=== PATIENT | male | born 1965 ===

== ENCOUNTER 2020-06-13 08:43 | Outpatient (REF) | payer OTHER, SELFPAY | END 2020-06-13 08:44 | disposition home or self-care (01) | LOC: HO.LAB 08:43 | PROVIDERS: Visit Provider Internal Medicine | DX: Z20.828 Contact with and (suspected) exposure to other viral communicable diseases (principal) | CPT/HCPCS: 87635 ==

== ENCOUNTER 2020-07-10 09:28 | Outpatient (REF) | payer OTHER, SELFPAY | END 2020-07-10 09:29 | disposition home or self-care (01) | LOC: HO.LAB 09:28 | PROVIDERS: Visit Provider Internal Medicine | DX: Z20.828 Contact with and (suspected) exposure to other viral communicable diseases (principal) | CPT/HCPCS: C9803; U0003 ==

== ENCOUNTER → 2021-01-04 11:26 | Outpatient (BNVA) | payer OTHER, SELFPAY | PROVIDERS: Visit Provider Internal Medicine | DX: M54.2 Cervicalgia (principal); S16.1XXA Strain of muscle, fascia and tendon at neck level, initial encounter; X58.XXXA Exposure to other specified factors, initial encounter; R51.9 Headache, unspecified | CPT/HCPCS: 72050; 99203 ==

== ENCOUNTER 2021-01-04 13:29 | Emergency (ER) | payer OTHER, SELFPAY ==
[2021-01-04 13:41] VITALS: BP 132/79; PULSE 47; RESP 18; TEMP 36.1; O2SAT 99; BMI 19.2
--- NOTE | 2021-01-04 14:59 | ED.NECK ---
HPI - Neck Pain/Injury General Chief Complaint: Neck Pain/Injury Stated Complaint: severe headache and neck pain Time Seen by Provider: 01/04/21 14:16 Source: patient Mode of arrival: ambulatory Limitations: no limitations History of Present Illness HPI Narrative: 55 y/o male with no significant medical history presents to the ER from [facility] with right sided neck pain for the last 3 days. He denies known injury. He works for the [employer]. He states the pain is aching and it feels like a tightness in his muscle. It is worse with movement of his neck in any direction. It causes him to have a headache that is also worse with movement. No photophobia, light sensitivity, fever, chills, N/V, vision changes, weakness, numbness or tingling. He had a recent negative x-ray of his neck. MD complaint: neck pain Onset (ago): day(s) (3) Place: work Radiation: right lateral Severity: moderate Quality: spasming and throbbing Duration: constant Relieving factors: immobilization Exacerbating factors: movement of neck Associated symptoms: headache Treatments prior to arrival: none Related Data Previous Rx's Medication Instructions Recorded cyclobenzaprine 10 mg PO TID PRN #12 tab 01/04/21 ibuprofen 600 mg PO Q8H PRN #14 tab 01/04/21 lidocaine [Lidoderm] 1 patch TOPICAL DAILY #15 ea 01/04/21 Allergies Allergy/AdvReac Type Severity Reaction Status Date / Time pollen extracts [POLLEN] Allergy Unknown RUNNY NOSE Unverified 05/03/20 15:42 SNEEZING mold Allergy Unknown Uncoded 10/26/18 00:00 N.K.D.A. Allergy Unknown Uncoded 10/26/15 00:00 pollen Allergy Unknown Uncoded 10/26/18 00:00 Review of Systems Review of Systems: Constitutional: No Fever, No Chills Eyes: No Eye Pain, No Swelling, No Redness Cardiovascular: No Chest Pain, No SOB Respiratory: No Cough, No Sputum Gastrointestinal: No Nausea, No Vomiting, No Diarrhea, No abdominal Pain Genitourinary: No Dysuria, No Urinary Frequency, No Hematuria Musculoskeletal: No joint pain, + Myalgias Skin: No Skin Lesions, No rash Neuro: No Weakness, No Numbness, No Dizziness, + Headache Psych: No Anxiety/Panic, No Depression Heme/Lymph: No Bruising, No Lymphadenopathy [facility] Past Medical History Attestation statement: The following information was validated with the patient. Medical History Carpal tunnel syndrome of right wrist Social History Social History Advance Directives: Yes Advance Directives Information Provided: No Advance Directives on File: No Physical Exam Vital Signs: Vital Signs: Last Vital Signs Temp 97.0 F 01/04/21 13:41 Pulse 47 L 01/04/21 13:41 Resp 18 01/04/21 13:41 BP 132/79 01/04/21 13:41 Pulse Ox 99 01/04/21 13:41 Body Mass Index 19.2 Appearance: Alert. Oriented X3. No acute distress. Eyes: Pupils equal, round and reactive to light. EOMI, no nystamguc. ENT: Pharynx normal. Neck: Normal inspection. Neck supple. No nuchal rigidity. Tender posterior-laterally on the right side with soft tissue tenderness. Discomfort with rotation to the left and flexion and extension of the neck. CVS: Normal heart rate and rhythm. Pulses normal. Respiratory: No respiratory distress. Breath sounds normal. Abdomen: Soft and nontender. +BS x4 Skin: Skin warm and dry. Normal skin color. Normal skin turgor. No rashes. Extremities: No lower extremity edema. Neuro: Oriented X 3. No motor deficit. No sensory deficit. Steady gait. Course Course Course Narrative: 55 y/o male presenting with non-traumatic right sided neck pain and headache for the last 3 days. Worse with movement and palpation. No fever or chills. Non-toxic appearing. Doubt acute meningitis given patient's presentation and examination. He appears well. Will treat for muscular pain with NSAID and muscle relaxer and reassess. No indication for lumbar puncture at this time. Reevaluation(s) Reevaluation #1: Patient sleeping comfortable. When awoken he reports his pain is improved. Continues to have no fevers or nuchal rigidity. He is stable for discharge with treatment for acute cervical strain. Patient and have been counseled and they will return if patient has worsening symptoms. Discharge Plan Discharge Clinical Impression: Strain of neck muscle Qualifiers: Encounter type: initial encounter Qualified Code(s): S16.1XXA - Strain of muscle, fascia and tendon at neck level, initial encounter Patient Disposition: Home, Self-Care Instructions: Cervical Strain (ED), Neck Pain (ED) Additional Instructions: No bending, lifting or twisting. Use ice several times per day for 20 minutes at a time for the next 48 hours and then change to heat. Take medications as prescribed to help with pain and discomfort. Follow up with your Primary Care Doctor this week. If your pain worsens, if you develop new numbness, tingling, weakness, sensitivity to light or fever call 911 or come back to the ER right away for evaluation. Prescriptions: New cyclobenzaprine 10 mg tablet 10 mg PO TID PRN (Reason: muscle spasm) Qty: 12 RF: 0 lidocaine [Lidoderm] 5 % adhesive patch,medicated 1 patch topical DAILY Qty: 15 RF: 0 ibuprofen 600 mg tablet 600 mg PO Q8H PRN (Reason: pain) Qty: 14 RF: 0 Stand Alone Forms: Work/School Release
[2021-01-04] MEDS: diazePAM 2 MG TABLET PO (15:17)
[2021-01-04] MEDS: Ketorolac Tromethamine 30 MG/ML VIAL IM (15:17)
== END 2021-01-04 17:42 | disposition home or self-care (01) ==
PROVIDERS: Emergency Provider Internal Medicine
DX: S16.1XXA Strain of muscle, fascia and tendon at neck level, initial encounter (principal); M54.2 Cervicalgia; R51.9 Headache, unspecified; X58.XXXA Exposure to other specified factors, initial encounter; Y93.9 Activity, unspecified; Y92.9 Unspecified place or not applicable; Y99.9 Unspecified external cause status; Z79.899 Other long term (current) drug therapy
CPT/HCPCS: 96372; 99283; J1885

== ENCOUNTER 2021-01-05 19:01 | Emergency (ER) | payer OTHER, SELFPAY ==
--- NOTE | ~2021-01-05 | CT_ITS ---
EXAMINATION: CT ANGIOGRAM NECK AND BRAIN CLINICAL INFORMATION: Right-sided pain, dizziness, ringing in ears COMPARISON: Noncontrast head CT 06/12/2015 TECHNIQUE: Initial noncontrast head CT was performed. Test bolus sequences followed by intravenous administration 70 mL of Omnipaque 350. Helical imaging was performed in the axial plane from the thoracic inlet to the skull vertex. Delayed postcontrast imaging of the head was also performed. The data was processed at the magnetic resonance technologist's workstation for generation of MIP sequences. Angled MIPs and volume rendered reformatted images were also generated at an offline 3D workstation. Stenoses are assessed in accordance with NASCET criteria unless otherwise indicated. DOSE LOWERING TECHNIQUES: This CT examination was performed using dose optimization techniques as appropriate, variously including the following: - Automated exposure control - Adjustment of mA and/or kV according to patient size (this includes techniques or standardized protocols for targeted exams were dose is matched to indication/reason for exam; i.e. extremities or head) - Use of iterative reconstruction technique DLP: 2492 mGy-cm FINDINGS: Neck CTA: There is a classic 3 vessel branching pattern of the aortic arch. Normal appearance of the visualized aortic arch and proximal branches. No evidence of stenosis at the branch origins. Both vertebral arteries are widely patent throughout their extracranial cervical course. Normal appearance of the common and internal carotid arteries without focal stenosis. Brain CTA: Normal appearance of the intradural vertebral arteries and basilar artery. There is origin of the left posterior cerebral artery. Bilateral posterior cerebral arteries appear patent. Normal appearance of the intradural internal carotid arteries without significant stenosis. The A1 segment of the left anterior cerebral artery appears atretic. Otherwise normal appearance of the anterior cerebral and middle cerebral arteries bilaterally without focal occlusion or stenosis. Normal anterior communicating artery. Normal arborization of the middle cerebral arteries. CT Head: Suboptimal assessment due to motion artifact. No intracranial mass, hemorrhage, extra-axial collection, or midline shift. The osorio-white matter differentiation is preserved. No pathologic intra-axial enhancement or regional oligemia. No hydrocephalus. There is partial opacification of the bilateral maxillary sinuses. The mastoid air cells are well-aerated. CT Neck: The thyroid gland and remaining cervical soft tissues are normal in appearance. No cervical spine abnormalities demonstrated. Upper Chest: No abnormalities in the visualized lung apices or upper mediastinum. CT/CT angio head neck IMPRESSION: 1. No acute intracranial findings. 2. No hemodynamically significant stenosis in the major arteries of the neck. No large vessel occlusion or significant stenosis in the intracranial circulation.
[2021-01-05 19:04] VITALS: BP 138/86; PULSE 60; RESP 20; TEMP 36.2; O2SAT 98; BMI 24.5
--- NOTE | 2021-01-05 19:46 | PC.NURSE ---
pt was seen here yesterday and pt prescribed flexeril, Motrin and lidoderm patches with no effect pt pain is cronic and worse.
--- NOTE | 2021-01-05 20:04 | ED_ITS ---
HPI - Neck Pain/Injury General Chief Complaint: Neck Pain/Injury Stated Complaint: Dizziness/Neck pain Time Seen by Provider: 01/05/21 19:53 Source: patient, family and old records reviewed Mode of arrival: ambulatory Limitations: no limitations History of Present Illness HPI Narrative: chronic neck pain but worsened over past 3 days now with headache and ringing in ear MD complaint: neck pain Onset (ago): day(s) (3) Place: home Radiation: right lateral Severity: severe Quality: sharp and stabbing Duration: constant Relieving factors: rest supine Exacerbating factors: movement of neck Associated symptoms: headache and other (dizziness, ringing in ear) Treatments prior to arrival: acetaminophen, ibuprofen and prescription analgesic Related Data Previous Rx's Medication Instructions Recorded cyclobenzaprine 10 mg PO TID PRN #12 tab 01/04/21 ibuprofen 600 mg PO Q8H PRN #14 tab 01/04/21 lidocaine [Lidoderm] 1 patch TOPICAL DAILY #15 ea 01/04/21 diazepam [Valium] 5 mg PO TID PRN #10 tab 01/06/21 prednisone 20 mg PO DAILY 5 Days #5 tab 01/06/21 Allergies Allergy/AdvReac Type Severity Reaction Status Date / Time pollen extracts [POLLEN] Allergy Unknown RUNNY NOSE Unverified 01/05/21 19:12 SNEEZING mold Allergy Unknown Runny Nose Uncoded 01/05/21 19:12 N.K.D.A. Allergy Unknown Unknown Uncoded 01/05/21 19:12 pollen Allergy Unknown Runny Nose Uncoded 01/05/21 19:12 Review of Systems Review of Systems: Constitutional : No Fever, No Chills ENT/Mouth : No Ear Pain, No Hoarseness, No sore throat, pos neck pain Eyes: No Eye Pain, No Swelling, No Redness, No Foreign Body Cardiovascular : No Chest Pain, No SOB Respiratory : No Cough, No Dyspnea Gastrointestinal : No Nausea, No Vomiting, No Diarrhea, No abdominal Pain Genitourinary : No Dysuria, No Hematuria Musculoskeletal : positive joint pain, No Myalgias, No Joint Swelling Skin : No Skin lacerations, No rash Neuro : No Weakness, No Numbness, No Loss of Consciousness, pos Dizziness, pos Headache Psych : No Anxiety/Panic, No Depression Heme/Lymph: no easy bruising, no Lymphadenopathy Endocrine : No Polyuria, No Polydipsia All other systems reviewed and are negative [facility] Past Medical History Attestation statement: The following information was validated with the patient. Medical History Carpal tunnel syndrome of right wrist Chronic neck pain Social History Social History (Updated 01/05/21 @ 20:10 by Jessica Martinez DO) Alcohol intake: never Smoking Status: Never smoker Advance Directives: No Advance Directives Information Provided: No Physical Exam Vital Signs: Vital Signs: Last Vital Signs Temp 98.4 F 01/06/21 00:18 Pulse 42 L 01/06/21 00:18 Resp 14 01/06/21 00:18 BP 121/70 01/06/21 00:18 Pulse Ox 98 01/06/21 00:18 Body Mass Index 24.5 Appearance: Alert. Oriented X3. No acute distress. Eyes: Pupils equal, round and reactive to light. ENT: Pharynx normal. Neck: R lateral neck ttp no spasms noted just pain to palpation CVS: Normal heart rate and rhythm. Pulses normal. Respiratory: No respiratory distress. Breath sounds normal. Abdomen: Soft and nontender. Skin: Skin warm and dry. Normal skin color. Normal skin turgor. Extremities: No lower extremity edema. No calf ttp Neuro: Oriented X 3. No motor deficit. No sensory deficit. Course Course Course Narrative: no acute findings, feels muhc better will add on steroids and prednisone MDM - Neck Pain/Injury MDM Narrative Medical decision making narrative: 55 yo male chronic neck pain no injury but worse x 4 days with ringing in ears and dizziness at this time given new symptoms of dizziness and headache CTA for dissection ordered, dispo per results and findings, IV morphine for pain Lab Data Result diagrams: 01/05/21 20:21 01/05/21 20:21 Labs: Lab Results 01/05/21 01/05/21 01/05/21 Range/Units 20: 20:21 20:21 WBC 5.6 (4.8-10.8) X10*3/uL RBC 4.65 (4.60-5.80) X10*6/uL Hgb 14.0 (14.0-18.0) g/dl Hct 42.3 (42-52) % MCV 91.0 (80-98) fL MCH 30.1 (27.0-33.0) pg MCHC 33.1 (31.0-36.0) g/dl RDW 13.0 (11.0-16.0) % Plt Count 212 (160-400) X10*3/uL MPV 11.2 (9.4-12.4) fL Immature Gran % (Auto) 0.2 (0.0-0.4) % Neut % (Auto) 58.9 (45-73) % Lymph % (Auto) 26.5 (20-40) % [place] % (Auto) 8.8 (2-11) % Eos % (Auto) 5.2 H (0-4) % Baso % (Auto) 0.4 (0-2) % Lymph # (Auto) 1.5 (1.2-4.9) X10*3/uL [place] # (Auto) 0.5 (0.1-1.2) X10*3/uL Eos # (Auto) 0.3 (0.0-0.4) X10*3/uL Baso # (Auto) 0.0 (0.0-0.2) X10*3/uL Abs Immat Gran (auto) 0.01 (0.00-0.03) X10*3/uL Absolute Neuts (auto) 3.3 (2.0-8.3) X10*3/uL Absolute Nucleated RBC 0.000 (0.0-0.012) X10*3/uL Nucleated RBC % (auto) 0.0 (0.0-0.2) /100WBC PT 14.4 H (10.8-13.0) SEC INR 1.2 H (0.9-1.1) APTT 30.2 (24.1-38.0) SEC Sodium 144 (135-145) mmol/L Potassium 3.6 (3.3-5.1) mmol/L Chloride 107 (96-108) mmol/L Carbon Dioxide 28 (22-29) mmol/L Anion Gap 13 (12-20) BUN 18 H (9-16) mg/dL Creatinine 0.79 (0.5-1.4) mg/dL Estim Creat Clear Calc 111.2 Estimated GFR > 60 Random Glucose 75 (60-115) mg/dL Calcium 9.2 (8.4-10.2) mg/dL Discharge Plan Discharge Clinical Impression: Strain of neck muscle Qualifiers: Encounter type: initial encounter Qualified Code(s): S16.1XXA - Strain of muscle, fascia and tendon at neck level, initial encounter Patient Disposition: Home, Self-Care Instructions: Acute Neck Pain (ED) Additional Instructions: return to ED for any worsening symptoms or concerns Prescriptions: New prednisone 20 mg tablet 20 mg PO DAILY 5 Days Qty: 5 RF: 0 diazepam [Valium] 5 mg tablet 5 mg PO TID PRN (Reason: muscle spasm) Qty: 10 RF: 0 No Action cyclobenzaprine 10 mg tablet 10 mg PO TID PRN (Reason: muscle spasm) Qty: 12 RF: 0 lidocaine [Lidoderm] 5 % adhesive patch,medicated 1 patch topical DAILY Qty: 15 RF: 0 ibuprofen 600 mg tablet 600 mg PO Q8H PRN (Reason: pain) Qty: 14 RF: 0 Referrals: Physician,Unknown [Primary Care Provider] - 3 days
[2021-01-05 20:29] LABS: MANUAL DIFF FLAG NO
[2021-01-05 20:31] LABS: Basophils Percent Auto 0.4 % (0-2); Eosinophils Absolute Auto 0.3 X10*3/uL (0.0-0.4); Eosinophils Percent Auto 5.2 % (0-4); Hematocrit 42.3 % (42-52); Imm Gran Abs Auto 0.01 X10*3/uL (0.00-0.03); Imm Gran Pct Auto 0.2 % (0.0-0.4); Lymphocytes Absolute Auto 1.5 X10*3/uL (1.2-4.9); Lymphocytes Percent Auto 26.5 % (20-40); Mean Corpuscular HGB Conc 33.1 g/dl (31.0-36.0); Mean Corpuscular Hemoglobin 30.1 pg (27.0-33.0); Mean Platelet Volume 11.2 fL (9.4-12.4); Monocytes Absolute Auto 0.5 X10*3/uL (0.1-1.2); Monocytes Percent Auto 8.8 % (2-11); Neutrophils Absolute Auto 3.3 X10*3/uL (2.0-8.3); Neutrophils Percent Auto 58.9 % (45-73); Platelet Count 212 X10*3/uL (160-400); Red Blood Count 4.65 X10*6/uL (4.60-5.80); White Blood Count 5.6 X10*3/uL (4.8-10.8)
[2021-01-05 20:39] LABS: INTERNATIONAL NORM RATIO 1.2 (0.9-1.1); Prothrombin Time 14.4 SEC (10.8-13.0)
[2021-01-05] MEDS: LORazepam 2 MG/ML VIAL 1 MG IVPUSH ×2 (20:39→23:07)
[2021-01-05 20:42] LABS: Partial Thromboplastin Time 30.2 SEC (24.1-38.0)
[2021-01-05 20:44] VITALS: RESP 16
[2021-01-05] MEDS: Morphine Sulfate 4 MG/ML CARTRIDGE IVPUSH (20:44)
[2021-01-05] MEDS: ondansetron HCL 4 MG/2 ML VIAL IVPUSH (20:47)
[2021-01-05 20:55] LABS: Anion Gap 13 (12-20); Blood Urea Nitrogen 18 mg/dL (9-16); Calcium 9.2 mg/dL (8.4-10.2); Carbon Dioxide 28 mmol/L (22-29); Chloride 107 mmol/L (96-108); Creatinine Clr Calc Pharmacy 111.2; Estimated Glomerular Filt Rate > 60; Glucose Random 75 mg/dL (60-115); Potassium 3.6 mmol/L (3.3-5.1); Sodium 144 mmol/L (135-145)
[2021-01-05 21:40] VITALS: BP 121/71; PULSE 50; RESP 16; O2SAT 97
[2021-01-05 23:09] VITALS: BP 115/67; PULSE 48; RESP 18; O2SAT 97
[2021-01-05] MEDS: iohexoL 350 MG/ML 100 ML INFUS..BTL 70 ML IV (23:45)
[2021-01-06 00:18] VITALS: BP 121/70; PULSE 42; RESP 14; TEMP 36.9; O2SAT 98
[2021-01-06 01:34] VITALS: BP 120/65; PULSE 50; RESP 15; O2SAT 98
== END 2021-01-06 01:35 | disposition home or self-care (01) ==
PROVIDERS: Emergency Provider Emergency Medicine
DX: S16.1XXA Strain of muscle, fascia and tendon at neck level, initial encounter (principal); X58.XXXA Exposure to other specified factors, initial encounter; R42 Dizziness and giddiness; H93.13 Tinnitus, bilateral; R51.9 Headache, unspecified; Y93.9 Activity, unspecified; Y92.9 Unspecified place or not applicable; Y99.9 Unspecified external cause status
CPT/HCPCS: 36415; 70496; 70498; 80048; 85025; 85610; 85730; 96374; 96375; 96376; 99284; J2060; J2270; J2405; Q9967

== ENCOUNTER 2021-08-28 15:25 | Emergency (ER) | payer OTHER, SELFPAY ==
--- NOTE | 2021-08-28 | ECG_ITS ---
Test Reason : chest pain Blood Pressure : / mmHG Vent. Rate : 065 BPM Atrial Rate : 065 BPM P-R Int : 142 ms QRS Dur : 086 ms QT Int : 380 ms P-R-T Axes : 052 011 055 degrees QTc Int : 395 ms Normal sinus rhythm Normal ECG When compared with ECG of 16-MAY-2012 23:16, No significant change was found Referred By: Generic ED Physician Electronically Signed By:TERELL ANN
--- NOTE | ~2021-08-28 | XR_ITS ---
EXAMINATION: XR CHEST CLINICAL INFORMATION: Chest pressure and difficulty breathing. COMPARISON: Chest radiograph dated from 05/18/2013. TECHNIQUE: PA view of the chest was obtained. FINDINGS: Chronic asymmetric elevation of left hemidiaphragm. No focal airspace opacities, pleural effusions or pneumothorax. Mild biapical pleural thickening/scarring. No acute osseous abnormalities. Visualized upper abdomen within normal limits. XR/XR chest 1V IMPRESSION: No acute cardiopulmonary findings.
[2021-08-28 16:24] VITALS: BP 142/92; PULSE 56; RESP 18; TEMP 36.7; O2SAT 98; BMI 24.8
[2021-08-28 20:15] VITALS: BP 154/93; PULSE 54; RESP 16; O2SAT 100
--- NOTE | 2021-08-28 20:26 | ED.URI ---
HPI - URI/Sore Throat General Chief Complaint: Upper Respiratory Symptoms Stated Complaint: chest tightness cough Source: patient Mode of arrival: ambulatory Limitations: no limitations History of Present Illness HPI Narrative: 55-year-old male presents with midsternal chest pain while breathing, upper back pain with cough, tested COVID positive at the end of July and for 2nd time in August. Patient has been vaccinated. MD elicited complaint: cough and nasal congestion Onset (ago): week(s) Consistency: intermittent Severity: moderate Description of mucous: clear Able to tolerate fluids by mouth: Yes Exacerbating factors: exertion, deep breaths and other (Coughing) Relieving factors: rest Context: other (Positive COVID-19) Associated symptoms: rhinorrhea, nasal congestion, cough and chest pain Treatments prior to arrival: none Related Data Previous Rx's Medication Instructions Recorded cyclobenzaprine 10 mg tablet 10 mg PO TID PRN #12 tab 01/04/21 ibuprofen 600 mg tablet 600 mg PO Q8H PRN #14 tab 01/04/21 lidocaine 5 % topical patch 1 patch TOPICAL DAILY #15 ea 01/04/21 (Lidoderm) diazepam 5 mg tablet (Valium) 5 mg PO TID PRN #10 tab 01/06/21 prednisone 20 mg tablet 20 mg PO DAILY 5 Days #5 tab 01/06/21 benzonatate 200 mg capsule 200 mg PO TID PRN #20 cap 08/28/21 tramadol 50 mg tablet 50 mg PO Q8H PRN #7 tab 08/28/21 Allergies Allergy/AdvReac Type Severity Reaction Status Date / Time pollen extracts [POLLEN] Allergy Unknown RUNNY NOSE Verified 08/28/21 16:24 SNEEZING mold Allergy Unknown Runny Nose Uncoded 01/05/21 19:12 N.K.D.A. Allergy Unknown Unknown Uncoded 01/05/21 19:12 pollen Allergy Unknown Runny Nose Uncoded 01/05/21 19:12 Review of Systems Review of Systems: Constitutional: No Fever, No Chills ENT/Mouth: No Ear Pain, No Hoarseness, No sore throat Eyes: No Eye Pain, No Swelling, No Redness, No Foreign Body Cardiovascular: Positive Chest Pain, No SOB Respiratory: Positive Cough, No Dyspnea Gastrointestinal: No Nausea, No Vomiting, No Diarrhea, No abdominal Pain Genitourinary: No Dysuria, No Hematuria Musculoskeletal: positive right chest wall pain, No Myalgias, No Joint Swelling Skin: No Skin lacerations, No rash Neuro: No Weakness, No Numbness, No Paresthesias, No Loss of Consciousness, No Dizziness, No Headache Psych: No Anxiety/Panic, No Depression Heme/Lymph: no easy bruising, no Lymphadenopathy Endocrine: No Polyuria, No Polydipsia Yes all other systems are reviewed and are negative [facility] Past Medical History Attestation statement: The following information was validated with the patient. Source: old records reviewed Medical History (Updated 08/28/21 @ 20:36 by Astrid Villalba NP) Anxiety Carpal tunnel syndrome of right wrist Chronic neck pain COVID-19 Depression Social History Social History Alcohol intake: never Advance Directives: No Advance Directives Information Provided: No Physical Exam Vital Signs: Vital Signs: Last Vital Signs Temp 98.0 F 08/28/21 16:24 Pulse 54 08/28/21 20:15 Resp 16 08/28/21 20:15 BP 154/93 H 08/28/21 20:15 Pulse Ox 100 08/28/21 20:15 BMI result Body Mass Index 24.8 Appearance: Alert. Oriented X3. No acute distress. Eyes: Pupils equal, round and reactive to light. Sclera nonicteric. ENT: Pharynx normal. Moist mucous membranes. Neck: Normal inspection. Neck supple. No nuchal rigidity. No vertebral step-offs or tenderness noted. CVS: Normal heart rate and rhythm. Pulses normal. Chest wall tenderness to palpation, reproducible. Respiratory: No respiratory distress. Lung sounds clear to auscultation all lobes. Abdomen: Soft and nontender. Negative Easley and McBurney. Skin: Skin warm and dry. Normal skin color. Normal skin turgor. Extremities: No lower extremity edema. Gait well-balanced well coordinated. Neuro: No motor deficit. No sensory deficit. Cranial nerves 2-12 intact. Course Course Course Narrative: 55-year-old male presents with reproducible chest pain pain on inspiration to the right chest wall upper back pain on exertion and cough. Patient has been testing positive for COVID since the end of July, and on August 22. Patient is afebrile, appears nontoxic, even unlabored respirations, O2 sat 100% on room air. No acute distress. Chest x-rays negative for acute findings requiring emergent intervention. EKG is normal sinus. Most likely costochondritis versus occult rib fracture. Plan of care is to discharge home with supportive measures. Patient verbalized understanding of and agrees to plan of care discharge home. Understands signs and symptoms indicating need for emergent intervention. MDM - URI/Sore Throat MDM Narrative Medical decision making narrative: Costochondritis, rib fracture Differential Diagnosis Differential diagnosis: Likely upper respiratory infection, viral infection, bronchitis, influenza and pharyngitis Medical Records Attestation: I reviewed the patient's medical records. Lab Data Attestation: I reviewed the patient's lab results. Imaging Data Chest x-ray: Attestation: I personally reviewed and interpreted this imaging study as follows: Radiologist's impression: EXAMINATION: XR CHEST CLINICAL INFORMATION: Chest pressure and difficulty breathing. COMPARISON: Chest radiograph dated from 05/18/2013. TECHNIQUE: PA view of the chest was obtained. FINDINGS: Chronic asymmetric elevation of left hemidiaphragm. No focal airspace opacities, pleural effusions or pneumothorax. Mild biapical pleural thickening/scarring. No acute osseous abnormalities. Visualized upper abdomen within normal limits. XR/XR chest 1V IMPRESSION: No acute cardiopulmonary findings. ECG Data Attestation: I personally reviewed and interpreted this ECG as follows: ECG interpretation date: 08/28/21 ECG interpretation time: 15:36 Prior ECG tracings: available for review Interpretation: Vent. rate 65 BPM WV interval 142 ms QRS duration 86 ms QT/QTc 380/395 ms P-R-T axes 52 11 55 Normal sinus rhythm Normal ECG When compared with ECG of 16-MAY-2012 23:16, No significant change was found Discharge Plan Discharge Clinical Impression: COVID-19, Non-cardiac chest pain, Acute costochondritis, Fracture of rib due to cough Fracture of rib Qualifiers: Encounter type: initial encounter Rib fracture type: single rib Fracture type: closed Laterality: right Qualified Code(s): S22.31XA - Fracture of one rib, right side, initial encounter for closed fracture Patient Disposition: Home, Self-Care Instructions: Covid-19 Viral Syndrome and Novel Coronavirus (ED) Hey/Ath, Rib Fracture (ED), Costochondritis (ED), Noncardiac Chest Pain (ED), COVID-19 (Coronavirus Disease 2019) (ED) Additional Instructions: You were evaluated for symptoms related to COVID-19. You still have active symptoms and cannot return back to work. Your chest x-ray is negative for acute findings requiring emergent intervention. Your physical exam is suspicious for rib fracture and costochondritis. I prescribed tramadol, this medication is a narcotic and has high risk for addiction and abuse. Please do not drive or operate machinery while taking this medication. This medication can delay reaction time, cause drowsiness, falls, and cause constipation. Drink plenty of fluids while taking this medication. You must continue to follow-up with primary care physician for further care. Use Tessalon Perles as needed for cough. Maintain social isolation per State and Federal guidelines. Thank you for choosing this emergency department for evaluation. Please follow-up with primary care physician as needed. Return to the emergency department for any new, concerning, or worsening symptoms. Prescriptions: New tramadol 50 mg tablet 50 mg PO Q8H PRN (Reason: pain) Qty: 7 RF: 0 benzonatate 200 mg capsule 200 mg PO TID PRN (Reason: cough) Qty: 20 RF: 0 No Action prednisone 20 mg tablet 20 mg PO DAILY 5 Days Qty: 5 RF: 0 diazepam [Valium] 5 mg tablet 5 mg PO TID PRN (Reason: muscle spasm) Qty: 10 RF: 0 cyclobenzaprine 10 mg tablet 10 mg PO TID PRN (Reason: muscle spasm) Qty: 12 RF: 0 lidocaine [Lidoderm] 5 % adhesive patch,medicated 1 patch topical DAILY Qty: 15 RF: 0 ibuprofen 600 mg tablet 600 mg PO Q8H PRN (Reason: pain) Qty: 14 RF: 0 Interventions: ED Discharge Assessment Last Done: 08/28/21 21:32 Discharge Date/Time: 08/28/21 21:34
== END 2021-08-28 21:34 | disposition home or self-care (01) ==
PROVIDERS: Emergency Provider Internal Medicine; PCP Internal Medicine
DX: U07.1 COVID-19 (principal); R07.89 Other chest pain; M94.0 Chondrocostal junction syndrome [Tietze]; S22.31XA Fracture of one rib, right side, initial encounter for closed fracture; X58.XXXA Exposure to other specified factors, initial encounter; Y93.89 Activity, other specified; Y92.9 Unspecified place or not applicable; Y99.9 Unspecified external cause status
CPT/HCPCS: 71045; 93005; 99283; 99284

== ENCOUNTER 2024-05-04 15:13 | Outpatient (AMB) | payer OTHER, SELFPAY ==
--- NOTE | 2024-05-04 15:15 | MHC.OFFVIS ---
Vital Signs 05/04/24 15:17 Height 5 ft 11 in Intake Visit Reasons: Lipomas on lft nondominant arm and chest wall Intake Note: This patient presents for Lipomas on left nondominant arm and chest wall. Pt c/o; reports multiple lipoma, left am and chest wall. Rn Progressive Care Unit Required: No Accompanied by: Self / Same As Patient Allergies pollen extracts [POLLEN] Allergy (Unknown, Verified 05/04/24 15:16) RUNNY NOSE SNEEZING mold Allergy (Unknown, Uncoded 05/04/24 15:16) Runny Nose N.K.D.A. Allergy (Unknown, Uncoded 05/04/24 15:16) Unknown pollen Allergy (Unknown, Uncoded 05/04/24 15:16) Runny Nose Medication List - Last Reconciled 05/04/24 by Eric Bazzi MD benzonatate 200 mg PO TID PRN cyclobenzaprine 10 mg PO TID PRN diazepam (Valium) 5 mg PO TID PRN ibuprofen 600 mg PO Q8H PRN lidocaine 5% (Lidoderm) 1 patch topical DAILY prednisone 20 mg PO DAILY 5 days tramadol 50 mg PO Q8H PRN HPI HPI Lipomas on lft nondominant arm and chest wall: Details: 58-year-old female referred for a lipoma on the left arm as well as the epigastric area. He said that he has had this for several years. He says that the left arm lipoma is the 1 that particularly bothers him because of the size. He describes that the lipoma on the epigastric area is much smaller. [facility] Medical History (Updated 05/04/24 @ 15:31 by Eric Bazzi MD) Lipoma of arm Anxiety Depression COVID-19 Chronic neck pain Carpal tunnel syndrome of right wrist Social History Alcohol intake: never Review of Systems Const Denies chills and Denies fever(s) Card Denies chest pain, Denies dyspnea and Denies dyspnea on exertion Resp Denies cough, Denies dyspnea and Denies dyspnea on exertion GI Denies hematochezia and Denies change in bowel habits Denies hematuria and Denies difficulty urinating Musc Denies back pain and Denies limited range of motion Neuro Denies focal weakness and Denies convulsions Psych Denies depression and Denies mood swings Physical Exam Const General: comfortable and no acute distress Orientation/consciousness: patient oriented x3 Neck Neck: Yes no lymphadenopathy Resp Auscultation: clear to auscultation bilaterally Cardio Rhythm: regular rhythm GI Other: I am unable to palpate for the lipoma and the epigastric area Palpation (GI): Soft to palpation, nontender and no guarding Neuro General: patient oriented x3 Extrem Other: Lipomatous mass on the left upper arm, well-defined, about 1.8 cm in diameter, mobile Assessment & Plan Assessment & Plan (1) Lipoma of arm: Code(s): D17.20 - Benign lipomatous neoplasm of skin and subcutaneous tissue of unspecified limb Category: Medical Plan I explained the technique of excision of this lipoma in the left upper arm. I reviewed the risks including but not limited to bleeding and infections, as well as the benefits and alternatives. He wants to proceed. This will be done in the office under local anesthesia on his next visit. I am and able to feel the lipoma on the epigastric area that he wants to. We are going to hold off on excision of this area for now. Coding Level of Care Code New Pt Level 3 (18211) Diagnoses Lipoma of arm D17.20
== END 2024-05-04 15:36 | disposition home or self-care (01) ==
PROVIDERS: PCP Internal Medicine; Referring Provider Internal Medicine; Visit Provider Surgery
DX: D17.20 Benign lipomatous neoplasm of skin and subcutaneous tissue of unspecified limb (principal)
CPT/HCPCS: 99203

== ENCOUNTER → 2024-05-04 15:13 | Outpatient (BNVA) | payer OTHER, SELFPAY | PROVIDERS: PCP Internal Medicine; Referring Provider Internal Medicine; Visit Provider Surgery | DX: D17.20 Benign lipomatous neoplasm of skin and subcutaneous tissue of unspecified limb (principal) | CPT/HCPCS: 99202 ==

== ENCOUNTER 2024-05-18 11:25 | Outpatient (REF) | payer OTHER, SELFPAY | END 2024-05-18 11:26 | disposition home or self-care (01) | LOC: HO.LNP 11:25 | PROVIDERS: PCP Internal Medicine; Visit Provider Surgery | DX: D17.22 Benign lipomatous neoplasm of skin and subcutaneous tissue of left arm (principal) | CPT/HCPCS: 24075; 88304 ==

== ENCOUNTER 2024-05-18 11:25 | Outpatient (AMB) | payer OTHER, SELFPAY ==
--- NOTE | 2024-05-18 11:27 | A.OFFVIS_ITS ---
Intake Visit Reasons: excision lipoma (L) arm Allergies pollen extracts [POLLEN] Allergy (Unknown, Verified 05/04/24 15:16) RUNNY NOSE SNEEZING mold Allergy (Unknown, Uncoded 05/04/24 15:16) Runny Nose N.K.D.A. Allergy (Unknown, Uncoded 05/04/24 15:16) Unknown pollen Allergy (Unknown, Uncoded 05/04/24 15:16) Runny Nose HPI HPI excision lipoma (L) arm: Details: He is here for excision of a lipoma from the left arm. [facility] Medical History (Updated 05/04/24 @ 15:31 by Eric Bazzi MD) Lipoma of arm Anxiety Depression COVID-19 Chronic neck pain Carpal tunnel syndrome of right wrist Social History Alcohol intake: never Office Procedures Excision Details: The area of the lipoma was prepped and draped. Lidocaine 1% was used for local anesthesia. I made an incision on the skin overlying the lipoma using blade 15. This was carried down sharply through the full-thickness of the skin and subcutaneous fat until the lipoma was visualized. I sharply dissected the lipoma off of the rest of the subcutaneous layer using scissors until this was delivered and sent as a specimen. This lipoma measured about 2 cm x 1 cm. I cl osed the incision with full-thickness nylon 3-0 simple interrupted sutures. Dressings were applied. The procedure was completed. He tolerated the procedure well. There were no immediate complications. 32632-oadsd/arms/legs 1.1-2cm Procedure code (CPT) selection complete Assessment & Plan Assessment & Plan (1) Lipoma of arm: Code(s): D17.20 - Benign lipomatous neoplasm of skin and subcutaneous tissue of unspecified limb Category: Medical Plan: He was given wound care instructions. I can see him in the office in about 2 weeks for a follow-up to remove his sutures. He can take Tylenol and ibuprofen for pain p.r.n.. Coding Level of Care Code Procedure Only Diagnoses Lipoma of arm D17.20 CPT Codes Trunk/Arms/Legs - CPT: 06891-ruwqr/arms/legs 1.1-2cm ([id number])
== END 2024-05-18 11:46 | disposition home or self-care (01) ==
PROVIDERS: PCP Internal Medicine; Visit Provider Surgery
DX: D17.20 Benign lipomatous neoplasm of skin and subcutaneous tissue of unspecified limb (principal)
CPT/HCPCS: 24075

== ENCOUNTER 2024-06-01 15:05 | Outpatient (AMB) | payer OTHER, SELFPAY ==
--- NOTE | 2024-06-01 15:25 | MHC.OFFVIS ---
Intake Visit Reasons: s/p exc lipoma lt arm (off proc) Intake Note: This patient presents for suture removal status post excision lipoma of left arm. Pt c/o; reports no complaints at this time. 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 Allergy (Unknown, Uncoded 06/01/24 15:26) Unknown pollen Allergy (Unknown, Uncoded 06/01/24 15:26) Runny Nose HPI HPI s/p exc lipoma lt arm (off proc): Details: He underwent excision of a lipoma of the left arm 2 weeks ago in the office. He tolerated the procedure well. He currently denies significant complaints. [facility] Medical History Lipoma of arm Anxiety Depression COVID-19 Chronic neck pain Carpal tunnel syndrome of right wrist Surgical History (Updated 06/01/24 @ 15:33 by Saritha Christensen [facility]) S/P excision of lipoma (~05/18/24) Social History Alcohol intake: never Review of Systems Const Denies chills and Denies fever(s) Physical Exam Const General: comfortable and no acute distress Extrem Other: Excision site on the left arm is well healed, not infected, sutures intact Assessment & Plan Assessment & Plan (1) Lipoma of arm: Code(s): D17.20 - Benign lipomatous neoplasm of skin and subcutaneous tissue of unspecified limb Category: Medical Plan: Status post excision. I removed his sutures. The wound edges remained well apposed. The incisions well healed. His path report confirms the lipoma. He can follow up on a p.r.n. basis. Coding Level of Care Code Global (11026) Diagnoses Lipoma of arm D17.20
== END 2024-06-01 15:44 | disposition home or self-care (01) ==
PROVIDERS: PCP Internal Medicine; Visit Provider Surgery
DX: D17.20 Benign lipomatous neoplasm of skin and subcutaneous tissue of unspecified limb (principal)
CPT/HCPCS: 99024

== ENCOUNTER → 2024-06-01 15:05 | Outpatient (BNVA) | payer OTHER, SELFPAY | PROVIDERS: PCP Internal Medicine; Visit Provider Surgery | DX: D17.20 Benign lipomatous neoplasm of skin and subcutaneous tissue of unspecified limb (principal) | CPT/HCPCS: 99212 ==

== ENCOUNTER 2024-11-14 13:51 | Outpatient (AMB) | payer BC, SELFPAY ==
[2024-11-14 13:53] VITALS: BP 116/82; PULSE 68; O2SAT 95; BMI 25.8
--- NOTE | 2024-11-14 13:53 | MHC.PC.OV ---
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 Allergy (Unknown, Uncoded 11/14/24 14:28) Unknown pollen Allergy (Unknown, Uncoded 11/14/24 14:28) Runny Nose Medication List - Last Reconciled 11/14/[address]oney MD albuterol sulfate 90 mcg/actuation 2 puffs inhalation Q6H PRN atorvastatin 10 mg PO BEDTIME budesonide-formoterol 160-4.5 mcg/actuation (Symbicort) 1 inh inhalation BID bupropion HCl SR 150 mg PO QAM gabapentin 300 mg PO TID hydroxyzine HCl 25 mg PO TID PRN prazosin 2 mg PO BEDTIME PRN sertraline 100 mg PO DAILY Tobacco use date assessed: 11/14/24 Dental Screening Dental Screen Date: 11/14/24 Did you have a dental visit in the last 12 months?: Yes Did you have a dental problem in the last 6 months where you did not have access to dental care?: No Was dental information given to patient?: Patient has dentist HPI establish care HPI Details Patient comes in today to establish care - is a new patient to the practice States that he has (+) Hx of COPD and has been maintained on Symbicort (dosed BID) and Albuterol inhalers by his previous PCP for a while now He admits that he has not been using his inhalers regularly and therefore has been experiencing on and off flare-ups of his COPD Relates that he has also been experiencing recurrent sharp pains over his right posterior thoracic area when he is moving and when he takes deep breaths - states that this has been going on for the past 6 months to 1 year now He does not recall any recent injury or trauma to his right thoracic area Patient states that he feels okay otherwise He denies any headaches or dizziness Denies any chest pains, no increased shortness of breath No nausea/vomiting, no abdominal pain No change in bowel habits noted Adds that he has been experiencing difficulty with concentration for a while now States that he suspects that he may have ADD but he has never been formally evaluated or treated and he would like to know what he can do regarding this States that he is planning to retire soon (he has worked for the [employer] for about 27 years now) and would like to make sure that he does not have any problems at work [facility] Medical History (Updated 11/21/24 @ 04:[address] MD) Pure hypercholesterolemia COPD (chronic obstructive pulmonary disease) Lipoma of arm Anxiety Depression COVID-19 Chronic neck pain Carpal tunnel syndrome of right wrist Surgical History S/P excision of lipoma (~05/18/24) Social History Housing: House Alcohol intake: never Patient Tobacco Use Status: Former Tobacco user e-Cigarette/Vaping Use: Never Used service: Yes Current occupational status: employed Current occupational exposures/hazards: Yes Cognitive needs: No Hearing needs: No Vision needs: Yes Questionnaire PHQ-9 Over the last 2 weeks, how often have you been bothered by any of the following problems? 1. Little interest or pleasure in doing things: nearly every day 2. Feeling down, depressed, or hopeless: nearly every day 3. Trouble falling or staying asleep, or sleeping too much: several days 4. Feeling tired or having little energy: several days 5. Poor appetite or overeating: not at all 6. Feeling bad about yourself - or that you are a failure or have let yourself or your family down: not at all 7. Trouble concentrating on things, such as reading the newspaper or watching television: not at all 8. Moving or speaking so slowly that other people could have noticed. Or the opposite - being so fidgety or restless that you have been moving around a lot more than usual: not at all 9. Thoughts that you would be better off or of hurting yourself in some way: not at all Total score: 8 Depression Screening Interpretation: Positive Depression Screening Follow-up: Existing condition and In treatment Depression Screening Done: Yes 41709 - PHQ-9 Billing: Yes Source: Developed by Drs. Guillaume Bloom, Krysten Jett, Fabian Evangelista and colleagues, with an educational jeevan from [employer]. Thrive Questionnaire Date Thrive assessed: 11/14/24 I am a: Patient What is your living situation today?: I have a steady place to live Within the past 12 months, did the food you bought not last and you didn't have the money to get more?: Never true Within the past 12 months, did you worry whether your food would run out before you got money to buy more?: Never true Do you have trouble paying for medicines?: No Do you have trouble getting transportation to medical appointments?: No Do you have trouble paying your heating and electricity bill?: No Do you have trouble taking care of your child, family member or friend?: No Do you have trouble with day-to-day activities such as bathing, preparing meals, shopping, managing finances, etc.?: I choose not to answer this question Are you currently unemployed and looking for a job?: No Are you interested in more education?: No Please select the resources that you would like help with: None Currently or been in a relationship where the following occur: I choose not to answer THRIVE Score: 0 AUDIT C Alcohol Use Questionnaire (AUDIT-C) 1. How often do you have a drink containing alcohol?: Monthly or less 2. How many drinks containing alcohol do you have on a typical day when you are drinking?: 1 or 2 3. How often do you have six or more drinks on one occasion?: Weekly Total Score: 4 Score Reviewed/Action Taken: Yes JOSE-7 AMB Questionnaire JOSE-7 Date JOSE - 7 assessed: 11/14/24 Feeling nervous, anxious, or on edge: 1 = Several days Not being able to stop or control worryin = Not at all Worrying too much about different things: 1 = Several days Trouble relaxin = Several days Being so restless that it is hard to sit still: 1 = Several days Becoming easily annoyed or irritable: 0 = Not at all Feeling afraid as if something awful might happen: 0 = Not at all Total JOSE-7 score (0-4 normal; 5-9 mild; 10-14 moderate; 15-21 severe): 4 Source: Developed by Drs. Guillaume Bloom, Krysten Jett, Fabian Evangelista and colleagues, with an educational jeevan from [employer]. Review of Systems Const Denies chills, Denies fatigue, Denies fever(s) and Denies headache(s) ENT Denies dysphagia, Denies dizziness, Denies otalgia, Denies headache(s), Denies neck pain, Denies odynophagia and Denies sore throat Card Denies chest pain, Denies palpitations and Denies dyspnea Resp Denies chest congestion, Denies cough and Denies dyspnea GI Denies abdominal pain, Denies constipation, Denies dysphagia, Denies heartburn, Denies diarrhea, Denies nausea, Denies odynophagia and Denies vomiting Denies difficulty urinating, Denies dysuria, Denies nocturia and Denies urinary frequency Musc Details: recurrent sharp pains over the right thoracic area - see HPI Denies back pain and Denies neck pain Skin/Breast Denies rash Neuro Denies dizziness and Denies headache(s) Psych Reports anxiety, Reports depression and Reports difficulty concentrating Endo Denies fatigue and Denies palpitations Physical exam (Primary Care) Vital Signs: Last Vital Signs Pulse 68 11/14/24 13:53 BP 116/82 11/14/24 13:53 Pulse Ox 95 11/14/24 13:53 Oxygen Delivery Method Room Air 11/14/24 13:53 BMI result Body Mass Index 25.8 Tobacco/Smoking Status: Tobacco use Status Tobacco use date assessed 11/14/24 11/14/24 13:58 Patient Tobacco Use Status Former Tobacco user 11/14/24 14:03 e-Cigarette/Vaping Use Never Used 11/14/24 14:03 PHQ-9: PHQ-9 Score PHQ-9: Total score 8 11/14/24 14:35 Depression Screening Interpretation: Positive Depression Screening Follow-up: Existing condition and In treatment Thrive Assessment: Date of Thrive Assessment Date Thrive assessed 11/14/24 11/14/24 13:58 Currently or been in a relationship where the following occur: I choose not to answer Const General: no acute distress and alert HENMT Ears: TM's normal bilaterally and EAC's normal Throat: Yes posterior oropharynx normal and Yes tonsils normal (no TP congestion) Neck Neck: Yes supple and No lymphadenopathy Thyroid: Thyroid normal Resp Auscultation: clear to auscultation bilaterally, no crackles, no rales, no wheezes and diminished lung sounds (slightly) bilateral Cardio Rate: regular rate Rhythm: regular rhythm Heart sounds: no murmurs GI Palpation (GI): Soft to palpation and nontender Auscultation: normal bowel sounds General: Yes no CVA tenderness Back/Spine/Pelvis Back: no CVA tenderness Thoracic/Lumbar Spine: No thoracic spinal tenderness and No lumbar spinal tenderness Skin Rashes: no rashes Extrem General: Yes no clubbing, cyanosis or edema Coding Level of Care Code New Pt Level 4 (21914) Diagnoses Chronic obstructive pulmonary disease, unspecified COPD type J44.9 COPD type: unspecified COPD Pure hypercholesterolemia E78.00 Acute right-sided thoracic back pain M54.6 Chronicity: acute Difficulty concentrating R41.840 Anxiety F41.9 Episode of recurrent major depressive disorder, unspecified depression episode severity F33.9 Depression Type: major depressive disorder Major depression recurrence: recurrent Active/Remission status: currently active Major depression episode severity: unspecified Additional Codes PHQ-9 - 41488 - PHQ-9 Billing: Yes ([id number]) Assessment & Plan Assessment & Plan (1) COPD (chronic obstructive pulmonary disease): Code(s): J44.9 - Chronic obstructive pulmonary disease, unspecified Category: Medical Qualifiers: COPD type: unspecified COPD Qualified Code(s): J44.9 - Chronic obstructive pulmonary disease, unspecified Plan: Continue Symbicort 160-4.5 mcg 1 inhalation BID and Albuterol HFA 1 to 2 inhalations Q 6 hours PRN (2) Pure hypercholesterolemia: Code(s): E78.00 - Pure hypercholesterolemia, unspecified Category: Medical Plan: Reinforced low cholesterol diet Continue Atorvastatin 10 mg QD Will recheck his labs and fasting lipids in 4 months for follow up (3) Right-sided thoracic back pain: Code(s): M54.6 - Pain in thoracic spine Category: Medical Qualifiers: Chronicity: acute Qualified Code(s): M54.6 - Pain in thoracic spine Plan: Patient is advised that his recent recurrent right-sided thoracic pain is likely due to musculoskeletal strain Have advised him to try applying some warm compress over the sore areas PRN for symptomatic relief He can also try applying some of the OTC muscle pain cream, ointment or patches PRN (4) Difficulty concentrating: Code(s): R41.840 - Attention and concentration deficit Category: Medical Plan: Patient suspects that he may have ADD but states that he was never formally evaluated or treated Will refer him for neuropsychiatry evaluation (5) Anxiety: Code(s): F41.9 - Anxiety disorder, unspecified Category: Medical Plan: Continue Hydroxyzine 25 mg TID PRN and Bupropion SR 150 mg Q AM (6) Depression: Code(s): F32.A - Depression, unspecified Category: Medical Qualifiers: Depression Type: major depressive disorder Major depression recurrence: recurrent Active/Remission status: currently active Major depression episode severity: unspecified Qualified Code(s): F33.9 - Major depressive disorder, recurrent, unspecified Plan: Continue Sertraline 100 mg QD, Prazosin 2 mg Q HS PRN, Gabapentin 300 mg TID and Bupropion SR 150 mg Q AM Follow up with psychiatry as scheduled Plan Follow up in 4 months Orders: Orders TSH reflex Free T4 4 Months E78.00 - Pure hypercholesterolemia, unspecified UA CC w/rflx Micro + Cult 4 Months R30.0 - Dysuria Vitamin D 25-OH Total 4 Months E55.9 - Vitamin D deficiency, unspecified Complete Blood Count Auto Diff 4 Months D64.9 - Anemia, unspecified Comprehensive [place]. Panel Fast 4 Months E78.00 - Pure hypercholesterolemia, unspecified Lipid Panel 4 Months E78.00 - Pure hypercholesterolemia, unspecified Referrals Neuropsychiatry Referral R41.840 - Attention and concentration deficit
--- OUTSIDE RECORDS SUMMARY | 2024-11-14 15:38 | XMS_ITS | Encounter Summary ---
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 This section includes the names of all active insurance providers for the patient. Insurance Provider Type of Coverage Plan Name Start of Policy Coverage End of Policy Coverage Group Number Member ID Insurance Provider's Telephone Number Policy Pérez's Name Patient's Relationship to Policy Pérez [place] [facility] CE ORGANIZAT ION COH G AND E Feb 15, 2024 [id number] SUSAN SMITH PATIENT BCBS [facility] CE ORGANIZAT ION COH POLIC E DEPT HDHP Feb 15, 2024 [id number] SUSAN SMITH PATIENT BCBS OF [facility] CE ORGANIZAT ION COH G AND E Feb 15, 2024 [id number] SUSAN SMITH PATIENT [employer] PRESCRIPT ION RX Feb 15, 2024 [id number] SUSAN SMITH PATIENT [employer] PRES[employer] ION COH G AND E Feb 15, 2024 [id number] SUSAN SMITH PATIENT [employer] RX PRESCRIPT ION Feb 14, 2017 [id number] SUSAN SMITH PATIENT [facility] CE ORGANIZ [place] Feb 14, 2019 [id number] SUSAN SMITH PATIENT [facility] CE ORGANIZAT ION W/OUT OF NETWORK BENEFITS COH G AND E Feb 15, 2024 [id number] SUSAN SMITH PATIENT Selected Encounter This section includes the information on record at [place] for the Encounter. Date/Time Encounter Type Encounter [...] eye [facility] [place] [facility] Aug 12, 2024 07:57 AM SECONDARY Puckering of macula, left eye [facility] [place] [facility] Aug 12, 2024 07:57 AM SECONDARY Vitreomacular adhesion, left eye [facility] [place] [facility] Aug 12, 2024 07:57 AM SECONDARY Vitreomacular adhesion, right eye [facility] [place] [facility] Plan of Treatment: Future Appointments (+ 6 [...] 20 appointments. The data comes from all [place] treatment facilities. Appointment Date/Time Appointment Type Appointme nt Facility Name Aug 30, 2024 03:00 PM [facility] Sep 14, 2024 03:30 PM AMBULATORY - PSYCHIATRY [facility] Sep 28, 2024 02:25 PM AMBULATORY - MEDICINE [facility] Oct 10, 2024 02:00 PM AM[place]ULAT[facility] [place]ICINE [place] [facility] Oct 14, 2024 03:30 PM AMBULATORY - PSYCHIATRY [facility] Oct 25, 2024 03:00 PM [facility] Nov 17, 2024 11:30 AM AMBULATORY - MEDICINE [facility] Nov 21, 2024 02:00 PM AMBULATORY - PSYCHIATRY [facility] January 13, 2025 02:00 PM AMBULATORY - PSYCHIATRY [facility] Social History: Smoking Status (Most current) and Tobacco Use (All prior to encounter date) This section includes the most current, and the historical, smoking and tobacco- related health factors from the [place] facility where the Encounter took place. Current Smoking Status This section includes the most current smoking, or tobacco-related health factor, from the [place] facility where the Encounter took place. Date/Time Current Smoking Status Comment Facil ity Apr 13, 2020 02:25 PM VA-TOBACCO FORMER USER [facility] Tobacco Use History This section includes a history of the smoking, or tobacco-related health factors, that were collected on or before the date of the Encounter. The data comes from the [place] facility where the Encounter took place. Date/Time Smoking Status/Tobacco Use Comment F acility Apr 13, 2020 02:25 PM VA-TOBACCO QUIT 5 TO < 15 YRS [facility] Advance Directives: All historical and current Section Date Range: From patient's date of to the date document was created. This section includes ALL of a patient's completed or amended [place] Advance and Rescinded Directives. The entries below indicate that a directive exists for the patient, but an actual copy is not included with this document. The data comes from all [place] facilities. Date Advance Directives Provider Source Jun 13, 2017 ADVANCE DIRECTIVE ISABELA DODSON [facility] Apr 18, 2014 [facility] En[facility] Notes: All associated encounter notes This section contains the clinical notes associated to the Encounter. Date/Time Encounter Note(s) Provider Source Jul 26, 2024 03:07 PM OPTOMETRY CONSULT: LOCAL TITLE: CONSULT REPORT/OPTOMETRY OCT STANDARD TITLE: OPTOMETRY CONSULT DATE OF NOTE: JUL 26, 2024@15:07 ENTRY DATE: JUL 26, 2024@15:07:19 AUTHOR: LUANN MARTINEZ EXP COSIGNER: COLETTE DURAN URGENCY: STATUS: COMPLETED CONSULT [...] retinal nerve fiber layer thickness is 73 ??m with average cup-to-disc ratio of 0.66 and vertical cup-to-disc ratio of 0.66. Disc areas larger than average measuring 2.14 mm??. There is evidence of nerve fiber layer thinning superior quadrant with remaining quadrants within normal limits. Optic nerve OCT left eye: Average retinal nerve fiber layer thickness is 76 ??m with average cup-to-disc ratio of 0.60 and vertical cup-to-disc ratio of 0.55. Disc area is similar in size to right eye measuring 2.13 mm??. Again there is evidence of nerve fiber [...] central corneal thickness right eye is 549 ??m. Average central corneal thickness left eye is 548 ??m. Essentially average corneal thickness each eye. +++++++++++++++++++++++++ [...] OPTOMETRY Signed: 07/27/2024 11:39 [facility]
--- OUTSIDE RECORDS SUMMARY | 2024-11-14 15:38 | XMS_ITS | Encounter Summary ---
Author Name [facility] [place] [facility] [place] [facility] [place] Address [address] [place] [address] Care Team Providers Care Clinical Nutrition Manager Name Role Phone DEBORAH PRIETO Primary Care [...] Relationship to Policy Pérez [place] [facility] CE ORGANIZAT ION COH G AND E Feb 15, 2024 [id number] SUSAN SMITH PATIENT BCBS [facility] CE ORGANIZAT ION COH POLIC E DEPT HDHP Feb 15, 2024 [phone] SUSAN SMITH [place] PATIENT BCBS OF [facility] CE ORGANIZAT ION COH G AND E Feb 15, 2024 [id number] SUSAN SMITH [place] PATIENT [employer] PRESCRIPT ION RX Feb 15, 2024 [id number] [phone] SUSAN SMITH PATIENT [employer] PRESCRIPT ION COH G AND E Feb 15, 2024 [id number] SUSAN SMITH PATIENT [employer] RX PRESCRIPT ION Feb 14, 2017 [id number] SUSAN SMITH PATIENT [facility] CE ORGANIZ [place] Feb 14, 2019 [id number] SUSAN SMITH PATIENT [employer] [facility] CE ORGANIZAT ION W/OUT OF NETWORK BENEFITS COH G AND E Feb 15, 2024 [id number] SUSAN SMITH PATIENT Selected Encounter This section includes the information on record at [place] for the Encounter. Date/Time Encounter Type Encounter Description Reason Provider Source Nov 26, 2023 10:44 AM HOSP IP/OBS DSCHRG MGMT 30/< MEDICAL/SURGICAL DAY UNIT MSDU ICD-10-CM Z98.890 Other specified postprocedural states ANGIE JAMES [facility] Encounter Template Text not used by [place] Assessments - Encounter Diagnoses This section includes the primary and secondary diagnoses documented for the Encounter. Date/Time Primary/Secondary Diagnosis Diagnosis Name Provider Source Nov 26, 2023 11:30 AM PRIMARY Other specified postprocedural states ANGIE JAMES [facility] Plan of Treatment: Future Appointments (+ 6 months) and Future Tests (+/- 45 days) The Plan of Treatment section includes future care activities for the patient from all [place] treatmentfacilities. This section includes future appointments and future orders which are active, pending or scheduled. Future Appointments This section includes appointments that were scheduled to occur 6 months from the date of the Encounter, up to a maximum of 20 appointments. The data comes from all [place] treatment facilities. Appointment Date/Time Appointment Type Appointme nt Facility Name Dec 08, 2023 03:00 PM AMBULATORY - PSYCHIATRY [facility] December 17, 2023 02:30 PM AMBULATORY - PSYCHIATRY [facility] December 25, 2023 08:00 AM AMBULATORY - MEDICINE [facility] December 25, 2023 08:30 AM AMBULATORY - MEDICINE [facility] December 28, 2023 03:30 PM AMBULATORY - NEUROLOGY [facility] Feb 09, 2024 03:00 PM AMBULATORY - PSYCHIATRY [facility] Feb 19, 2024 02:00 PM AMBULATORY - MEDICINE [facility] [place] [facility] Mar 18, 2024 03:00 PM AMBULATORY - PSYCHIATRY [facility] Mar 22, 2024 03:00 PM AMBULATORY - PSYCHIATRY [facility] Mar 29, 2024 02:30 PM AMBULATORY - MEDICINE [facility] [place] [facility] May 04, 2024 03:15 PM AMBULATORY - MEDICINE [facility] [place] [facility] May 10, 2024 02:00 PM AM[facility]ULATORY - MEDICINE [facility] May 17, 2024 03:00 PM AMBULATORY - PS[facility]CHIATRY [facility] [place] [facility] May 27, 2024 08:00 AM AMBULATORY - MEDICINE [facility] [place] [facility] Vital Signs: All taken on the encounter date This section contains inpatient and outpatient Vital Signs collected on the date of the Encounter. Date/Time Temperature Pulse Blood Pressure Respiratory Rate SP02 Pain Height Weight Body Mass Index Source Nov 26, 2023 09:37 AM 97.2 48 130/77 17 99 7 71 175 24 [facility] Advance Directives: All historical and current Section Date Range: From patient's date of to the date document was created. This section includes ALL of a patient's completed or amended [place] Advance and Rescinded Directives. The entries below indicate that a directive exists for the patient, but an actual copy is not included with this document. The data comes from all [place] facilities. Date Advance Directives Provider Source Jun 13, 2017 [facility] Apr 18, 2014 ADVANCE DIRECTIVE JESSEE LAZAR Radiology Reports: +/- 30 days of the encounter Radiology Reports For cases when an order for radiology services may have been completed prior to the date of the Encounter, the report list includes the Radiology Reports that were completed up to 30 days before dateof the Encounter. For cases when an order for radiology services may have been completed after the date of the Encounter, the report list also includes the Radiology Reports that were completed up to30 days after date of the Encounter. The data comes from all [place] treatment facilities. Date/Time Radiology Report Provider Source Nov 26, 2023 10:11 AM MRI CERVICAL SPINE W/O CONTRAST: PARUL SMITH [id number] M Exm Date: NOV 26, 2023@10:11 Req Phys: YOSELINMILTON Neisha Loc: [facility] MRI DAYS (Req'g Loc) Img Loc: MRI ([facility]) Service: Unknown (Case [id number] COMPLETE) MRI CERVICAL SPINE W/O CONTRAST (MRI Detailed) CPT:68775 Reason for Study: headaches and significant cervicalgia Clinical History: patient needs general anesthesia Report Status: Verified Date Reported: NOV 26, 2023 Date Verified: NOV 26, 2023 Multisensor Intelligence Officer E-Sig:/ES/FATUMA JC Report: MRI OF THE CERVICAL SPINE WITHOUT INTRAVENOUS CONTRAST INDICATION: Headaches, neck pain TECHNIQUE: Multisequence multiplanar MRI of the cervical spine was performed without contrast. COMPARISON: Cervical spine radiographs dated 06/20/2019 FINDINGS: No gross abnormality in the partially visualized posterior fossa. The craniocervical junction relationships are normal. Preserved flow voids in the visualized cervical vasculature. The prevertebral and paravertebral soft tissues are normal. Secretions in the nasopharynx and oropharynx likely related to presence of airway support apparatus.. Alignment is normal. Vertebral body heights are maintained. No abnormal marrow signal. The facet joint alignment is anatomical. The spinal cord is normal in signal and caliber. No evidence of STIR hyperintensity to suggest ligamentous injury. There is mild multilevel disc desiccation . At C2-C3, mild left-sided facet arthropathy is noted. There is no significant canal or neural foramen stenosis. At C3-4, a small central disc protrusion deforms the ventral thecal sac. Right-sided facet arthropathy results in mild right neural foramen stenosis. Mild perifacet edema and small subchondral cysts are noted on the right suggesting some associated inflammation. At C4-5, a small central disc protrusion deforming the ventral thecal sac. Right-sided facet arthropathy results in mild right neural foramen narrowing. No significant canal stenosis. At C5-C6, a central-right central disc protrusion deforming the ventral thecal sac without obvious impingement on neural structures. A right central and subarticular disc herniation at C6-7 identified somewhat flattening the spinal cord on the right and likely contacting the right C7 ventral nerve rootlet resulting moderate spinal canal stenosis. No significant neural foraminal narrowing. At C7-T1, a small central disc protrusion as well as ventral thecal sac without obvious impingement on neural structures. Mild right-sided facet arthropathy at T3-T4. Axial images are not obtained at this level. The visualized soft tissues of the neck are unremarkable. Impression: 1.A right central and subarticular disc herniation at C6-7 identified somewhat flattening the spinal cord on the right and likely contacting the right C7 ventral nerve rootlet resulting moderate spinal canal stenosis. No significant neural foraminal narrowing. No associated cord T2 hyperintensity is identified. 2.At C3-4, a small central disc protrusion deforms the ventral thecal sac. Right-sided facet arthropathy results in mild right neural foramen stenosis. Mild perifacet edema and small subchondral cysts are noted on the right suggesting some associated inflammation. 3. Additional degenerative changes as described above. Primary Diagnostic Code: No Immediate Attention Required Primary Interpreting Staff: FATUMA JC, Staff Physician (Multisensor Intelligence Officer) Primary Interpreting Resident: FATUMA RAM, RESIDENT /FATUMA SPEAR [facility] Encounter Notes: All associated encounter notes This section contains the clinical notes associated to the Encounter. Date/Time Encounter Note(s) Provider Source Nov 26, 2023 12:17 PM NURSING NOTE: LOCAL TITLE: [facility] POST PROCEDURE NURSING NOTE (T) STANDARD TITLE: NURSING NOTE DATE OF NOTE: NOV 26, 2023@12:17 ENTRY DATE: NOV 26, 2023@12:17:21 AUTHOR: TOMA LAUGHLIN COSIGNER: URGENCY: STATUS: COMPLETED APU POST PROCEDURE NOTE TIME TEMP. PULSE B/P RESP.RATE O2 SAT. 1215: 97.2 45 122/81 16 95% RA 1230: 43 114/80 16 95% RA 1245: 42 115/84 16 95% RA 1300: 45 116/78 16 96% RA 1315: 43 112/84 16 95% RA NURSING ASSESSMENT: Received patient s/p MRI with anesthesia accompanied by NAYAN Santizo. Pt is alert and oriented, denies any pain, nausea, vomiting, dizziness. No cardiac/respiratory distress noted. Pt tolerated chicken salad sandwich and tu odell without difficulty. Discharge instructions reviewed with patient, pt verbalized understanding. IV removed with catheter intact and ID band shredded. Pt discharged via wheelchair with JERARDO Day in stable condition along with all personal belongings. Intravenous line discontinued: Yes IV site: wnl: bruised: amount infused: DISCHARGE PLAN: Health education handout given: Medication instructions handout given: Discharge instructions given: Patient verbalized understanding of discharge instructions: Yes If not understood by patient, then whom: Patient meets the 9 discharge criteria of the APU listed below: Yes 1. Stable vital signs for a minimum of 30 minutes after last dose of sedation administered. 2. Airway unobstructed; effective cough. 3. Blood pressure and heart rate within 20% of baseline. 4. Dressing dry and intact. 5. Skin warm and dry. 6. Minimal nausea or dizziness. 7. Pain level less than 5 or identified by the patient as acceptable. 8. Orientation to time, place, person or commensurate with baseline function. 9. Patient or guardian verbalizes comprehension of discharge instruction. If No, please explain: Patient Wistband: Patient wristband was removed and destroyed by placing in a secured and locked Personal Health Information (PHI) receptacle for shredding. Discharged home at Nov@14:00 and with whom: Follow-up appointment: Pt to be contacted Multi disciplinary Team Members Involved:RN/ /kevin/ TOMA LAUGHLIN REGISTERED NURSE Signed: 11/26/2023 14:13 TOMA LAUGHLIN [facility] Nov 26, 2023 10:47 AM PHYSICIAN DISCHARG E NOTE: LOCAL TITLE: PATIENT DISCHARGE INSTRUCTION (T) STANDARD TITLE: PHYSICIAN DISCHARGE NOTE DATE OF NOTE: NOV 26, 2023@10:47 ENTRY DATE: NOV 26, 2023@10:47:26 AUTHOR: ANGIE JAMES EXP COSIGNER: URGENCY: STATUS: COMPLETED Facility Treating Specialty: APU Your ATTENDING PHYSICIAN during your hospital stay was: Angie James MD Discharge Diagnosis: REQUIRED ANESTHESIA SEDATION FOR MRI DUE TO (e.g., Claustrophobia, failed attempts with sedation) REASON FOR DISCHARGE: Patient has reached optimal goals of acute hospitalization. Patient/Caregiver has been informed of the discharge to the appropriate level of care. Yes Patient is being transferred to appropriate level of care outside current facility. Patient/caregiver has been informed of the plan of care for transfer. YES Discharge to: Home Type of discharge: Regular AGENCY REFERRALS: None Physical/Activity Limitations: None DIET: Resume regular home diet Post Procedure Sedation: Today you received medications to make you sleepy during your procedure. You were monitored following your procedure to prevent complications. Due to these medications; however, you may experience lightheadedness, dizziness, or sleepiness following your procedure. The effects of this sedation may last up to 24 hours. Therefore, we recommend you DO NOT STAY ALONE. You must be discharged from the APU with a responsible individual. During the next 24 hours, please adhere to the followin. DO NOT drive or operate heavy machinery. 2. DO NOT consume any alcoholic beverages. 3. DO NOT make important personal or business decisions or sign any legal documents. 4. Occasionally, there is some discomfort and redness noted at the IV site. If the discomfort is not relieved by the application of warm towels, 3-4 times a day, then notify your physician. Medications: Resume your usual medications as you normally take them Comments: Medications you were taking before that have been stopped during this hospitalization: None Medications with changed dosage during this hospitalization: None New medications during this hospitalization: None Medication Education: Resume your usual home medications as instructed by the prescriber. Return Appointments: Per primary care If you experience any bleeding, abnormal pain, back pain, chest pain, nausea, vomiting, fever, chills, difficulty breathing, or difficulty swallowing, contact your physician immediately. If you are unable to reach your physician return to the Emergency Department. CONTACT INFORMATION Please call MD if you experience: If you experience problems related to the sedation you received today contact: ANESTHESIOLOGIST AT [phone] If you experience general medical problems contact: PCMM Primary Provider: PCMM Team: Patient has received, understands and agrees with the discharge planned in continuing care instructions. Yes /es/ ANGIE JAMES ATTENDING ANESTHESIOLOGIST Signed: 11/26/2023 12:17 ANGIE JAMES [facility]
--- OUTSIDE RECORDS SUMMARY | 2024-11-14 15:38 | XMS_ITS | Encounter Summary ---
Author Name [facility] [facility] [place] [facility] [place] Address [address] [place] [id number] Care Team Providers Care Search Marketing Analyst Name Role Phone DEBORAH PRIETO Primary Care [...] Pérez's Name Patient's Relationship to Policy Pérez ANTHEM [place] [facility] CE ORGANIZAT ION COH G AND E Feb 15, 2024 [id number] [phone] SUSAN SMITH PATIENT [facility]BS [facility] CE ORGANIZAT ION [facility] POLIC E DEPT HD[facility] Feb 15, 2024 [id number] SUSAN SMITH PATIENT BCBS OF [facility] CE ORGANIZAT ION COH G AND E Feb 15, 2024 [id number] SUSAN SMITH PATIENT [place] PRESCRIPT ION RX Feb 15, 2024 [facility] [phone] SUSAN SMITH PATIENT [employer] PRESCRIPT ION COH G AND E Feb 15, 2024 [id number] SUSAN SMITH PATIENT [employer] RX PRESCRIPT ION Feb 14, 2017 [id number] SUSAN SMITH PATIENT [facility] CE ORGANIZ [place] Feb 14, 2019 [id number] SUSAN SMITH PATIENT [facility] CE ORGANIZAT ION W/OUT OF NETWORK BENEFITS COH G AND E Feb 15, 2024 [id number] SUSAN SMITH PATIENT Selected Encounter This section includes the information on record at [place] for the Encounter. Date/Time Encounter Type Encounter Description Reason Pro vider Source Nov 26, 2023 09:00 AM Outpatient Encounter MEDICAL/SURGICAL DAY UNIT [facility] IHE Encounter Template Text not used by [place] Plan of Treatment: Future Appointments (+ 6 months) and Future Tests (+/- 45 days) The Plan of Treatment section includes future care activities for the patient from all [place] treatmentfacilities. This section includes future appointments and future orders which are active, pending or scheduled. Future Appointments This section includes appointments that were scheduled to occur 6 months from the date of the Encounter, up to a maximum of 20 appointments. The data comes from all [place] treatment facilities. Appointment Date/Time Appointment Type Appointme nt Facility Name Dec 08, 2023 03:00 PM AMBULATORY - PSYCHIATRY [facility] December 17, 2023 02:30 PM AMBULATORY - PSYCHIATRY [facility] December 25, 2023 08:00 AM AMBULATORY - MEDICINE [facility] December 25, 2023 08:30 AM AMBULATORY - MEDICINE [facility] December 28, 2023 03:30 PM AMBULATORY - NEUROLOGY [facility] Feb 09, 2024 03:00 PM AMBULATORY - PSYCHIATRY [facility] Feb 19, 2024 02:00 PM [facility] Mar 18, 2024 03:00 PM AMBULATORY - PSYCHIATRY [facility] Mar 22, 2024 03:00 PM AMBULATORY - PSYCHIATRY [facility] Mar 29, 2024 02:30 PM [facility] [facility] May 04, 2024 03:15 PM [facility] [place] [facility] [facility] May 10, 2024 02:00 PM [facility] May 17, 2024 03:00 PM AMBULATORY - PS[facility]CHIATRY [facility] May 27, 2024 08:00 AM AMBULATORY - MEDICINE [facility] Vital Signs: All taken on the encounter date This section contains inpatient and outpatient Vital Signs collected on the date of the Encounter. Date/Time Temperature Pulse Blood Pressure Respiratory Rate SP02 Pain Height Weight Body Mass Index Source Nov 26, 2023 09:37 AM 97.2 48 130/77 17 99 7 71 175 24 [facility] Advance Directives: All historical and current Section Date Range: From patient's date of to the date document was created. This section includes ALL of a patient's completed or amended [place] Advance and Rescinded Directives. The entries below indicate that a directive exists for the patient, but an actual copy is not included with this document. The data comes from all [place] facilities. Date Advance Directives Provider Source Jun 13, 2017 ADVANCE DIRECTIVE ISABELA DODSON [facility] Apr 18, 2014 ADVANCE DIRECTIVE JESSEE [...] the Encounter. The data comes from all [place] treatment facilities. Date/Time Radiology Report Provider Source Nov 26, 2023 10:11 AM MRI CERVICAL SPINE W/O CONTRAST: PARUL SMITH [id number] -[id number] M Ex Date: NOV 26, 2023@10:11 Req Phys: MILTON WYATT Loc: [facility] MRI DAYS (Req'g Loc) Img Loc: MRI ([facility]) Service: Unknown (Case [id number] COMPLETE) MRI CERVICAL SPINE W/O CONTRAST (MRI Detailed) CPT:48631 Reason for Study: headaches and significant cervicalgia Clinical History: patient needs general anesthesia Report Status: Verified Date Reported: NOV 26, 2023 Date Verified: NOV 26, 2023 Tactical Response Group Officer E-Sig:/ESTEBAN/FATUMA JC Report: MRI OF THE CERVICAL SPINE [...] Primary Interpreting Staff: FATUMA JC, Staff Physician (Tactical Response Group Officer) Primary Interpreting Resident: FATUMA RAM, RESIDENT /FATUMA SPEAR [facility] Encounter Notes: All associated encounter notes This section contains the clinical notes associated to the Encounter. Date/Time Encounter Note(s) Provider Source Nov 26, 2023 09:39 AM NURSING PROCEDURE NOTE: LOCAL TITLE: [facility] DAY OF PROCEDURE NURSING CONSULT NOTE (T) STANDARD TITLE: NURSING PROCEDURE NOTE DATE OF NOTE: NOV 26, 2023@09:39 ENTRY DATE: NOV 26, 2023@09:40:26 AUTHOR: NATA MELCHORIGNER: URGENCY: STATUS: COMPLETED DAY OF PROCEDURE: COVID/Illness Screening Does the [place] have symptoms of COVID/Illness? (Cough, Shortness of Breath, Sore Throat, Fever, Nasal or Congestion or Recent exposure to someone with COVID) No If yes: 1. Referred to: 2. Comments: Does the patient have an Advance Directive? No If yes, does the patient want to change or revoke it during this admission? No If yes, a social work consult has been completed. No If yes, does the patient have a copy that they can provide now? No Is there an electronic copy of an Advance Directive in the CWAD (Patient Postings)? No If no, does the patient want information on Advance Directives? No If yes, a social Work consult has been completed No Date/time: Nov@10:00 Patient/Nursing Assessment Planned surgery/procedure: MRI of cervical w/out contrast Identification Band: Patient verified identity verbally: Yes Place on patient after patient is identified according to HSP: Yes Arrived from: Home How transported: Ambulatory Is the patient on blood thinners? No If yes, what is the name of the medication? when was the medication stopped? Does the patient have an open wound or rashes? No If yes, where? Did the patient have a Methicillin-resistant staphylococcus aures (MRSA) swab? No If yes, where? Allergies: Patient has answered NKA Other Allergies: nka A medication review is done with the patient/caregiver: Active Outpatient Medications (including Supplies): No Medications Found Active Medications from other [place]: Active Medications from Remote Data NOTE: Remote meds display is limited to those items matched to National Drug File at the originating site. SERTRALINE HCL 100MG TAB Sig: TAKE ONE TABLET BY MOUTH ONCE DAILY FOR MOOD Quantity: 30 Days Supply: 30 Rx Expiration Date: 09/17/24 Last filled 09/18/23 at [facility] (Active) PRAZOSIN HCL 2MG CAP Sig: TAKE ONE CAPSULE BY MOUTH AT BEDTIME NEEDED -FOR NIGHTMARES (OFF-LABEL) Quantity: 30 Days Supply: 30 Rx Expiration Date: 09/17/24 Last filled 09/18/23 at [facility] (Active) BUPROPION HCL 150MG 12HR TAB,SA Sig: TAKE ONE TABLET BY MOUTH EVERY MORNING -FOR MOOD/PTSD Quantity: 30 Days Supply: 30 Rx Expiration Date: 09/17/24 Last filled 09/18/23 at [facility] (Active) GABAPENTIN 300MG CAP Sig: TAKE ONE CAPSULE BY MOUTH THREE TIMES DAILY NEEDED --FOR PAIN/ANXIETY (OFF-LABEL) Quantity: 90 Days Supply: 30 Rx Expiration Date: 09/17/24 Last filled 09/18/23 at [facility] (Active) HYDROXYZINE HCL 25MG TAB Sig: TAKE ONE TABLET BY MOUTH THREE TIMES DAILY NEEDED -FOR ANXIETY Quantity: 90 Days Supply: 30 Rx Expiration Date: 09/17/24 [facility] ([facility]) Unable to review medications with patient/caregiver due to: no list with him Vital Signs: T: 97.2 F [36.2 C] (11/26/2023 09:37) P: 48 (11/26/2023 09:37) R: 17 (11/26/2023 09:37); O2 sat: 99%RA B/P: 130/77 (11/26/2023 09:37) Pain scale: 7 (11/26/2023 09:37) Finger stick: n/a PAIN ASSESSMENT Patient is able to self report pain. NUMERICAL PAIN SCALE Numerical Rating pain scale:7 Intervention IS NOT required at this time Comments: If pain is 4 or greater: Location:lopwer back and Character: Is your pain tolerable/adequately controlled in your present treatment plan: If answered no notified MD by: Weight: 175 lb [79.38 kg] (11/26/2023 09:37)lbs height: 71 in [180.3 cm] (11/26/2023 09:37)in. Neurological assessment: Mental status: Oriented, Anxious Fall Risk: YES If answered yes list personal assistive devices in place: Cane Wandering Risk: NO Sensory assessment limitation: hearing: NO visual: NO Respiratory: Breathing easily without distress YES O2 dependent: NO Cardiovascular: Heart Rate problems NO Pacemaker NO GI: bowel problems YES : urinary problems YES PEWTER FINISHER: If female last menstrual period: What was the method of patient preparation used? When was the last time food or fluid was taken: 8:30pm last night What medications did you take today?:None. Patient Transportation: How did you arrive? with How are you getting home? same way Name of person: [id number] Are they in the waiting area? Patient Belongings and valuables Placed in locker: No Locker number: Given to someone: Whom: Belonging list completed: No Blood: Is the clot current: No Procedure and consent verification: Patient verbalized an understanding of procedure? Yes Completed consent: Yes If No , Consent validated by patient: Yes Correct site validated by patient: Yes OR schedule and consent validated: Yes If no to any of the above who was notified: Intravenous access: Yes Inserted by:Ellie SPICER Device type: 20 hand Site: saline lock Solution: left FA Pre Procedure Medications: Time Medication Dose Route Other Procedure expectations for patient: Successful MRI and comofrtable Expected patient outcome/Plan of care: Pt comfort and understand plan of care Other team members involved: Anesthesia,nursing IF PATINT IS GOING TO THE OR CONTINUE. DOCUMENTATION PRESENT: /SRIKANTH Chowdary REGISTERED NURSE Signed: 11/26/2023 09:44 NATA MELCHOR [facility] Nov 26, 2023 09:33 AM NURSING NOTE: LOCAL TITLE: TICKET TO RIDE STANDARD TITLE: NURSING NOTE DATE OF NOTE: NOV 26, 2023@09:33 ENTRY DATE: NOV 26, 2023@09:33:20 AUTHOR: NATA MELCHOR EXP COSIGNER: URGENCY: STATUS: COMPLETED Transport location to: MRI From what area: [facility] Floor phone number: [phone] Nurse Ascom phone number: [phone] Charge Nurse Ascom phone number: [phone] Pain medication: Yes Last dose received: Nov Isolation Precautions: None For Covid 19 patients going a test/procedure was a mask placed? N/A Code Status: Full Code Mental Status: Oriented: to person, place, time Impairments: None Mobility: Self Fall Risk: Yes Telemetry: No If Yes: Is the patient on a monitor and accompanied by: O2 Liters: n/a O2 Tank Full: N/A Additional Comments: Please call Nurse to report any issues in procedural/testing areas /SRIKANTH Chowdary REGISTERED NURSE Signed: 11/26/2023 09:34 NATA MELCHOR [facility]
--- OUTSIDE RECORDS SUMMARY | 2024-11-14 15:39 | XMS_ITS | Continuity of Care Document ---
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 It does not include entries that were removed or entered in error. Problem Status Onset Date Problem Type Date of Resolution Comments Source Sinus bradycardia Active 015 Condition Nov 01, 2020 Entered By: BRADLEY ALVARES Comment: EKG 10/03/20 SB HR 51 [facility] Allergic rhinitis Active Condition Au g 2018 Entered By: BRADLEY ALVARES Comment: Resource Development Manager: Dr. Pond. Completed allergy shots 10/05 [facility] Arteriosclerotic heart disease Active Condition Sep 30, 2017 Entered By: BRADLEY ALVARES Comment: seen on CT chest 09/03 [facility] Atopic dermatitis Active Condition Ma y 2019 Entered By: BRADLEY ALVARES Comment: per derm cont w betamthasone PRN, f/u PRN. [facility] Cervicalgia Active Condition Nov 01, 2020 Entered By: BRADLEY ALVARES Comment: 10/24/20 mild deg changes greatest at C6-C7 w right sided cental protrusion resulting in mild/mod right sided central stenosis and remodeling of right vental cord [facility] Chronic post-traumatic stress disorder Active Condition Dec 02, 2017 Entered By: MADALYN TEMPLE Comment: reviewedJu2018 Entered By: MADALYN TEMPLE Comment: reviewedSep 2019 Entered By: MADALYN TEMPLE Comment: reviewed [facility] Colonic polyp Active Condition Sep Entered By: BRADLEY ALVARES Comment: colon 10/28/19 : small internal hemorroids, otherwise normal due 10/27/24 [facility] Gastroesophageal Reflux Disease Active Condition [facility] Herpes simplex type 1 infection Active Condition [facility] Hyperlipidaemia Active Condition [facility] Hypertension Active Condition [facility] Knee pain Active Condition Aug 31 Entered By: BRADLEY ALVARES Comment: s/p fall on ice [facility] Lumbago (SNOMED CT 939079579) Active Condition Jan 21, 2017 Entered By: BRADLEY ALVARES Comment: MRI 12/26/16 see note 01/21/17 [place] Obstructive sleep apnea syndrome (SNOMED CT 48402002) Active Condition Dec 15, 2011 Entered By: PAYTON CELIS Comment: on CPAPSep 2019 Entered By: BRADLEY ALVARES Comment: severe per home sleep study 05/06 [place] Prediabetes Active Condition [facility] Radiculopathy due to lumbar intervertebral disc disorder Active Condition [facility] Solitary nodule of lung Active Condition Apr 04, 2019 Entered By: BRADLEY ALVARES Comment: PFT 04/04Ju2019 Entered By: BRADLEY ALVARES Comment: CT chest 03/05 [facility] Tobacco Use Disorder, Remission Active Condition Dec 15, 2011 Entered By: PAYTON CELIS Comment: quit 03/26/2010 [place] Allergic rhinitis Inactive Condition 11/01/2021 A pr 2011 Entered By: PAYTON CELIS Comment: on injections - Dr Pond [place] Chronic cough Inactive Condition 11/01/2021 Mar 182013 Entered By: SALONI PEGUERO Comment: Etio?; seeing PULMO at [facility] as of MAR 30; GERD a Factor?Apr 12, 2014 Entered By: SALONI PEGUERO Comment: has had CXR, CT, PFT, EGD via [facility] (and then another CTAug 2013 Entered By: SALONI PEGUERO Comment: at [facility] will f/u [facility] in APR 30 for Testing ResultsJan 21, 2017 Entered By: BRADLEY ALVARES Comment: per notes: Granulomatous disease and mult pulm nodulesJun 2018 Entered By: BRADLEY ALVARES Comment: 09/02 CT sputum NEGAug 2018 Entered By: BRADLEY ALVARES Comment: PFT 03/24/19 [place] Costochondral junction syndrome Inactive Condition 11/01/2021 [facility] Laceration NEC Inactive Condition 11/01/2021 Nov 25, 2010 Entered By: PAYTON CELIS Comment: facial laceration 2010 Entered By: PAYTON CELIS Comment: scar revision Dr Lim @ [facility] Median neuropathy Inactive Condition 11/01/2021 J un 2018 Entered By: BRADLEY ALVARES Comment: right wrist [facility] Pain of left ankle joint (SNOMED CT [id number]) Inactive Condition 11/01/2021 Nov 09, 2 015 Entered By: BRADLEY ALVARES Comment: anterior talofibular and calcaneofibular ligaments. [facility] Diagnosis: ICD-10-CM F43.12 Post-traumatic stress disorder, chronic Active Diagnosis [place] Diagnosis: ICD-10-CM I10 Essential (primary) hypertension Active Diagnosis [place] Diagnosis: ICD-10-CM H35.371 Puckering of macula, right eye Active Diagnosis [facility] Diagnosis: ICD-10-CM H04.123 Dry eye syndrome of bilateral lacrimal glands Active Diagnosis [facility] Diagnosis: ICD-10-CM Z51.81 Encounter for therapeutic drug level monitoring Active Diagnosis [facility] Diagnosis: ICD-10-CM Z00.01 Encounter for general adult medical exam w abnormal findings Active Diagnosis [facility] [place] Diagnosis: ICD-10-CM R05.1 Acute cough Active Diagnosis [place] Diagnosis: ICD-10-CM G56.01 Carpal tunnel syndrome, right upper limb Active Diagnosis [facility] Diagnosis: ICD-10-CM R00.1 Bradycardia, unspecified Active Diagnosis [place] Diagnosis: ICD-10-CM R21 Rash and other nonspecific skin eruption Active Diagnosis [place] Diagnosis: ICD-10-CM F40.240 Claustrophobia Active Diagnosis [facility] Diagnosis: ICD-10-CM Z98.890 Other specified postprocedural states Active Diagnosis [facility] Diagnosis: ICD-10-CM Z01.818 Encounter for other preprocedural examination Active Diagnosis [facility] Diagnosis: ICD-10-CM M79.642 Pain in left hand Active Diagnosis [facility] Diagnosis: ICD-10-CM Z46.0 Encounter for fit/adjst of spectacles and contact lenses Active Diagnosis [facility] Diagnosis: ICD-10-CM H25.813 Combined forms of age-related cataract, bilateral Active Diagnosis [facility] Diagnosis: ICD-10-CM M54.2 Cervicalgia Active Diagnosis [facility] Medications Combined list of outpatient medications from 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Medications provided include 1) outpatient medications from the last 15 months, and 2) patient-reported medications. Medication Details Route Status Patient Instructions Prescription Expires Prescription Number Last Dispense Date Ordering Provider Order Date Order Qty Source ACETAMINOPH EN 500MG TAB TAKE ONE TABLET BY MOUTH EVERY 4 HOURS NEEDED ORAL ACTIVE [place]ALES [place] 2014 [place]ELD ATORVASTATI N CA 40MG TAB TAKE ONE-HALF TABLET BY MOUTH ONCE DAILY FOR HIGH CHOLESTE ROL ORAL ACTIVE 10/11/2025 [id number] DECEMBERBRANDI RLHussain P 2024 45 IELD AZITHROMYCI N 250MG TAB TAKE TWO TABLETS BY MOUTH NOW FOR 1 DAY, THEN TAKE ONE TABLET ONCE DAILY FOR 4 DAYS ORAL 03/20/2024 [id number] MARILEE WEN O 2023 6 IELD BUPROPION HCL 150MG 12HR TAB,SA TAKE ONE TABLET BY MOUTH EVERY MORNING -FOR MOOD/PTS D ORAL ACTIVE 10/15/2025 [id number] 5 EMBER TEMPLE 2024 30 [place] BUPROPION HCL 150MG 12HR TAB,SA TAKE ONE TABLET BY MOUTH EVERY MORNING -FOR MOOD/PTS D ORAL DISCONT INUED 06/16/2025 [id number] 4 EMBER TEMPLE 2023 30 [place] BUPROPION HCL 150MG 12HR TAB,SA TAKE ONE TABLET BY MOUTH EVERY MORNING -FOR MOOD/PTS D ORAL DISCONT INUED 03/19/2025 [id number] 4 EMBER TEMPLE KEVEN 2023 30 [place] BUPROPION HCL 150MG 12HR TAB,SA TAKE ONE TABLET BY MOUTH EVERY MORNING -FOR MOOD/PTS D ORAL DISCONT INUED 09/17/2024 [id number] 4 EMBER TEMPLE KEVEN 2023 30 [place] CARBOXYMETH YLCELLULOSE NA 0.5% SOLN,OPH INSTILL 1 DROP INTO EACH EYE FOUR TIMES A DAY DRY EYE OPHTHA LMIC ACTIVE 07/27/2025 [id number] Rob DURAN ICHELE 2023 60 [facility] CODEINE 10MG/GUAIFE NESIN 100MG/5ML (SF & AF) LIQUID TAKE 1 TEASPOON FUL (5ML) BY MOUTH TWICE DAILY NEEDED FOR COUGH ORAL 03/20/2024 [id number] 4 BEHZADTHERESA ARTEAGAARI O 2023 118 [place] DEXAMETHASO NE NA PHOSPHATE 4MG/ML INJ,SOLN INJECT 4MG (1ML) TOPICALL Y ONE TIME POISON SNOW DO NOT FILL, GIVEN FROM EBOX TOPICA L 01/24/2024 [id number] Kathy THOMAS 2023 1 IELD DOCUSATE NA 100MG CAP TAKE 1 CAPSULE BY MOUTH PRN ORAL ACTIVE GEORGE GONSALES [place] GABAPENTIN 300MG CAP TAKE ONE CAPSULE BY MOUTH THREE TIMES DAILY NEEDED --FOR PAIN/ANX IETY (OFF-LAB EL) ORAL ACTIVE 10/15/2025 [id number] 5 EMBER TEMPLE 2024 90 [place] GABAPENTIN 300MG CAP TAKE ONE CAPSULE BY MOUTH THREE TIMES DAILY NEEDED --FOR PAIN/ANX IETY (OFF-LAB EL) ORAL DISCONT INUED 06/16/2025 [id number] 4 EMBER TEMPLE 2023 90 [place] GABAPENTIN 300MG CAP TAKE ONE CAPSULE BY MOUTH THREE TIMES DAILY NEEDED --FOR PAIN/ANX IETY (OFF-LAB EL) ORAL DISCONT INUED 03/19/2025 [id number] 4 EMBER TEMPLE 2023 90 [place] GABAPENTIN 300MG CAP TAKE ONE CAPSULE BY MOUTH THREE TIMES DAILY NEEDED --FOR PAIN/ANX IETY (OFF-LAB EL) ORAL DISCONT INUED 09/17/2024 [id number] 4 EMBER TEMPLE 2023 90 [facility] IELD GOV-NIRMATR BREANA 150MG X 2/RITONAVIR 100MG X 1 TAB,PACK,3 TAKE 2 TABLETS NIRMATRE LVIR AND 1 TABLET RITONAVI R BY MOUTH TWICE DAILY FOR COVID-19 ORAL 05/19/2024 [id number] BEHZADMARILEE ARTEAGA O 2023 5 [place] HYDROCORTIS ONE 2.5% LOTION APPLY A THIN LAYER TOPICALL Y THREE TIMES A DAY FOR CONTACT DERMATIT IS TOPICA L 01/24/2024 [id number] Kathy THOMAS C 2023 180 [place] HYDROXYZINE HCL 25MG TAB TAKE ONE TABLET BY MOUTH THREE TIMES DAILY NEEDED -FOR ANXIETY ORAL ACTIVE 06/16/2025 [id number] 4 EMBER TEMPLE 2023 90 [place] HYDROXYZINE HCL 25MG TAB TAKE ONE TABLET BY MOUTH THREE TIMES DAILY NEEDED -FOR ANXIETY ORAL DISCONT INUED 03/19/2025 [id number] 4 EMBER TEMPLE 2023 90 [place] HYDROXYZINE HCL 25MG TAB TAKE ONE TABLET BY MOUTH THREE TIMES DAILY NEEDED -FOR ANXIETY ORAL DISCONT INUED 09/17/2024 [id number] 4 EMBER TEMPLE 2023 90 [place] LIDOCAINE 5% PATCH APPLY 1 PATCH TOPICALL Y ONCE DAILY FOR LOW BACK PAIN (LEAVE PATCH ON FOR 12 HOURS, THEN REMOVE PATCH) TOPICA L ACTIVE 03/30/2025 [id number] 4 BEHZADMARILEE ARTEAGA O 2023 90 [place] MULTIVITAMI NS W/MINERALS TAB TAKE ONE TABLET BY MOUTH ONCE DAILY ORAL ACTIVE VIVIANA GEORGE HALL HAIDER 2018 [place] PRAZOSIN HCL 2MG CAP TAKE ONE CAPSULE BY MOUTH AT BEDTIME NEEDED -FOR NIGHTMAR ES (OFF-LAB EL) ORAL ACTIVE 10/15/2025 [id number] 5 EMBER TEMPLE 2024 30 [place] PRAZOSIN HCL 2MG CAP TAKE ONE CAPSULE BY MOUTH AT BEDTIME NEEDED -FOR NIGHTMAR ES (OFF-LAB EL) ORAL DISCONT INUED 06/16/2025 [id number] 4 EMBER TEMPLE 2023 30 [place] PRAZOSIN HCL 2MG CAP TAKE ONE CAPSULE BY MOUTH AT BEDTIME NEEDED -FOR NIGHTMAR ES (OFF-LAB EL) ORAL DISCONT INUED 03/19/2025 [id number] 4 EMBER TEMPLE 2023 30 [place] PRAZOSIN HCL 2MG CAP TAKE ONE CAPSULE BY MOUTH AT BEDTIME NEEDED -FOR NIGHTMAR ES (OFF-LAB EL) ORAL DISCONT INUED 09/17/2024 [id number] 4 EMBER TEMPLE 2023 30 [place] PREDNISONE 50MG TAB TAKE ONE TABLET BY MOUTH ONCE DAILY FOR ASTHMA ORAL 03/20/2024 [id number] MARILEE WEN O 2023 5 [place] SERTRALINE HCL 100MG TAB TAKE ONE TABLET BY MOUTH ONCE DAILY FOR MOOD ORAL ACTIVE 10/15/2025 [id number] 5 EMBER TEMPLE 2024 30 [place] SERTRALINE HCL 100MG TAB TAKE ONE TABLET BY MOUTH ONCE DAILY FOR MOOD ORAL DISCONT INUED 03/19/2025 [id number] 4 EMBER TEMPLE 2023 30 [place] SERTRALINE HCL 100MG TAB TAKE ONE TABLET BY MOUTH ONCE DAILY FOR MOOD ORAL DISCONT INUED 09/17/2024 [id number] 4 EMBER TEMPLE 2023 30 [place] SUNSCREEN 30-50/AVOBE NZONE/PABA- FREE COMBO LOTION APPLY A [place] TOPICALL Y ONCE DAILY NEEDED TOPICA L ACTIVE 02/19/2025 [id number] BEHZAD, APOLINARI O 2023 240 [place] SUNSCREEN 30-50/PHYSI LOWELL BLOCK/PABA- FREE COMBO FACIAL CREAM APPLY A [place] TOPICALL Y ONCE DAILY NEEDED TOPICA L ACTIVE 02/19/2025 [id number] BEHZAD, APOLINARI O 2023 120 [place] TRAZODONE HCL 50MG TAB TAKE ONE TABLET BY MOUTH AT BEDTIME NEEDED FOR SLEEP ORAL ACTIVE 10/15/2025 [id number] 5 EMBER TEMPLE 2024 30 [place] TRAZODONE HCL 50MG TAB TAKE ONE TABLET BY MOUTH AT BEDTIME NEEDED FOR SLEEP ORAL DISCONT INUED 06/16/2025 [id number] EMBER TEMPLE 2023 30 [place] Immunizations Combined list of available immunizations from the 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 Immunization Series Date Given Administered By Site Reaction Lot Number CVX Code Drug Tube Heater Status Comments Source COVID-19 (MODERNA), MRNA, LNP-S, PF, 50 MCG/0.5 ML (AGES 12+ YEARS) 2024 KEYA COOPER LEFT DELTO ID [id number] 312 complet ed [place] INFLUENZA, SPLIT VIRUS, TRIVALENT, PF 2024 KEYA COOPER RIGHT DELTO ID [id number] 140 complet ed [place] INFLUENZA, INJECTABLE, QUADRIVALENT, PRESERVATIVE FREE 2021 150 complet ed [facility] TDAP 2020 115 complet ed [facility] ZOSTER RECOMBINANT 2 2020 187 complet ed [facility] COVID-19 (PFIZER), MRNA, LNP-S, PF, 30 MCG/0.3 ML DOSE 3 2020 208 complet ed [facility] INFLUENZA, UNSPECIFIED FORMULATION 2020 88 complet ed [facility] ZOSTER RECOMBINANT 1 2020 187 complet ed [place] TDAP 2020 115 complet ed [place] COVID-19 (PFIZER), MRNA, LNP-S, PF, 30 MCG/0.3 ML DOSE 2 2020 208 complet ed PFR; [id number]; [facility] COVID-19 (PFIZER), MRNA, LNP-S, PF, 30 MCG/0.3 ML DOSE 1 2020 208 complet ed PFR; [id number]; 1 [facility] INFLUENZA, INJECTABLE, QUADRIVALENT, PRESERVATIVE FREE 2018 150 complet ed Site: Left Deltoid [place] INFLUENZA, SEASONAL, INJECTABLE 2016 141 complet ed Site: Left Deltoid [facility] INFLUENZA, SEASONAL, INJECTABLE 2016 141 complet ed Per patient [facility] FLU,3 YRS (HISTORICAL) 2015 88 complet ed Site: Left Deltoid [place] FLU,3 YRS (HISTORICAL) 2014 88 complet ed Site: Left Deltoid [place] FLU,3 YRS (HISTORICAL) 2014 88 complet ed [place] PNEUMOCOCCAL POLYSACCHARID E [id number] 2014 33 complet ed [place] DTAP, UNSPECIFIED FORMULATION 2011 107 complet ed Site: Left Deltoid [place] FLU,3 YRS (HISTORICAL) 2009 88 complet ed [facility] TD(ADULT) UNSPECIFIED FORMULATION 2006 139 complet ed [facility] Results Combined list of recent chemistry, hematology and other laboratory results from Department of Defense and Veterans Affairs, ranging from 15 months to all on record, depending upon the facility. Order Name Results Value Reference Range Date Interpretation Specimen Comments Source LIPID PANEL FASTING CHOLESTEROL [MASS/VOLUM E] IN SERUM OR PLASMA 260 mg/dL 10/06 H Specimen Type: SERUM No comment entered. Ordering Provider: PADMA WEN Report Released Date/Time: Mar 29, 2024 03:35 PM Reporting Lab: [facility] [address] Performing Lab: [facility] [address] [facility] LIPID PANEL FASTING TRIGLYCERID E [MASS/VOLUM E] IN SERUM OR PLASMA 218 mg/dL 0 - 150 10/06 H Specimen Type: SERUM No comment entered. Ordering Provider: PADMA WEN Report Released Date/Time: Mar 29, 2024 03:35 PM Reporting Lab: [facility] [address] Performing Lab: [facility]ITAL[facility] [address] [address] [facility] LIPID PANEL FASTING CHOLESTEROL IN LDL [MASS/VOLUM E] IN SERUM OR PLASMA BY CALCULATION 168 mg/dL 0 - 129 10/06 H Specimen Type: SERUM No comment entered. Ordering Provider: PADMA WEN Report Released Date/Time: Mar 29, 2024 03:35 PM Reporting Lab: [facility]ETS [address] [address] Performing Lab: [facility] TRN [facility]ETS [address] [address] [facility] LIPID PANEL FASTING CHOLESTEROL .TOTAL/CHOL ESTEROL IN HDL [MASS RATIO] IN SERUM OR PLASMA 5.4 10/06 Specimen Type: SERUM No comment entered. Ordering Provider: PADMA WEN Report Released Date/Time: Mar 29, 2024 03:35 PM Reporting Lab: [facility] [address] Performing Lab: [facility] [address] [facility] [address] [facility] LIPID PANEL FASTING CHOLESTEROL IN HDL [MASS/VOLUM E] IN SERUM OR PLASMA 48 mg/dL 40 - 60 10/06 Specimen Type: SERUM No comment entered. Ordering Provider: PADMA WEN Report Released Date/Time: Mar 29, 2024 03:35 PM Reporting Lab: [facility] [address] [facility] [address] Performing Lab: [facility] [address] [facility] [address] [facility] HEMOGLOBI N A1C PANEL HEMOGLOBIN A1C/HEMOGLO BIN.TOTAL IN BLOOD BY HPLC 5.2 4.0 - 5.6 03/23 Specimen Type: BLOOD Comment: Values obtained from A1C measurement s can vary. For atypical A1C assays, a reported value of 7.0 could actually be between 6.72 and 7.28 if measured by a reference method. A reported value of 9.0 could actually be between 8.73 and 9.27. Ref: http://www. ngsp.org/[place] Pdata.asp Ordering Provider: PADMA WEN Report Released Date/Time: Feb 19, 2024 02:53 PM Reporting Lab: [facility] [address] [facility] [address] Performing Lab: [facility] [address] [address] [facility] LIPID PANEL FASTING CHOLESTEROL [MASS/VOLUM E] IN SERUM OR PLASMA 247 mg/dL 03/23 H Specimen Type: SERUM No comment entered. Ordering Provider: PADMA WEN Report Released Date/Time: Feb 19, 2024 02:53 PM Reporting Lab: [facility] [address] [facility] [address] Performing Lab: [facility] [address] [facility] [address] [facility] LIPID PANEL FASTING TRIGLYCERID E [MASS/VOLUM E] IN SERUM OR PLASMA 81 mg/dL 0 - 150 03/23 Specimen Type: SERUM No comment entered. Ordering Provider: PADMA WEN Report Released Date/Time: Feb 19, 2024 02:53 PM Reporting Lab: [facility]TRN [facility] [address] [facility] [address] Performing Lab: [facility]N [facility] [address] [facility] [address] [facility] LIPID PANEL FASTING CHOLESTEROL IN LDL [MASS/VOLUM E] IN SERUM OR PLASMA BY CALCULATION 175 mg/dL 0 - 129 03/23 H Specimen Type: SERUM No comment entered. Ordering Provider: PADMA WEN Report Released Date/Time: Feb 19, 2024 02:53 PM Reporting Lab: [facility] [address] [address] Performing Lab: [facility] [address] [address] [facility] LIPID PANEL FASTING CHOLESTEROL .TOTAL/CHOL ESTEROL IN HDL [MASS RATIO] IN SERUM OR PLASMA 4.4 03/23 Specimen Type: SERUM No comment entered. Ordering Provider: PADMA WEN Report Released Date/Time: Feb 19, 2024 02:53 PM Reporting Lab: [facility] [address] Performing Lab: [facility]ITALTRN [facility] [address] [facility] LIPID PANEL FASTING CHOLESTEROL IN HDL [MASS/VOLUM E] IN SERUM OR PLASMA 56 mg/dL 40 - 60 03/23 Specimen Type: SERUM No comment entered. Ordering Provider: PADMA WEN Report Released Date/Time: Feb 19, 2024 02:53 PM Reporting Lab: [facility]ITALTRN [facility] [address] [facility] [address] Performing Lab: [facility]N [facility]ITAL[facility] [address] [facility] BASIC METABOLIC PANEL (fasting) UREA NITROGEN [MASS/VOLUM E] IN SERUM OR PLASMA 17 mg/dL 7 - 25 03/23 Specimen Type: SERUM No comment entered. Ordering Provider: PADMA WEN Report Released Date/Time: Feb 19, 2024 02:53 PM Reporting Lab: [facility] [address] [address] Performing Lab: [facility] [address] [facility] [address] [facility] BASIC METABOLIC PANEL (fasting) GLUCOSE [MASS/VOLUM E] IN SERUM OR PLASMA 102 mg/dL 65 - 100 03/23 H Specimen Type: SERUM No comment entered. Ordering Provider: PADMA WEN Report Released Date/Time: Feb 19, 2024 02:53 PM Reporting Lab: [address] [address] Performing Lab: [facility] [address] [address] [facility] BASIC METABOLIC PANEL (fasting) SODIUM [MOLES/VOLU ME] IN SERUM OR PLASMA 139 mmol/L 135 - 145 03/23 Specimen Type: SERUM No comment entered. Ordering Provider: PADMA WEN Report Released Date/Time: Feb 19, 2024 02:53 PM Reporting Lab: [facility] [address] Performing Lab: [facility]N [facility] [address] [facility] BASIC METABOLIC PANEL (fasting) POTASSIUM [MOLES/VOLU ME] IN SERUM OR PLASMA 4.1 mmol/L 3.5 - 5.0 03/23 Specimen Type: SERUM No comment entered. Ordering Provider: PADMA WEN Report Released Date/Time: Feb 19, 2024 02:53 PM Reporting Lab: [facility] [address] [address] Performing Lab: [facility] [address] [facility] [address] [facility] W[facility]N [facility]ITAL[facility] BASIC METABOLIC PANEL (fasting) CHLORIDE [MOLES/VOLU ME] IN SERUM OR PLASMA 103 mmol/L 100 - 110 03/23 Specimen Type: SERUM No comment entered. Ordering Provider: PADMA WEN Report Released Date/Time: Feb 19, 2024 02:53 PM Reporting Lab: [facility] [place] [facility] [address] [facility] [address] Performing Lab: [facility] W[facility]N [facility] [address] [facility] [address] [facility] BASIC METABOLIC PANEL (fasting) CARBON DIOXIDE, TOTAL [MOLES/VOLU ME] IN SERUM OR PLASMA 29 meq/L 20 - 30 03/23 Specimen Type: SERUM No comment entered. Ordering Provider: PADMA WEN Report Released Date/Time: Feb 19, 2024 02:53 PM Reporting Lab: [facility] [address] [facility] [address] Performing Lab: [facility] [address] [facility] [address] [facility]PRAT[facility] BASIC METABOLIC PANEL (fasting) CREATININE [MASS/VOLUM E] IN SERUM OR PLASMA 0.90 mg/dL 0.50 - 1.40 03/23 Specimen Type: SERUM No comment entered. Ordering Provider: PADMA WEN Report Released Date/Time: Feb 19, 2024 02:53 PM Reporting Lab: [facility] [address] [facility] [address] Performing Lab: [place] [facility] [address] [address] [facility] BASIC METABOLIC PANEL (fasting) GLOMERULAR FILTRATION RATE/1.73 SQ M.PREDICTED [VOLUME RATE/AREA] IN SERUM, PLASMA OR BLOOD BY CREATININE- BASED FORMULA (CKD-EPI 2020) >90mL/ min 60 03/23 Specimen Type: SERUM No comment entered. Ordering Provider: PADMA WEN Report Released Date/Time: Feb 19, 2024 02:53 PM Reporting Lab: [facility] [address] [facility] [address] Performing Lab: [facility] [address] [facility] [address] [facility] [facility] LIVER FUNCTION PROTEIN [MASS/VOLUM E] IN SERUM OR PLASMA 6.9 g/dL 6.0 - 8.3 03/23 Specimen Type: SERUM No comment entered. Ordering Provider: PADMA WEN Report Released Date/Time: Feb 19, 2024 02:53 PM Reporting Lab: [facility] [address] [facility] [address] Performing Lab: [facility] [place] [address] [facility] [address] [facility] [facility] LIVER FUNCTION ALBUMIN [MASS/VOLUM E] IN SERUM OR PLASMA 3.9 g/dL 3.5 - 5.0 03/23 Specimen Type: SERUM No comment entered. Ordering Provider: PADMA WEN Report Released Date/Time: Feb 19, 2024 02:53 PM Reporting Lab: [facility] [address] [facility] [address] Performing Lab: [facility] [place] [address] [facility] [address] [facility] [facility] LIVER FUNCTION ALKALINE PHOSPHATASE [ENZYMATIC ACTIVITY/VO LUME] IN SERUM OR PLASMA 82 U/L 40 - 150 03/23 Specimen Type: SERUM No comment entered. Ordering Provider: PADMA WEN Report Released Date/Time: Feb 19, 2024 02:53 PM Reporting Lab: [facility] [address] [facility] [address] Performing Lab: [facility] [address] [facility] [address] [facility] ASPARTATE AMINOTRANSF ERASE [ENZYMATIC ACTIVITY/VO LUME] IN SERUM OR PLASMA 15 U/L 5 - 34 03/23 Specimen Type: SERUM No comment entered. Ordering Provider: PADMA WEN Report Released Date/Time: Feb 19, 2024 02:53 PM Reporting Lab: [facility] [address] [facility] [address] Performing Lab: [facility] [address] [facility] [address] [facility] [place] [facility] LIVER FUNCTION ALANINE AMINOTRANSF ERASE [ENZYMATIC ACTIVITY/VO LUME] IN SERUM OR PLASMA 18 U/L 03/23 Specimen Type: SERUM No comment entered. Ordering Provider: PADMA WEN Report Released Date/Time: Feb 19, 2024 02:53 PM Reporting Lab: [facility] [place] [address] [address] Performing Lab: [facility] [place] [address] [address] [facility] [place] [facility] LIVER FUNCTION BILIRUBIN.T OTAL [MASS/VOLUM E] IN SERUM OR PLASMA 0.8 mg/dL 0.2 - 1.2 03/23 Specimen Type: SERUM No comment entered. Ordering Provider: PADMA WEN Report Released Date/Time: Feb 19, 2024 02:53 PM Reporting Lab: [facility] [place] [address] [address] Performing Lab: [facility] [place] [address] [address] [facility] [place] [facility] TSH THYROTROPIN [UNITS/VOLU ME] IN SERUM OR PLASMA 2.97 u[IU]/ mL 0.35 - 5.00 03/23 Specimen Type: SERUM No comment entered. Ordering Provider: PADMA WEN Report Released Date/Time: Feb 19, 2024 02:53 PM Reporting Lab: [facility] [place] [address] [address] Performing Lab: [facility] [place] [address] [facility] [address] [facility] CBC AND DIFF (AUTO) LEUKOCYTES [#/VOLUME] IN BLOOD BY AUTOMATED COUNT 5.28 10*3/u L 4.50 - 11.00 03/23 Specimen Type: BLOOD No comment entered. Ordering Provider: PADMA WEN Report Released Date/Time: Feb 19, 2024 02:53 PM Reporting Lab: [facility] [place] [address] [facility] [address] Performing Lab: [facility] [place] [facility] [address] [facility] [address] [facility] [facility] CBC AND DIFF (AUTO) ERYTHROCYTE S [#/VOLUME] IN BLOOD BY AUTOMATED COUNT 4.90 10*6/u L 4.23 - 5.66 03/23 Specimen Type: BLOOD No comment entered. Ordering Provider: PADMA WEN Report Released Date/Time: Feb 19, 2024 02:53 PM Reporting Lab: [facility] [place] [facility] [address] [facility] [address] Performing Lab: [facility] [place] [facility] [address] [facility] [address] [facility] [place] [facility] CBC AND DIFF (AUTO) HEMOGLOBIN [MASS/VOLUM E] IN BLOOD 14.7 g/dL 12.8 - 17 03/23 Specimen Type: BLOOD No comment entered. Ordering Provider: PADMA WEN Report Released Date/Time: Feb 19, 2024 02:53 PM Reporting Lab: [facility] [place] [facility] [address] [facility] [address] Performing Lab: [facility] [place] [address] [address] [facility] [place] [facility] CBC AND DIFF (AUTO) HEMATOCRIT [VOLUME FRACTION] OF BLOOD BY AUTOMATED COUNT 43.5 39.2 - 50.4 03/23 Specimen Type: BLOOD No comment entered. Ordering Provider: PADMA WEN Report Released Date/Time: Feb 19, 2024 02:53 PM Reporting Lab: [facility] [place] [address] [facility] [address] Performing Lab: [facility] [place] [address] [facility] [address] [facility] CBC AND DIFF (AUTO) MCV [ENTITIC VOLUME] BY AUTOMATED COUNT 88.8 fL 82 - 99 03/23 Specimen Type: BLOOD No comment entered. Ordering Provider: PADMA WEN Report Released Date/Time: Feb 19, 2024 02:53 PM Reporting Lab: [facility] [place] [facility] [address] [facility] [address] Performing Lab: [facility] [place] [facility] [address] [facility] [address] [facility] [place] [facility] CBC AND DIFF (AUTO) MCHC [MASS/VOLUM E] BY AUTOMATED COUNT 33.8 g/dL 30.8 - 35.1 03/23 Specimen Type: BLOOD No comment entered. Ordering Provider: PADMA WEN Report Released Date/Time: Feb 19, 2024 02:53 PM Reporting Lab: [facility] [place] [facility] [address] [facility] [address] Performing Lab: [facility] [place] [address] [facility] [address] [facility] CBC AND DIFF (AUTO) PLATELETS [#/VOLUME] IN BLOOD BY AUTOMATED COUNT 225 10*3/u L 140 - 360 03/23 Specimen Type: BLOOD No comment entered. Ordering Provider: PADMA WEN Report Released Date/Time: Feb 19, 2024 02:53 PM Reporting Lab: [facility] [place] [address] [facility] [address] Performing Lab: [facility] [place] [address] [facility] [address] [facility] CBC AND DIFF (AUTO) ERYTHROCYTE DISTRIBUTIO N WIDTH [RATIO] BY AUTOMATED COUNT 12.6 12.0 - 16.0 03/23 Specimen Type: BLOOD No comment entered. Ordering Provider: PADMA WEN Report Released Date/Time: Feb 19, 2024 02:53 PM Reporting Lab: [facility] [address] [facility] [address] Performing Lab: [facility] [address] [facility] [address] [facility] CBC AND DIFF (AUTO) MONOCYTES [#/VOLUME] IN BLOOD BY AUTOMATED COUNT 0.44 10*3/u L 0.30 - 1.10 03/23 Specimen Type: BLOOD No comment entered. Ordering Provider: PADMA WEN Report Released Date/Time: Feb 19, 2024 02:53 PM Reporting Lab: [facility] [place] [address] [facility] [address] Performing Lab: [facility] [place] [address] [facility] [address] [facility] CBC AND DIFF (AUTO) MCH [ENTITIC MASS] BY AUTOMATED COUNT 30.0 pg 26.2 - 32.6 03/23 Specimen Type: BLOOD No comment entered. Ordering Provider: PADMA WEN Report Released Date/Time: Feb 19, 2024 02:53 PM Reporting Lab: [facility] [place] [address] [facility] [address] Performing Lab: [facility] [address] [facility] [address] [facility] CBC AND DIFF (AUTO) NEUTROPHILS /100 LEUKOCYTES IN BLOOD BY AUTOMATED COUNT 60.8 43.7 - 75.8 03/23 Specimen Type: BLOOD No comment entered. Ordering Provider: PADMA WEN Report Released Date/Time: Feb 19, 2024 02:53 PM Reporting Lab: [facility] [place] [address] [facility] [address] Performing Lab: [facility] [address] [facility] [address] [facility] CBC AND DIFF (AUTO) LYMPHOCYTES /100 LEUKOCYTES IN BLOOD BY AUTOMATED COUNT 26.1 14.0 - 42.3 03/23 Specimen Type: BLOOD No comment entered. Ordering Provider: PADMA WEN Report Released Date/Time: Feb 19, 2024 02:53 PM Reporting Lab: [facility] [place] [address] [address] Performing Lab[facility] [place] [address] [facility] [address] [facility] CBC AND DIFF (AUTO) MONOCYTES/1 00 LEUKOCYTES IN BLOOD BY AUTOMATED COUNT 8.3 5.1 - 13.7 03/23 Specimen Type: BLOOD No comment entered. Ordering Provider: PADMA WEN Report Released Date/Time: Feb 19, 2024 02:53 PM Reporting Lab: [facility] [place] [address] [address] Performing Lab: [facility] [place] [address] [address] [facility] [place] [facility] CBC AND DIFF (AUTO) EOSINOPHILS /100 LEUKOCYTES IN BLOOD BY AUTOMATED COUNT 4.0 0.4 - 6.8 03/23 Specimen Type: BLOOD No comment entered. Ordering Provider: PADMA WEN Report Released Date/Time: Feb 19, 2024 02:53 PM Reporting Lab: [facility] [place] [address] [address] Performing Lab: [facility] [place] [address] [address] [facility] [place] [facility] CBC AND DIFF (AUTO) BASOPHILS/1 00 LEUKOCYTES IN BLOOD BY AUTOMATED COUNT 0.4 0.1 - 2.0 03/23 Specimen Type: BLOOD No comment entered. Ordering Provider: PADMA WEN Report Released Date/Time: Feb 19, 2024 02:53 PM Reporting Lab: [facility] [place] [address] [address] Performing Lab: [facility] [place] [facility] [address] [facility] [address] [facility] [place] [facility] CBC AND DIFF (AUTO) NEUTROPHILS [#/VOLUME] IN BLOOD BY AUTOMATED COUNT 3.21 10*3/u L 2.20 - 7.60 03/23 Specimen Type: BLOOD No comment entered. Ordering Provider: PADMA WEN Report Released Date/Time: Feb 19, 2024 02:53 PM Reporting Lab: [facility] [place] [facility] [address] [facility] [address] Performing Lab: [facility] [place] [facility] [address] [facility] [address] [facility] [place] [facility] CBC AND DIFF (AUTO) LYMPHOCYTES [#/VOLUME] IN BLOOD BY AUTOMATED COUNT 1.38 10*3/u L 1.00 - 3.20 03/23 Specimen Type: BLOOD No comment entered. Ordering Provider: PADMA WEN Report Released Date/Time: Feb 19, 2024 02:53 PM Reporting Lab: [facility] [place] [address] [address] Performing Lab: [facility] [place] [address] [address] [facility] [place] [facility] CBC AND DIFF (AUTO) EOSINOPHILS [#/VOLUME] IN BLOOD BY AUTOMATED COUNT 0.21 10*3/u L 0.03 - 0.44 03/23 Specimen Type: BLOOD No comment entered. Ordering Provider: PADMA WEN Report Released Date/Time: Feb 19, 2024 02:53 PM Reporting Lab: [facility] [place] [address] [address] Performing Lab: [facility] [place] [address] [address] [facility] [place] [facility] CBC AND DIFF (AUTO) BASOPHILS [#/VOLUME] IN BLOOD BY AUTOMATED COUNT 0.02 10*3/u L 0.01 - 0.13 03/23 Specimen Type: BLOOD No comment entered. Ordering Provider: PADMA WEN Report Released Date/Time: Feb 19, 2024 02:53 PM Reporting Lab: [facility] [place] [facility] [address] [facility] [address] Performing Lab: [facility] [place] [facility] [address] [facility] [address] [facility] CBC AND DIFF (AUTO) IMMATURE GRANULOCYTE S/100 LEUKOCYTES IN BLOOD BY AUTOMATED COUNT 0.4 0.0 - 0.7 03/23 Specimen Type: BLOOD No comment entered. Ordering Provider: PADMA WEN Report Released Date/Time: Feb 19, 2024 02:53 PM Reporting Lab: [facility] [place] [facility] [address] [facility] [address] Performing Lab: [facility] [place] [address] [address] [facility] [place] [facility] CBC AND DIFF (AUTO) IMMATURE GRANULOCYTE S [#/VOLUME] IN BLOOD 0.02 10*3/u L 0.00 - 0.06 03/23 Specimen Type: BLOOD No comment entered. Ordering Provider: PADMA WEN Report Released Date/Time: Feb 19, 2024 02:53 PM Reporting Lab: [facility] [place] [facility] [address] [facility] [address] Performing Lab: [facility] [place] [address] [address] [facility] [place] [facility] CBC AND DIFF (AUTO) NRBC % 0.0 0.0 - 0.0 03/23 Specimen Type: BLOOD No comment entered. Ordering Provider: PADMA WEN Report Released Date/Time: Feb 19, 2024 02:53 PM Reporting Lab: [facility] [place] [facility] [address] [facility] [address] Performing Lab: [facility] [place] [address] [address] [facility] CBC AND DIFF (AUTO) NRBC, ABS 0.00 10*3/u L 0.00 - 0.00 03/23 Specimen Type: BLOOD No comment entered. Ordering Provider: PADMA WEN Report Released Date/Time: Feb 19, 2024 02:53 PM Reporting [facility]: [facility] [address] [facility] [address] Performing Lab: [address] [address] [facility] HEMOGLOBI N A1C PANEL HEMOGLOBIN A1C/HEMOGLO BIN.TOTAL IN BLOOD BY HPLC 5.2 4.0 - 5.6 10/26 Specimen Type: BLOOD Comment: Values obtained from A1C measurement s can vary. For atypical A1C assays, a reported value of 7.0 could actually be between 6.72 and 7.28 if measured by a reference method. A reported value of 9.0 could actually be between 8.73 and 9.27. Ref: http://www. ngsp.org/[place] Pdata.asp Ordering Provider: PADMA WEN Report Released Date/Time: Oct 26, 2023 11:20 AM Reporting Lab: [address] [address] Performing Lab: [address] [address] [facility] BASIC METABOLIC PANEL (fasting) UREA NITROGEN [MASS/VOLUM E] IN SERUM OR PLASMA 16 mg/dL 7 - 25 10/26 Specimen Type: SERUM No comment entered. Ordering Provider: PADMA WEN Report Released Date/Time: Oct 26, 2023 11:20 AM Reporting Lab: [address] [address] Performing Lab: [address] [address] [facility] BASIC METABOLIC PANEL (fasting) GLUCOSE [MASS/VOLUM E] IN SERUM OR PLASMA 127 mg/dL 65 - 100 10/26 H Specimen Type: SERUM No comment entered. Ordering Provider: PADMA WEN Report Released Date/Time: Oct 26, 2023 11:20 AM Reporting Lab: [facility] [place] [facility] [address] [facility] [address] Performing Lab: [facility] [place] [facility] [address] [facility] [address] [facility] [place] [facility] BASIC METABOLIC PANEL (fasting) SODIUM [MOLES/VOLU ME] IN SERUM OR PLASMA 138 mmol/L 135 - 145 10/26 Specimen Type: SERUM No comment entered. Ordering Provider: PADMA WEN Report Released Date/Time: Oct 26, 2023 11:20 AM Reporting Lab: [facility] [place] [facility] [address] [facility] [address] Performing Lab: [facility] [place] [facility] [address] [facility] [address] [facility] [place] [facility] BASIC METABOLIC PANEL (fasting) POTASSIUM [MOLES/VOLU ME] IN SERUM OR PLASMA 4.0 mmol/L 3.5 - 5.0 10/26 Specimen Type: SERUM No comment entered. Ordering Provider: PADMA WEN Report Released Date/Time: Oct 26, 2023 11:20 AM Reporting Lab: [facility] [place] [facility] [address] [facility] [address] Performing Lab: [facility] [place] [facility] [address] [facility] [address] [facility] [place] [facility] BASIC METABOLIC PANEL (fasting) CHLORIDE [MOLES/VOLU ME] IN SERUM OR PLASMA 101 mmol/L 100 - 110 10/26 Specimen Type: SERUM No comment entered. Ordering Provider: PADMA WEN Report Released Date/Time: Oct 26, 2023 11:20 AM Reporting Lab: [facility] [place] [facility] [address] [facility] [address] Performing Lab: [facility] [place] [facility] [address] [facility] [address] [facility] [place] [facility] BASIC METABOLIC PANEL (fasting) CARBON DIOXIDE, TOTAL [MOLES/VOLU ME] IN SERUM OR PLASMA 28 meq/L 20 - 30 10/26 Specimen Type: SERUM No comment entered. Ordering Provider: PADMA WEN Report Released Date/Time: Oct 26, 2023 11:20 AM Reporting Lab: [facility] [place] [facility] [address] [facility] [address] Performing Lab: [facility] [address] [facility] BASIC METABOLIC PANEL (fasting) CREATININE [MASS/VOLUM E] IN SERUM OR PLASMA 0.96 mg/dL 0.50 - 1.40 10/26 Specimen Type: SERUM No comment entered. Ordering Provider: PADMA WEN Report Released Date/Time: Oct 26, 2023 11:20 AM Reporting Lab: [facility] [address] [address] Performing Lab: [facility] [address] [facility] BASIC METABOLIC PANEL (fasting) GLOMERULAR FILTRATION RATE/1.73 SQ M.PREDICTED [VOLUME RATE/AREA] IN SERUM, PLASMA OR BLOOD BY CREATININE- BASED FORMULA (CKD-EPI 2020) >90mL/ min 60 10/26 Specimen Type: SERUM No comment entered. Ordering Provider: PADMA WEN Report Released Date/Time: Oct 26, 2023 11:20 AM Reporting Lab: [facility] [address] Performing Lab: [facility] [address] [facility] LIVER FUNCTION PROTEIN [MASS/VOLUM E] IN SERUM OR PLASMA 6.7 g/dL 6.0 - 8.3 10/26 Specimen Type: SERUM No comment entered. Ordering Provider: PADMA WEN Report Released Date/Time: Oct 26, 2023 11:20 AM Reporting Lab: [facility] [address] Performing Lab: [facility] [place] [facility] [address] [facility] [address] [facility] [place] LIVER FUNCTION ALBUMIN [MASS/VOLUM E] IN SERUM OR PLASMA 3.7 g/dL 3.5 - 5.0 10/26 Specimen Type: SERUM No comment entered. Ordering Provider: PADMA WEN Report Released Date/Time: Oct 26, 2023 11:20 AM Reporting Lab: [facility] [place] [facility] [address] [facility] [address] Performing Lab: [facility] [place] [facility] [address] [facility] [address] [facility] [place] [facility] LIVER FUNCTION ALKALINE PHOSPHATASE [ENZYMATIC ACTIVITY/VO LUME] IN SERUM OR PLASMA 68 U/L 40 - 150 10/26 Specimen Type: SERUM No comment entered. Ordering Provider: PADMA WEN Report Released Date/Time: Oct 26, 2023 11:20 AM Reporting Lab: [facility] [place] [facility] [address] [facility] [address] Performing Lab: [facility] [place] [facility] [address] [facility] [address] [facility] LIVER FUNCTION ASPARTATE AMINOTRANSF ERASE [ENZYMATIC ACTIVITY/VO LUME] IN SERUM OR PLASMA 15 U/L 5 - 34 10/26 Specimen Type: SERUM No comment entered. Ordering Provider: PADMA WEN Report Released Date/Time: Oct 26, 2023 11:20 AM Reporting Lab: [facility] [place] [facility] [address] [facility] [address] Performing Lab: [facility] [place] [facility] [address] [facility] [address] [facility] [place] [facility] LIVER FUNCTION ALANINE AMINOTRANSF ERASE [ENZYMATIC ACTIVITY/VO LUME] IN SERUM OR PLASMA 23 U/L 10/26 Specimen Type: SERUM No comment entered. Ordering Provider: PADMA WEN Report Released Date/Time: Oct 26, 2023 11:20 AM Reporting Lab: [facility] [address] [facility] [address] Performing Lab: [facility] [address] [facility] [address] [facility] LIVER FUNCTION BILIRUBIN.T OTAL [MASS/VOLUM E] IN SERUM OR PLASMA 0.7 mg/dL 0.2 - 1.2 10/26 Specimen Type: SERUM No comment entered. Ordering Provider: PADMA WEN Report Released Date/Time: Oct 26, 2023 11:20 AM Reporting Lab: [facility] [address] [facility] [address] Performing Lab: [facility] [address] [facility] [address] [facility] Vital Signs Combined list of inpatient and outpatient Vital Signs from Department of Defense and Veterans Affairs, ranging from 12 months to all on record, depending upon the facility. Vital Sign Value Date Comments Source SYSTOLIC BLOOD PRESSURE 128 10/10/19 25 14:19:19 [facility] DIASTOLIC BLOOD PRESSURE 80 025 14:19:19 [facility] PULSE OXIMETRY 95 10/10/2024 14:19:19 [facility] WEIGHT 186.2 10/10/2024 14:19:19 [facility] BMI 26 kg/m2 10/10/2024 14:19:19 [facility] PAIN 6 10/10/2024 14:19:19 [facility] HEIGHT 71 10/10/2024 14:19:19 [facility] TEMPERATURE 96.8 10/10/2024 14:19:19 [facility] PULSE 54 10/10/2024 14:19:19 [facility] RESPIRATION 22 10/10/2024 14:19:19 [facility] SYSTOLIC BLOOD PRESSURE 123 03/29/20 24 15:00:03 [facility] DIASTOLIC BLOOD PRESSURE 77 024 15:00:03 [facility] PULSE OXIMETRY 96 03/29/2024 15:00:03 [facility] WEIGHT 182 03/29/2024 15:00:03 [facility] BMI 25 kg/m2 03/29/2024 15:00:03 [facility] PAIN 7 03/29/2024 15:00:03 [facility] HEIGHT 71 03/29/2024 15:00:03 [facility] TEMPERATURE 96.1 03/29/2024 15:00:03 [facility] PULSE 57 03/29/2024 15:00:03 [facility] RESPIRATION 20 03/29/2024 15:00:03 [facility] SYSTOLIC BLOOD PRESSURE 130 02/19/20 24 14:40:27 [facility] DIASTOLIC BLOOD PRESSURE 84 024 14:40:27 [facility] PULSE OXIMETRY 96 02/19/2024 14:40:27 [facility] WEIGHT 176 02/19/2024 14:40:27 [facility] BMI 25 kg/m2 02/19/2024 14:40:27 [facility] PAIN 0 02/19/2024 14:40:27 [facility] HEIGHT 71 02/19/2024 14:40:27 [facility] TEMPERATURE 96.2 02/19/2024 14:40:27 [facility] PULSE 59 02/19/2024 14:40:27 [facility] RESPIRATION 20 02/19/2024 14:40:27 [facility] SYSTOLIC BLOOD PRESSURE 145 12/25/19 24 08:28:36 [facility] DIASTOLIC BLOOD PRESSURE 92 024 08:28:36 [facility] PULSE OXIMETRY 99 12/25/2023 08:28:36 [facility] PAIN 0 12/25/2023 08:28:36 [facility] TEMPERATURE 97.6 12/25/2023 08:28:36 [facility] PULSE 48 12/25/2023 08:28:36 [facility] RESPIRATION 16 12/25/2023 08:28:36 [facility] SYSTOLIC BLOOD PRESSURE 130 11/26/19 24 09:37:57 [facility] DIASTOLIC BLOOD PRESSURE 77 024 09:37:57 [facility] PULSE OXIMETRY 99 11/26/2023 09:37:57 [facility] WEIGHT 175 11/26/2023 09:37:57 [facility] BMI 24 kg/m2 11/26/2023 09:37:57 [facility] PAIN 7 11/26/2023 09:37:57 [facility] HEIGHT 71 11/26/2023 09:37:57 [facility] TEMPERATURE 97.2 11/26/2023 09:37:57 [facility] PULSE 48 11/26/2023 09:37:57 [facility] RESPIRATION 17 11/26/2023 09:37:57 [facility] Encounters Combined list of: 1) Encounters from Department of [facility] facilities going backup to the last 18 months, not all [place] inpatient encounters are included; 2) Encounters from the Department of [facility] facilities going backup to 280 months. Location Location Details Encounter Type Encounter Number Reason For Visit Attending Provider ADM Date DC Date Status Disposition Source [facility] PSYTX W PT 30 MINUTES [id number] Diagnos is: ICD-10- CM F43.12 Post-tr aumatic stress disorde r, chronic MARGOT MERCADO 05/19 [facility] Outpatient Encounter [id number] MARGOT MERCADO 06/16 [facility] OFFICE O/P EST MOD 30-39 MIN [id number] Diagnos is: ICD-10- CM F43.12 Post-tr aumatic stress disorde r, chronic WINDY,KATHY AN 06/18 [place] [facility] PSYTX W PT 45 MINUTES [id number] Diagnos is: ICD-10- CM F43.12 Post-tr aumatic stress disorde r, chronic MARGOT MERCADO 06/30 [place] [facility] Outpatient Encounter [id number] 07/06 [facility] OFFICE O/P EST LOW 20-29 MIN [id number] [id number] Diagnos is: ICD-10- CM M54.2 Cervica lgia SHERIDANKINGSLEY, HISH 07/06 [place] [facility] EYE EXAM&TX ESTAB PT 1/>VST [id number] [id number] Diagnos is: ICD-10- CM H25.813 Combine d forms of age-rel ated catarac t, bilater al MADDIE DURAN 07/14 [facility] FIT SPECTACLES MULTIFOCAL [id number] [id number] Diagnos is: ICD-10- CM Z46.0 Encount er for fit/adj st of spectac les and contact lenses MADDIE DURAN 07/15 [facility] Outpatient Encounter [id number] 07/15 [facility] [place] [place] PSYTX W PT 45 MINUTES [id number] [id number] Diagnos is: ICD-10- CM F43.12 Post-tr aumatic stress disorde r, chronic MARGOT MERCADO 07/28 [place] [facility] Encounter [id number] 08/03 [facility] Out[facility] Encounter [id number] 08/13 [facility] SELF CARE MNGMENT TRAINING [id number] [id number] Diagnos is: ICD-10- CM M79.642 Pain in left hand MARIELLEONJERI LIE E 08/24 [facility] [place] Outpatient Encounter [id number] [id number] MARGOT MERCADO K 08/25 [facility] [place] Outpatient Encounter [id number] [id number] MARGOT MERCADO 09/08 [facility] [place] [facility] PSYTX W PT 45 MINUTES [id number] [id number] Diagnos is: ICD-10- CM F43.12 Post-tr aumatic stress disorde r, chronic MARGOT MERCADO 09/15 [facility] [place] [facility] OFFICE O/P EST LOW 20 MIN [id number] [id number] Diagnos is: ICD-10- CM F43.12 Post-tr aumatic stress disorde r, chronic KATHY TEMPLE 09/17 [place] [facility] Out[facility] Encounter [id number] 09/24 [facility] Out[facility] Encounter [id number] 09/24 [facility] Out[facility] Encounter [id number] [id number] 02/22 /2024 [facility] [place] Outpatient Encounter [id number] MARGOT MERCADO K 10/13 [facility] Outpatient Encounter [id number] Diagnos is: ICD-10- CM Z01.818 Encount er for other preproc edural examina tion LYNETTE VILLALOBOS 10/16 [facility] Outpatient Encounter [id number] 10/25 [place] [facility] [place] [facility] PSYTX W PT 30 MINUTES [id number] [id number] Diagnos is: ICD-10- CM F43.12 Post-tr aumatic stress disorde r, chronic MARGOT MERCADO K 10/26 [facility] Outpatient Encounter [id number] YOHANA KOROMA 10/28 [facility] Outpatient Encounter [id number] 11/03 [place] [facility] [place] [facility] Outpatient Encounter [id number] 11/15 [place] [facility] [place] [facility] OFF/OP EST MAY X REQ PHY/QHP [id number] Diagnos is: ICD-10- CM Z01.818 Encount er for other preproc edural examina tion ANAHI DOYLE 11/16 [facility] OFFICE O/P EST SF 10 MIN [id number] Diagnos is: ICD-10- CM Z01.818 Encount er for other preproc edural examina tion OYHANA KOROMA 11/24 [facility] Out[facility] Encounter [id number] 11/25 [facility] IP/OBS DSCHRG MGMT 30/< [id number] [id number] Diagnos is: ICD-10- CM Z98.890 Other specifi ed postpro cedural states YOHANA KOROMA 11/25 [facility] OFF/OP CONSLTJ NEW/EST SF 20 [id number] Diagnos is: ICD-10- CM F40.240 Claustr ophobia YOHANA KOROMA 11/25 [facility] [place] PSYTX W PT 45 MINUTES [id number] [id number] Diagnos is: ICD-10- CM F43.12 Post-tr aumatic stress disorde r, chronic MERCADO,MARGOT K 12/07 [place] OFFICE O/P EST MOD 30 MIN [id number] [id number] Diagnos is: ICD-10- CM F43.12 Post-tr aumatic stress disorde r, chronic LARROW,KATHY AN 12/16 [place] [facility] Outpatient Encounter [id number] 12/24 [facility] [place] [place] OFF/OP EST MAY X REQ PHY/QHP [id number] [id number] Diagnos is: ICD-10- CM R21 Rash and other nonspec ific skin eruptio n YANCY,ER IC K 12/24 [facility] [place] OFFICE O/P EST MOD 30 MIN [id number] [id number] Diagnos is: ICD-10- CM R00.1 Bradyca rdia, unspeci JANET Ibrahim 12/24 [facility] [id number] Diagnos is: ICD-10- CM G56.01 Carpal tunnel syndrom e, right upper limb ADLAKHA, HISH 05/13 /2024 [place] [facility] Outpatient Encounter [id number] MARGOT MERCADO Kathy 02/01 [facility] [place] PSYTX W PT 45 MINUTES [id number] [id number] Diagnos is: ICD-10- CM F43.12 Post-tr aumatic stress disorde r, chronic MARGOT MERCADO 02/08 [place] [facility] Outpatient Encounter [id number] 02/10 [facility] Outpatient Encounter [id number] 02/10 [facility] [place] [place] OFFICE O/P EST MOD 30 MIN [id number] [id number] Diagnos is: ICD-10- CM R05.1 Acute cough BEHZAD,A POLINARIO 02/18 [place] [facility] Outpatient Encounter [id number] 02/22 [facility] [place] [place] OFFICE O/P EST SF 10 MIN [id number] [id number] Diagnos is: ICD-10- CM F43.12 Post-tr aumatic stress disorde r, chronic LARROW,KATHY AN 03/18 [facility] [place] PSYTX W PT 30 MINUTES [id number] [id number] Diagnos is: ICD-10- CM F43.12 Post-tr aumatic stress disorde r, chronic MARGOT MERCADO Kathy 03/22 [facility] [place] OFFICE O/P EST MOD 30 MIN [id number] [id number] Diagnos is: ICD-10- CM Z00.01 Encount er for general adult medical exam w abnorma l finding s BEHZADA POLINARIO 03/29 [place] [facility] Out[facility] Encounter [id number] 04/19 [facility] Encounter [id number] [id number] [facility] [place] QNHP OL DIG ASSMT&MGMT 5-10 [id number] [id number] Diagnos is: ICD-10- CM Z51.81 Encount er for therape utic drug level monitor HAM Chicas HERB [place] [facility] Out[facility] Encounter [id number] 1.05/04 [facility] Out[facility] Encounter [id number] 05/04 [facility] [place] PSYTX W PT 45 MINUTES 51545-5.63 1BY. 80 Diagnos is: ICD-10- CM F43.12 Post-tr aumatic stress disorde r, chronic MARGOT MERCADO K 05/17 [place] [facility] Out[facility] Encounter [id number] [facility] Encounter [id number] 1.06/01 [facility] Out[facility] Encounter [id number] [id number] 06/09 [facility] [place] OFFICE O/P EST LOW 20 MIN [id number] [id number] Diagnos is: ICD-10- CM F43.12 Post-tr aumatic stress disorde r, chronic LARKAMERON,KATHY AN 06/15 [place] [facility] Out[facility] Encounter [id number] 1.06/16 [facility] Out[facility] Encounter [id number] 06/20 [facility] [place] PSYTX W PT 45 MINUTES [id number] [id number] Diagnos is: ICD-10- CM F43.12 Post-tr aumatic stress disorde r, chronic MERCADO,MARGOT K 07/12 [place] [facility] COMPRE OPH EXAM EST PT 1 00667-0.63 1. Diagnos is: ICD-10- CM H04.123 Dry eye syndrom e of bilater al lacrima l glands MADDIE DURAN VIANCA 07/26 [facility] CPTR OPHTH DX IMG POST SEGMT 51279-8.63 1. Diagnos is: ICD-10- CM H35.371 Puckeri ng of macula, right eye MADDIE DURAN 07/26 [facility] Out[facility] Encounter [id number] 08/18 [facility] Out[facility] Encounter [id number] [id number] 08/23 [facility] [place] PSYTX W PT 45 MINUTES [id number] [id number] Diagnos is: ICD-10- CM F43.12 Post-tr aumatic stress disorde r, chronic MERCADO,MARGOT K 08/30 [place] [facility] Out[facility] Encounter [id number] 09/14 [facility] [place] Outpatient Encounter [id number] [id number] 09/14 [place] [facility] Out[facility] Encounter [id number] [id number] 09/14 [facility] Out[facility] Encounter [id number] 09/28 [facility] Out[facility] Encounter [id number] [id number] 09/28 [facility] Out[facility] Encounter [id number] [id number] 09/29 [facility] Out[facility] Encounter [id number] [id number] 09/30 [facility] [place] OFFICE O/P EST MOD 30 MIN [id number] [id number] Diagnos is: ICD-10- CM I10 Essenti al (primar y) hyperte nsion DECEMBERSANDRA LY P 10/10 [facility] [place] OFFICE O/P EST MOD 30 MIN [id number] [id number] Diagnos is: ICD-10- CM F43.12 Post-tr aumatic stress disorde r, chronic LARROW,KATHY AN 10/14 [facility] [place] Outpatient Encounter [id number] [id number] MARGOT MERCADO 10/25 [place] [facility] Out[facility] Encounter [id number] [id number] 10/26 [facility] Out[facility] Encounter [id number] [id number] 11/04 [place] [facility] [place] [facility] Outpatient Encounter [id number] [id number] MARGOT MERCADO Kathy 11/08 [place] [facility] [place] Social History Combined list of available smoking, tobacco, and other social history from 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 Social History Type Response Date Comment [facility] e Tobacco smoking status NHIS [facility]-TOBACCO NEVER USED 02/19/2024 [place] History of tobacco use [facility]-TOBACCO FORMER USER 02/19/2024 [place] History of tobacco use AK-TOBACCO QUIT 5 TO < 15 YRS 05/06/2022 [place] History of tobacco use [facility]-TOBACCO FORMER USER 05/21/2021 [place] History of tobacco use AK-TOBACCO QUIT 5 TO < 15 YRS 04/13/2020 [facility] [place] [facility] History of tobacco use AK-TOBACCO QUIT 5 TO < 15 YRS 03/15/2019 [place] History of tobacco use QUIT TOBACCO USE > 7 YEARS AGO 01/04/2018 [place] History of tobacco use QUIT TOBACCO USE > 7 YEARS AGO 04/27/2017 [place] History of tobacco use QUIT TOBACCO USE 1-7 YEARS AGO 09/12/2016 aug . 2009 [place] History of tobacco use QUIT TOBACCO USE 1-7 YEARS AGO 06/20/2016 quit 2009 [place] History of tobacco use QUIT TOBACCO USE > 7 YEARS AGO 06/25/2015 [place] History of tobacco use QUIT TOBACCO USE 1-7 YEARS AGO 04/12/20142009 quit [facility] History of tobacco use QUIT TOBACCO USE 1-7 YEARS AGO 12/15/2011 03/26/2010 [place] History of tobacco use QUIT TOBACCO USE IN PAST YEAR 11/25/2010 [facility] Plan of Care List of future care activities from Department of 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 Additional future care activities may be listed in the Assessment and Plan section. Date/Time Care Activity Care Activity Detail Facili ty 11/17/2024 AMBULATORY - MEDICINE AMBULATORY - MEDICI NE [place] Advance Directives List of completed, amended, or rescinded Advance Directives on record at Department of 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 An actual copy of the Directive is not included. Date Advance Directive Provider Source 06/13/2017 [facility] 04/18/2014 [facility]VANCE DIRECTIVE JESSEE LAZAR [facility]
--- OUTSIDE RECORDS SUMMARY | 2024-11-14 15:39 | XMS_ITS | Encounter Summary ---
Author Name [facility] [facility] [place] Address [address] [place] [id number] Care Team Providers Care Manager Support Services Name Role Phone DEBORAH PRIETO Primary Care [...] Relationship to Policy Pérez ANTHEM BCBS OF [place] ([place]UECARD) [facility] CE ORGANIZAT ION COH G AND E Feb 15, 2024 [id number] SUSAN SMITH PATIENT BCBS FORMERLY [facility] CE ORGANIZAT ION COH POLIC E DEPT HDHP Feb 15, 2024 [id number] SUSAN SMITH PATIENT BCBS OF [facility] CE ORGANIZAT ION COH G AND E Feb 15, 2024 [id number] SUSAN SMITH PATIENT [place] PRESCRIPT ION RX Feb 15, 2024 [phone] SUSAN SMITH PATIENT [place] PRESCRIPT ION COH G AND E Feb 15, 2024 [id number] SUSAN SMITH PATIENT [employer] RX PRESCRIPT ION Feb 14, 2017 [id number] SUSAN SMITH PATIENT [facility] CE ORGANIZ [place] Feb 14, 2019 [id number] SUSAN SMITH PATIENT [facility] CE ORGANIZAT ION W/OUT OF NETWORK BENEFITS COH G AND E Feb 15, 2024 [id number] [phone] SUSAN SMITH PATIENT Selected Encounter This section includes the information on record at [place] for the Encounter. Date/Time Encounter Type Encounter Description Reason Provider Source Mar 29, 2024 02:30 PM OFFICE O/P EST MOD 30 MIN PRIMARY CARE/MEDICINE ICD-10-CM Z00.01 Encounter for general adult medical exam w abnormal findings AKIL WEN Len Encounter Template Text not used by [place] Assessments - Encounter Diagnoses This section includes the primary and secondary diagnoses documented for the Encounter. Date/Time Primary/Secondary Diagnosis Diagnosis Name Provider Source Apr 21, 2024 10:39 AM PRIMARY Encounter for general adult medical exam w abnormal findings THERESA WEN [facility] Apr 21, 2024 10:39 AM SECONDARY [facility]ical[facility] Apr 21, 2024 10:39 AM [facility], [facility] Plan of Treatment: Future Appointments (+ 6 months) and Future Tests (+/- 45 days) The Plan of Treatment section includes future care activities for the patient from all [place] treatmentfacilities. This section includes future appointments and future orders which are active, pending or scheduled. Future Appointments This section includes appointments that were scheduled to occur 6 months from the date of the Encounter, up to a maximum of 20 appointments. The data comes from all [place] treatment facilities. Appointment Date/Time Appointment Type Appointme nt Facility Name May 04, 2024 03:15 PM AMBULATORY - MEDICINE [place] [facility] May 10, 2024 02:00 PM [facility] - MEDICINE [facility] May 17, 2024 03:00 PM AMBULATORY - [place]IATRY [place] [facility] [place] [place] [facility] May 27, 2024 08:00 AM AMBULATORY - MEDICINE [place] [facility] [place] [place] [facility] Jun 15, 2024 03:00 PM AMBULATORY - PSYCHIATRY [facility] Jul 12, 2024 03:00 PM AMBULATORY - PSYCHIATRY [place] [facility] [place] [facility] Jul 26, 2024 02:00 PM AMBULATORY - MEDICINE [place] [facility] [place] [facility] Jul 26, 2024 03:00 PM AMBULATORY - MEDICINE [place] [facility] [place] [facility] Aug 30, 2024 03:00 PM AMBULATORY - PSYCHIATRY [place] [facility] [place] [facility] Sep 14, 2024 03:30 PM AMBULATORY - PSYCHIATRY [facility] Sep 28, 2024 02:25 PM [facility] Lab Results: +/- 30 days of the encounter This section includes the Chemistry and Hematology Lab Results on record with [place] for the patient. Radiology Reports and Pathology Reports are provided separately, in subsequent sections. Lab Results This section contains the Chemistry/Hematology Results that were resulted 30 days before or 30 daysafter the date of the Encounter. Date/Time Source Result Type Result - Unit Interpretation Reference Range Comment Mar 23, 2024 07:46 AM [facility] HEMOGLOBIN A1C PANEL Specimen Type: BLOOD Comment: Values obtained from A1C measurements can vary. For atypical A1C assays, a reported value of 7.0 could actually be between 6.72 and 7.28 if measured by a reference method. A reported value of 9.0 could actually be between 8.73 and 9.27. Ref: http://www.ngs p.org/CAPdata. asp Ordering Provider: AKIL WEN Report Released Date/Time: Feb 19, 2024 02:53 PM Reporting [facility] [address] [address] Performing Lab: [address] [address] HEMOGLOBIN A1C 5.2 4.0-5.6 Mar 23, 2024 07:46 AM [facility] LIPID PANEL FASTING Specimen Type: SERUM No comment entered. Ordering Provider: AKIL WEN Report Released Date/Time: Feb 19, 2024 02:53 PM Reporting Lab: [facility] [address] [facility] [address] Performing Lab: [address] [address] CHOLESTEROL 247 mg/dL H TRIGLYCERIDE 81 mg/dL 0-150 LDL calculated 175 mg/dL H 0-129 CHOL/HDL 4.4 HDL CHOLESTEROL 56 mg/dL 40-60 Mar 23, 2024 07:46 AM [facility] BASIC METABOLIC PANEL (fasting) Specimen Type: SERUM No comment entered. Ordering Provider: AKIL WEN Report Released Date/Time: Feb 19, 2024 02:53 PM Reporting Lab: [address] [address] Performing Lab: [address] [address] UREA NITROGEN 17 mg/dL 7-25 GLUCOSE 102 mg/dL H 65-100 SODIUM 139 mmol/L 135-145 POTASSIUM 4.1 mmol/L 3.5-5.0 CHLORIDE 103 mmol/L 100-110 CO2 29 meq/L 20-30 CREATININE, Serum 0.90 mg/dL 0.50-1.40 eGFR(CKD-EPI 2020) >90 mL/min >60 Mar 23, 2024 07:46 AM [facility] LIVER FUNCTION Specimen Type: SERUM No comment entered. Ordering Provider: AKIL WEN Report Released Date/Time: Feb 19, 2024 02:53 PM Reporting Lab: [address] [address] Performing Lab: [address] [address] PROTEIN,TOTAL 6.9 g/dL 6.0-8.3 ALBUMIN 3.9 g/dL 3.5-5.0 ALKALINE PHOSPHATASE 82 U/L 40-150 AST 15 U/L 5-34 ALT 18 U/L BILIRUBIN, TOTAL 0.8 mg/dL 0.2-1.2 Mar 23, 2024 07:46 AM [facility] TSH Specimen Type: SERUM No comment entered. Ordering Provider: AKIL WEN Report Released Date/Time: Feb 19, 2024 02:53 PM Reporting Lab: [address] [address] Performing Lab: [address] [address] TSH 2.97 u[IU]/mL 0.35-5.00 Mar 23, 2024 07:46 AM [facility] CBC AND DIFF (AUTO) Specimen Type: BLOOD No comment entered. Ordering Provider: AKIL WEN Report Released Date/Time: Feb 19, 2024 02:53 PM Reporting Lab: [address] [address] Performing Lab: [address] [address] WBC 5.28 10*3/uL 4.50-11.00 RBC 4.90 10*6/uL 4.23-5.66 HGB 14.7 g/dL 12.8-17 HCT 43.5 39.2-50.4 MCV 88.8 fL 82-99 MCHC 33.8 g/dL 30.8-35.1 PLT 225 10*3/uL 140-360 RDW-CV 12.6 12.0-16.0 MONO, ABS 0.44 10*3/uL 0.30-1.10 MCH 30.0 pg 26.2-32.6 NEUT % 60.8 43.7-75.8 LYMPH % 26.1 14.0-42.3 MONO % 8.3 5.1-13.7 EOS % 4.0 0.4-6.8 BASO % 0.4 0.1-2.0 NEUT, ABS 3.21 10*3/uL 2.20-7.60 LYMPH, ABS 1.38 10*3/uL 1.00-3.20 EOS, ABS 0.21 10*3/uL 0.03-0.44 BASO, ABS 0.02 10*3/uL 0.01-0.13 IMMATURE GRAN % 0.4 0.0-0.7 IMMATURE GRAN, ABS 0.02 10*3/uL 0.00-0.06 NRBC % 0.0 0.0-0.0 NRBC, ABS 0.00 10*3/uL 0.00-0.00 Social History: Smoking Status (Most current) and Tobacco Use (All prior to encounter date) This section includes the most current, and the historical, smoking and tobacco- related health factors from the [place] facility where the Encounter took place. Current Smoking Status This section includes the most current smoking, or tobacco-related health factor, from the [place] facility where the Encounter took place. Date/Time Current Smoking Status Comment Facil ity Feb 19, 2024 02:00 PM VA-TOBACCO NEVER USED [facility] Tobacco Use History This section includes a history of the smoking, or tobacco-related health factors, that were collected on or before the date of the Encounter. The data comes from the [place] facility where the Encounter took place. Date/Time Smoking Status/Tobacco Use Comment F acility Feb 19, 2024 02:00 PM VA-TOBACCO NEVER USED [facility] Feb 19, 2024 02:00 PM VA-TOBACCO QUIT 5 TO < 15 YRS [facility] May 06, 2022 03:00 PM VA-TOBACCO FORMER USER [facility] May 06, 2022 03:00 PM VA-TOBACCO QUIT 5 TO < 15 YRS [facility] May 21, 2021 03:00 PM VA-TOBACCO FORMER USER [facility] May 21, 2021 03:00 PM VA-TOBACCO QUIT 5 TO < 15 YRS [facility] Mar 15, 2019 09:02 AM VA-TOBACCO FORMER USER [facility] Mar 15, 2019 09:02 AM VA-TOBACCO QUIT 5 TO < 15 YRS [facility] January 04, 2018 04:05 PM QUIT TOBACCO USE > 7 YEARS AGO [facility] Apr 27, 2017 12:25 PM QUIT TOBACCO USE > 7 YEARS AGO [facility] Sep 12, 2016 02:09 PM QUIT TOBACCO USE 1-7 YEARS AGO mar . 2009 [facility] Jun 20, 2016 08:54 AM QUIT TOBACCO USE 1-7 YEARS AGO quit 2009 [facility] Jun 25, 2015 03:09 PM QUIT TOBACCO USE > 7 YEARS AGO [facility] Apr 12, 2014 10:09 AM QUIT TOBACCO USE 1-7 YEARS AGO 2010 quit [facility] Dec 15, 2011 03:46 PM QUIT TOBACCO USE 1-7 YEARS AGO 03/26/2010 [facility] Nov 25, 2010 03:11 PM QUIT TOBACCO USE 1-7 YEARS AGO [facility] Nov 25, 2010 03:11 PM QUIT TOBACCO USE IN PAST YEAR [facility] Advance Directives: All historical and current Section Date Range: From patient's date of to the date document was created. This section includes ALL of a patient's completed or amended [place] Advance and Rescinded Directives. The entries below indicate that a directive exists for the patient, but an actual copy is not included with this document. The data comes from all [place] facilities. Date Advance Directives Provider Source Jun 13, 2017 ADVANCE DIRECTIVE ISABELA DODSON [facility] Apr 18, 2014 ADVANCE DIRECTIVE JESSEE [...] the Encounter. The data comes from all [place] treatment facilities. Date/Time Radiology Report Provider Source Mar 31, 2024 03:57 PM SPINE LUMBOSACRAL MIN 2 VIEWS: PARUL SMITH [id number] -1965 M Exm Date: MAR 31, 2024@15:57 Req Phys: BEHZAD,LARON Pat Loc: CWM/SO/PACT 9 (Req'g Loc) Img Loc: [facility] 1 Service: [place] [address] (Case [id number] COMPLETE) SPINE LUMBOSACRAL MIN 2 VIEWS (RAD Detailed) CPT:00616 Reason for Study: back pain Clinical History: acute on chronic Report Status: Verified Date Reported: APR 01, 2024 Date Verified: APR 01, 2024 Digital Camera Technician E-Sig:/ES/LAURA MONTOYA JR Report: Study: PA and lateral chest x-ray with oblique views of the right ribs and AP and lateral views of the lumbar spine. Comparison: PA and Lateral chest x-ray from February 24, 2020 December 11, [address] scan of the chest from March 15, 2020. Findings: Prominent gastric bubble again seen with elevation of the left hemidiaphragm again present. The lungs are clear. No acute pulmonary process is identified. The costophrenic sulci are sharp. Cardiac and mediastinal contours and pulmonary vascularity are normal. The right ribs appear intact and normal. No acute skeletal abnormalities are identified. Age-appropriate degenerative changes are seen to the spine. Mild degenerative disc disease changes present to the T12 and L5-S1 levels. Mild lower lumbar spine facet joint hypertrophic changes are present. The vertebral body heights are normal. The lumbar spine alignment is normal. Impression: No acute pulmonary process with normal right-sided ribs and mild degenerative changes of the lumbar spine, as described above. Primary Diagnostic Code: No immediate attention required Primary Interpreting Staff: LAURA MONTOYA JR, Radiologist (Digital Camera Technician) /LAURA RUFFIN JR [facility] Mar 31, 2024 03:57 PM CHEST (2 VIEWS): PARUL SMITH [id number] -1965 M Ex Date: MAR 31, 2024@15:57 Req Phys: BEHZAD,LARON Pat Loc: CWM/SO/PACT 9 (Req'g Loc) Img Loc: [facility] 1 Service: [place] [address] (Case [id number] COMPLETE) CHEST (2 VIEWS) (RAD Detailed) CPT:60793 Reason for Study: pain Clinical History: RIGHT rib pain Report Status: Verified Date Reported: APR 01, 2024 Date Verified: APR 01, 2024 Digital Camera Technician E-Sig:/ES/LAURA MONTOYA JR Report: Study: PA and lateral chest x-ray with oblique views of the right ribs and AP and lateral views of the lumbar spine. Comparison: PA and Lateral chest x-ray from February 24, 2020 December 11, [address] scan of the chest from March 15, 2020. Findings: Prominent gastric bubble again seen with elevation of the left hemidiaphragm again present. The lungs are clear. No acute pulmonary process is identified. The costophrenic sulci are sharp. Cardiac and mediastinal contours and pulmonary vascularity are normal. The right ribs appear intact and normal. No acute skeletal abnormalities are identified. Age-appropriate degenerative changes are seen to the spine. Mild degenerative disc disease changes present to the T12 and L5-S1 levels. Mild lower lumbar spine facet joint hypertrophic changes are present. The vertebral body heights are normal. The lumbar spine alignment is normal. Impression: No acute pulmonary process with normal right-sided ribs and mild degenerative changes of the lumbar spine, as described above. Primary Diagnostic Code: No immediate attention required Primary Interpreting Staff: LAURA MONTOYA JR, Radiologist (Digital Camera Technician) /EAD LAURA MONTOYA JR [facility] Mar 31, 2024 03:57 PM RIBS, UNILATERAL ( MINIMUM 2V): PARUL SMITH [id number] -[id number] M Ex Date: MAR 31, 2024@15:57 Req Phys: BEHZAD,LARON Pat Loc: CWM/SO/PACT 9 (Req'g Loc) Img Loc: [facility] 1 Service: [place] [address] (Case [id number] COMPLETE) RIBS, UNILATERAL (MINIMUM 2V) (RAD Detailed) CPT:42812 Reason for Study: pain Clinical History: RIGHT rib pain Report Status: Verified Date Reported: APR 01, 2024 Date Verified: APR 01, 2024 Digital Camera Technician E-Sig:/ES/LAURA MONTOYA JR Report: Study: PA and lateral chest x-ray with oblique views of the right ribs and AP and lateral views of the lumbar spine. Comparison: PA and Lateral chest x-ray from February 24, 2020 December 11, [address] scan of the chest from March 15, 2020. Findings: Prominent gastric bubble again seen with elevation of the left hemidiaphragm again present. The lungs are clear. No acute pulmonary process is identified. The costophrenic sulci are sharp. Cardiac and mediastinal contours and pulmonary vascularity are normal. The right ribs appear intact and normal. No acute skeletal abnormalities are identified. Age-appropriate degenerative changes are seen to the spine. Mild degenerative disc disease changes present to the T12 and L5-S1 levels. Mild lower lumbar spine facet joint hypertrophic changes are present. The vertebral body heights are normal. The lumbar spine alignment is normal. Impression: No acute pulmonary process with normal right-sided ribs and mild degenerative changes of the lumbar spine, as described above. Primary Diagnostic Code: No immediate attention required Primary Interpreting Staff: LAURA MONTOYA JR, Radiologist (Digital Camera Technician) /LAURA RUFFIN JR [facility] Encounter Notes: All associated encounter notes This section contains the clinical notes associated to the Encounter. Date/Time Encounter Note(s) Provider Source Apr 19, 2024 02:02 PM INFECTIOUS DISEASE OUTPATIENT NOTE: LOCAL TITLE: COVID-19 OUTPATIENT TREATMENT NOTE STANDARD TITLE: INFECTIOUS DISEASE OUTPATIENT NOTE DATE OF NOTE: APR 19, 2024@14:02 ENTRY DATE: APR 19, 2024@14:03:17 AUTHOR: SOM LUIS EXP COSIGNER: URGENCY: STATUS: COMPLETED Emergency Use Authorization COVID Treatment Note PARUL SMITH is a 58 yo MALE with recent diagnosis of COVID-19 seeking outpatient COVID therapy. PMH: Active Problem Prediabetes R73.03 11/01/2021 BOB JEFFERY Hypertension I10. 09/18/2021 BOB JEFFERY Hyperlipidaemia E78.5 09/18/2021 BOB JEFFERY Cervicalgia M54.2 03/27/2021 KHUSHI ALVARES Atopic dermatitis L20.9 01/11/2020 KHUSHI ALVARES Herpes simplex type 1 infection B00 01/11/2020 KHUSHI ALVARES Allergic rhinitis R69. 04/04/2019 KHUSHI ALVARES Arteriosclerotic heart disease I25. 11/03/2017 KHUSHI ALVARES Radiculopathy due to lumbar interve 07/28/2017 SETHER ARBOLEDA THI Colonic polyp Z86.010 09/26/2020 KHUSHI ALVARES Solitary nodule of lung R91.1 03/16/2020 KHUSHI ALVARES Sinus bradycardia R00.1, Onset 00/0 11/01/2020 KHUSHI ALVARES Chronic post-traumatic stress disor 05/15/2020 MADALYN TEMPLE Knee pain M25.561 05/25/2016 ADI GORE Gastroesophageal Reflux Disease K21 06/25/2015 KHUSHI ALVARES Obstructive sleep apnea syndrome (S 05/10/2020 KHUSHI ALVARES Tobacco Use Disorder, Remission 305 12/15/2011 PAYTON CELIS (SNOMED CT [id number]) M54.4 01/21/2017 KHUSHI ALVARES Labs: CHEM 7 TREND LAB CUMULATIVE SELECTED Collection DT Spec GLUCOSE BUN CREATIN Sodium K+/Pot CL CO2 03/23/2024 07:46 SERUM 102 H 17 0.90 139 4.1 103 29 10/27/2023 07:31 SERUM 127 H 16 0.96 138 4.0 101 28 10/22/2022 14:40 SERUM 89 16 0.98 136 4.1 102 26 10/17/2021 07:25 SERUM 108 H 18 0.97 140 4.5 103 30 09/28/2020 08:31 SERUM 98 12 0.97 139 4.3 101 30 LAB CUMULATIVE SELECTED 2 No selection items chosen for this component. CHEM 7 Results Collection DT Spec Sodium K+/Pot CL CO2 GLUCOSE BUN 03/23/2024 07:46 SERUM 139 4.1 103 29 102 H 17 10/27/2023 07:31 SERUM 138 4.0 101 28 127 H 16 10/22/2022 14:40 SERUM 136 4.1 102 26 89 16 10/17/2021 07:25 SERUM 140 4.5 103 30 108 H 18 09/28/2020 08:31 SERUM 139 4.3 101 30 98 12 01/03/2020 09:24 SERUM 137 4.4 101 28 100 15 12/21/2018 11:01 SERUM 141 4.2 102 31 H 96 10 09/16/2018 07:41 SERUM 143 4.1 105 29 118 H 16 06/01/2017 07:37 SERUM 140 4.3 104 29 97 19 06/20/2016 09:46 SERUM 141 4.6 104 31 H 103 H 15 08/30/2015 15:05 SERUM 139 4.0 105 27 98 16 08/29/2014 08:12 SERUM 142 4.0 105 31 H 104 H 16 02/09/2012 08:31 SERUM 143 4.5 106 28 87 22 SrCr (last 6 weeks): CREATININE-EGFR 03/23/24 07:46 0.90 CRCL IBW: CrCl(est): 94.1 mL/min (Creat:0.90 03/23/24) CRCL ACT: 93.07 mL/min CRCL ADJ: 94.1 mL/min (03/23/24) LIVER PANEL TREND Collection DT Spec AST ALT T BILI ALK BREEZY T. PROT ALBUMIN 03/23/2024 07:46 SERUM 15 18 0.8 82 6.9 3.9 10/27/2023 07:31 SERUM 15 23 0.7 68 6.7 3.7 10/22/2022 14:40 SERUM 15 17 0.8 82 7.5 4.2 10/17/2021 07:25 SERUM 14 20 1.2 87 7.3 4.2 09/28/2020 08:31 SERUM 16 16 1.1 77 6.8 4.1 The patient must meet ALL of the criteria below to receive medication: 1. The patient has confirmed [id number] COVID-19: Yes - (select severity below) Mild-Moderate The patient had a confirmed positive COVID-19 test on: Apr 2. Patient requires hospitalization due to severe or critical COVID-19: No 3. Administration of COVID-19 therapy will be within 5 days of symptom onset: Yes Chills Cough Fatigue Fever Runny Nose Shortness of breath Date of symptom onset: Apr 4. The patient received at least 1 COVID19 vaccination to date: Yes 5. The patient has at least one high-risk criteria for progression to severe disease, as defined by the CDC:https://www.cdc.gov/coronav irus/2019-ncov/cngz-vqyqc-phkqd utions/people- ziik-mpyyrcx-rtwyotnqsk.html Yes *If Yes is selected, *must check at least one high risk criteria:Body mass index (BMI) > 25 kg/m, Cardiovascular disease or hypertension, Other:EVERARDO AND LUNG NODULE ---Based on current product availability, logistic constraints, patient characteristics, and current NIH guidelines, the patient will receive--- Nirmatrelvir with ritonavir (Paxlovid) EUA: [email or web address]://dvagov.Cloud Theory/: b:/r/sites/AP/Formulary/Cli nical% 20Guidance/FAQ%20SHEETS/COVID-1 9%20EUA%20FAQ%20Documents/EUA%2 0Paxlovid%20VA% 20requirements%20Updated%20Jan% 318292%20update.pdf?csf=1&web=1 &e=dfSQrS The patient has recent serum creatinine documented within the past 12 months: Yes Outside lab result if applicable: The patient has severe renal impairment (eGFR < 30 mL/min) or severe hepatic impairment (Child-Arnold Class C): No If the patient has moderate renal impairment (eGFR >/= 30 to < 60 mL/min), the dose has been adjusted to nirmatrelvir 150 mg with ritonavir 100 mg twice daily for 5 days (if eGFR is >/= 60 mL/min, no dose adjustment is needed and can answer YES): Yes The patient has known hypersensitivity to therapy or its components: No The patient has concerns for potential HIV drug resistance: No Prescriber has completed a comprehensive review of the patient's medication list for other drugs that may interact and require adjustments to therapy or increased monitoring: Yes The patient is receiving any contraindicated concomitant drugs (strong CYP3A inducers or drugs highly dependent on CYP3A for clearance and for which elevated concentrations are associated with serious and/or life-threatening reactions). See EUA documentation for full list of drugs: IF YES, MUST SELECT ONE The patient has a history of clinically significant hypersensitivity reactions (e.g. toxic epidermal necrolysis or Lockhart-Joe syndrome) to nirmatrelvir, ritonavir, or any other components of the product: No Counseling provided and documented in the electronic health record as per EUA. The prescribing healthcare provider has reviewed the information contained within the Fact Sheet for Patients and Caregivers with the patient or caregiver prior to the patient receiving this agent. https://www.fda.gov/media/31686 1/download: Yes Paxlovid Dosage (must choose 1): eGFR >/= 60 mL/min Nirmatrelvir 300 mg AND ritonavir 100 mg PO twice daily x 5 days Pt was determined to be a candidate for early COVID-19 antiviral therapy as above. I discussed the risks/benefits of treatment with the patient. I informed them that this product is an unapproved drug for the treatment of COVID-19 and authorized for use under EUA, gave information on alternatives and their risks and benefits, and that the patient/caregiver has the right to refuse or accept. I discussed the Fact Sheet for Patients and parents/Caregivers prior to the patient receiving this EUA product (to be provided to patient with the medication) Pt expressed understanding, had the opportunity to ask questions, and gave verbal consent to proceed with treatment. Please place a PA-F Consult for nirmatrelvir with ritonavir (Paxlovid) prior to ordering. /kevin/ Som Luis RN Registered Nurse (RN) Signed: 04/19/2024 14:09 Receipt Acknowledged By: 08/19/2024 08:36 /keivn/ LARON WEN MD PHYSICIAN SOM LUIS Mar 29, 2024 03:01 PM PREVENTIVE MEDICIN E NURSING NOTE: LOCAL TITLE: CLINICAL REMINDERS/NURSING STANDARD TITLE: PREVENTIVE MEDICINE NURSING NOTE DATE OF NOTE: MAR 29, 2024@15:01 ENTRY DATE: MAR 29, 2024@15:01:14 AUTHOR: MARK COOPER EXP COSIGNER: URGENCY: STATUS: COMPLETED Advance Directive Screen AD: Patient has an Advance Directive on file at this [facility]. No updates are needed at this time. The patient received education about Advance Directives and written notification of his/her rights. COVID-19 Immunization: Defer due to a PRECAUTION Reason: acute illness MED REC COMPLETED BY PROVIDER DURING THE VISIT. /kevin/ MARK COOPER LPN LPN Signed: 03/29/2024 15:02 MARK COOPER Mar 29, 2024 08:03 AM PHYSICIAN NOTE: LOCAL TITLE: NOTE STANDARD TITLE: PHYSICIAN NOTE DATE OF NOTE: MAR 29, 2024@08:03 ENTRY DATE: MAR 29, 2024@08:03:24 AUTHOR: LARON WEN EXP COSIGNER: URGENCY: STATUS: COMPLETED CC: 58 year old DECLINED TO ANSWER MALE SERVICE CONNECTED % - 80 HPI: Patient is here for his routine annual follow-up. He was seen about 5 weeks ago for an acute asthma exacerbation patient is here for his routine annual follow- up. He was seen about 5 weeks ago for an acute asthma exacerbation and he reports that he actually felt better quickly. We did discuss future plans on intervention including the use of the walk-in clinic as well as the urgent care. He has ongoing work with [facility] for his neck as well as with [facility] for his left nondominant arm numbness. He did want to see a general surgeon at [facility] [facility] to remove some symptomatic lipomas on the arm as well as in the rest of the torso. He had done this before as he was hopeful that we could refer him to. Patient also has ongoing concerns regarding his cholesterol. He was able to lower his cholesterol time with use of diet and we did review the interventions including the cholesterol raising as well as cholesterol-lowering foods. He also requested seeing the slackman here as he has orthotics that were issued before the COVID which will need replacement. Patient is also well-known to dental for an oral appliance therapy which she also discussed and may need just a routine follow-up. He will make that appointment. Problem list and medications reviewed. Last Labs: March 2024 Active problems - Computerized Problem List is the source for the followin. Prediabetes 2. Hypertension 3. Hyperlipidaemia 4. Cervicalgia 10/24/20 mild deg changes greatest at C6-C7 w right sided cental protrusion resulting in mild/mod right sided central stenosis and remodeling of right vental cord 5. Atopic dermatitis per derm cont w betamthasone PRN, f/u PRN. 6. Herpes simplex type 1 infection 7. 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 Completed allergy shots 10/05 8. Arteriosclerotic heart disease seen on CT chest 09/03 9. Radiculopathy due to lumbar intervertebral disc disorder 10. Colonic polyp colon 10/28/19 : small internal hemorroids, otherwise normal due 10/27/24 11. Solitary nodule of lung PFT 04/04 CT chest 03/05 12. Sinus bradycardia EKG 10/03/20 SB HR 51 13. Chronic post-traumatic stress disorder reviewed reviewed reviewed 14. Knee pain s/p fall on ice 15. Gastroesophageal Reflux Disease 16. Obstructive sleep apnea syndrome (SNOMED CT 41291157) severe per home sleep study 05/06 on CPAP 17. Tobacco Use Disorder, Remission quit 03/26/2010 18. 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 The patient has significant degenerative disc and joint disease of the cervical as well as the lower spine. He does have ongoing work with [facility] for which radicular symptoms are being addressed after an MRI. There is also ongoing work with [facility] for carpal tunnel syndrome which she will follow-up. Otherwise the patient is just recovered from acute pulmonary process and we did review access to care in the near future. Consults as ordered. Dyslipidemia -discussed as above; recheck in 6 months Plan of care discussed with patient who articulates understanding. Chronic issues reviewed briefly; no changes to management unless specified above. RTC annually and as needed TIME ATTESTATION: Time spent directly with the patient was ( x ) 30 minutes More than 50% of the time spent with the patient included counselling regarding the admission Medical Review, History and Physical Examination, discussion of the findings, both remote and local data in the medical record, management, and patient education for the annotated medical conditions above. Discussed with patient and agrees to plan. VA and Non VA meds were reconciled. Today's documentation was made using voice recognition software. This note may contain spelling/grammatical errors secondary to this software. Patient provided copies of labs/studies and medication list. Upcoming Appointments: 05/17/2024 15:00 [facility] 06/15/2024 15:00 [facility] 07/26/2024 14:00 [facility]/OPTOMETRY/ROGER Med Reconciliation: Active Outpatient Medications (including Supplies): Active Outpatient Medications Status 1) BUPROPION HCL 150MG 12HR SA TAB TAKE ONE TABLET BY ACTIVE MOUTH EVERY MORNING -FOR MOOD/PTSD 2) GABAPENTIN 300MG CAP TAKE ONE CAPSULE BY MOUTH THREE ACTIVE TIMES DAILY NEEDED --FOR PAIN/ANXIETY (OFF-LABEL) 3) HYDROXYZINE HCL 25MG TAB TAKE ONE TABLET BY MOUTH ACTIVE THREE TIMES DAILY NEEDED -FOR ANXIETY 4) PRAZOSIN HCL 2MG CAP TAKE ONE CAPSULE BY MOUTH AT ACTIVE BEDTIME NEEDED -FOR NIGHTMARES (OFF-LABEL) 5) SERTRALINE HCL 100MG TAB TAKE ONE TABLET BY MOUTH ACTIVE ONCE DAILY FOR MOOD 6) SUNSCREEN 30-50/AVOBENZONE/PABA-F LOTION APPLY A ACTIVE LIBERAL AMOUNT TOPICALLY ONCE DAILY NEEDED 7) SUNSCREEN 30-50/PHY BLOCK/PABA-F FACE CR APPLY A ACTIVE LIBERAL AMOUNT TOPICALLY ONCE DAILY NEEDED Pending Outpatient Medications Status 1) LIDOCAINE 5% PATCH APPLY 1 PATCH TOPICALLY ONCE DAILY PENDING (LEAVE PATCH ON FOR 12 HOURS, THEN REMOVE PATCH) Active Non-VA Medications Status 1) Non-VA ACETAMINOPHEN 500MG TAB 500MG BY MOUTH EVERY 4 ACTIVE HOURS NEEDED 2) Non-VA DOCUSATE NA 100MG CAP 100MG BY MOUTH ACTIVE NEEDED 3) Non-VA MULTIVITAMIN/MINERALS CAP/TAB 1 TABLET BY ACTIVE MOUTH ONCE DAILY 11 Total Medications Medication (Local) Status AZITHROMYCIN 250MG TAB Directions: TAKE TWO TABLETS BY MOUTH NOW FOR 1 DAY, THEN TAKE ONE TABLET ONCE DAILY FOR 4 DAYS Quantity: 6 for 5 days Provider: LARON WEN Expires: 03/20/24 Status: CODEINE 10/GG 100MG/5ML (ALC-F/SF) LIQ Directions: TAKE 1 TEASPOONFUL (5ML) BY MOUTH TWICE DAILY NEEDED FOR COUGH Quantity: 118 for 30 days Provider: LARON WEN Expires: 03/20/24 Status: PREDNISONE 50MG TAB Directions: TAKE ONE TABLET BY MOUTH ONCE DAILY FOR ASTHMA Quantity: 5 for 10 days Provider: LARON WEN Expires: 03/20/24 Status: DEXAMETHASONE NA PHOS 4MG/ML INJ Directions: INJECT 4MG (1ML) TOPICALLY ONE TIME POISON SNOW DO NOT FILL, GIVEN FROM EBOX Quantity: 1 for 1 days Provider: EUGENE THOMAS Expires: 01/24/24 Status: HYDROCORTISONE 2.5% LOTION Directions: APPLY A THIN LAYER TOPICALLY THREE TIMES A DAY FOR CONTACT DERMATITIS Quantity: 180 for 10 days Provider: EUGENE THOMAS Expires: 01/24/24 Status: Medication (Remote) Status No remote medications found. /kevin/ LARON WEN MD PHYSICIAN Signed: 03/29/2024 15:45 LARON WEN PRE[place]ON
--- OUTSIDE RECORDS SUMMARY | 2024-11-14 15:39 | XMS_ITS | Encounter Summary ---
Author Name [facility] [place] Organization [facility] [place] Address [address] [place] [id number] Care Team Providers Care Sugar Coating Hand Name Role Phone DEBORAH PRIETO Primary Care [...] Relationship to Policy Pérez [place] [facility] [place] [facility]GAN[facility] ION COH G AND E Feb 15, 2024 [id number] [phone] SUSAN SMITH PATIENT BCBS [facility] CE ORGANIZAT ION COH POLIC E DEPT HDHP Feb 15, 2024 [id number] SUSAN SMITH PATIENT BCBS OF [facility] CE ORGANIZAT ION COH G AND E Feb 15, 2024 [id number] SUSAN SMITH PATIENT [employer] PRESCRIPT ION RX Feb 15, 2024 [id number] SMITH,JA GLENYS PATIENT [employer] PRESCRIPT ION COH G AND E Feb 15, 2024 [id number] LUISSUSAN GLENYS PATIENT [employer] RX PRESCRIPT ION Feb 14, 2017 [id number] LUISSUSANE PATIENT [facility] CE ORGANIZ [place] KE WATER Feb 14, 2019 [id number] LUISSUSAN GLENYS PATIENT [facility] CE ORGANIZAT ION W/OUT OF NETWORK BENEFITS COH G AND E Feb 15, 2024 [id number] LUISSUSAN VERONICA PATIENT Selected Encounter This section includes the information on record at [place] for the Encounter. Date/Time Encounter Type Encounter Description Reason Pro vider Source IHE Encounter Template Text not used by VA Advance Directives: All historical and current Section Date Range: From patient's date of to the date document was created. This section includes ALL of a patient's completed or amended [place] Advance and Rescinded Directives. The entries below indicate that a directive exists for the patient, but an actual copy is not included with this document. The data comes from all [place] facilities. Date Advance Directives Provider Source Jun 13, 2017 ADVANCE DIRECTIVE [facility]SON [facility] Apr 18, 2014 ADVANCE DIRECTIVE JESSEE LAZAR
--- OUTSIDE RECORDS SUMMARY | 2024-11-14 15:39 | XMS_ITS | Encounter Summary ---
Author Organization [facility] Address [address] [place] [id number] Care Team Providers Care Wrapper Hands Sprayer Name Role Phone Unavailable Primary Care Provider Unavailabl e Reason for Referral * Consultation (Routine) - Closed Specialty Diagnoses / Procedures Referred By Contac t Referred To Contact Pulmonary Disease Diagnoses Cough Bronchiectasis without complication (HC Code) Multiple pulmonary nodules Referral, Self [facility] [address] [place] [address], 2nd floor [facility], [address] [place] [address] Phone: tel: fax: Referral ID Status Reason Start Date Expiration Date Visits Re quested Visits Authorized [id number] Closed 06/19/2017 06/19/2018 1 1 Encounter Details Date Type Department Care Team (Latest Contact Info) Description 06/19/2017 Transcribed Orders Referral Link Providers [address] [place] [id number] Referral, Self Cough (Primary Dx); Bronchiectasis without complication (HC Code); Multiple pulmonary nodules Social History Tobacco Use Types Packs/Day Years Used Date Smoking Tobacco: Never Assessed Comments Unknown Sex and Gender Information Value Date Recorded Sex Assigned at Not on file Legal Sex Unknown 06/03/2017 9:39 AM EDT Gender Identity Not on file Sexual Orientation Not on file documented as of this encounter Plan of Treatment Scheduled Referrals Name Type Priority Associated Diagnoses Orde r Schedule Ambulatory referral to Pulmonology Outpatient Referral Routine Cough Bronchiectasis without complication (HC Code) Multiple pulmonary nodules Ordered: 06/19/2017 documented as of this encounter Visit Diagnoses Diagnosis Cough- Primary Bronchiectasis without complication (HC Code) Bronchiectasis without acute exacerbation Multiple pulmonary nodules Other nonspecific abnormal finding of lung field documented in this encounter
--- OUTSIDE RECORDS SUMMARY | 2024-11-14 15:39 | XMS_ITS | Encounter Summary ---
Author Name [facility] Organization [facility] [place] Address [address] [place] [id number] Care Team Providers Care Community Resource Consultant Name Role Phone DEBORAH PRIETO Primary Care [...] Relationship to Policy Pérez AN[place]M [place] [facility] CE ORGANIZAT ION COH G AND E Feb 15, 2024 [id number] SUSAN SMITH PATIENT BCBS [facility] CE ORGANIZAT ION COH POLIC E DEPT HDHP Feb 15, 2024 [id number] SUSAN SMITH PATIENT BCBS OF [facility] CE ORGANIZAT ION COH G AND E Feb 15, 2024 [id number] SUSAN SMITH PATIENT [place] PRESCRIPT ION RX Feb 15, 2024 [id number] [id number] SUSAN SMITH PATIENT [employer] PRESCRIPT ION COH G AND E Feb 15, 2024 [id number] SUSAN SMITH PATIENT [employer] RX PRESCRIPT ION Feb 14, 2017 [id number] SUSAN SMITH PATIENT [facility] CE ORGANIZ [place] Feb 14, 2019 [id number] SUSAN SMITH PATIENT [facility] CE ORGANIZAT ION W/OUT OF NETWORK BENEFITS COH G AND E Feb 15, 2024 [id number] SUSAN SMITH PATIENT Selected Encounter This section includes the information on record at [place] for the Encounter. Date/Time Encounter Type Encounter Description Reason Provider Source Oct 10, 2024 02:00 PM OFFICE O/P EST MOD 30 MIN PRIMARY CARE/MEDICINE ICD-10-CM I10 Essential (primary) hypertension ARELIDEVEN Gonsalez Len Encounter Template Text not used by [place] Assessments - Encounter Diagnoses This section includes the primary and secondary diagnoses documented for the Encounter. Date/Time Primary/Secondary Diagnosis Diagnosis Name Provider Source Oct 31, 2024 11:25 AM PRIMARY Essential (primary) hypertension [facility] Oct 31, 2024 11:25 AM SECONDARY Encounter for immunization JOSELYN CABRAL [facility] Oct 31, 2024 11:25 AM SECONDARY Hyperlipidemia, unspecified [facility] Oct 31, 2024 11:25 AM SECONDARY Intervertebral disc disorders w radiculopathy, lumbar region DECEMBER,DEVEN Gonsalez [facility] Plan of Treatment: Future Appointments (+ 6 months) and Future Tests (+/- 45 days) The Plan of Treatment section includes future care activities for the patient from all [place] treatmentfacilities. This section includes future appointments and future orders which are active, pending or scheduled. Future Appointments This section includes appointments that were scheduled to occur 6 months from the date of the Encounter, up to a maximum of 20 appointments. The data comes from all [place] treatment facilities. Appointment Date/Time Appointment Type Appointme nt Facility Name Oct 14, 2024 03:30 PM AMBULATORY - PSYCHIATRY [facility] Oct 25, 2024 03:00 PM AMBULATORY - PSYCHIATRY [facility] Nov 17, 2024 11:30 AM AMBULATORY - MEDICINE [facility] Nov 21, 2024 02:00 PM AMBULATORY - PSYCHIATRY [facility] January 13, 2025 02:00 PM AMBULATORY - PSYCHIATRY [facility] Mar 29, 2025 03:00 PM AMBULATORY - MEDICINE [facility] Active, Pending, and Scheduled Orders This section includes a listing of several types of active, pending, and scheduled orders, including clinic medications orders, diagnostic test orders, procedure orders and consult orders; where the start date of the order is 45 days before the date of the Encounter or 45 days after the date of theEncounter. The data comes from all [place] treatment facilities. Test Date/Time Test Type Test Details Facility Name Sep 29, 2024 07:23 PM Consult Order COMMUNITY CARE-PHYSICAL THERAPY Cons Manager [employer] [facility] Oct 10, 2024 12:00 AM Laboratory - Chemi stry Order OCCULT BLOOD FIT X1 SCREEN(IN-HOUSE) STOOL [facility] Lab Results: +/- 30 days of the encounter This section includes the Chemistry and Hematology Lab Results on record with [place] for the patient. Radiology Reports and Pathology Reports are provided separately, in subsequent sections. Lab Results This section contains the Chemistry/Hematology Results that were resulted 30 days before or 30 daysafter the date of the Encounter. Date/Time Source Result Type Result - Unit Interpretation Reference Range Comment Oct 06, 2024 11:35 AM [facility] LIPID PANEL FASTING Specimen Type: SERUM No comment entered. Ordering Provider: BLAKE WEN Report Released Date/Time: Mar 29, 2024 03:35 PM Reporting Lab: [address] [address] Performing Lab: [address] [address] CHOLESTEROL 260 mg/dL H TRIGLYCERIDE 218 mg/dL H 0-150 LDL calculated 168 mg/dL H 0-129 CHOL/HDL 5.4 HDL CHOLESTEROL 48 mg/dL 40-60 Immunizations: All administered on the encounter date This section contains immunizations associated to the Encounter. Immunization Series Date Issued Reaction Comments COVID-19 (MODERNA), MRNA, LN P-S, PF, 50 MCG/0.5 ML (AGES 12+ YEARS) Oct 10, 2024 INFLUENZA, SPLIT VIRUS, TRIVALENT, PF Oct 10, 2 025 Social History: Smoking Status (Most current) and [...] 19, 2024 02:00 PM VA-TOBACCO NEVER USED [facility] Tobacco Use History This section includes a history of the smoking, or tobacco-related health factors, that were collected on or before the date of the Encounter. The data comes from the [place] facility where the Encounter took place. Date/Time Smoking Status/Tobacco Use Comment F acility Feb 19, 2024 02:00 PM VA-TOBACCO NEVER USED [facility] Feb 19, 2024 02:00 PM VA-TOBACCO QUIT 5 TO < 15 YRS [facility] May 06, 2022 03:00 PM VA-TOBACCO FORMER USER [facility] May 06, 2022 03:00 PM VA-TOBACCO QUIT 5 TO < 15 YRS [facility] May 21, 2021 03:00 PM VA-TOBACCO FORMER USER [facility] May 21, 2021 03:00 PM VA-TOBACCO QUIT 5 TO < 15 YRS [facility] Mar 15, 2019 09:02 AM VA-TOBACCO FORMER USER [facility] Mar 15, 2019 09:02 AM VA-TOBACCO QUIT 5 TO < 15 YRS [facility] January 04, 2018 04:05 PM QUIT TOBACCO USE > 7 YEARS AGO [facility] Apr 27, 2017 12:25 PM QUIT TOBACCO USE > 7 YEARS AGO [facility] Sep 12, 2016 02:09 PM QUIT TOBACCO USE 1-7 YEARS AGO mar [facility] Jun 20, 2016 08:54 AM QUIT TOBACCO USE 1-7 YEARS AGO quit 2009 [facility] Jun 25, 2015 03:09 PM QUIT TOBACCO USE > 7 YEARS AGO [facility] Apr 12, 2014 10:09 AM QUIT TOBACCO USE 1-7 YEARS AGO 2010 quit [facility] Dec 15, 2011 03:46 PM QUIT TOBACCO USE 1-7 YEARS AGO 03/26/2010 [facility] Nov 25, 2010 03:11 PM QUIT TOBACCO USE 1-7 YEARS AGO [facility] Nov 25, 2010 03:11 PM QUIT TOBACCO USE IN PAST YEAR [facility] Advance Directives: All historical and current Section Date Range: From patient's date of to the date document was created. This section includes ALL of a patient's completed or amended [place] Advance and Rescinded Directives. The entries below indicate that a directive exists for the patient, but an actual copy is not included with this document. The data comes from all [place] facilities. Date Advance Directives Provider Source Jun 13, 2017 ADVANCE DIRECTIVE [facility]EL[facility] DODSON [facility] Apr 18, 2014 ADVANCE DIRECTIVE JESSEE LAZAR Encounter Notes: All associated encounter notes This section contains the clinical notes associated to the Encounter. Date/Time Encounter Note(s) Provider Source Oct 10, 2024 02:20 PM PREVENTIVE MEDICIN E NURSING NOTE: LOCAL TITLE: CLINICAL REMINDERS/NURSING STANDARD TITLE: PREVENTIVE MEDICINE NURSING NOTE DATE OF NOTE: OCT 10, 2024@14:20 ENTRY DATE: OCT 10, 2024@14:20:28 AUTHOR: JYOTI CABRAL EXP COSIGNER: URGENCY: STATUS: COMPLETED Suicide Screen: C-SSRS Screening Cobb Suicide Severity Rating Scale (C-SSRS) screener 1. Over the past month, have you wished you were or wished you could go to sleep and not wake up? No 2. Over the past month, have you had any actual thoughts of killing yourself? No 3. Over the past month, have you been thinking about how you might do this? Response not required due to responses to other questions. 4. Over the past month, have you had these thoughts and had some intention of acting on them? Response not required due to responses to other questions. 5. Over the past month, have you started to work out or worked out the details of how to kill yourself? Response not required due to responses to other questions. 6. If yes, at any time in the past month did you intend to carry out this plan? Response not required due to responses to other questions. 7. In your lifetime, have you ever done anything, started to do anything, or prepared to do anything to end your life (for example, collected pills, obtained a gun, gave away valuables, went to the roof but didn't jump)? No 8. If YES, was this within the past 3 months? Response not required due to responses to other questions. Hepatitis B Serology/Immunization: Defer due to a PRECAUTION Influenza Immunization: Influenza, Trivalent, Preservative Free (Fluarix-Syringe) Administered: INFLUENZA, SPLIT VIRUS, TRIVALENT, PF Date Administered: Oct 10, 2024 14:00 Associate Teacher: Inaika Lot: [id number] Exp Date: Feb 13, 2025 ND: [id number] Admin Route/Site: INTRAMUSCULAR/RIGHT DELTOID Dosage: 0.5mL Vaccine Information Statement(s): INFLUENZA(FLU) VACC(INACTIVATED OR RECOMBINANT)VIS Mar 22, 2021 (SUDANESE) Order By: Policy Administered By: Jyoti Cabral The Influenza Vaccine Information Statement (VIS) was reviewed with the patient/caregiver which lists the benefits and risks of the vaccine and the risks of not receiving the Influenza vaccine. The patient/caregiver denied any prior severe reaction to this vaccine or its components or a severe allergic reaction, such as anaphylaxis, to any vaccine or any injectable therapy. The patient/caregiver gave verbal consent to receive the vaccine. COVID-19 Immunization: Moderna Monovalent (Spikevax) Administered: COVID-19 (MODERNA), MRNA, LNP-S, PF, 50 MCG/0.5 ML (AGES 12+ YEARS) Date Administered: Oct 10, 2024 14:00 Series: Booster Associate Teacher: PPS. Lot: [id number] Exp Date: Jan 28, 2025 NDC: [id number] Admin Route/Site: INTRAMUSCULAR/LEFT DELTOID Dosage: .5mL Vaccine Information Statement(s): COVID-19 MRNA VACCINE (12+ YRS) VIS Jun 02, 2024 (SUDANESE) Order By: Policy Administered By: Jyoti Cabral Vaccine administered without complications. Pneumococcal Conjugate Vaccine (PCV15/PCV20/PCV21): Defer due to a PRECAUTION Reason: received 2 vaccines today, will get next visit. /kevin/ JYOTI CABRAL LPN LPN Signed: 10/10/2024 14:22 JYOTI CABRAL [facility] Oct 10, 2024 07:20 AM PHYSICIAN NOTE: LOCAL TITLE: NOTE STANDARD TITLE: PHYSICIAN NOTE DATE OF NOTE: OCT 10, 2024@07:20 ENTRY DATE: OCT 10, 2024@07:20:53 AUTHOR: DEVEN SINGLETON EXP COSIGNER: URGENCY: STATUS: COMPLETED Primary Care Progress Note CC: Una is here to follow up the medical problems listed below HPI: is doing well overall He has chronic LBP with sciatica, this is stable, and has not been progressive or persistent--no fevers, problems with gait, leg pain, loss of bowel or bladder function. The pain he notes comes on quickly and is mainly noted with motion. 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 Allergic rhinitis Foot Specialist: Dr. Pond. Completed allergy shots 10/05 8. [...] 16. Obstructive sleep apnea syndrome (SNOMED CT 17509157) severe per home sleep study 05/06 on CPAP 17. Tobacco Use Disorder, Remission quit 03/26/2010 18. Lumbago (SNOMED CT 910230155) MRI 12/26/16 see note 01/21/17 Meds:Active Outpatient Medications (including Supplies): BUPROPION HCL 150MG 12HR SA TAB TAKE ONE TABLET BY MOUTH ACTIVE EVERY MORNING -FOR MOOD/PTSD CARBOXYMETHYLCELLULOSE NA 0.5% OPH SOLN INSTILL 1 DROP ACTIVE INTO EACH EYE FOUR TIMES A DAY Indication: DRY EYE GABAPENTIN 300MG CAP TAKE ONE CAPSULE BY MOUTH THREE TIMES ACTIVE DAILY NEEDED --FOR PAIN/ANXIETY (OFF-LABEL) Indication: FOR NERVE PAIN HYDROXYZINE HCL 25MG TAB TAKE ONE TABLET BY MOUTH THREE ACTIVE TIMES DAILY NEEDED -FOR ANXIETY LIDOCAINE 5% PATCH APPLY 1 PATCH TOPICALLY ONCE DAILY ACTIVE (LEAVE PATCH ON FOR 12 HOURS, THEN REMOVE PATCH) Indication: FOR LOW BACK PAIN PRAZOSIN HCL 2MG CAP TAKE ONE CAPSULE BY MOUTH AT BEDTIME ACTIVE NEEDED -FOR NIGHTMARES (OFF-LABEL) SERTRALINE HCL 100MG TAB TAKE ONE TABLET BY MOUTH ONCE ACTIVE DAILY FOR MOOD SUNSCREEN 30-50/AVOBENZONE/PABA-F LOTION APPLY A LIBERAL ACTIVE AMOUNT TOPICALLY ONCE DAILY NEEDED Indication: TO PREVENT SUNBURN SUNSCREEN 30-50/PHY BLOCK/PABA-F FACE CR APPLY A LIBERAL ACTIVE AMOUNT TOPICALLY ONCE DAILY NEEDED Indication: TO PREVENT SUNBURN TRAZODONE HCL 50MG TAB TAKE ONE TABLET BY MOUTH AT BEDTIME ACTIVE NEEDED Indication: FOR SLEEP Non-VA ACETAMINOPHEN 500MG TAB 500MG BY MOUTH EVERY 4 ACTIVE HOURS NEEDED Non-VA DOCUSATE NA 100MG CAP 100MG BY MOUTH NEEDED ACTIVE Non-VA MULTIVITAMIN/MINERALS CAP/TAB 1 TABLET BY MOUTH ACTIVE ONCE DAILY 13 Total Medications No Active Remote Medications for this patient All:Patient has answered NKA PEx: Wt: 182 lb [82.55 kg] (03/29/2024 15:00); Ht: 71 in [180.3 cm] (03/29/2024 15:00) Blood Pressure: 128/80 (10/10/2024 14:19) Pain: 6 (10/10/2024 14:19) Patient Height: 71 in [180.3 cm] (10/10/2024 14:19) Patient Weight: 186.2 lb [84.46 kg] (10/10/2024 14:19) Pulse: 54 (10/10/2024 14:19) Respiration: 22 (10/10/2024 14:19) Temperature: 96.8 F [36.0 C] (10/10/2024 14:19) is pleasant and appropriate; gait is normal; HEENT: PERRL, EOMI, mucous membranes are moist; neck is without nodes, bruits or JVD; lungs are CTA bilaterally, no wheezes, rales or rhonchi; heart is with rrr, no m,r,g. abd- soft and nontender, no h/s megaly or mass; extrems are without cce; neuro-- a&ox3and coop, nonfocal Data: All available test results were reviewed with the (Case [id number] COMPLETE) SPINE LUMBOSACRAL MIN 2 VIEWS (RAD Detailed) CPT:00193 Reason for Study: back pain Clinical History: acute on chronic Report Status: Verified Date Reported: APR 01, 2024 Date Verified: APR 01, 2024 [employer] Sergeant E-Sig:/ES/LAURA MONTOYA JR Report: Study: PA and [...] of the lumbar spine, as described above. Collection DT Spec WBC HGB HCT PLT K+/Pot Sodium HGBA1c 03/23/2024 07:46 BLOOD 5.2 03/23/2024 07:46 BLOOD 5.28 14.7 43.5 225 03/23/2024 07:46 SERUM 4.1 139 10/27/2023 07:31 BLOOD 5.2 10/27/2023 07:31 BLOOD 4.84 14.7 44.6 205 Collection DT Spec GLUCOSE CREATIN AST ALT T BILI ALK BREEZY CHOL 10/06/2024 11:35 SERUM 260 H 03/23/2024 07:46 SERUM 102 H 0.90 15 18 0.8 82 247 H 10/27/2023 07:31 SERUM 127 H 0.96 15 23 0.7 68 234 H 10/22/2022 14:40 SERUM 15 17 0.8 82 10/22/2022 14:40 SERUM 89 0.98 Collection DT Spec LDL-c HDL TRIG TSH B12 SR- VIT D25 HIV Ag/ 10/06/2024 11:35 SERUM 168 H 48 218 H 03/23/2024 07:46 SERUM 2.97 03/23/2024 07:46 SERUM 175 H 56 81 10/27/2023 07:31 SERUM 157 H 53 121 4.04 10/22/2022 14:40 SERUM 2.96 SERUM Aug 30 Reference 2015 15:05 Units Ranges --------- ACID PH U/L 2.2 - 10.5 TartInh U/L .2 - 3.5 Pap U/L 0 - 1 PAP U/L 0 - 1.2 ProSpAg PrSpAg ng/ml 0 - 4 PSA 1.79 ng/mL 0 - 4 A/P: All instructions were explained for the , who expressed understanding and agreement. 1. LBP----on exam, there is piriformis pain, worse on the right than the left. Piriformis stretching was demonstrated, and recommended twice daily. He will consider PT 2. Hyperlipidemia--recommend start atorvastatin 20 mg daily, and repeat the lipid profile with routine labs. Diet discussed He knows a past CT showed coronary artery calcification, and denies any cardiac sx 3. HTN--controlled; continue meds 4. Possible COPD--he requests a refill on his inhaler 5. HCM--colon screen--FIT test instruction and orders today; c-scope in 202 with reported diminutive polyp prostate screen--will start annual screening with PSA with next routine labs 12/08 and then 12/14/23, left then right cataract Medication Reconciliation: Outpatient: Has the patient been taking medications as documented in the EMLR? YES: The patient has been taking medications as documented in the EMLR. Essential Medication List for Review used to complete this medication reconciliation. INCLUDED IN THIS LIST: Alphabetical list of active outpatient prescriptions dispensed from this [place] (local) and dispensed from another [place] or [facility] facility (remote) as well as inpatient orders (local, pending and active), local clinic medications, locally documented non-VA medications, and local prescriptions that have or been discontinued in the past 90 days. - All changes in medications, including all non-VA/Herbal/OTC medications were entered into CPRS. - If there were any medications the patient should no longer take, they were discontinued. - The patient/caregiver was instructed to update this list, discard old lists, and take this list to the next appointment, whether with a VA or non-VA provider. /kevin/ Deven Singleton MD INTERNAL MEDICINE and RHEUMATOLOGY Signed: 10/31/2024 11:26 DEVEN SINGLETON [facility]
--- OUTSIDE RECORDS SUMMARY | 2024-11-14 15:39 | XMS_ITS | Encounter Summary ---
Author Organization [facility] Address [address] [place] [id number] Care Team Providers Care Jacket Preparer Name Role Phone Unavailable Primary Care Provider Unavailabl e Encounter Details Date Type Department Care Team (Late st Contact Info) Description 06/03/2017 Lab Requisition [facility] Specimens [address] [phone] Lab Provider, No Fax Encounter for examination and observation for unspecified reason Social History Tobacco Use Types Packs/Day Years Used Date Smoking Tobacco: Never Assessed Comments Unknown Sex and Gender Information Value Date Recorded Sex Assigned at Not on file Legal Sex Unknown 06/03/2017 9:39 AM EDT Gender Identity Not on file Sexual Orientation Not on file documented as of this encounter Plan of Treatment Not on file documented as of this encounter Visit Diagnoses Diagnosis Encounter for examination and observation for unspecified reason documented in this encounter
--- OUTSIDE RECORDS SUMMARY | 2024-11-14 15:39 | XMS_ITS | Encounter Summary ---
Author Organization [facility] Address [address] [place] [id number] Care Team Providers Care Regional Transportation Manager Name Role Phone Unavailable Primary Care Provider Unavailabl e Encounter Details Date Type Department Care Team (Late st Contact Info) Description 06/03/2017 Lab Requisition [facility] Specimens [address] [place] [address] Lab Provider, No Fax Encounter for examination [...] on file documented as of this encounter Procedures Procedure Name Priority Date/Time Associated Diagnosis Comments CRYPTOCOCCAL ANTIGEN W/RFL TO TITER Routine 06/02/2017 4:52 PM EDT Encounter for examination and observation for unspecified reason documented in this encounter Results * Cryptococcal antigen w/rfl to titer ([facility] LM Q [facility]) (06/02/2017 4:52 PM EDT) Cryptococcal Antigen Negative Negative 06/03/2017 12:57 PM EDT [facility] Culture BLOOD SPECIMEN / Unknown 06/02/2017 4:52 PM EDT 06/03/2017 10:11 AM EDT us No Fax Lab Provider MICROBIOLOGY - GENERAL ORDER DENNISE Final Result [facility] [address] [phone] documented in this encounter Visit Diagnoses Diagnosis Encounter for examination and observation for unspecified reason documented in this encounter
--- OUTSIDE RECORDS SUMMARY | 2024-11-14 15:39 | XMS_ITS | Encounter Summary ---
Author Name [place] Address [address] [place] [address] Care Team Providers Care Branch Coordinator Name Role Phone DEBORAH PRIETO Primary Care [...] Relationship to Policy Pérez [place] [facility] CE ORGANIZAT ION COH G AND E Feb 15, 2024 [id number] [phone] SUSAN SMITH PATIENT BCBS [facility] CE ORGANIZAT ION COH POLIC E DEPT HDHP Feb 15, 2024 [id number] SUSAN SMITH PATIENT BCBS OF [facility] CE ORGANIZAT ION COH G AND E Feb 15, 2024 [id number] SUSAN SMITH PATIENT [facility] PRESCRIPT ION RX Feb [facility], [id number] [phone] SUSAN SMITH PATIENT [place] PRESCRIPT ION COH G AND E Feb 15, 2024 [id number] SUSAN SMITH PATIENT CIG[employer] RX PRESCRIPT ION Feb 14, 2017 [id number] SUSAN SMITH PATIENT [facility] CE ORGANIZ [place] KE WATER Feb 14, 2019 [id number] SUSAN SMITH PATIENT [facility] CE ORGANIZAT ION W/OUT OF NETWORK BENEFITS COH G AND E Feb 15, 2024 [id number] [phone] SUSAN SMITH PATIENT Selected Encounter This section includes the information on record at [place] for the Encounter. Date/Time Encounter Type Encounter Description Reason Pro vider Source Sep 14, 2024 03:30 PM Outpatient Encounter [facility] IHE Encounter Template Text not used by [place] Plan of Treatment: Future Appointments (+ 6 months) and Future Tests (+/- 45 days) The Plan of Treatment section includes future care activities for the patient from all [place] treatmentfacilities. This section includes future appointments and future orders which are active, pending or scheduled. Future Appointments This section includes appointments that were scheduled to occur 6 months from the date of the Encounter, up to a maximum of 20 appointments. The data comes from all [place] treatment facilities. Appointment Date/Time Appointment Type Appointme nt Facility Name Sep 28, 2024 02:25 PM AMBULATORY - MEDICINE [facility] Oct 10, 2024 02:00 PM AMBULATORY - MEDICINE [facility] Oct 14, 2024 03:30 PM AMBULATORY - PSYCHIATRY [facility] Oct 25, 2024 03:00 PM AMBULATORY PSYCHIATRY [facility] Nov 17, 2024 11:30 AM AMBULATORY - MEDICINE [facility] Nov 21, 2024 02:00 PM AMBULATORY - PSYCHIATRY [facility] January 13, 2025 02:00 PM AMBULATORY - PSYCHIATRY [facility] Active, Pending, and Scheduled Orders This section includes a listing of several types of active, pending, and scheduled orders, including clinic medications orders, diagnostic test orders, procedure orders and consult orders; where the start date of the order is 45 days before the date of the Encounter or 45 days after the date of theEncounter. The data comes from all [place] treatment facilities. Test Date/Time Test Type Test Details Facility Name Sep 29, 2024 07:23 PM Consult Order COMMUNITY CARE-PHYSICAL THERAPY Cons Kitchen And Bath Designer's Choice [facility] Oct 10, 2024 12:00 AM Laboratory - Chemi stry Order OCCULT BLOOD FIT X1 SCREEN(IN-HOUSE) STOOL FECES SP [facility] Lab Results: +/- 30 days of the encounter This section includes the Chemistry and Hematology Lab Results on record with [place] for the patient. Radiology Reports and Pathology Reports are provided separately, in subsequent sections. Lab Results This section contains the Chemistry/Hematology Results that were resulted 30 days before or 30 daysafter the date of the Encounter. Date/Time Source Result Type Result - Unit Interpretation Reference Range Comment Oct 06, 2024 11:35 AM [facility] LIPID PANEL FASTING Specimen Type: SERUM No comment entered. Ordering Provider: BLAKE WEN Report Released Date/Time: Mar 29, 2024 03:35 PM Reporting Lab: [facility] [address] [facility] [address] Performing Lab: [facility] [address] [facility] [address] CHOLESTEROL 260 mg/dL H TRIGLYCERIDE 218 mg/dL H 0-150 LDL calculated 168 mg/dL H 0-129 CHOL/HDL 5.4 HDL CHOLESTEROL 48 mg/dL 40-60 Social History: Smoking Status (Most current) and Tobacco Use (All prior to encounter date) This section includes the most current, and the historical, smoking and tobacco- related health factors from the [place] facility where the Encounter took place. Current Smoking Status This section includes the most current smoking, or tobacco-related health factor, from the [place] facility where the Encounter took place. Date/Time Current Smoking Status Comment Facil ity Feb 19, 2024 02:00 PM [place]-TO[place]ACCO NEVER USED [place] Tobacco Use History This section includes a history of the smoking, or tobacco-related health factors, that were collected on or before the date of the Encounter. The data comes from the [place] facility where the Encounter took place. Date/Time Smoking Status/Tobacco Use Comment F acility Feb 19, 2024 02:00 PM VA-TOBACCO NEVER USED [place] Feb 19, 2024 02:00 PM VA-TOBACCO QUIT 5 TO < 15 YRS [place] May 06, 2022 03:00 PM VA-TOBACCO FORMER USER [place] May 06, 2022 03:00 PM VA-TOBACCO QUIT 5 TO < 15 YRS [place] May 21, 2021 03:00 PM VA-TOBACCO FORMER USER [place] May 21, 2021 03:00 PM VA-TOBACCO QUIT 5 TO < 15 YRS [place] Mar 15, 2019 09:02 AM VA-TOBACCO FORMER USER [place] Mar 15, 2019 09:02 AM VA-TOBACCO QUIT 5 TO < 15 YRS [place] January 04, 2018 04:05 PM QUIT TOBACCO USE > 7 YEARS AGO [place] Apr 27, 2017 12:25 PM QUIT TOBACCO USE > 7 YEARS AGO [place] Sep 12, 2016 02:09 PM QUIT TOBACCO USE 1-7 YEARS AGO mar [place] Jun 20, 2016 08:54 AM QUIT TOBACCO USE 1-7 YEARS AGO quit 2009 [place] Jun 25, 2015 03:09 PM QUIT TOBACCO USE > 7 YEARS AGO [place] Apr 12, 2014 10:09 AM QUIT TOBACCO USE 1-7 YEARS AGO 2009 quit [place] Dec 15, 2011 03:46 PM QUIT TOBACCO USE 1-7 YEARS AGO 03/26/2010 [place] Nov 25, 2010 03:11 PM QUIT TOBACCO USE 1-7 YEARS AGO [place] Nov 25, 2010 03:11 PM QUIT TOBACCO USE IN PAST YEAR [place] Advance Directives: All historical and current Section Date Range: From patient's date of to the date document was created. This section includes ALL of a patient's completed or amended [place] Advance and Rescinded Directives. The entries below indicate that a directive exists for the patient, but an actual copy is not included with this document. The data comes from all [facility]. Date Advance Directives Provider Source Jun 13, 2017 ADVANCE DIRECTIVE ISABELA DODSON [facility] Apr 18, 2014 ADVANCE DIRECTIVE JESSEE LAZAR Encounter Notes: All associated encounter notes This section contains the clinical notes associated to the Encounter. Date/Time Encounter Note(s) Provider Source Sep 14, 2024 03:57 PM CLERICAL NOTE: LOCAL TITLE: APPOINTMENT NO SHOW STANDARD TITLE: CLERICAL NOTE DATE OF NOTE: SEP 14, 2024@15:57 ENTRY DATE: SEP 14, 2024@15:57:37 AUTHOR: MADALYN TEMPLE COSIGNER: URGENCY: STATUS: COMPLETED Patient Name: PARUL SMITH Patient SSN: [id number] Date and time of Appointment No show : 09/14/24 15:30 PATIENT PHONE - PHONE NUMBER [CELLULAR] - Patient's medical record was reviewed. Follow-up actions were determined and initiated: Please check/complete as applies: [X]Telephoned Directly [ ]Re-scheduled for next available appt [X]Sent a N0-show letter ( must call for appointment) [ ]Other (Emergent/Overbook, etc.): Additional Comments: did not show for his appointment today. I called and spoke with him. He apologized for the missed visit. He called the reschedule. Future Clinic Visits 09/28/2024 14:25 [facility] CARE-OPHTHALMOLOGY 10/07/2024 14:30 CWM/SO/VVC/MHC/WINDY 10/10/2024 15:30 CWM/SO/PACT 9 10/25/2024 15:00 SPOPC/MHC/MERCADO-I 03/29/2025 15:00 CWM/SO/PACT 9 08/03/2025 15:30 [facility] OPTOMETRY 2 PM /es/ MADALYN TEMPLE DO Psychiatrist Signed: 09/14/2024 15:58 MADALYN TEMPLE [place]
--- OUTSIDE RECORDS SUMMARY | 2024-11-14 15:39 | XMS_ITS | Encounter Summary ---
Author Name [facility] [place] Address [address] [place] [address] Care Team Providers Care Banking Consultant Name Role Phone DEBORAH PRIETO Primary [...] Relationship to Policy Pérez [place] [facility] CE ORGANIZAT ION COH G AND E Feb 15, 2024 [id number] [phone] SUSAN SMITH PATIENT BCBS [facility] CE ORGANIZAT ION COH POLIC E DEPT HDHP Feb 15, 2024 [id number] SUSAN SMITH [place] PATIENT BCBS OF [facility] CE ORGANIZAT ION COH G AND E Feb 15, [id number] [phone] SUSAN SMITH [place] PATIENT [employer] PRESCRIPT ION RX Feb 15, 2024 [id number] [phone] SUSAN SMITH PATIENT [place] PRESCRIPT ION COH G AND E Feb 15, 2024 [id number] SUSAN SMITH PATIENT CIGNA RX PRESCRIPT ION Feb 14, 2017 [id number] [phone] SUSAN SMITH PATIENT [facility] CE ORGANIZ [place] Feb 14, 2019 [id number] [phone] SUSAN SMITH PATIENT [facility]LE[facility] CE ORGANIZAT ION W/OUT OF NETWORK BENEFITS COH G AND E Feb 15, 2024 [id number] [phone] SUSAN SMITH PATIENT Selected Encounter This section includes the information on record at [place] for the Encounter. Date/Time Encounter Type Encounter Description Reason Provider Source Nov 25, 2023 01:34 PM OFFICE O/P EST SF 10 MIN ANESTHESIA PRE/POST-OP CONSULT ICD-10-CM Z01.818 Encounter for other preprocedural examination ANGIE KOROMA [facility] Encounter Template Text not used by [place] Assessments - Encounter Diagnoses This section includes the primary and secondary diagnoses documented for the Encounter. Date/Time Primary/Secondary Diagnosis Diagnosis Name Provider Source Nov 25, 2023 03:39 PM PRIMARY Encounter for other preprocedural examination ANGIE KOROMA [facility] Plan of Treatment: Future Appointments (+ 6 months) and Future Tests (+/- 45 days) The Plan of Treatment section includes future care activities for the patient from all [place] treatment[place]ilities. This section includes future appointments and future orders which are active, pending or scheduled. Future Appointments This section includes appointments that were scheduled to occur 6 months from the date of the Encounter, up to a maximum of 20 appointments. The data comes from all [place] treatment facilities. Appointment Date/Time Appointment Type Appointme nt Facility Name Nov 26, 2023 09:00 AM AM[facility]ULATORY - NONE [facility] Nov 26, 2023 10:00 AM AMBULATORY - NONE [facility] Dec 08, 2023 03:00 PM AMBULATORY - PSYCHIATRY [facility] December 17, 2023 02:30 PM AMBULATORY - PSYCHIATRY [facility] December 25, 2023 08:00 AM AMBULATORY - MEDICINE [facility] December 25, 2023 08:30 AM [facility] - [facility]ICINE [facility] December 28, 2023 03:30 PM AMBULATORY - NEUROLOGY [facility] Feb 09, 2024 03:00 PM AMBULATORY - PSYCHIATRY [facility] Feb 19, 2024 02:00 PM AMBULATORY - [place]ICINE [place] [facility] [place] [facility] Mar 18, 2024 03:00 PM AMBULATORY - PSYCHIATRY [facility] Mar 22, 2024 03:00 PM AMBULATORY - PSYCHIATRY [facility] Mar 29, 2024 02:30 PM AMBULATORY - MEDICINE [place] [facility] [place] [facility] May 04, 2024 03:15 PM AMBULATORY - MEDICINE [place] [facility] [place] [facility] May 10, 2024 02:00 PM AMBULATORY - MEDICINE [facility] May 17, 2024 03:00 PM AMBULATORY - [facility] [place] [facility] Lab Results: +/- 30 days of the encounter This section includes the Chemistry and Hematology Lab Results on record with [place] for the patient. Radiology Reports and Pathology Reports are provided separately, in subsequent sections. Lab Results This section contains the Chemistry/Hematology Results that were resulted 30 days before or 30 daysafter the date of the Encounter. Date/Time Source Result Type Result - Unit Interpretation Reference Range Comment Oct 27, 2023 07:31 AM [facility] HEMOGLOBIN A1C PANEL Specimen Type: BLOOD Comment: Values obtained from A1C measurements can vary. For atypical A1C assays, a reported value of 7.0 could actually be between 6.72 and 7.28 if measured by a reference method. A reported value of 9.0 could actually be between 8.73 and 9.27. Ref: http://www.ngs p.org/CAPdata. asp Ordering Provider: AKIL WEN Report Released Date/Time: Oct 26, 2023 11:20 AM Reporting [facility] [address] [address] Performing Lab: [address] [address] HEMOGLOBIN A1C 5.2 4.0-5.6 Oct 27, 2023 07:31 AM [facility] LIPID PANEL FASTING Specimen Type: SERUM No comment entered. Ordering Provider: AKIL WEN Report Released Date/Time: Oct 26, 2023 11:20 AM Reporting Lab: [facility] [address] [facility] [address] Performing Lab: [facility] [address] [facility] [address] CHOLESTEROL 234 mg/dL H TRIGLYCERIDE 121 mg/dL 0-150 LDL calculated 157 mg/dL H 0-129 CHOL/HDL 4.4 HDL CHOLESTEROL 53 mg/dL 40-60 Oct 27, 2023 07:31 AM [facility] BASIC METABOLIC PANEL (fasting) Specimen Type: SERUM No comment entered. Ordering Provider: AKIL WEN Report Released Date/Time: Oct 26, 2023 11:20 AM Reporting Lab: [facility] [address] [facility] [address] Performing Lab: [address] [address] UREA NITROGEN 16 mg/dL 7-25 GLUCOSE 127 mg/dL H 65-100 SODIUM 138 mmol/L 135-145 POTASSIUM 4.0 mmol/L 3.5-5.0 CHLORIDE 101 mmol/L 100-110 CO2 28 meq/L 20-30 CREATININE, Serum 0.96 mg/dL 0.50-1.40 eGFR(CKD-EPI 2020) >90 mL/min >60 Oct 27, 2023 07:31 AM [facility] LIVER FUNCTION Specimen Type: SERUM No comment entered. Ordering Provider: AKIL WEN Report Released Date/Time: Oct 26, 2023 11:20 AM Reporting Lab: [facility] [address] [facility] [address] Performing Lab: [address] [address] PROTEIN,TOTAL 6.7 g/dL 6.0-8.3 ALBUMIN 3.7 g/dL 3.5-5.0 ALKALINE PHOSPHATASE 68 U/L 40-150 AST 15 U/L 5-34 ALT 23 U/L BILIRUBIN, TOTAL 0.7 mg/dL 0.2-1.2 Oct 27, 2023 07:31 AM [facility] TSH Specimen Type: SERUM No comment entered. Ordering Provider: AKIL WEN Report Released Date/Time: Oct 26, 2023 11:20 AM Reporting Lab: [facility] [address] [facility] [address] Performing Lab: [address] [address] TSH 4.04 u[IU]/mL 0.35-5.00 Oct 27, 2023 07:31 AM [facility] MICROALBUMIN CREATININE RATIO PANEL Specimen Type: URINE No comment entered. Ordering Provider: AKIL WEN Report Released Date/Time: Oct 26, 2023 11:20 AM Reporting Lab: [facility] [address] [facility] [address] Performing Lab: [address] [address] MICROALBUMIN/C REATININE RATIO 5.6 mg/g 0-29.9 MICROALBUMIN,Q UANTITATIVE 1.2 mg/dL RR UNAVAIL CREATININE URINE 214.58 mg/dL Oct 27, 2023 07:31 AM [facility] CBC AND DIFF (AUTO) Specimen Type: BLOOD No comment entered. Ordering Provider: AKIL WEN Report Released Date/Time: Oct 26, 2023 11:20 AM Reporting Lab: [facility] [address] [facility] [address] Performing Lab: [address] [address] WBC 4.84 10*3/uL 4.50-11.00 RBC 4.84 10*6/uL 4.23-5.66 HGB 14.7 g/dL 12.8-17 HCT 44.6 39.2-50.4 MCV 92.1 fL 82-99 MCHC 33.0 g/dL 30.8-35.1 PLT 205 10*3/uL 140-360 RDW-CV 12.6 12.0-16.0 Blanco, Abs 0.39 10*3/uL 0.30-1.10 MCH 30.4 pg 26.2-32.6 Neut % 60.1 43.7-75.8 Lymph % 27.7 14.0-42.3 Blanco % 8.1 5.1-13.7 Eos % 3.3 0.4-6.8 Baso % 0.4 0.1-2.0 Neut, Abs 2.91 10*3/uL 2.20-7.60 Lymph, Abs 1.34 10*3/uL 1.00-3.20 Eos, Abs 0.16 10*3/uL 0.03-0.44 Baso, Abs 0.02 10*3/uL 0.01-0.13 Immature Gran % 0.4 0.0-0.7 Immature Gran, Abs 0.02 10*3/uL 0.00-0.06 Advance Directives: All historical and current Section Date Range: From patient's date of to the date document was created. This section includes ALL of a patient's completed or amended [place] and [place]cinded [place]ives. The entries below indicate that a directive exists for the patient, but an actual copy is not included with this document. The data comes from all [place] facilities. Date Advance Directives Provider Source Jun 13, 2017 ADVANCE DIRECTIVE ISABELA DODSON [facility] Apr 18, 2014 ADVANCE DIRECTIVE [...] the Encounter. The data comes from all [place] treatment facilities. Date/Time Radiology Report Provider Source Nov 26, 2023 10:11 AM MRI CERVICAL SPINE W/O CONTRAST: PARUL SMITH [id number] -[id number] M Exm Date: NOV 26, 2023@10:11 Req Phys: MILTON WYATT Loc: [facility] MRI DAYS (Req'g Loc) Img Loc: MRI ([facility]) Service: Unknown (Case [id number] COMPLETE) MRI CERVICAL SPINE W/O CONTRAST (MRI Detailed) CPT:70744 Reason for Study: headaches and significant cervicalgia Clinical History: patient needs general anesthesia Report Status: Verified Date Reported: NOV 26, 2023 Date Verified: NOV 26, 2023 Mental Retardation Aide E-Sig:/ES/FATUMA JC Report: MRI OF THE CERVICAL [...] Primary Interpreting Staff: FATUMA JC, Staff Physician (Mental Retardation Aide) Primary Interpreting Resident: FATUMA RAM, RESIDENT /FATUMA SPEAR [facility] Encounter Notes: All associated encounter notes This section contains the clinical notes associated to the Encounter. Date/Time Encounter Note(s) Provider Source Nov 25, 2023 01:34 PM ANESTHESIOLOGY PRE OPERATIVE E & M NOTE: LOCAL TITLE: ANESTHESIA PREOPERATIVE EVALUATION (GT) STANDARD TITLE: ANESTHESIOLOGY PRE OPERATIVE E & M NOTE DATE OF NOTE: NOV 25, 2023@13:34 ENTRY DATE: NOV 25, 2023@13:34:31 AUTHOR: ANGIE KOROMA EXP COSIGNER: URGENCY: STATUS: COMPLETED ANESTHESIA PREOPERATIVE EVALUATION NOTE PATIENT IDENTIFICATION Procedure: MRI cervical spine Indication: Claustrophobia Age: 57 Sex: MALE Ht: 71 in [180.3 cm] (06/13/2017 13:47) Wt: 180.5 lb [81.87 kg] (09/15/2017 15:23) Vital Signs: HR: 59 (07/01/2022 12:23); BP: 148/79 (07/01/2022 12:23): RR: 18 (02/11/2021 14:48); Temp: 97.9 F [36.6 C] (07/01/2022 12:23); Chart and recent pertinent labs/imaging reviewed, patient seen and examined on day of procedure. - Pt confirms PMH, surgical history, social history notable for HTN, HPL, EVERARDO, allergic rhinitis, hx sinus bradycardia, 2001 skull fracture, headache, peripheral neuropathy, chronic cough, GERD, HSV1, neck pain, LBP, knee and ankle pain, anxiety, PTSD, former smoker. - On ROS patient feels in his usual state of health today and denies CP/SOB/palpitations/GERD. - He denies drug allergies. - Interim DATA since last anesthesia preoperative evaluation reviewed and pasted below if any. - He denies personal or family problems with anesthesia. - His heart sounds are regular without murmur, chest clear to auscultation. His airway is MP1, slightly reduced neck extension (main limitation is rotation), normal mouth opening, slightly reduced TMD, teeth intact. - He is appropriately NPO. - ASA classification is 2. - We discussed the range of options from conscious sedation to TIVA with natural airway to GA/ETT. Given prior failed sedation and EVERARDO, we agreed for plan for IV general anesthesia with ETT, maintaining neck in neutral position with VL, with the patient, who agrees. MEDICATIONS: Active Outpatient Medications (excluding Supplies): Drug Name Status GABAPENTIN 300MG CAP ACTIVE HYDROXYZINE HCL 25MG TAB ACTIVE BUPROPION HCL 150MG 12HR SA TAB ACTIVE PRAZOSIN HCL 2MG CAP ACTIVE SERTRALINE HCL 100MG TAB ACTIVE NON-VA DOCUSATE NA CAP,ORAL (Patient/Family Reported) ACTIVE NON-VA ACETAMINOPHEN TAB (Patient/Family Reported) ACTIVE NON-VA MULTIVITAMIN W/MINERAL TAB (Patient/Family Reported) ACTIVE ALLERGIES: NKA Collection Date Lab Test Result Nov 25, 2023 23:59 Blood Bank Report result Oct 27, 2023 07:31 HEMOGLOBIN A1C 5.2 % Oct 27, 2023 07:31 WBC 4.84 K/cmm Oct 27, 2023 07:31 HGB 14.7 g/dL Oct 27, 2023 07:31 HCT 44.6 % Oct 27, 2023 07:31 PLT 205 K/cmm Oct 27, 2023 07:31 SODIUM 138 mmol/L Oct 27, 2023 07:31 POTASSIUM 4.0 mmol/L Oct 27, 2023 07:31 CHLORIDE 101 mmol/L Oct 27, 2023 07:31 CO2 28 mEq/L Oct 27, 2023 07:31 UREA NITROGEN 16 mg/dL Oct 27, 2023 07:31 GLUCOSE 127 mg/dL Oct 27, 2023 07:31 PROTEIN,TOTAL 6.7 g/dL Oct 27, 2023 07:31 ALBUMIN 3.7 g/dL Oct 27, 2023 07:31 ALKALINE PHOSPHATASE 68 U/L Oct 27, 2023 07:31 AST 15 U/L Oct 27, 2023 07:31 BILIRUBIN, TOTAL 0.7 mg/dL Oct 27, 2023 07:31 CHOLESTEROL 234 mg/dL Oct 27, 2023 07:31 TRIGLYCERIDE 121 mg/dL Oct 27, 2023 07:31 LDL calculated 157 mg/dL Oct 27, 2023 07:31 CHOL/HDL 4.4 Oct 27, 2023 07:31 ALT 23 U/L Oct 27, 2023 07:31 HDL CHOLESTEROL 53 mg/dL Oct 27, 2023 07:31 TSH 4.04 uIU/mL Oct 27, 2023 07:31 CREATININE, Serum 0.96 mg/dL Oct 27, 2023 07:31 eGFR(CKD-EPI 2020) >90 COMMENTS THE RISKS AND BENEFITS OF THE ANESTHETIC HAVE BEEN EXPLAINED AND THE PATIENT AGREES TO PROCEED. /kevin/ ANGIE KOROMA ATTENDING ANESTHESIOLOGIST Signed: 11/26/2023 09:44 ANGIE KOROMA [facility]
--- OUTSIDE RECORDS SUMMARY | 2024-11-14 15:39 | XMS_ITS | Encounter Summary ---
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 Name Role Phone DEBORAH PRIETO Primary Care [...] Relationship to Policy Pérez ARRON [place] ([place] [facility] CE ORGANIZAT ION COH G AND E Feb 15, 2024 [id number] [phone] SUSAN SMITH PATIENT BCBS [facility] CE ORGANIZAT ION COH POLIC E DEPT HDHP Feb 15, 2024 [id number] [phone] SUSAN SMITH GLEN[place] PATIENT BCBS OF [facility] CE ORGANIZAT ION COH G AND E Feb 15, 2024 [id number] SUSAN SMITH GLENYS PATIENT [employer] PRESCRIPT ION RX Feb 15, 2024 [id number] SUSAN SMITH PATIENT [employer] PRESCRIPT ION COH G AND E Feb 15, 2024 [id number] SUSAN SMITH PATIENT [employer] RX PRESCRIPT ION Feb 14, 2017 [id number] SUSAN SMITH PATIENT [facility] CE ORGANIZ [place] Feb 14, 2019 [phone] SUSAN SMITH PATIENT [employer] [facility] CE ORGANIZAT ION W/OUT OF NETWORK BENEFITS COH G AND E Feb 15, 2024 [id number] SUSAN SMITH PATIENT Selected Encounter This section includes the information on record at [place] for the Encounter. Date/Time Encounter Type Encounter Description Reason Provider Source December 25, 2023 08:00 AM OFF/OP EST DECEMBER X REQ PHY/QHP PRIMARY CARE/MEDICINE ICD-10-CM R21 Rash and other nonspecific skin eruption NADEEN HAINES [facility] Encounter Template Text not used by [place] Assessments - Encounter Diagnoses This section includes the primary and secondary diagnoses documented for the Encounter. Date/Time Primary/Secondary Diagnosis Diagnosis Name Provider Source Jan 24, 2024 11:03 AM PRIMARY Rash and other nonspecific skin eruption NADEEN HAINES [facility] Plan of Treatment: Future Appointments (+ 6 months) and Future Tests (+/- 45 days) The Plan of Treatment section includes future care activities for the patient from all [place] treatmentfacilities. This section includes future appointments and future orders which are active, pending or scheduled. Future Appointments This section includes appointments that were scheduled to occur 6 months from the date of the Encounter, up to a maximum of 20 appointments. The data comes from all [place] treatment facilities. Appointment Date/Time Appointment Type Appointme nt Facility Name December 28, 2023 03:30 PM AMBULATORY - NEUROLOGY [facility] Feb 09, 2024 03:00 PM AMBULATORY - PSYCHIATRY [facility] Feb 19, 2024 02:00 PM AMBULATORY - MEDICINE [facility] RADHA WSPRIMITIVO ROBLEDO [facility] Mar 18, 2024 03:00 PM AMBULATORY - PSYCHIATRY [facility] Mar 22, 2024 03:00 PM AMBULATORY - PSYCHIATRY [facility] Mar 29, 2024 02:30 PM AM[place]ULATORY [place]ICINE [place] [facility] [place] [facility] May 04, 2024 03:15 PM AMBULATORY [place]IC[place] [facility] [place] [facility] May 10, 2024 02:00 PM AM[facility]UL[facility]ORY - MEDICINE [facility] May 17, 2024 03:00 PM AMBULATORY - PS[facility]CHIATRY [facility] [place] [facility] May 27, 2024 08:00 AM AMBULATORY - [place]ICINE [place] [facility] [place] [facility] Jun 15, 2024 03:00 PM AMBULATORY - PSYCHIATRY [facility] Vital Signs: All taken on the encounter date This section contains inpatient and outpatient Vital Signs collected on the date of the Encounter. Date/Time Temperature Pulse Blood Pressure Respiratory Rate SP02 Pain Height Weight Body Mass Index Source December 25, 2023 08:28 AM 97.6 48 145/92 16 99 0 [facility] Social History: Smoking Status (Most current) and Tobacco Use (All prior to encounter date) This section includes the most current, and the historical, smoking and tobacco- related health factors from the [place] facility where the Encounter took place. Current Smoking Status This section includes the most current smoking, or tobacco-related health factor, from the [place] facility where the Encounter took place. Date/Time Current Smoking Status Comment Facil [facility] May 06, 2022 03:00 PM VA-TOBACCO QUIT 5 TO < 15 YRS [facility] Tobacco Use History This section includes a history of the smoking, or tobacco-related health factors, that were collected on or before the date of the Encounter. The data comes from the [place] facility where the Encounter took place. Date/Time Smoking Status/Tobacco Use Comment F acility May 06, 2022 03:00 PM VA-TOBACCO QUIT 5 TO < 15 YRS [facility] May 21, 2021 03:00 PM VA-TOBACCO FORMER USER [facility] May 21, 2021 03:00 PM VA-TOBACCO QUIT 5 TO < 15 YRS [facility] Mar 15, 2019 09:02 AM VA-TOBACCO FORMER USER [facility] Mar 15, 2019 09:02 AM VA-TOBACCO QUIT 5 TO < 15 YRS [facility] January 04, 2018 04:05 PM QUIT TOBACCO USE > 7 YEARS AGO [facility] Apr 27, 2017 12:25 PM QUIT TOBACCO USE > 7 YEARS AGO [facility] Sep 12, 2016 02:09 PM QUIT TOBACCO USE 1-7 YEARS AGO mar [facility] Jun 20, 2016 08:54 AM QUIT TOBACCO USE 1-7 YEARS AGO quit 2009 [facility] Jun 25, 2015 03:09 PM QUIT TOBACCO USE > 7 YEARS AGO [facility] Apr 12, 2014 10:09 AM QUIT TOBACCO USE 1-7 YEARS AGO 2010 quit [facility] Dec 15, 2011 03:46 PM QUIT TOBACCO USE 1-7 YEARS AGO 03/26/2010 [facility] Nov 25, 2010 03:11 PM QUIT TOBACCO USE 1-7 YEARS AGO [facility] Nov 25, 2010 03:11 PM QUIT TOBACCO USE IN PAST YEAR [facility] Advance Directives: All historical and current Section Date Range: From patient's date of to the date document was created. This section includes ALL of a patient's completed or amended VA Advance and Rescinded Directives. The entries below indicate that a directive exists for the patient, but an actual copy is not included with this document. The data comes from all [place] facilities. Date Advance Directives Provider Source Jun 13, 2017 ADVANCE DIRECTIVE ISABELA DODSON T [facility] Apr 18, 2014 ADVANCE DIRECTIVE JESSEE [...] the Encounter. The data comes from all [place] treatment facilities. Date/Time Radiology Report Provider Source Nov 26, 2023 10:11 AM MRI CERVICAL SPINE W/O CONTRAST: PARUL SMITH [id number] -[id number] M Exm Date: NOV 26, 2023@10:11 Req Phys: MILTON WYATT Loc: [facility] MRI DAYS (Req'g Loc) Img Loc: MRI ([facility]) Service: Unknown (Case [id number] COMPLETE) MRI CERVICAL SPINE W/O CONTRAST (MRI Detailed) CPT:05577 Reason for Study: headaches and significant cervicalgia Clinical History: patient needs general anesthesia Report Status: Verified Date Reported: NOV 26, 2023 Date Verified: NOV 26, 2023 Rotary Envelope Machine Operator E-Sig:/ES/FATUMA JC Report: MRI OF THE CERVICAL [...] Primary Interpreting Staff: FATUMA JC, Staff Physician (Rotary Envelope Machine Operator) Primary Interpreting Resident: FATUMA RAM, RESIDENT /FATUMA [facility] Encounter Notes: All associated encounter notes This section contains the clinical notes associated to the Encounter. Date/Time Encounter Note(s) Provider Source December 25, 2023 08:30 AM PRIMARY CARE NOTE: LOCAL TITLE: WALK-IN NOTE PRIMARY CARE (T) STANDARD TITLE: PRIMARY CARE NOTE DATE OF NOTE: DECEMBER 25, 2023@08:30 ENTRY DATE: DECEMBER 25, 2023@08:30:23 AUTHOR: NADEEN HAINES COSIGNER: URGENCY: STATUS: COMPLETED WALK-IN NOTE PRIMARY CARE (T) Has ADDENDA Data: 58year old MALE Needham reports to Primary Care clinic for Walk-In visit. 's PCP is LARON WEN, last visit with PCP was December of 2021 Today Vet walks in to clinic with complaint of rash on right arm Last recorded Vital Signs are: Temperature:97.6 F [36.4 C] (12/25/2023 08:28) Pulse:48 (12/25/2023 08:28) Blood Pressure:145/92 (12/25/2023 08:28) Respiration:16 (12/25/2023 08:28) Pain:0 (12/25/2023 08:28) Vet reports current allergies are:Remote Allergy Data No Remote Allergy/ADR Data available for this patient Current Medications from Active Med list include: Active Outpatient Medications (including Supplies): Active Outpatient Medications Status = 1) BUPROPION HCL 150MG 12HR SA TAB [...] BY MOUTH ACTIVE ONCE DAILY FOR MOOD Active Non-VA Medications Status = 1) Non-VA ACETAMINOPHEN 500MG TAB 500MG BY MOUTH EVERY 4 ACTIVE HOURS NEEDED 2) Non-VA DOCUSATE NA 100MG CAP 100MG BY MOUTH ACTIVE NEEDED 3) Non-VA MULTIVITAMIN/MINERALS CAP/TAB 1 TABLET BY ACTIVE MOUTH ONCE DAILY 8 Total Medications Action: Needham reports 1 week ago working outdoors. States he had a rash the next day. Rash noted to the right arm and chest area. Reports very itchy. Currently not oozing. areas are red. slightly raised referred to Magalis Hunter HOUSE WORKER for evaluation. Reminders Info Only: VA Video Connect Capable DUE NOW Tobacco Pack Year History DUE NOW Advance Directive Screen MH AD Oct 22 BMI>30/>24.99 High Risk Len ,22 Homelessness/Food Insecurity Screen Oct 22 Depression Screening May 06 Hepatitis B Serology/Immunization DUE NOW Pneumococcal Conjugate Vaccine (PCV15/PCDUE NOW Tobacco Use Screening May 06 Influenza Immunization DUE NOW Medication Reconciliation DUE NOW Alcohol Use Screen (AUDIT-C) Oct 22 COVID-19 Immunization DUE NOW HTN Assess for Elevated BP>=140/90 DUE NOW Sexual Orientation Oct 22 RHS Screen DUE NOW /eagle HAINES RN PRIMARY CARE RN Signed: 12/25/2023 10:46 12/25/2023 ADDENDUM STATUS: COMPLETED Dexamethasone IM given right thigh. No changes after 15 min. /eagle HAINES RN PRIMARY CARE RN Signed: 12/25/2023 10:48 NADEEN HAINES [facility]
--- OUTSIDE RECORDS SUMMARY | 2024-11-14 15:39 | XMS_ITS | Encounter Summary ---
Author Name [facility] [facility] [place] [facility] [place] Address [address] [place] [id number] Care Team Providers Care Lime Trimmer Name Role Phone DEBORAH PRIETO Primary Care [...] Relationship to Policy Pérez AN[place]M [place] [facility] CE ORGANIZAT ION COH G AND E Feb 15, 2024 [id number] [phone] SUSAN SMITH PATIENT BCBS [facility] CE ORGANIZAT ION COH POLIC E DEPT HD[facility] Feb 15, 2024 [id number] SUSAN SMITH PATIENT BCBS OF [facility] CE ORGANIZAT ION COH G AND E Feb 15, 2024 [id number] [phone] SUSAN SMITH PATIENT [place] PRESCRIPT ION RX Feb 15, 2024 [facility] [phone] SUSAN SMITH PATIENT [employer] PRESCRIPT ION COH G AND E Feb 15, 2024 [id number] SUSAN SMITH PATIENT [employer] RX PRESCRIPT ION Feb 14, 2017 [id number] SUSAN SMITH PATIENT [facility] CE ORGANIZ [place]ATER Feb 14, 2019 [id number] SUSAN SMITH PATIENT [facility] CE ORGANIZAT ION W/OUT OF NETWORK BENEFITS COH G AND E Feb 15, 2024 [id number] SUSAN SMITH PATIENT Selected Encounter This section includes the information on record at [place] for the Encounter. Date/Time Encounter Type Encounter Description Reason Provider Source December 17, 2023 02:30 PM OFFICE O/P EST MOD 30 MIN [facility] - [facility] ICD-10-CM F43.12 Post-traumatic stress disorder, MADALYN Mckeon Len Encounter Template Text not used by [place] Assessments - Encounter Diagnoses This section includes the primary and secondary diagnoses documented for the Encounter. Date/Time Primary/Secondary Diagnosis Diagnosis Name Provider Source Jan 16, 2024 09:02 AM PRIMARY Post-traumatic stress disorder, MADALYN Mckeon Plan of Treatment: Future Appointments (+ 6 months) and Future Tests (+/- 45 days) The Plan of Treatment section includes future care activities for the patient from all [place] treatmentfacilities. This section includes future appointments and future orders which are active, pending or scheduled. Future Appointments This section includes appointments that were scheduled to occur 6 months from the date of the Encounter, up to a maximum of 20 appointments. The data comes from all [place] treatment facilities. Appointment Date/Time Appointment Type Appointme nt Facility Name December 25, 2023 08:00 AM [facility] December 25, 2023 08:30 AM [facility] December 28, 2023 03:30 PM AMBULATORY - NEUROLOGY [facility] Feb 09, 2024 03:00 PM AMBULATORY - PSYCHIATRY [facility] Feb 19, 2024 02:00 PM AMBULATORY - MEDICINE [facility] Mar 18, 2024 03:00 PM AMBULATORY - PSYCHIATRY [facility] Mar 22, 2024 03:00 PM AMBULATORY - PSYCHIATRY [facility] Mar 29, 2024 02:30 PM [facility] [place] [facility] May 04, 2024 03:15 PM AM[facility]UL[facility]ORY [facility]IC[facility] [place] [facility] May 10, 2024 02:00 PM AMBULATORY - MEDICINE [facility] May 17, 2024 03:00 PM AMBULATORY - PS[facility]CHIATRY [facility] [place] [facility] May 27, 2024 08:00 AM AM[facility]ULATORY [facility] MEDICINE [facility] [place] [facility] Jun 15, 2024 03:00 PM AMBULATORY - PSYCHIATRY [facility] Social History: Smoking Status (Most current) and Tobacco Use (All prior to encounter date) This section includes the most current, and the historical, smoking and tobacco- related health factors from the [place] facility where the Encounter took place. Current Smoking Status This section includes the most current smoking, or tobacco-related health factor, from the [place] facility where the Encounter took place. Date/Time Current Smoking Status Comment Facil ity May 06, 2022 03:00 PM VA-TOBACCO QUIT 5 TO < 15 YRS [place] Tobacco Use History This section includes a history of the smoking, or tobacco-related health factors, that were collected on or before the date of the Encounter. The data comes from the [place] facility where the Encounter took place. Date/Time Smoking Status/Tobacco Use Comment F acility May 06, 2022 03:00 PM VA-TOBACCO QUIT 5 TO < 15 YRS [place] May 21, 2021 03:00 PM VA-TOBACCO FORMER USER [place] May 21, 2021 03:00 PM VA-TOBACCO QUIT 5 TO < 15 YRS [place] Mar 15, 2019 09:02 AM VA-TOBACCO FORMER USER [place] Mar 15, 2019 09:02 AM VA-TOBACCO QUIT 5 TO < 15 YRS [place] January 04, 2018 04:05 PM QUIT TOBACCO USE > 7 YEARS AGO [place] Apr 27, 2017 12:25 PM QUIT TOBACCO USE > 7 YEARS AGO [place] Sep 12, 2016 02:09 PM QUIT TOBACCO USE 1-7 YEARS AGO mar . 2009 [place] Jun 20, 2016 08:54 AM QUIT TOBACCO USE 1-7 YEARS AGO quit 2009 [place] Jun 25, 2015 03:09 PM QUIT TOBACCO USE > 7 YEARS AGO [place] Apr 12, 2014 10:09 AM QUIT TOBACCO USE 1-7 YEARS AGO 2009 quit [place] Dec 15, 2011 03:46 PM QUIT TOBACCO USE 1-7 YEARS AGO 03/26/2010 [place] Nov 25, 2010 03:11 PM QUIT TOBACCO USE 1-7 YEARS AGO [place] Nov 25, 2010 03:11 PM QUIT TOBACCO USE IN PAST YEAR [place] Advance Directives: All historical and current Section Date Range: From patient's date of to the date document was created. This section includes ALL of a patient's completed or amended VA Advance and Rescinded Directives. The entries below indicate that a directive exists for the patient, but an actual copy is not included with this document. The data comes from all [place] facilities. Date Advance Directives Provider Source Jun 13, 2017 ADVANCE DIRECTIVE ISABELA DODSON [facility] Apr 18, 2014 ADVANCE DIRECTIVE [...] the Encounter. The data comes from all [place] treatment facilities. Date/Time Radiology Report Provider Source Nov 26, 2023 10:11 AM MRI CERVICAL SPINE W/O CONTRAST: PARUL SMITH [id number] -[id number] M Exm Date: NOV 26, 2023@10:11 Req Phys: MILTON WYATT Loc: [facility] MRI DAYS (Req'g Loc) Img Loc: MRI ([facility]) Service: Unknown (Case [id number] COMPLETE) MRI CERVICAL SPINE W/O CONTRAST (MRI Detailed) CPT:08558 Reason for Study: headaches and significant cervicalgia Clinical History: patient needs general anesthesia Report Status: Verified Date Reported: NOV 26, 2023 Date Verified: NOV 26, 2023 Wind Plant Manager E-Sig:/ES/FATUMA JC Report: MRI OF THE CERVICAL [...] Primary Interpreting Staff: FATUMA JC, Staff Physician (Wind Plant Manager) Primary Interpreting Resident: FATUMA RAM, RESIDENT /FATUMA [facility] Encounter Notes: All associated encounter notes This section contains the clinical notes associated to the Encounter. Date/Time Encounter Note(s) Provider Source December 17, 2023 04:33 PM ADDENDUM: LOCAL TITLE: Addendum STANDARD TITLE: ADDENDUM DATE OF NOTE: DECEMBER 17, 2023@16:33:45 ENTRY DATE: DECEMBER 17, 2023@16:33:45 AUTHOR: MADALYN TEMPLE COSIGNER: URGENCY: STATUS: COMPLETED Will alert Dr. Toledo to treatment plan reminder. /kevin/ MADALYN TEMPLE DO Psychiatrist Signed: 12/17/2023 16:34 Receipt Acknowledged By: 12/18/2023 15:11 /kevin/ MARGOT TOLEDO PSYD Clinical Psychologist == --- Original Document --- 12/17/23 [place] Sweet Cred CONNECT PSYCHIATRIST NOTE: [place] Reelation Connect ([facility]) Standard Documentation VV Clinician Resources Only: E911 (Emergency Call Relay Center): [phone] [facility] Crisis Line - 988 then press #1. [facility] Suicide Coordinator [phone], Ext. [phone]; Back-up Ext. [phone] [place] PoliceJONO Leeds [phone] Introduction: Visit is being conducted by [employer]. [place] identified with 2 identifiers: [X] Full Name [X] Date of [ ] VA ID Card Emergency Plan: [place] confirmed and/or provided the following information in case of emergency or technology failure. PATIENT PHONE - PHONE NUMBER [CELLULAR] - Is patient phone number correct, if not, enter below: Odebolt's phone number: PARUL SMITH [address] [place] [address] [address] [place], [place], [phone] Odebolt's present location and address for appointment: parked car 's emergency contact name and phone number: see cover Odebolt reported that location is private and safe: Yes Informed Consent: informed of the risks and benefits of Telehealth video care. has the right to refuse video services. If refuses video visit, a wcot-os-mnof visit will be scheduled. [place] verbalized consent for this video visit: Yes [place] provided consent for any other persons present for visit: N/A If yes, who and relationship to patient: Secure visit: Visit was locked for security and privacy:Yes Time spent: 21-30 minutes >16 mins supportive therapy. The presents today for follow-up. PATIENT REPORT: Odebolt is at work but able to meet privately. He states, I'm hanging in there. His is recovering from neck surgery--they have good support from family. He appears to be coping appropriately with stressors. Support was provided. He reports continued benefit from medication on chronic symptoms of PTSD. He denies depressed mood. Energy is normal. He has interests. Odebolt is hopeful. Sleep is variable--better some nights than others. He struggles to keep CPAP mask on. He does not endorse nightmares. He is doing well with medications and denies side effects. He presents with approproate self-care. Cognitive exam is grossly intact. TP is logical and organized. TC is pertinent to topic. Speech is of regular rate, rhythm, volume, and tone. Mood is euthymic and affect congruent. He denies SI and HI. Insight and judgment are intact. SOCIAL HISTORY: AR[employer] FROM Apr TO Apr , two sons SUICIDE RISK ASSESSMENT: SUICIDE INQUIRY: IDEATION: Denies ideation. Do you currently have any homicidal ideation? No SUBSTANCE USE: alcohol--on average, one or two drinks a week PSYCH MEDICATION HISTORY: none previously ACTIVE OUTPATIENT MEDICATIONS (including Supplies): Active Outpatient Medications (including Supplies): BUPROPION HCL 150MG 12HR SA TAB TAKE ONE TABLET BY MOUTH ACTIVE EVERY MORNING -FOR MOOD/PTSD GABAPENTIN 300MG CAP TAKE ONE CAPSULE BY MOUTH THREE TIMES ACTIVE DAILY NEEDED --FOR PAIN/ANXIETY (OFF-LABEL) HYDROXYZINE HCL 25MG TAB TAKE ONE TABLET BY MOUTH THREE ACTIVE TIMES DAILY NEEDED -FOR ANXIETY PRAZOSIN HCL 2MG CAP TAKE ONE CAPSULE BY MOUTH AT BEDTIME ACTIVE NEEDED -FOR NIGHTMARES (OFF-LABEL) SERTRALINE HCL 100MG TAB TAKE ONE TABLET BY MOUTH ONCE ACTIVE DAILY FOR MOOD Non-VA ACETAMINOPHEN 500MG TAB 500MG BY MOUTH EVERY 4 ACTIVE HOURS NEEDED Non-VA DOCUSATE NA 100MG CAP 100MG BY MOUTH NEEDED ACTIVE Non-VA MULTIVITAMIN/MINERALS CAP/TAB 1 TABLET BY MOUTH ACTIVE ONCE DAILY ALLERGIES: Patient has answered NKA I discussed the findings and plan with the patient. I educated the patient about their mental health condition. repeated back the plan and education. IMPRESSION (DSM-5): PTSD, chronic PLAN: Continue sertaline 100mg daily for PTSD and anxiety. T/c cross-taper with duloxetine given SNRI's indication for neuropathic pain. Continue bupropion SA 150mg for PTSD. Medication can also augment SSRI. Also discussed literature to support its use to negate sexual side effects of SSRI. Continue gabapentin 300mg tid for anxiety/ pain. It was too sedating at 600mg tid. Continue hydroxyzine 25mg tid PRN for anxiety (off-label). He finds this to be helpful. I suggested he take this at night to help with sleep as needed. Continue melatonin 10mg QHS PRN for sleep. Behavioral modifications for sleep discussed. He prefers to buy OTC. Continue prazosin 2mg QHS for nightmares(off-label). He prefers to take as needed. He does not take on nights he takes sildenafil--he was reminded of this today He is seen by Dr. Toledo for individual therapy. The patient denied suicidal and violent ideation, but the suicide prevention information and hotline were reviewed with the patient. The patient also understands to call 911 or to go to ER in the event of an emergency. I completed a thorough assessment today. In my clinical opinion, he is at low-risk of harm to self or others. The rationale for the psychiatric medications and the alternatives to treatment were discussed with the patient. The side effect profile of the psychiatric medications was reviewed with the patient. This also included discussion of potential drug interactions with the psychiatric medication. Patient demonstrated reasonable understanding of the medication side effects and the above issues. The benefits of psychiatric medications outweigh risks for this patient. I asked the patient to call the clinic or to come to open access if the patient does not like the effect of psychiatric medication or if has side effects with psychiatric medication. Follow-up with PCP for regular health maintenance. FOLLOW-UP: about 12 weeks, sooner if needed Medication Reconciliation: Outpatient: Has the patient been taking medications as documented in the EMLR? YES: The patient has been taking medications as documented in the EMLR. Essential Medication List for Review used to complete this medication reconciliation. INCLUDED IN THIS LIST: Alphabetical list of active outpatient prescriptions dispensed from this [place] (local) and dispensed from another VA or DoD facility (remote) as well as inpatient orders [...] with a VA or non-VA provider. /kevin/ MADALYN TEMPLE DO Psychiatrist Signed: 12/17/2023 15:42 Receipt Acknowledged By: 12/18/2023 07:19 /kevin/ Rosy Cole [employer]ED [employer]AT [employer] PLASTIC MADALYN TEMPLE [place] December 17, 2023 03:28 PM TELEHEALTH NOTE: LOCAL TITLE: VA VIDEO CONNECT PSYCHIATRIST NOTE STANDARD TITLE: TELEHEALTH NOTE DATE OF NOTE: DECEMBER 17, 2023@15:28 ENTRY DATE: DECEMBER 17, 2023@15:28:39 AUTHOR: MADALYN TEMPLE EXP COSIGNER: URGENCY: STATUS: COMPLETED VA VIDEO CONNECT PSYCHIATRIST NOTE Has ADDENDA VA Video Connect ([facility]) Standard Documentation [facility] Clinician Resources Only: E911 (Emergency Call Relay Center): [phone] [facility] Crisis Line - 988 then press #1. [facility] Suicide Coordinator [phone], Ext. [phone]; Back-up Ext. [phone] [place] PoliceJONO [place] [phone] Introduction: Visit is being conducted by [place] [facility] Connect. [place] identified with 2 identifiers: [X] Full Name [X] Date of [ ] VA ID Card Emergency Plan: confirmed and/or provided the following information in case of emergency or technology failure. PATIENT PHONE - PHONE NUMBER [CELLULAR] - Is patient phone number correct, if not, enter below: Odebolt's phone number: PARUL SMITH [address] [place] [address] [address] [place], [place], [address] Odebolt's present location and address for appointment: parked car O[place]'s emergency contact name and phone number: see cover [place] reported that location is private and safe: Yes Informed Consent: informed of the risks and benefits of Telehealth video care. has the right to refuse video services. If refuses video visit, a wnfh-sn-affv visit will be scheduled. verbalized consent for this video visit: Yes provided consent for any other persons present for visit: N/A If yes, who and relationship to patient: Secure visit: Visit was locked for security and privacy:Yes Time spent: 21-30 minutes >16 mins supportive therapy. The presents today for follow-up. PATIENT REPORT: Odebolt is at work but able to meet privately. He states, I'm hanging in there. His is recovering from neck surgery--they have good support from family. He appears to be coping appropriately with stressors. Support was provided. He reports continued benefit from medication on chronic symptoms of PTSD. He denies depressed mood. Energy is normal. He has interests. [place]debolt is hopeful. Sleep is variable--better some nights than others. He struggles to keep CPAP mask on. He does not endorse nightmares. He is doing well with medications and denies side effects. He presents with approproate self-care. Cognitive exam is grossly intact. TP is logical and organized. TC is pertinent to topic. Speech is of regular rate, rhythm, volume, and tone. Mood is euthymic and affect congruent. He denies SI and HI. Insight and judgment are intact. SOCIAL HISTORY: AR[employer] FROM Apr TO Apr , two sons SUICIDE RISK ASSESSMENT: SUICIDE INQUIRY: IDEATION: Denies ideation. Do you currently have any homicidal ideation? No SUBSTANCE USE: alcohol--on average, one or two drinks a week PSYCH MEDICATION HISTORY: none previously ACTIVE OUTPATIENT MEDICATIONS (including Supplies): Active Outpatient Medications (including Supplies): BUPROPION HCL 150MG 12HR SA TAB TAKE ONE TABLET BY MOUTH ACTIVE EVERY MORNING -FOR MOOD/PTSD GABAPENTIN 300MG CAP TAKE ONE CAPSULE BY MOUTH THREE TIMES ACTIVE DAILY NEEDED --FOR PAIN/ANXIETY (OFF-LABEL) HYDROXYZINE HCL 25MG TAB TAKE ONE TABLET BY MOUTH THREE ACTIVE TIMES DAILY NEEDED -FOR ANXIETY PRAZOSIN HCL 2MG CAP TAKE ONE CAPSULE BY MOUTH AT BEDTIME ACTIVE NEEDED -FOR NIGHTMARES (OFF-LABEL) SERTRALINE HCL 100MG TAB TAKE ONE TABLET BY MOUTH ONCE ACTIVE DAILY FOR MOOD Non-VA ACETAMINOPHEN 500MG TAB 500MG BY MOUTH EVERY 4 ACTIVE HOURS NEEDED Non-VA DOCUSATE NA 100MG CAP 100MG BY MOUTH NEEDED ACTIVE Non-VA MULTIVITAMIN/MINERALS CAP/TAB 1 TABLET BY MOUTH ACTIVE ONCE DAILY ALLERGIES: Patient has answered NKA I discussed the findings and plan with the patient. I educated the patient about their mental health condition. O[place]olt repeated back the plan and education. IMPRESSION (DSM-5): PTSD, chronic PLAN: Continue sertaline 100mg daily for PTSD and anxiety. T/c cross-taper with duloxetine given SNRI's indication for neuropathic pain. Continue bupropion SA 150mg for PTSD. Medication can also augment SSRI. Also discussed literature to support its use to negate sexual side effects of SSRI. Continue gabapentin 300mg tid for anxiety/ pain. It was too sedating at 600mg tid. Continue hydroxyzine 25mg tid PRN for anxiety (off-label). He finds this to be helpful. I suggested he take this at night to help with sleep as needed. Continue melatonin 10mg QHS PRN for sleep. Behavioral modifications for sleep discussed. He prefers to buy OTC. Continue prazosin 2mg QHS for nightmares(off-label). He prefers to take as needed. He does not take on nights he takes sildenafil--he was reminded of this today He is seen by Dr. Toledo for individual therapy. The patient denied suicidal and violent ideation, but the suicide prevention information and hotline were reviewed with the patient. The patient also understands to call 911 or to go to ER in the event of an emergency. I completed a thorough assessment today. In my clinical opinion, he is at low-risk of harm to self or others. The rationale for the psychiatric medications and the alternatives to treatment were discussed with the patient. The side effect profile of the psychiatric medications was reviewed with the patient. This also included discussion of potential drug interactions with the psychiatric medication. Patient demonstrated reasonable understanding of the medication side effects and the above issues. The benefits of psychiatric medications outweigh risks for this patient. I asked the patient to call the clinic or to come to open access if the patient does not like the effect of psychiatric medication or if has side effects with psychiatric medication. Follow-up with PCP for regular health maintenance. FOLLOW-UP: about 12 weeks, sooner if needed Medication Reconciliation: Outpatient: Has the patient been taking medications as documented in the EMLR? YES: The patient has been taking medications as documented in the EMLR. Essential Medication List for Review used to complete this medication reconciliation. INCLUDED IN THIS LIST: Alphabetical list of active outpatient prescriptions dispensed from this [facility] (local) and dispensed from another VA or DoD facility (remote) as well as inpatient orders [...] whether with a VA or non-VA provider. /eagle TEMPLE DO Psychiatrist Signed: 12/17/2023 15:42 Receipt Acknowledged By: 12/18/2023 07:19 /eagle Cole [employer]ED [employer]AT [employer] PLASTIC 12/17/2023 ADDENDUM STATUS: COMPLETED Will alert Dr. Toledo to treatment plan reminder. /eagle TEMPLE DO Psychiatrist Signed: 12/17/2023 16:34 Receipt Acknowledged By: * AWAITING SIGNATURE * TOLEDO,MADALYN VALERO
--- OUTSIDE RECORDS SUMMARY | 2024-11-14 15:39 | XMS_ITS | Data Portability ---
Author Organization [place] - 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 Surgery to be scheduled with my unit secretary. Questions regarding the recovery of the surgery the patient and his 's Satisfaction today. We have also discussed the risks of the surgery including infection, bleeding, damage small tissues, need for possible revision surgery. dotty Not available 01/04/2024 15:54:17 Plan of Treatment Reminders Order Date Submit Date Provider Last Modified By Organization Details Last Modified Time Details Appointments None recorde d. Lab None recorde d. Referral None recorde d. Procedures None recorde d. Surgeries None recorde d. Imaging XR, hand, 3 or more view - RM 107 LT THUMB 3V [email or web address] [facility] Office, [address] [place] [address], [place], [address], 4 16:42:05 XR, hand, 3 or more view - RM 107 LT THUMB 3V [email or web address] [facility] Office, [address], [place], [address], 4 14:39:16 Medication Orders None recorde d. Patient TargetsNo targets recorded. Patient Instructions Encounter Date Encounter Id Patient Instructions Last Modified By Organization Details Last Modified Time 06/09/[id number] application of cast, thumb spica* - RM 107 SHORT ARM THUMB SPICA CAST IPJ SOFT [email or web address] Not available 06/09/2024 16:39:46 06/10/[id number] application of cast, thumb spica* - RM 107 SHORT ARM THUMB SPICA CAST IPJ SOFT [email or web address] Not available 06/13/2024 16:45:31 06/20/2024 [id number] cast removal* - rm.109 cast removal [email or web address] Not available 06/20/2024 16:18:46 Reason for Referral None Reported. Results Created Date Observation Date Name Description Value Unit Range Abnormal Flag Note LastModifiedBy Organization Detail LastModifiedTime 04/16/20 24 2022 imagi ng/di agnos tic resul t No observ ation record ed. [email or web address] Not Available 03/19 02:31:21 04/16/2004/26/2019 imagi ng/di agnos tic resul t No observ ation record ed. [email or web address] Not Available 03/19 02:32:31 04/16/20 24 04/26/2019 imagi ng/di agnos tic resul t No observ ation record ed. [email or web address] Not Available 03/19 02:32:32 04/16/20 24 02/02/2019 imagi ng/di agnos tic resul t No observ ation record ed. [email or web address] Not Available 03/19 02:32:38 04/16/2002/24/2019 imagi ng/di agnos tic resul t No observ ation record ed. [email or web address] Not Available 03/19 02:32:51 06/09/2006/09/2024 XR, hand, 3 or more view http:/ [email or web address] ?Encry pted=s hAaTro YD8dLq bEUv6g %2BXZw aYqtaq 0bqfl% 2Fg9IQ a4ajBk vP9nXo QUaueC m3YtLR FvZlgJ JJ8mAn HZtai3 1q4499 AC0Kqa H2MWaW nKiQtr MwF INTERFACE [facility] [address], [place], [address], 06/09/2024 14:43:33 06/09/2006/09/2024 XR, hand, 3 or more view [email or web address]:/ [email or web address] ?Encry pted=s hAaTro YD8dLq bEUv6g %2BXZw aYqtaq 0bqfl% 2Fg9IQ a4ajBk vP9nXo QUaueC m3YtLR FvZlgJ JJ8mAn HZtai3 2k9011 AC0Kqa H2MWaW nKiQtr MwF INTERFACE [facility] [address], [place], [address], 06/09/2024 14:43:35 Result Notes None recorded. Problems Name Problem SNOMED Code Status Onset Date Resolution Date Notes Provider Name and Address Organization Details Recorded Time No complaint s 442424015 Active Status: 'I'; Not Available [facility] 4 09:17:37 Pain of left hand 040684868322 103 Active 2023 Kiera Donaldson, ARMAMENT INSTALLER [address], [place], [address] , [facility] 4 15:33:45 Pain of right wrist 886093775450 100 Active 2018 Problem Code: M25.531; Problem Code Type: ICD-10; Status: 'A'; Not Available [facility] 4 11:42:34 Problem Notes None recorded. Procedures Surgical History Date Name Laterality Status Provider Name and Address Organization Details Recorded Time 06/10/20 Cast_Thumb Spica_11+ completed ALYCIA KIRK [facility] 06/10/2024 09:31:36 06/10/20 Cast Removal completed ALYCIA KIRK [facility] 06/10/2024 09:30:14 05/27/20 ARTHROPLASTY, INTERPOSITION, INTERCARPAL OR CARPOMETACARPAL JOINTS (SURG) completed ELI CUELLAR [place] [facility] 05/27/2024 14:33:40 Imaging Results Imaging Date Name Status LastModified by Organ [facility] Details LastModified Time 2022 imaging/diag nostic result completed Information not available 04/16/2024 02:31:21 04/26/2019 imaging/diag nostic result completed Information not available 04/16/2024 02:32:31 04/26/2019 imaging/diag nostic result completed Information not available 04/16/2024 02:32:32 02/02/2019 imaging/diag nostic result completed Information not available 04/16/2024 02:32:38 02/24/2019 imaging/diag nostic result completed Information not available 04/16/2024 02:32:51 06/09/2024 XR, hand, 3 or more view completed INTERFACE [facility] [address], [place], [address], 06/09/2024 14:43:33 06/09/2024 XR, hand, 3 or more view completed INTERFACE [facility] [address], [place], [address], 06/09/2024 14:43:35 Procedure Notes None recorded. Medical Equipment None Reported. Medications Name Sig Start Date Stop Date Status Note LastModified by Organization Details LastModified Time amoxicillin 500 mg capsule TAKE 1 CAPSULE BY MOUTH THREE TIMES DAILY UNTIL GONE active Not Available Not Available No t Available bupropion HCl SR 150 mg tablet,12 hr sustained-rele ase active Not Available Not Available Not Available sertraline 100 mg tablet active Not Available Not Available No t Available hydrocortisone 2.5 % lotion active Not Available Not Available Not Available gabapentin 300 mg capsule active Not Available Not Available N ot Available hydroxyzine HCl 25 mg tablet active Not Available Not Available Not Available ibuprofen 600 mg tablet TAKE 1 TABLET BY MOUTH THREE TIMES DAILY active Not Available Not Available No t Available prazosin 2 mg capsule active Not Available Not Available Not Available oxycodone 5 mg tablet TAKE 1 TABLET BY MOUTH EVERY 6 HOURS NEEDED FOR PAIN active Not Available Not Available No t Available oxycodone HCl-oxycodone- ASA as directed 1TABLETS EVERY 4-6 HOURS PRN PAIN 2018 active Statu s: 'Curr ent'; Not Available Not Available Not Available Vitals Date Recorded Body height Body mass index (BMI) Body weight Provider Name and Address Organization Details Last Updated DateTime 01/04/2024 180.34 cm 23.7 kg/m2 04236.7 g ISAEL SHOAIBTALON [facility] 01/04/2024 14:46:25 Date Recorded Body height Body mass index (BMI) Body weight Body temperature Provider Name and Address Organization Details Last Updated DateTime 06/09/2024 180.34 cm 23.7 kg/m2 63981.7 g 97.7 [degF] DENNIS KNIGHT [facility] 06/09/2024 14:39:30 Date Recorded Body height Body mass index (BMI) Body weight Provider Name and Address Organization Details Last Updated DateTime 06/20/2024 180.34 cm 23.7 kg/m2 76470.7 g shikha alvarado [facility] 06/20/2024 14:59:25 Date Recorded Body height Body mass index (BMI) Body weight Provider Name and Address Organization Details Last Updated DateTime 08/22/2024 180.34 cm 23.7 kg/m2 31659.7 g DENNIS KNIGHT [place] [facility] 08/22/2024 15:11:55 Social History None recorded. Functional Status None recorded. Mental Status None recorded. Family History Nothing Reported. Medical History No medical history recorded. Past Encounters Encounter ID Performer Location Encounter Start Date Encounter Closed Date Diagnosis/Indication Diagnosis SNOMED-CT Code Diagnosis ICD10 Code Diagnosis Note [id number] MD Jennifer Toro [address] [place] [address] 11/16/2023 08:57:10 12/09/2023 14:21:45 Carpal tunnel syndrome of left wrist 6445482279 78929 G56.02 Ulnar nerv e entrapment at elbow 044250334 G56.22 Osteoarthr osis of the carpometacarpal joint of the thumb 55155051 M18.9 Pain in fi nger of left hand 6367647402 65824 M79.900 [id number] Courtney bustamante MD [facility] [address] [place] [address] 01/04/2024 14:28:13 01/25/2024 11:42:11 Osteoarthrosis of the carpometacarpal joint of the thumb 38932609 M18.9 [id number] Kiera Donaldson, MISHA [facility] [address] [place] [address] 06/09/2024 14:01:40 06/28/2024 14:39:15 Postoperative visit 316085825 Z48.89 Surgical follow-up 73063 4000 Z09 [id number] Kiera Donaldson CNP [facility] [address] [place] [address] 06/10/2024 09:13:22 06/10/2024 09:35:33 Postoperative visit 731902616 Z48.89 Surgical follow-up 94266 4000 Z09 [id number] Kiera Donaldson, MISHA [facility] [address] [place] [address] 06/20/2024 14:17:10 07/07/2024 14:24:25 Carpal tunnel syndrome of left wrist 4662806953 09017 G56.02 [id number] Kiera Donaldson, MISHA RAYMON[facility] - [facility] [address] [place] [address] 08/22/2024 15:06:19 09/06/2024 07:45:30 Health Concerns Section Related Observation LastModified by Organization Detai ls LastModified Time None Recorded Concern Status LastModified by Organization Details LastModified Time None Recorded Advance Directives Directive None Recorded Payers Encounter Date Sequence Insurance Name Policy Number Policy Pérez Covered Member ID Pérez Member ID Guarantor Name 01/04/2024 [facility] Paresh Escalona [id number] Paresh Escalona 06/09/2024 [facility] Paresh Escalona [id number] Paresh Escalona 06/10/2024 [facility] Paresh Escalona [id number] Paresh Escalona 06/20/2024 [facility] Paresh Escalona [id number] Paresh Escalona 08/22/2024 [facility] Paresh Escalona [id number] Paresh Escalona Notes Date Note Type Note Provider Name and Address Organization Details Recorded Time 01/04/2024 text/html Patient is a 58-year-old male seen in follow-up for left thumb CMC/STT joint arthritis. At the most recent visit, we had discussed proceeding with surgical reconstruction of the CMC and STT joint. He is here today with his to have their questions answered about the surgery and anticipated recovery. Workup is ongoing for his C8 radiculopathy which was determined on the nerve study which we reviewed previously. Courtney Sales MD [address], [place], [address], [facility] 01/04/2024 15:54:56 06/09/2024 text/html Rocco is a 58-year-old gentleman status post first CMC arthroplasty on the left done by Dr. Sales May 27, 2024. Overall progressing nicely he is here today for follow-up. Kiera Donaldson CNP [address], [place], [address], [facility] 06/09/2024 15:21:32 06/20/2024 text/html Rocco is a very pleasant 58-year-old gentleman who is here today for follow-up of his left first CMC. He had left first CMC arthroplasty done by Dr. Sales May 27, 2024. Overall progressing nicely he is here today for follow-up.He has been in a short arm cast. Kiera Donaldson CNP [address], [place], [address], [facility] 06/20/2024 15:35:23 08/22/2024 text/html Rocco is a very pleasant 58-year-old gentleman who is here today for follow-up of his left first CMC. He had left first CMC arthroplasty done by Dr. Sales May 27, 2024. Overall progressing nicely he is here today for follow-up. He has been working with therapy making excellent progress Kiera Donaldson, ARMAMENT INSTALLER [address], [place], [address], [facility] 08/22/2024 16:09:02
--- OUTSIDE RECORDS SUMMARY | 2024-11-14 15:39 | XMS_ITS | Encounter Summary ---
Author Name [facility] Organization [facility] [place] Address [address] [place] [id number] Care Team Providers Care Director Quality Systems Name Role Phone DEBORAH PRIETO Primary Care [...] Relationship to Policy Pérez ANTHEM [place] [facility] CE ORGANIZAT ION COH G AND E Feb 15, 2024 [id number] [phone] SUSAN SMITH PATIENT BCBS [facility] CE ORGANIZAT ION COH POLIC E DEPT HDHP Feb 15, 2024 [id number] [phone] SUSAN SMITH PATIENT BCBS OF [facility] CE ORGANIZAT ION COH G AND E Feb 15, 2024 [id number] SUSAN SMITH PATIENT [place] PRESCRIPT ION RX Feb 15, 2024 [facility] [id number] [phone] SUSAN SMITH PATIENT [employer] PRESCRIPT ION COH G AND E Feb 15, 2024 [id number] SUSAN SMITH PATIENT [employer] RX PRESCRIPT ION Feb 14, 2017 [id number] SUSAN SMITH PATIENT [facility] CE ORGANIZ [place] Feb 14, 2019 [id number] SUSAN SMITH PATIENT TRIPLE[employer] [facility] CE ORGANIZAT ION W/OUT OF NETWORK BENEFITS COH G AND E Feb 15, 2024 [id number] [phone] SUSAN SMITH PATIENT Selected Encounter This section includes the information on record at [place] for the Encounter. Date/Time Encounter Type Encounter Description Reason Provider Source Feb 19, 2024 02:00 PM OFFICE O/P EST MOD 30 MIN PRIMARY CARE/MEDICINE ICD-10-CM R05.1 Acute cough BEHZAD,APOLIN AIDA Len Encounter Template Text not used by [place] Assessments - Encounter Diagnoses This section includes the primary and secondary diagnoses documented for the Encounter. Date/Time Primary/Secondary Diagnosis Diagnosis Name Provider Source Apr 23, 2024 07:10 AM PRIMARY Acute cough AKIL HERNANDEZ [facility] Apr 23, 2024 07:10 AM SECONDARY Chronic obstructive pulmonary disease w (acute) exacerbation [facility] of Treatment: Future Appointments (+ 6 months) and Future Tests (+/- 45 days) The Plan of Treatment section includes future care activities for the patient from all [place] treatmentfacilities. This section includes future appointments and future orders which are active, pending or scheduled. Future Appointments This section includes appointments that were scheduled to occur 6 months from the date of the Encounter, up to a maximum of 20 appointments. The data comes from all [place] treatment facilities. Appointment Date/Time Appointment Type Appointme nt Facility Name Mar 18, 2024 03:00 PM AMBULATORY - PSYCHIATRY [facility] Mar 22, 2024 03:00 PM AMBULATORY - PSYCHIATRY [facility] Mar 29, 2024 02:30 PM AMBULATORY - MEDICINE [place] [facility] [place] [facility] May 04, 2024 03:15 PM AM[facility]ULATORY [place] MEDICINE [place] [facility] [facility] May 10, 2024 02:00 PM [facility]ORY - MEDICINE [facility] May 17, 2024 03:00 PM AMBULATORY - PS[facility]CHIATRY [facility] [place] [facility] May 27, 2024 08:00 AM AMBULATORY - MEDICINE [facility] [place] [facility] Jun 15, 2024 03:00 PM AMBULATORY - PSYCHIATRY [facility] Jul 12, 2024 03:00 PM AMBULATORY - PS[place]CHIATRY [facility] [place] [facility] Jul 26, 2024 02:00 PM AMBULATORY - MEDICINE [facility] [place] [facility] Jul 26, 2024 03:00 PM AMBULATORY - MEDICINE [place] [facility] [place] [facility] Social History: Smoking Status (Most current) and Tobacco Use (All prior to encounter date) This section includes the most current, and the historical, smoking and tobacco- related health factors from the [place] facility where the Encounter took place. Current Smoking Status This section includes the most current smoking, or tobacco-related health factor, from the [place] facility where the Encounter took place. Date/Time Current Smoking Status Comment Facil [facility] Feb 19, 2024 02:00 PM VA-TOBACCO NEVER USED [facility] Tobacco Use History This section includes a history of the smoking, or tobacco-related health factors, that were collected on or before the date of the Encounter. The data comes from the [place] facility where the Encounter took place. Date/Time Smoking Status/Tobacco Use Comment F acility Feb 19, 2024 02:00 PM VA-TOBACCO NEVER USED [facility] Feb 19, 2024 02:00 PM VA-TOBACCO QUIT 5 TO < 15 YRS [facility] May 06, 2022 03:00 PM VA-TOBACCO FORMER USER [facility] May 06, 2022 03:00 PM VA-TOBACCO QUIT 5 TO < 15 YRS [facility] May 21, 2021 03:00 PM VA-TOBACCO FORMER USER [facility] May 21, 2021 03:00 PM VA-TOBACCO QUIT 5 TO < 15 YRS [facility] Mar 15, 2019 09:02 AM VA-TOBACCO FORMER USER [facility] Mar 15, 2019 09:02 AM VA-TOBACCO QUIT 5 TO < 15 YRS [facility] January 04, 2018 04:05 PM QUIT TOBACCO USE > 7 YEARS AGO [facility] Apr 27, 2017 12:25 PM QUIT TOBACCO USE > 7 YEARS AGO [facility] Sep 12, 2016 02:09 PM QUIT TOBACCO USE 1-7 YEARS AGO mar [facility] Jun 20, 2016 08:54 AM QUIT TOBACCO USE 1-7 YEARS AGO quit 2009 [facility] Jun 25, 2015 03:09 PM QUIT TOBACCO USE > 7 YEARS AGO [facility] Apr 12, 2014 10:09 AM QUIT TOBACCO USE 1-7 YEARS AGO 2010 quit [facility] Dec 15, 2011 03:46 PM QUIT TOBACCO USE 1-7 YEARS AGO 03/26/2010 [facility] Nov 25, 2010 03:11 PM QUIT TOBACCO USE 1-7 YEARS AGO [facility] Nov 25, 2010 03:11 PM QUIT TOBACCO USE IN PAST YEAR [facility] Advance Directives: All historical and current Section Date Range: From patient's date of to the date document was created. This section includes ALL of a patient's completed or amended [place] Advance and Rescinded Directives. The entries below indicate that a directive exists for the patient, but an actual copy is not included with this document. The data comes from all [place] facilities. Date Advance Directives Provider Source Jun 13, 2017 ADVANCE DIRECTIVE [facility]ABEL[facility] DODSON [facility] Apr 18, 2014 ADVANCE DIRECTIVE JESSEE LAZAR [...] the Encounter. The data comes from all [place] treatment facilities. Date/Time Radiology Report Provider Source Feb 24, 2024 03:37 PM CHEST (2 VIEWS): PARUL SMITH [id number] -[id number] M Exm Date: FEB 24, 2024@15:37 Req Phys: LARON HERNANDEZ Pat Loc: CWM/SO/PACT 9 (Req'g Loc) Img Loc: [facility]/BUILDING 1 Service: Unknown [facility] (Case [id number] COMPLETE) CHEST (2 VIEWS) (RAD Detailed) CPT:02549 Reason for Study: coughing Clinical History: COPD Report Status: Verified Date Reported: FEB 24, 2024 Date Verified: FEB 24, 2024 Wound Care Specialist E-Sig:/ES/LAURA MONTOYA JR Report: Study: PA and lateral chest x-ray. Comparison: PA and Lateral chest x-ray from December 21, [address] scan of the chest from March 15, 2020. Findings: Resolution of the left lower lobe airspace disease process seen on prior chest radiographs from 2019. Stable elevation of the left hemidiaphragm. The lungs are clear. No acute pulmonary process is identified. The costophrenic sulci are sharp. Cardiac and mediastinal contours and pulmonary vascularity are normal. No acute skeletal abnormalities are identified. Age-appropriate degenerative changes are seen to the spine. Impression: No acute pulmonary pathology. Primary Diagnostic Code: No immediate attention required Primary Interpreting Staff: LAURA MONTOYA JR, Radiologist (Wound Care Specialist) /LAURA RUFFIN JR [facility] Encounter Notes: All associated encounter notes This section contains the clinical notes associated to the Encounter. Date/Time Encounter Note(s) Provider Source Feb 19, 2024 03:03 PM ACCOUNTING OF DISC LOSURES NOTE: LOCAL TITLE: STATE PRESCRIPTION DRUG MONITORING PROGRAM STANDARD TITLE: ACCOUNTING OF DISCLOSURES NOTE DATE OF NOTE: FEB 19, 2024@15:03:33 ENTRY DATE: FEB 19, 2024@15:03:33 AUTHOR: LARON HERNANDEZ EXP COSIGNER: URGENCY: STATUS: COMPLETED This PDMP query was submitted by Laron Hernandez MD. The clinical justification for this PDMP query is to review controlled substances prescribed outside of the [facility], and any additional information that may become available, as an important component of standard clinical care, and in accordance with [facility] policy. Patient information was shared with the PDMP Appriss [place]. No prescription(s) for controlled substances outside the [facility] were found in the last 90 days. 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 Pinzon Followed by [facility] Ortho for CTS Patient , no kids, no smoking; just acquired transpo access so he can come to his clinic appointments Problem list and medications reviewed. Last Labs: Oct 2023 - discussed Active problems - Computerized Problem List is [...] simplex type 1 infection 7. Allergic rhinitis Toggle Press Operator: Dr. Pond. Completed allergy shots 10/05 [...] 16. Obstructive sleep apnea syndrome (SNOMED CT 71038916) severe per home sleep study 05/06 on CPAP 17. Tobacco Use Disorder, Remission quit 03/26/2010 18. 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 Noted unremarkable interim/hiatus but acutely ill. Discussed intervention for reactive airways from possible infection May return for annual visit in one month with labs. Hypertension at goal Hyperlipidemia - discussed lifestyle changes including dietary changes Collection DT Spec CHOL HDL CHO/HDL LDL-c TRIG 10/27/2023 07:31 SERUM 234 H 53 4.4 157 H 121 10/17/2021 07:25 SERUM 169 57 3.0 101 57 07/24/2021 07:24 SERUM 272 H 53 5.1 195 H 118 05/20/2021 07:16 SERUM 258 H 54 4.8 192 H 62 Plan of care discussed with patient who articulates understanding. Chronic issues reviewed briefly; no changes to management unless specified above. RTC 1mo for further discussion on other health concerns (lack of time for this visit) TIME ATTESTATION: Time spent directly with the [...] of labs/studies and medication list. Upcoming Appointments: 03/18/2024 15:00 CWM/SO/VVC/MHC/[place] 03/22/2024 15:00 CWM/SO/VVC/MHC/[place] 07/26/2024 14:00 NHM/OPTOMETRY/[facility] Med Reconciliation: Active Outpatient [...] BY MOUTH ACTIVE ONCE DAILY FOR MOOD Pending Outpatient Medications Status 1) AZITHROMYCIN 250MG TAB TAKE TWO TABLETS BY MOUTH NOW PENDING FOR 1 DAY, THEN TAKE ONE TABLET ONCE DAILY FOR 4 DAYS 2) CODEINE 10/GG 100MG/5ML (ALC-F/SF) LIQ TAKE 1 PENDING TEASPOONFUL (5ML) BY MOUTH TWICE DAILY NEEDED 3) PREDNISONE 50MG TAB TAKE ONE TABLET BY MOUTH ONCE PENDING DAILY 4) SUNSCREEN 30-50/AVOBENZONE/PABA-F LOTION APPLY A PENDING LIBERAL AMOUNT TOPICALLY ONCE DAILY NEEDED 5) SUNSCREEN 30-50/PHY BLOCK/PABA-F FACE CR APPLY A PENDING LIBERAL AMOUNT TOPICALLY ONCE DAILY NEEDED Active Non-VA Medications Status 1) Non-VA ACETAMINOPHEN 500MG TAB 500MG BY MOUTH EVERY 4 ACTIVE HOURS NEEDED 2) Non-VA DOCUSATE NA 100MG CAP 100MG BY MOUTH ACTIVE NEEDED 3) Non-VA MULTIVITAMIN/MINERALS CAP/TAB 1 TABLET BY ACTIVE MOUTH ONCE DAILY 13 Total Medications Medication (Local) Status DEXAMETHASONE NA PHOS 4MG/ML INJ Directions: INJECT [...] Status No remote medications found. /kevin/ LARON HERNANDEZ MD PHYSICIAN Signed: 03/29/2024 08:03 LARON HERNANDEZ [place] Feb 19, 2024 02:26 PM PREVENTIVE MEDICIN E NURSING NOTE: LOCAL TITLE: CLINICAL REMINDERS/NURSING STANDARD TITLE: PREVENTIVE MEDICINE NURSING NOTE DATE OF NOTE: FEB 19, 2024@14:26 ENTRY DATE: FEB 19, 2024@14:26:39 AUTHOR: MARK COOPER EXP COSIGNER: URGENCY: STATUS: COMPLETED Tobacco Pack Year History: Patient never smoked cigarettes or smoked FEWER THAN 100 cigarettes/lifetime Advance Directive Screen MH AD: The patient's advance directive on file does not contain information about mental health treatment preferences. BMI>30/>24.99 High Risk: Patient declines to discuss weight management. Patient declined weight discussion. Discussed revisiting at a future visit. Homelessness/Food Insecurity Screen: In the past 2 months, have you been living in stable housing that you own, rent, or stay in as part of a household? Yes - Living in stable housing. Are you worried or concerned that in the next 2 months you may NOT have stable housing that you own, rent, or stay in as part of a household? No - Not worried about housing near future The [place] reports the following: Within the past 12 months, you worried whether your food would run out before you got money to buy more. Never true Within the past 12 months, the food you bought just didn't last and you didn't have money to get more. Never true Depression Screening: Perform PHQ-2 A PHQ-2 screen was performed. The score was 0 which is a negative screen for depression. Over the past two weeks, how often have you been bothered by the following problems? 1. Little interest or pleasure in doing things Not at all 2. Feeling down, depressed, or hopeless Not at all Hepatitis B Serology/Immunization: Defer due to a PRECAUTION Pneumococcal Conjugate Vaccine (PCV15/PCV20): Defer due to a PRECAUTION Tobacco Use Screening: The patient is a former tobacco user. The patient quit five to less than fifteen years ago. Influenza Immunization: No influenza vaccination was received during the recent influenza season. Alcohol Use Screen (AUDIT-C): Alcohol Screen: SCREEN FOR ALCOHOL (AUDIT-C) An alcohol screening test (AUDIT-C) was negative (score=0). 1. How often did you have a drink containing alcohol in the past year? Consider a drink to be a 12 ounce can or bottle of regular beer, 8 ounces of malt liquor, a 5 ounce glass of table wine, or a 1.5 ounce shot of liquor (like scotch, gin, or vodka). Never 2. How many drinks containing alcohol did you have on a typical day when you were drinking in the past year? Response not required due to responses to other questions. 3. How often did you have six or more drinks on one occasion in the past year? Response not required due to responses to other questions. COVID-19 Immunization: Refused Moderna Monovalent COVID-19 vaccine Immunization: COVID-19 (MODERNA), MRNA, LNP-S, PF, 50 MCG/0.5 ML (AGES 12+ YEARS) Refusal Reason: PATIENT DECISION Patient refuses all immunization(s) in the COVID-19 group Date Documented: 02/19/24 14:29 HTN Assess for Elevated BP>=140/90: The patient was counseled on the importance of regular exercise and/or physical activity in the control of blood pressure. The patient was counseled on the importance of diet and weight loss/ control in the regulation of blood pressure. Sexual Orientation: The patient thinks of their sexual orientation as: Straight or Heterosexual RHS Screen: RHS Screen Session Format: Face to Face Environmental Check Upon inquiry, the individual reports that the environment is safe to proceed. Informed Consent to Screen and Document The individual consents to proceed with screening. The individual consents to documentation of responses. PRIMARY SCREEN: In the past 12 months, how often did a current or former intimate partner (e.g., boyfriend, girlfriend, , , sexual partner): 1. Scream or curse at you Never 2. Insult or talk down to you Never 3. Threaten you with harm Never 4. Physically hurt you Never 5. Force or pressure you to have sexual contact against your will, or when you were unable to say no Never ?? The HITS tool (items 1-4 above) is [place] copyright protected by [place] MD, and the user has full rights to use it throughout the [place] system. PRIMARY SCREEN RESULT: The Primary Screen is NEGATIVE. The individual answered never to all forms of IPV above (i.e., answered never to all 5 items) The individual accepts education and/or resources: No EDUCATION: The individual indicated readiness to learn. Education offered during this session as noted above. The individual indicated understanding by asking relevant questions and making appropriate comments. No barriers to learning were observed or identified. MED REC COMPLETED BY PROVIDER DURING VISIT. /kevin/ MARK COOPER LPN LPN Signed: 02/19/2024 14:30 MARK [place]FIELD
--- OUTSIDE RECORDS SUMMARY | 2024-11-14 15:39 | XMS_ITS | Encounter Summary ---
Author Name [place] Address [address] [place] [id number] Care Team Providers Care Human Resources Office Manager Name Role Phone DEBORAH PRIETO Primary [...] Relationship to Policy Pérez ANTH[place] BCBS OF [place] (BLU[place]AR) [facility] CE ORGANIZAT ION COH G AND E Feb 15, 2024 [id number] SUSAN SMITH PATIENT BCBS [facility] CE ORGANIZAT ION COH POLIC E DEPT HDHP Feb 15, 2024 [id number] SUSAN SMITH PATIENT BCBS OF [facility] CE ORGANIZAT ION COH G AND E Feb 15, 2024 [id number] SUSAN SMITH PATIENT [facility] PRESCRIPT ION RX Feb 15, 2024 [facility] [id number] [phone] SUSAN SMITH PATIENT [facility] PRESCRIPT ION COH G AND E Feb 15, 2024 [id number] SUSAN SMITH PATIENT CIGNA RX PRESCRIPT ION Feb 14, 2017 [id number] SUSAN SMITH PATIENT [facility] CE ORGANIZ HOLYO KE WATER Feb 14, 2019 [id number] SUSAN SMITH PATIENT [facility] CE ORGANIZAT ION W/OUT OF NETWORK BENEFITS COH G AND E Feb 15, 2024 [id number] [phone] SUSAN SMITH PATIENT Selected Encounter This section includes the information on record at [place] for the Encounter. Date/Time Encounter Type Encounter Description Reason Provider Source Oct 25, 2024 03:00 PM Outpatient Encounter [facility]OT GOODSON Encounter Template Text not used by [place] Plan of Treatment: Future Appointments (+ 6 months) and Future Tests (+/- 45 days) The Plan of Treatment section includes future care activities for the [facility] [place] [facility] This section includes future appointments and future orders which are active, pending or scheduled. Future Appointments This section includes appointments that were scheduled to occur 6 months from the date of the Encounter, up to a maximum of 20 appointments. The data comes from all [place] treatment [facility]. Appointment Date/Time Appointment Type Appointme nt Facility Name Nov 17, 2024 11:30 AM AMBULATORY - MEDICINE [facility] Nov 21, 2024 02:00 PM AMBULATORY - PSYCHIATRY [facility] January 13, 2025 02:00 PM AMBULATORY - PSYCHIATRY [facility] Mar 29, 2025 03:00 PM AMBULATORY - [place]ICINE [place] [facility] Active, Pending, and Scheduled Orders This section includes a listing of several types of active, pending, and scheduled orders, including clinic medications orders, diagnostic test orders, procedure orders and consult orders; where the start date of the order is 45 days before the date of the Encounter or 45 days after the date of theEncounter. The data comes from all [place] treatment [facility]. Test Date/Time Test Type Test Details Facility Name Sep 29, 2024 07:23 PM Consult Order COMMUNITY CARE-PHYSICAL THERAPY Cons Floor Covering Printer Assistant's Choice [facility] Oct 10, 2024 12:00 AM Laboratory - Chemi stry Order OCCULT BLOOD FIT X1 SCREEN(IN-HOUSE) STOOL FECES SP [facility] Lab Results: +/- 30 days of [...] Range Comment Oct 06, 2024 11:35 AM [facility] LIPID PANEL FASTING Specimen Type: SERUM No comment entered. Ordering Provider: BLAKE WEN Report Released Date/Time: Mar 29, 2024 03:35 PM Reporting Lab: [address] [address] Performing Lab: [address] [address] CHOLESTEROL 260 mg/dL H TRIGLYCERIDE 218 mg/dL [...] 19, 2024 02:00 PM [place]-TOBACCO NEVER USED [place] Tobacco Use History This section includes a history of the smoking, or tobacco-related health factors, that were collected on or before the date of the Encounter. The data comes from the [place] facility where the Encounter took place. Date/Time Smoking Status/Tobacco Use Comment F acility Feb 19, 2024 02:00 PM [place]-TOBACCO NEVER USED [place] Feb 19, 2024 02:00 PM [place]-TOBACCO QUIT 5 TO < 15 YRS [place] May 06, 2022 03:00 PM [place]-TOBACCO FORMER USER [place] May 06, 2022 03:00 PM VA-TOBACCO QUIT 5 TO < 15 YRS [place] May 21, 2021 03:00 PM VA-TOBACCO FORMER USER [place] May 21, 2021 03:00 PM VA-TOBACCO QUIT 5 TO < 15 YRS [place] Mar 15, 2019 09:02 AM VA-TOBACCO FORMER USER [place] Mar 15, 2019 09:02 AM VA-TOBACCO QUIT 5 TO < 15 YRS [place] January 04, 2018 04:05 PM QUIT TOBACCO USE > 7 YEARS AGO [place] Apr 27, 2017 12:25 PM QUIT TOBACCO USE > 7 YEARS AGO [place] Sep 12, 2016 02:09 PM QUIT TOBACCO USE 1-7 YEARS AGO mar [place] Jun 20, 2016 08:54 AM QUIT TOBACCO USE 1-7 YEARS AGO quit 2009 [place] Jun 25, 2015 03:09 PM QUIT TOBACCO USE > 7 YEARS AGO [place] Apr 12, 2014 10:09 AM QUIT TOBACCO USE 1-7 YEARS AGO 2009 quit [place] Dec 15, 2011 03:46 PM QUIT TOBACCO USE 1-7 YEARS AGO 03/26/2010 [place] Nov 25, 2010 03:11 PM QUIT TOBACCO USE 1-7 YEARS AGO [place] Nov 25, 2010 03:11 PM QUIT TOBACCO USE IN PAST YEAR [place] Advance Directives: All historical and current Section Date Range: From patient's date of to the date document was created. This section includes ALL of a patient's completed or amended [place] Advance and Rescinded Directives. The entries below indicate that a directive exists for the patient, but an actual copy is not included with this document. The data comes from all [facility]. Date Advance Directives Provider Source Jun 13, 2017 ADVANCE DIRECTIVE ISABELA DODSON [facility] Apr 18, 2014 ADVANCE DIRECTIVE JESSEE LAZAR Encounter Notes: All associated encounter notes This section contains the clinical notes associated to the Encounter. Date/Time Encounter Note(s) Provider Source Oct 25, 2024 03:36 PM CLERICAL NOTE: LOCAL TITLE: APPOINTMENT NO SHOW STANDARD TITLE: CLERICAL NOTE DATE OF NOTE: OCT 25, 2024@15:36 ENTRY DATE: OCT 25, 2024@15:36:06 AUTHOR: MARGOT MERCADO COSIGNER: URGENCY: STATUS: COMPLETED APPOINTMENT NO SHOW Has ADDENDA Patient Name: PARUL SMITH Patient SSN: [id number] Date and time of Appointment No show : 10/25/24 15:00 PATIENT PHONE - PHONE NUMBER [CELLULAR] - Patient's medical record was reviewed. Follow-up actions were determined and initiated: Please check/complete as applies: [X]Telephoned Directly [ ]Re-scheduled for next available appt [X]Sent a N0-show letter ( must call for appointment) [ ]Other (Emergent/Overbook, etc.): Additional Comments: Undersigned called and left a VM message for [place]. She provided her contact information and requested a return call. Future Clinic Visits 11/15/2024 13:30 SPR PACT 9 01/13/2025 14:00 [facility] PSYTR 2 03/29/2025 15:00 [facility] PACT 9 08/03/2025 15:30 [facility] 2 PM /kevin/ MARGOT MERCADO PSYD Clinical Psychologist Signed: 10/25/2024 15:36 10/31/2024 ADDENDUM STATUS: COMPLETED called and left a VM message for undersigned on 10/25 after the clinic was closed. Reid received the VM today as she was out of the office last Thursday-Thursday. He was returning her call. Undersigned called and spoke to today. Next appointment on 11/08 at 3pm. /kevin/ MARGOT MERCADO PSYD Clinical Psychologist Signed: 10/31/2024 15:11 MARGOT MERCADO [place]
--- OUTSIDE RECORDS SUMMARY | 2024-11-14 15:39 | XMS_ITS | Clinical Summary ---
Author Organization [address] Address [address] [place] [id number] Care Team Providers Care Master Printer Name Role Phone Unavailable Primary Care Provider Unavailabl e Social History Tobacco Use Types Packs/Day Years Used Date Smoking Tobacco: Never Assessed Comments Unknown Sex and Gender Information Value Date Recorded Sex Assigned at Not on file Legal Sex Unknown 06/03/2017 9:39 AM EDT Gender Identity Not on file Sexual Orientation Not on file Plan of Treatment Health Maintenance Due Date Last Done Comments HIV screening 1977 Hepatitis C screening 1982 Tetanus adult (Td q 10,TDAP once) 1984 Breast cancer screening 2004 Lipid disorder screening 2004 Colon cancer screening, Colonoscopy 2009 Diabetes screening 2009 Shingles vaccine (Shingrix) (1 of 2 - Shingrix (RZV) 2 Dose Standard Series) 2014 Influenza vaccine 03/17/2024 Covid-19 vaccine series (1 - 2023- season) 2024 Pneumococcal Vaccine (50+ ye ars) (1 of 1 - PCV) 2029 RSV Immunization (1 - 1-dose 75+ series) 12/05/2039 Meningococcal Vaccine Aged Out No martínez javid eligible based on patient's age to complete this topic Pneumococcal Vaccine (2 - 49 years) Aged Out No longer eligible based on patient's age to complete this topic
--- OUTSIDE RECORDS SUMMARY | 2024-11-14 15:39 | XMS_ITS | Encounter Summary ---
Author Name [place] Address [address] [place] [address] Care Team Providers Care Administrative Office Clerk Name Role Phone DEBORAH PRIETO Primary Care [...] Relationship to Policy Pérez [place]) [facility] CE ORGANIZAT ION COH G AND E Feb 15, 2024 [id number] SUSAN SMITH PATIENT BCBS [facility] CE ORGANIZAT ION COH POLIC E DEPT HDHP Feb 15, 2024 [id number] [phone] SUSAN SMITH PATIENT BCBS OF [facility] CE ORGANIZAT ION COH G AND E Feb 15, 2024 [id number] [phone] SUSAN SMITH PATIENT [facility] PRESCRIPT ION RX Feb 15, 20[facility] [id number] SUSAN SMITH PATIENT [employer] PRESCRIPT ION COH G AND E Feb 15, 2024 [id number] SUSAN SMITH PATIENT CIGNA RX PRESCRIPT ION Feb 14, 2017 [id number] SUSAN SMITH PATIENT [facility] CE ORGANIZ HOLYO KE WATER Feb 14, 2019 [id number] [phone] SUSAN SMITH PATIENT [facility] CE ORGANIZAT ION W/OUT OF NETWORK BENEFITS COH G AND E Feb 15, 2024 [id number] SUSAN SMITH PATIENT Selected Encounter This section includes the information on record at [place] for the Encounter. Date/Time Encounter Type Encounter Description Reason Provider Source Oct 14, 2024 03:30 PM OFFICE O/P EST MOD 30 MIN [facility] - IND ICD-10-CM F43.12 Post-traumatic stress disorder, MADALYN Mckeon Len Encounter Template Text not used by [place] Assessments - Encounter Diagnoses This section includes the primary and secondary diagnoses documented for the Encounter. Date/Time Primary/Secondary Diagnosis Diagnosis Name Provider Source Nov 05, 2024 08:00 AM PRIMARY Post-traumatic stress disorder, MADALYN Mckeon Plan of Treatment: Future Appointments (+ 6 months) and Future Tests (+/- 45 days) The Plan of Treatment section includes future care activities for the patient from all [place] treatmentfacilities. This section includes future appointments and future orders which are active, pending or scheduled. Future Appointments This section includes appointments that were scheduled to occur 6 months from the date of the Encounter, up to a maximum of 20 appointments. The data comes from all [place] treatment facilities. Appointment Date/Time Appointment Type Appointme nt Facility Name Oct 25, 2024 03:00 PM AMBULATORY - PSYCHIATRY [place] MURPHYRAngelo [facility] Nov 17, 2024 11:30 AM AMBULATORY - MEDICINE [facility] Nov 21, 2024 02:00 PM AMBULATORY - PSYCHIATRY [facility] January 13, 2025 02:00 PM AMBULATORY - PSYCHIATRY [facility] Mar 29, 2025 03:00 PM [facility] Active, Pending, and Scheduled Orders This section includes a listing of several types of active, pending, and scheduled orders, including clinic medications orders, diagnostic test orders, procedure orders and consult orders; where the start date of the order is 45 days before the date of the Encounter or 45 days after the date of theEncounter. The data comes from all [place] treatment facilities. Test Date/Time Test Type Test Details Facility Name Sep 29, 2024 07:23 PM Consult Order COMMUNITY CARE-PHYSICAL THERAPY Cons Vacuum Cleaner Repairer's Choice [facility] Oct 10, 2024 12:00 AM Laboratory - Chemi stry Order OCCULT BLOOD FIT X1 SCREEN(IN-HOUSE) STOOL FECES SP [facility] Lab Results: +/- 30 days of the encounter This section includes the Chemistry and Hematology Lab Results on record with [place] for the patient. Radiology Reports and Pathology Reports are provided separately, in subsequent sections. Lab Results This section contains the Chemistry/Hematology Results that were resulted 30 days before or 30 daysafter the date of the Encounter. Date/Time Source Result Type Result - Unit Interpretation Reference Range Comment Oct 06, 2024 11:35 AM [facility] LIPID PANEL FASTING Specimen Type: SERUM No comment entered. Ordering Provider: BLAKE WEN Report Released Date/Time: Mar 29, 2024 03:35 PM Reporting Lab: [facility] [address] [facility] [address] Performing Lab: [address] [address] CHOLESTEROL 260 mg/dL H TRIGLYCERIDE 218 mg/dL H 0-150 LDL calculated 168 mg/dL H 0-129 CHOL/HDL 5.4 HDL CHOLESTEROL 48 mg/dL 40-60 Social History: Smoking Status (Most current) and Tobacco Use (All prior to encounter date) This section includes the most current, and the historical, smoking and tobacco- related health factors from the [place] facility where the Encounter took place. Current Smoking Status This section includes the most current smoking, or tobacco-related health factor, from the [place] facility where the Encounter took place. Date/Time Current Smoking Status Comment Facil ity Feb 19, 2024 02:00 PM [place]-TOBACCO NEVER USED [place] Tobacco Use History This section includes a history of the smoking, or tobacco-related health factors, that were collected on or before the date of the Encounter. The data comes from the [place] facility where the Encounter took place. Date/Time Smoking Status/Tobacco Use Comment F acility Feb 19, 2024 02:00 PM VA-TOBACCO NEVER USED [place] Feb 19, 2024 02:00 PM VA-TOBACCO QUIT 5 TO < 15 YRS [place] May 06, 2022 03:00 PM VA-TOBACCO FORMER USER [place] May 06, 2022 03:00 PM VA-TOBACCO QUIT 5 TO < 15 YRS [place] May 21, 2021 03:00 PM VA-TOBACCO FORMER USER [place] May 21, 2021 03:00 PM VA-TOBACCO QUIT 5 TO < 15 YRS [place] Mar 15, 2019 09:02 AM VA-TOBACCO FORMER USER [place] Mar 15, 2019 09:02 AM VA-TOBACCO QUIT 5 TO < 15 YRS [place] January 04, 2018 04:05 PM QUIT TOBACCO USE > 7 YEARS AGO [place] Apr 27, 2017 12:25 PM QUIT TOBACCO USE > 7 YEARS AGO [place] Sep 12, 2016 02:09 PM QUIT TOBACCO USE 1-7 YEARS AGO mar [place] Jun 20, 2016 08:54 AM QUIT TOBACCO USE 1-7 YEARS AGO quit 2009 [place] Jun 25, 2015 03:09 PM QUIT TOBACCO USE > 7 YEARS AGO [place] Apr 12, 2014 10:09 AM QUIT TOBACCO USE 1-7 YEARS AGO 2009 quit [place] Dec 15, 2011 03:46 PM QUIT TOBACCO USE 1-7 YEARS AGO 03/26/2010 [place] Nov 25, 2010 03:11 PM QUIT TOBACCO USE 1-7 YEARS AGO [place] Nov 25, 2010 03:11 PM QUIT TOBACCO USE IN PAST YEAR [place] Advance Directives: All historical and current Section Date Range: From patient's date of to the date document was created. This section includes ALL of a patient's completed or amended [place] Advance and Rescinded Directives. The entries below indicate that a directive exists for the patient, but an actual copy is not included with this document. The data comes from all [facility]. Date Advance Directives Provider Source Jun 13, 2017 ADVANCE DIRECTIVE ISABELA DODSON [facility] Apr 18, 2014 ADVANCE DIRECTIVE JESSEE LAZAR Encounter Notes: All associated encounter notes This section contains the clinical notes associated to the Encounter. Date/Time Encounter Note(s) Provider Source Oct 14, 2024 04:20 PM TELEHEALTH NOTE: LOCAL TITLE: [place] VIDEO CONNECT PSYCHIATRIST NOTE STANDARD TITLE: TELEHEALTH NOTE DATE OF NOTE: OCT 14, 2024@16:20 ENTRY DATE: OCT 14, 2024@16:20:42 AUTHOR: MADALYN TEMPLE COSIGNER: URGENCY: STATUS: COMPLETED [facility] Video Connect (VVC) Standard Documentation VVC Clinician Resources Only: E911 (Emergency Call Relay Center): [phone] [employer] Crisis Line - 988 then press #1. [facility] Suicide Coordinator [phone], Ext. [phone]; Back-up Ext. [phone] [place] Police, JONO, Mar[place] [phone] Introduction: Visit is being conducted by [place] [employer]. [place] identified with 2 identifiers: [X] Full Name [X] Date of [ ] VA ID Card Emergency Plan: [place] confirmed and/or provided the following information in case of emergency or technology failure. PATIENT PHONE - PHONE NUMBER [CELLULAR] - Is patient phone number correct, if not, enter below: 's phone number: PARUL SMITH [address] [place] [address] [address] [place], [place], [address] [place]'s present location and address for appointment: home 's emergency contact name and phone number: see cover [place] reported that location is private and safe: Yes Informed Consent: [place] informed of the risks and benefits of Telehealth video care. [place] has the right to refuse video services. If refuses video visit, a vlpe-zz-xnzu visit will be scheduled. [place] verbalized consent for this video visit: Yes [place] provided consent for any other persons present for visit: N/A If yes, who and relationship to patient: Secure visit: Visit was locked for security and privacy:Yes Time spent: 21-30 minutes >16 mins supportive therapy (including empathic listening, insight building, and psychoeducation). The presents today for follow-up. PATIENT REPORT: [place] presents with euthymic mood. He states, I'm hanging in there. As for family and work, he states, They're hangin' in there. The gabapentin benefits occasional parasthesias 2/2 to thumb surgery. He's looking forward to cataracts surgery, as he feels his vision has caused him some trouble with recent standardized testing. He recently visited his oldest son in [place], and it was a pleasant visit. He shares that his son, 40, is involved in holistic healing. Sleep is better with Trazodone. He appreciates having hydroxyzine on-hand as needed for anxiety. He appears to be coping appropriately with stressors. Support was provided. He reports continued benefit from medication on chronic symptoms of PTSD. He denies depressed mood. Energy is normal. He has interests. is hopeful. He presents with approproate self-care. Cognitive exam is grossly intact. TP is logical and organized. TC is pertinent to topic. Speech is of regular rate, rhythm, volume, and tone. Mood is euthymic and affect congruent. He denies SI and HI. Insight and judgment are intact. SOCIAL HISTORY: [employer] FROM Apr TO Apr , three sons (35y/o sons, 40y/o son)-2024 SUICIDE RISK ASSESSMENT: SUICIDE INQUIRY: IDEATION: Denies ideation. Do you currently have any homicidal ideation? No SUBSTANCE USE: alcohol--on average, one or two drinks a week PSYCH MEDICATION HISTORY: none previously ACTIVE OUTPATIENT MEDICATIONS (including Supplies): Active Outpatient Medications (including Supplies): ATORVASTATIN CALCIUM 40MG TAB TAKE ONE-HALF TABLET BY ACTIVE MOUTH ONCE DAILY Indication: FOR HIGH CHOLESTEROL BUPROPION HCL 150MG 12HR SA TAB TAKE [...] 1 TABLET BY MOUTH ACTIVE ONCE DAILY 14 Total Medications ALLERGIES: Patient has answered NKA I discussed the findings and plan with the patient. I educated the patient about their mental health condition. [place] repeated back the plan and education. IMPRESSION [...] to help with sleep as needed. Continue prazosin 2mg QHS for nightmares(off-label). He prefers to take as needed. He does not take on nights he takes sildenafil--he was reminded of this today Continue Trazodone 50mg QHS PRN for sleep. He is seen by Dr. Toledo for [...] (local) and dispensed from another [facility] or [facility] facility (remote) as well as inpatient [...] provider. /kevin/ MADALYN TEMPLE DO Psychiatrist Signed: 10/15/2024 10:15 Receipt Acknowledged By: 10/17/2024 08:47 /kevin/ BENOIT WANG ADVANCED OUTSOLE CASER MADALYN TEMPLE
--- OUTSIDE RECORDS SUMMARY | 2024-11-14 15:39 | XMS_ITS | Encounter Summary ---
Author Name [place] Address [address] [place] [address] Care Team Providers Care Nail Tech Name Role Phone DEBORAH PRIETO Primary Care [...] Relationship to Policy Pérez [place] [facility] CE ORGANIZAT ION COH G AND E Feb 15, 2024 [id number] [phone] SUSAN SMITH PATIENT BCBS [facility] CE ORGANIZAT ION COH POLIC E DEPT HDHP Feb 15, 2024 [id number] SUSAN SMITH PATIENT BCBS OF [facility] CE ORGANIZAT ION COH G AND E Feb 15, 2024 [id number] [phone] SUSAN SMITH PATIENT [facility] PRESCRIPT ION RX Feb 15, 2024 [id number] SMITH,JA GLENYS PATIENT [employer] PRESCRIPT ION COH G AND E Feb 15, 2024 [id number] LUISSUSAN GLENYS PATIENT CIGNA RX PRESCRIPT ION Feb 14, 2017 [id number] LUISS[place] PATIENT [facility] CE ORGANIZ HOLYO KE WATER Feb 14, 2019 [id number] LUISSUSAN GLENYS PATIENT [facility] CE ORGANIZAT ION W/OUT OF NETWORK BENEFITS COH G AND E Feb 15, 2024 [id number] LUISSUSAN VERONICA PATIENT Selected Encounter This section includes the information on record at [place] for the Encounter. Date/Time Encounter Type Encounter [...] this document. The data comes from all [place] facilities. Date Advance Directives Provider Source Jun 13, [address] [facility] Apr 18, 2014 ADVANCE DIRECTIVE JESSEE LAZAR
--- OUTSIDE RECORDS SUMMARY | 2024-11-14 15:39 | XMS_ITS | Encounter Summary ---
Author Name [facility] [place] Organization [facility] [place] [facility] [place] Address [address] [place] [id number] Care Team Providers Care Studio Designer Name Role Phone DEBORAH PRIETO Primary Care [...] Relationship to Policy Pérez AN[place] [facility] CE ORGANIZAT ION COH G AND E Feb 15, 2024 [id number] [phone] SUSAN SMITH PATIENT BCBS [facility] CE ORGANIZAT ION COH POLIC E DEPT HDHP Feb 15, 2024 [id number] SUSAN SMITH PATIENT BCBS OF [facility] CE ORGANIZAT ION COH G AND E Feb 15, 2024 [id number] SUSAN SMITH PATIENT [employer] PRESCRIPT ION RX Feb 15, 2024 [email or web address] [id number] SUSAN SMITH PATIENT [employer] PRESCRIPT ION COH G AND E Feb 15, 2024 [id number] SUSAN SMITH PATIENT [employer] RX PRESCRIPT ION Feb 14, 2017 [id number] [facility] CE ORGANIZ [place] Feb 14, 2019 [id number] SUSAN SMITH PATIENT [facility] [facility] CE ORGANIZAT ION W/OUT OF NETWORK BENEFITS COH G AND E Feb 15, 2024 [id number] SUSAN SMITH PATIENT Selected Encounter This section includes the information on record at [place] for the Encounter. Date/Time Encounter Type Encounter Description Reason Provider Source Mar 18, 2024 03:00 PM OFFICE O/P EST SF [facility] - IND ICD-10-CM F43.12 Post-traumatic stress disorder, MADALYN Mckeon Len Encounter Template Text not used by [place] Assessments - Encounter Diagnoses This section includes the primary and secondary diagnoses documented for the Encounter. Date/Time Primary/Secondary Diagnosis Diagnosis Name Provider Source Apr 20, 2024 06:14 AM PRIMARY Post-traumatic stress disorder, MADALYN Mckeon [...] Appointment Type Appointme nt Facility Name Mar 22, 2024 03:00 PM AMBULATORY - PSYCHIATRY [facility] Mar 29, 2024 02:30 PM AMBULATORY - MEDICINE [place] [facility] [place] [facility] May 04, 2024 03:15 PM AMBULATORY - MEDICINE [place] [facility] [place] [facility] May 10, 2024 02:00 PM AMBULATORY - MEDICINE [facility] May 17, 2024 03:00 PM AMBULATORY - PSYCHIATRY [place] [facility] [place] [facility] May 27, 2024 08:00 AM AMBULATORY - MEDICINE [place] [facility] [place] [facility] Jun 15, 2024 03:00 PM AMBULATORY - PSYCHIATRY [facility] Jul 12, 2024 03:00 PM AMBULATORY - PSYCHIATRY [place] [facility] [place] [facility] Jul 26, 2024 02:00 PM AMBULATORY - MEDICINE [facility] [place] [facility] Jul 26, 2024 03:00 PM AMBULATORY - MEDICINE [place] [facility] [place] [facility] Aug 30, 2024 03:00 PM AMBULATORY - PSYCHIATRY [place] [facility] [place] [facility] Sep 14, 2024 03:30 PM AMBULATORY - PSYCHIATRY [facility] Lab Results: +/- 30 days of [...] Range Comment Mar 23, 2024 07:46 AM [facility] HEMOGLOBIN A1C PANEL Specimen Type: BLOOD [...] Feb 19, 2024 02:53 PM Reporting Lab: [facility] [address] [facility] [address] Performing Lab: [facility] [address] [facility] [address] HEMOGLOBIN A1C 5.2 4.0-5.6 Mar 23, 2024 07:46 AM [facility] LIPID PANEL FASTING Specimen Type: SERUM No comment entered. Ordering Provider: AKIL WEN Report Released Date/Time: Feb 19, 2024 02:53 PM Reporting Lab: [facility] [address] [facility] [address] Performing Lab: [facility] [address] [facility] [address] CHOLESTEROL 247 mg/dL H TRIGLYCERIDE 81 mg/dL 0-150 LDL calculated 175 mg/dL H 0-129 CHOL/HDL 4.4 HDL CHOLESTEROL 56 mg/dL 40-60 Mar 23, 2024 07:46 AM [facility] BASIC METABOLIC PANEL (fasting) Specimen Type: SERUM No comment entered. Ordering Provider: AKIL WEN Report Released Date/Time: Feb 19, 2024 02:53 PM Reporting Lab: [facility] [address] [facility] [address] Performing Lab: [address] [address] UREA NITROGEN 17 mg/dL 7-25 GLUCOSE 102 mg/dL H 65-100 SODIUM 139 mmol/L 135-145 POTASSIUM 4.1 mmol/L 3.5-5.0 CHLORIDE 103 mmol/L 100-110 CO2 29 meq/L 20-30 CREATININE, Serum 0.90 mg/dL 0.50-1.40 eGFR(CKD-EPI 2020) >90 mL/min >60 Mar 23, 2024 07:46 AM [facility] LIVER FUNCTION Specimen Type: SERUM No comment entered. Ordering Provider: AKIL WEN Report Released Date/Time: Feb 19, 2024 02:53 PM Reporting Lab: [facility] [address] [facility] [address] Performing Lab: [address] [address] PROTEIN,TOTAL 6.9 g/dL 6.0-8.3 ALBUMIN 3.9 g/dL 3.5-5.0 ALKALINE PHOSPHATASE 82 U/L 40-150 AST 15 U/L 5-34 ALT 18 U/L BILIRUBIN, TOTAL 0.8 mg/dL 0.2-1.2 Mar 23, 2024 07:46 AM [facility] TSH Specimen Type: SERUM No comment entered. Ordering Provider: AKIL WEN Report Released Date/Time: Feb 19, 2024 02:53 PM Reporting Lab: [facility] [address] [facility] [address] Performing Lab: [address] [address] TSH 2.97 u[IU]/mL 0.35-5.00 Mar 23, 2024 07:46 AM [facility] CBC AND DIFF (AUTO) Specimen Type: BLOOD No comment entered. Ordering Provider: AKIL WEN Report Released Date/Time: Feb 19, 2024 02:53 PM Reporting Lab: [facility] [address] [facility] [address] Performing Lab: [address] [address] WBC 5.28 10*3/uL 4.50-11.00 RBC 4.90 10*6/uL [...] 19, 2024 02:00 PM VA-TOBACCO NEVER USED [facility] Tobacco Use History This section includes a history of the smoking, or tobacco-related health factors, that were collected on or before the date of the Encounter. The data comes from the [place] facility where the Encounter took place. Date/Time Smoking Status/Tobacco Use Comment F acility Feb 19, 2024 02:00 PM VA-TOBACCO NEVER USED [facility] Feb 19, 2024 02:00 PM VA-TOBACCO QUIT 5 TO < 15 YRS [facility] May 06, 2022 03:00 PM VA-TOBACCO FORMER USER [facility] May 06, 2022 03:00 PM VA-TOBACCO QUIT 5 TO < 15 YRS [facility] May 21, 2021 03:00 PM VA-TOBACCO FORMER USER [facility] May 21, 2021 03:00 PM VA-TOBACCO QUIT 5 TO < 15 YRS [facility] Mar 15, 2019 09:02 AM VA-TOBACCO FORMER USER [facility] Mar 15, 2019 09:02 AM VA-TOBACCO QUIT 5 TO < 15 YRS [facility] January 04, 2018 04:05 PM QUIT TOBACCO USE > 7 YEARS AGO [facility] Apr 27, 2017 12:25 PM QUIT TOBACCO USE > 7 YEARS AGO [facility] Sep 12, 2016 02:09 PM QUIT TOBACCO USE 1-7 YEARS AGO mar [facility] Jun 20, 2016 08:54 AM QUIT TOBACCO USE 1-7 YEARS AGO quit 2009 [facility] Jun 25, 2015 03:09 PM QUIT TOBACCO USE > 7 YEARS AGO [facility] Apr 12, 2014 10:09 AM QUIT TOBACCO USE 1-7 YEARS AGO 2010 quit [facility] Dec 15, 2011 03:46 PM QUIT TOBACCO USE 1-7 YEARS AGO 03/26/2010 [facility] Nov 25, 2010 03:11 PM QUIT TOBACCO USE 1-7 YEARS AGO [facility] Nov 25, 2010 03:11 PM QUIT TOBACCO USE IN PAST YEAR [facility] Advance Directives: All historical and current Section [...] Jun 13, 2017 ADVANCE DIRECTIVE ISABELA DODSON [facility] Yandel [facility] Apr 18, 2014 ADVANCE DIRECTIVE [...] the Encounter. The data comes from all [place] treatment facilities. Date/Time Radiology Report Provider Source Mar 31, 2024 03:57 PM SPINE LUMBOSACRAL MIN 2 VIEWS: PARUL SMITH [id number] -1965 M Exm Date: MAR 31, 2024@15:57 Req Phys: BEHZAD,LARON Pat Loc: CWM/SO/PACT 9 (Req'g Loc) Img Loc: [facility] 1 Service: [place] [address] (Case [id number] COMPLETE) SPINE LUMBOSACRAL MIN 2 VIEWS (RAD Detailed) CPT:65223 Reason for Study: back pain Clinical History: acute on chronic Report Status: Verified Date Reported: APR 01, 2024 Date Verified: APR 01, 2024 [employer] E-Sig:/ES/LAURA MONTOYA JR Report: Study: PA and [...] Primary Interpreting Staff: LAURA MONTOYA JR, Radiologist ([employer]) /LAURA RUFFIN JR [facility] Mar 31, 2024 03:57 PM CHEST (2 VIEWS): PARUL SMITH [id number] -1965 M Ex Date: MAR 31, 2024@15:57 Req Phys: BEHZAD,LARON Pat Loc: CWM/SO/PACT 9 (Req'g Loc) Img Loc: [facility]/BUILD[facility] 1 Service: [place] [address] (Case [id number] COMPLETE) CHEST (2 VIEWS) (RAD Detailed) CPT:70666 Reason for Study: pain Clinical History: RIGHT rib pain Report Status: Verified Date Reported: APR 01, 2024 Date Verified: APR 01, 2024 [employer] E-Sig:/ES/LAURA MONTOYA JR Report: Study: PA and [...] Primary Interpreting Staff: LAURA MONTOYA JR, Radiologist ([employer]) /LAURA RUFFIN JR [facility] Mar 31, 2024 03:57 PM RIBS, UNILATERAL ( MINIMUM 2V): PARUL SMITH [id number] -1965 M Exm Date: MAR 31, 2024@15:57 Req Phys: BEHZAD,LARON Pat Loc: CWM/SO/PACT 9 (Req'g Loc) Img Loc: [facility] 1 Service: Unknown [facility] [place] [address] (Case [id number] COMPLETE) RIBS, UNILATERAL (MINIMUM 2V) (RAD Detailed) CPT:42031 Reason for Study: pain Clinical History: RIGHT rib pain Report Status: Verified Date Reported: APR 01, 2024 Date Verified: APR 01, 2024 [employer] E-Sig:/ES/LAURA MONTOYA JR Report: Study: PA and [...] Primary Interpreting Staff: LAURA MONTOYA JR, Radiologist ([employer]) /LAURA RUFFIN JR [facility] Feb 24, 2024 03:37 PM CHEST (2 VIEWS): PARUL SMITH [id number] -1965 M Exm Date: FEB 24, 2024@15:37 Req Phys: BEHZAD,LARON Pat Loc: CWM/SO/PACT 9 (Req'g Loc) Img Loc: [facility] 1 Service: Unknown [facility] , (Case [id number] COMPLETE) CHEST (2 VIEWS) (RAD Detailed) CPT:59171 Reason for Study: coughing Clinical History: COPD Report Status: Verified Date Reported: FEB 24, 2024 Date Verified: FEB 24, 2024 [place] E-Sig:/ES/LAURA MONTOYA JR Report: Study: PA and [...] Primary Interpreting Staff: LAURA MONTOYA JR, Radiologist ([place]) /LAURA RUFFIN JR [facility] Encounter Notes: All associated encounter notes This section contains the clinical notes associated to the Encounter. Date/Time Encounter Note(s) Provider Source Mar 18, 2024 03:26 PM TELEHEALTH NOTE: LOCAL TITLE: [facility] VIDEO CONNECT PSYCHIATRIST NOTE STANDARD TITLE: TELEHEALTH NOTE DATE OF NOTE: MAR 18, 2024@15:26 ENTRY DATE: MAR 18, 2024@15:26:56 AUTHOR: MADALYN TEMPLE COSIGNER: URGENCY: STATUS: COMPLETED [facility] Video Connect (VVC) Standard Documentation VVC Clinician Resources Only: E911 (Emergency Call Relay Center): [phone] [facility] Crisis Line - 988 then press #1. CW Suicide Coordinator [phone], Ext. [phone]; Back-up Ext. [phone] [place] Police, Ruth Ann DE LA CRUZ [phone] Introduction: Visit is being conducted by [place] [employer]. identified with 2 identifiers: [X] Full Name [X] Date of [ ] VA ID Card Emergency Plan: confirmed and/or provided the following information in case of emergency or technology failure. PATIENT PHONE - PHONE NUMBER [CELLULAR] - Is patient phone number correct, if not, enter below: [place]'s phone number: PARUL SMITH [address] [place], [place], [address] 's present location and address for appointment: parked car [place]'s emergency contact name and phone number: see cover reported that location is private and safe: Yes Informed Consent: informed of the risks and benefits of Telehealth video care. has the right to refuse video services. If refuses video visit, a aevh-sc-iyow visit will be scheduled. [place] verbalized consent for this video visit: Yes provided consent for any other persons present for visit: N/A If yes, who and relationship to patient: Secure visit: Visit was locked for security and privacy:Yes Time spent: 21-30 minutes >16 mins supportive therapy (including empathic listening, insight building, and psychoeducation). The presents today for follow-up. presents with euthymic mood. He states, I'm hanging in there. His is recovering from neck surgery--they have good support from family. His mother recently fell and is recovering from injuries sustained. He appears to be coping appropriately with stressors. Support was provided. He reports continued benefit from medication on chronic symptoms of PTSD. He denies depressed mood. Energy is normal. He has interests. [place] is hopeful. Sleep is variable--better some nights [...] (including Supplies): Active Outpatient Medications (including Supplies): AZITHROMYCIN 250MG TAB TAKE TWO TABLETS BY MOUTH NOW FOR 1 ACTIVE DAY, THEN TAKE ONE TABLET ONCE DAILY FOR 4 DAYS BUPROPION HCL 150MG 12HR SA TAB TAKE ONE TABLET BY MOUTH ACTIVE EVERY MORNING -FOR MOOD/PTSD BUPROPION HCL 150MG 12HR SA TAB TAKE ONE TABLET BY MOUTH PENDING EVERY MORNING -FOR MOOD/PTSD CODEINE 10/GG 100MG/5ML (ALC-F/SF) LIQ TAKE 1 TEASPOONFUL ACTIVE (5ML) BY MOUTH TWICE DAILY NEEDED FOR COUGH GABAPENTIN 300MG CAP TAKE ONE CAPSULE BY MOUTH THREE TIMES ACTIVE DAILY NEEDED --FOR PAIN/ANXIETY (OFF-LABEL) GABAPENTIN 300MG CAP TAKE ONE CAPSULE BY MOUTH THREE TIMES PENDING DAILY NEEDED --FOR PAIN/ANXIETY (OFF-LABEL) HYDROXYZINE HCL 25MG TAB TAKE ONE TABLET BY MOUTH THREE ACTIVE TIMES DAILY NEEDED -FOR ANXIETY HYDROXYZINE HCL 25MG TAB TAKE ONE TABLET BY MOUTH THREE PENDING TIMES DAILY NEEDED -FOR ANXIETY PRAZOSIN HCL 2MG CAP TAKE ONE CAPSULE BY MOUTH AT BEDTIME ACTIVE NEEDED -FOR NIGHTMARES (OFF-LABEL) PRAZOSIN HCL 2MG CAP TAKE ONE CAPSULE BY MOUTH AT BEDTIME PENDING NEEDED -FOR NIGHTMARES (OFF-LABEL) PREDNISONE 50MG TAB TAKE ONE TABLET BY MOUTH ONCE DAILY ACTIVE FOR ASTHMA SERTRALINE HCL 100MG TAB TAKE ONE TABLET BY MOUTH ONCE ACTIVE DAILY FOR MOOD SERTRALINE HCL 100MG TAB TAKE ONE TABLET BY MOUTH ONCE PENDING DAILY FOR MOOD SUNSCREEN 30-50/AVOBENZONE/PABA-F LOTION APPLY A LIBERAL ACTIVE AMOUNT TOPICALLY ONCE DAILY NEEDED SUNSCREEN 30-50/PHY BLOCK/PABA-F FACE CR APPLY A LIBERAL ACTIVE [place] TOPICALLY ONCE DAILY NEEDED Non-VA ACETAMINOPHEN 500MG TAB 500MG BY MOUTH [...] this [place] (local) and dispensed from another VA or [...] provider. /kevin/ MADALYN TEMPLE DO Psychiatrist Signed: 03/18/2024 16:07 Receipt Acknowledged By: 03/18/2024 16:33 /kevin/ BENOIT WANG ADVANCED DIRECTOR OF STAFF DEVELOPMENT 03/22/2024 07:20 /kevin/ Rosy Cole ADVANCED DIRECTOR OF STAFF DEVELOPMENT MADALYN TEMPLE
--- OUTSIDE RECORDS SUMMARY | 2024-11-14 15:39 | XMS_ITS ---
Author Name [facility] Organization [facility] Address [address] [place] [address] Care Team Providers Care Laster Hand Name Role Phone DEBORAH PRIETO Primary [...] Relationship to Policy Pérez ARRON [place] OF [place] [facility] CE ORGANIZAT ION COH G AND E Feb 15, 2024 [id number] [phone] SUSAN SMITH PATIENT BCBS [facility] CE ORGANIZAT ION COH POLIC E DEPT HDHP Feb 15, 2024 [id number] [phone] SUSAN SMITH PATIENT BCBS OF [facility] CE ORGANIZAT ION COH G AND E Feb 15, 2024 [id number] [phone] SUSAN SMITH PATIENT [employer] PRESCRIPT ION RX Feb 15, 2024 [id number] [phone] SUSAN SMITH PATIENT [employer] PRESCRIPT ION COH G AND E Feb 15, 2024 [id number] SUSAN SMITH PATIENT [employer] RX PRESCRIPT ION Feb 14, 2017 [id number] [phone] SUSAN SMITH PATIENT [facility] CE ORGANIZ [place] Feb 14, 2019 [id number] SUSAN SMITH PATIENT [facility] CE ORGANIZAT ION W/OUT OF NETWORK BENEFITS COH G AND E Feb 15, 2024 [id number] [phone] SUSAN SMITH PATIENT Selected Encounter This section includes the information on record at MD for the Encounter. Date/Time Encounter Type Encounter Description Reason Provider Source Jul 26, 2024 02:00 PM COMPRE OPH EXAM EST PT 1/> OPTOMETRY ICD-10-CM H04.123 Dry eye syndrome of bilateral lacrimal glands NUHA DURAN Len Encounter Template Text not used by VA Assessments - Encounter Diagnoses This section includes the primary and secondary diagnoses documented for the Encounter. Date/Time Primary/Secondary Diagnosis Diagnosis Name Provider Source Aug 11, 2024 10:08 AM PRIMARY Dry eye syndrome of bilateral lacrimal glands ROGERCHELA NICOLASA [place] [facility] [place] [facility] Aug 11, 2024 10:08 AM SECONDARY Combined forms of age-related cataract, bilateral CHELA DURAN [facility] [place] [facility] Aug 11, 2024 10:08 AM SECONDARY Puckering of macula, bilateral CHELA DURAN [facility] [place] [facility] Aug 11, 2024 10:08 AM SECONDARY Vitreomacular adhesion, left eye CHELA DURAN [facility] [place] [facility] Aug 11, 2024 10:08 AM SECONDARY Vitreomacular adhesion, right eye CHELA DURAN MD [facility] [place] [facility] Plan of Treatment: Future Appointments [...] 20 appointments. The data comes from all MD treatment facilities. Appointment Date/Time Appointment Type Appointme nt Facility Name Aug 30, 2024 03:00 PM [facility] Sep 14, 2024 03:30 PM AMBULATORY - PSYCHIATRY [facility] Sep 28, 2024 02:25 PM AMBULATORY - MEDICINE [facility] Oct 10, 2024 02:00 PM [facility] Oct 14, 2024 03:30 PM AMBULATORY - PSYCHIATRY [facility] Oct 25, 2024 03:00 PM AMBULATORY - [facility]AT[facility] Nov 17, 2024 11:30 AM AM[facility]ULATORY - MEDICINE [facility] Nov 21, 2024 02:00 PM AMBULATORY - PSYCHIATRY [facility] January 13, 2025 02:00 PM AMBULATORY - PSYCHIATRY [facility] Social History: Smoking Status (Most current) and Tobacco Use (All prior to encounter date) This section includes the most current, and the historical, smoking and tobacco- related health factors from the MD facility where the Encounter took place. Current Smoking Status This section includes the most current smoking, or tobacco-related health factor, from the MD facility where the Encounter took place. Date/Time Current Smoking Status Comment Facil ity Apr 13, 2020 02:25 PM VA-TOBACCO FORMER USER [facility] Tobacco Use History This section includes a history of the smoking, or tobacco-related health factors, that were collected on or before the date of the Encounter. The data comes from the MD facility where the Encounter took place. Date/Time Smoking Status/Tobacco Use Comment F acility Apr 13, 2020 02:25 PM MD-TOBACCO QUIT 5 TO < 15 YRS [facility] Advance Directives: All historical and current Section Date Range: From patient's date of to the date document was created. This section includes ALL of a patient's completed or amended VA Advance and Rescinded Directives. The entries below indicate that a directive exists for the patient, but an actual copy is not included with this document. The data comes from all MD facilities. Date Advance Directives Provider Source Jun 13, 2017 ADVANCE DIRECTIVE ISABELA DODSON [facility] Apr 18, 2014 ADVANCE DIRECTIVE JESSEE LAZAR Encounter Notes: All associated encounter notes This section contains the clinical notes associated to the Encounter. Date/Time Encounter Note(s) Provider Source Jul 26, 2024 03:50 PM OPTOMETRY NOTE: LOCAL TITLE: OPTOMETRY NOTE STANDARD TITLE: OPTOMETRY NOTE DATE OF NOTE: JUL 26, 2024@15:50 ENTRY DATE: JUL 26, 2024@15:50:43 AUTHOR: TYLER DURAN COSIGNER: URGENCY: STATUS: COMPLETED I saw this patient in conjunction with the student and agree with the stated findings and plan as noted below after reviewing both the history and repeating bauman elements of the physical exam now. Patient with longstanding history of bilateral floaters not associated with flashes also with history of cataracts and follows low risk glaucoma suspect returns today for exam complaining of worsening vision as well as increased difficulty due to glare and halos. He was last seen here on July 14, 2023. Impression: Bilateral dry eye disease with chronic meibomian gland dysfunction all 4 lids. Reduced tear break-up time and tear meniscus with mild superficial punctate keratitis each eye. Renew lubricating drops with recommendation to be used at least 4 times a day each eye. Nuclear sclerotic and cortical cataracts right greater than left eye with complaint of worsening vision as well as increased difficulty with glare. In addition to bilateral cataracts he has evidence of bilateral epiretinal membrane with mild vitreomacular traction likely contributing to visual decline. He understands that even with cataract surgery his vision may not be completely corrected due to epiretinal membrane with VMT each eye. He is agreeable to pursuing cataract evaluation and community care consult [facility] for [facility]. Plan: Patient education as noted above discussed visual limitations due to both cataracts as well as epiretinal membrane with mild VMT each eye. Defer updating glasses for now and proceed with cataract evaluation. Reviewed choice of community care providers and he elects to be [facility] at [facility]. He understands if they do not plan to proceed with cataract surgery he can call to have updated glasses reordered. Otherwise returning here in 12 months or sooner if need be. Renew lubricating drops for mail out now Defer updated glasses until after cataract evaluation Entered community care consult for cataract [facility] Return here in 12 months or sooner if need be. Ophthalmic medication reconciliation: Lubricating drops 4 times a day each eye. Medication Reconciliation: Outpatient: Has the patient been taking medications as documented in the EMLR? YES: The patient has been taking medications as documented in the EMLR. Essential Medication List for Review used to complete this medication reconciliation. INCLUDED IN THIS LIST: Alphabetical list of active outpatient prescriptions dispensed from this VA (local) and dispensed from another MD or [facility]D facility (remote) as well as [...] whether with a VA or non-VA provider. JLV Link Data on this list may not be complete. Please check [employer]. Allergies/ADRs (Tool #5) FACILITY ALLERGY/ADR -------- [facility] [place] [facility] No Known Allergies [facility] NO KNOWN ALLERGIES Med Recon NoGloary (Tool #1) INCLUDED IN THIS LIST: Alphabetical list of active outpatient prescriptions dispensed from this VA (local) and dispensed from another VA or [facility] facility (remote) as well as inpatient orders (local pending and active), local clinic medications, locally documented non-VA medications, and local prescriptions that have or been discontinued in the past 90 days. Non-VA Meds Last Documented On: Feb 15, 2021 NOTE The display of VA prescriptions dispensed from another MD or [facility] facility (remote) is limited to active outpatient prescription entries matched to National Drug File at the originating site and may not include some items such as investigational drugs, compounds, etc. NOT INCLUDED IN THIS LIST: Medications self-entered by the patient into personal health records (i.e. [employer]) are NOT included in this list. Non-VA medications documented outside this VA, remote inpatient orders (regardless of status) and remote clinic medications are NOT included in this list. The patient and provider must always discuss medications the patient is taking, regardless of where the medication was dispensed or obtained. Non-VA ACETAMINOPHEN 500MG TAB TAKE ONE TABLET BY MOUTH EVERY 4 HOURS NEEDED Patient wants to buy from Non-VA pharmacy. Medication prescribed by Non-VA provider. OUTPT BUPROPION HCL 150MG 12HR SA TAB (Status = Discontinued) TAKE ONE TABLET BY MOUTH EVERY MORNING -FOR MOOD/PTSD Rx# [id number] Last Released: 03/24/24 Qty/Days Supply: Rx Expiration Date: 03/19/25 Refills Remainin OUTPT BUPROPION HCL 150MG 12HR SA TAB (Status = Active) TAKE ONE TABLET BY MOUTH EVERY MORNING -FOR MOOD/PTSD Rx# [id number] Last Released: 06/15/24 Qty/Days Supply: Rx Expiration Date: 06/16/25 Refills Remainin OUTPT CARBOXYMETHYLCELLULOSE NA 0.5% OPH SOLN (Status = Pending) INSTILL ONE DROP INTO EACH EYE FOUR TIMES A DAY Login Date: 07/26/24 Qty/Days Supply: 60/90 Refills Ordered: 1 Non-VA DOCUSATE NA 100MG CAP TAKE 1 CAPSULE BY MOUTH NEEDED Medication prescribed by Non-VA provider. OUTPT GABAPENTIN 300MG CAP (Status = Discontinued) TAKE ONE CAPSULE BY MOUTH THREE TIMES DAILY NEEDED --FOR PAIN/ANXIETY (OFF-LABEL) Rx# [id number] Last Released: 03/24/24 Qty/Days Supply: 90/30 Rx Expiration Date: 03/19/25 Refills Remainin Indication: FOR NERVE PAIN OUTPT GABAPENTIN 300MG CAP (Status = Active) TAKE ONE CAPSULE BY MOUTH THREE TIMES DAILY NEEDED --FOR PAIN/ANXIETY (OFF-LABEL) Rx# [id number] Last Released: 06/17/24 Qty/Days Supply: Rx Expiration Date: 06/16/25 Refills Remainin Indication: FOR NERVE PAIN OUTPT GOV-PAXLOVID [id number] TAB PKT 3 (Status = ) TAKE 2 TABLETS NIRMATRELVIR AND 1 TABLET RITONAVIR BY MOUTH TWICE DAILY FOR COVID-19 Rx# [id number] Last Released: 04/19/24 Qty/Days Supply: 12/19 Rx Expiration Date: 05/19/24 Refills Remainin Indication: FOR COVID-19 OUTPT HYDROXYZINE HCL 25MG TAB (Status = Discontinued) TAKE ONE TABLET BY MOUTH THREE TIMES DAILY NEEDED -FOR ANXIETY Rx# [id number] Last Released: 03/24/24 Qty/Days Supply: Rx Expiration Date: 03/19/25 Refills Remainin OUTPT HYDROXYZINE HCL 25MG TAB (Status = Active) TAKE ONE TABLET BY MOUTH THREE TIMES DAILY NEEDED -FOR ANXIETY Rx# [id number] Last Released: 06/17/24 Qty/Days Supply: Rx Expiration Date: 06/16/25 Refills Remainin OUTPT LIDOCAINE 5% PATCH (Status = Active) APPLY 1 PATCH TOPICALLY ONCE DAILY FOR LOW BACK PAIN (LEAVE PATCH ON FOR 12 HOURS, THEN REMOVE PATCH) Rx# [id number] Last Released: 03/29/24 Qty/Days Supply: Rx Expiration Date: 03/30/25 Refills Remainin Indication: FOR LOW BACK PAIN Non-VA MULTIVITAMIN/MINERALS CAP/TAB TAKE ONE TABLET BY MOUTH ONCE DAILY Medication prescribed by Non-VA provider. OUTPT PRAZOSIN HCL 2MG CAP (Status = Discontinued) TAKE ONE CAPSULE BY MOUTH AT BEDTIME NEEDED -FOR NIGHTMARES (OFF-LABEL) Rx# [id number] Last Released: 03/24/24 Qty/Days Supply: Rx Expiration Date: 03/19/25 Refills Remainin OUTPT PRAZOSIN HCL 2MG CAP (Status = Active) TAKE ONE CAPSULE BY MOUTH AT BEDTIME NEEDED -FOR NIGHTMARES (OFF-LABEL) Rx# [id number] Last Released: 06/17/24 Qty/Days Supply: Rx Expiration Date: 06/16/25 Refills Remainin OUTPT SERTRALINE HCL 100MG TAB (Status = Active) TAKE ONE TABLET BY MOUTH ONCE DAILY FOR MOOD Rx# [id number] Last Released: 03/24/24 Qty/Days Supply: Rx Expiration Date: 03/19/25 Refills Remainin OUTPT SUNSCREEN 30-50/AVOBENZONE/PABA-F LOTION (Status = Active) APPLY A LIBERAL AMOUNT TOPICALLY ONCE DAILY NEEDED Rx# [id number] Last Released: 02/24/24 Qty/Days Supply: 240/90 Rx Expiration Date: 02/19/25 Refills Remainin Indication: TO PREVENT SUNBURN OUTPT SUNSCREEN 30-50/PHY BLOCK/PABA-F FACE CR (Status = Active) APPLY A LIBERAL AMOUNT TOPICALLY ONCE DAILY NEEDED Rx# [id number] Last Released: 02/24/24 Qty/Days Supply: 120/60 Rx Expiration Date: 02/19/25 Refills Remainin Indication: TO PREVENT SUNBURN OUTPT TRAZODONE HCL 50MG TAB (Status = Active) TAKE ONE TABLET BY MOUTH AT BEDTIME NEEDED FOR SLEEP Rx# [id number] Last Released: 06/17/24 Qty/Days Supply: Rx Expiration Date: 06/16/25 Refills Remainin Indication: FOR SLEEP SUPPLIES Declines printed copy of medication list now. /kevin/ Tyler Duran OD CHIEF OF OPTOMETRY Signed: 07/26/2024 15:57 TYLER DURAN [facility] [place] [facility] Jul 26, 2024 07:35 AM OPTOMETRY NOTE: LOCAL TITLE: OPTOMETRY NOTE STANDARD TITLE: OPTOMETRY NOTE DATE OF NOTE: JUL 26, 2024@07:35 ENTRY DATE: JUL 26, 2024@07:35:19 AUTHOR: LUANN MARTINEZ EXP COSIGNER: TYLER DURAN URGENCY: STATUS: COMPLETED Active problems - Computerized Problem List is the source for the followin. Prediabetes 2. Hypertension 3. Hyperlipidaemia 4. Cervicalgia 5. Atopic dermatitis 6. Herpes simplex type 1 infection 7. Allergic rhinitis 8. Arteriosclerotic heart disease 9. Radiculopathy due to lumbar intervertebral disc disorder 10. Colonic polyp 11. Solitary nodule of lung 12. Sinus bradycardia 13. Chronic post-traumatic stress disorder 14. Knee pain 15. Gastroesophageal Reflux Disease 16. Obstructive sleep apnea syndrome (SNOMED CT [id number]) 17. Tobacco Use Disorder, Remission 18. Lumbago (SNOMED CT [id number]) Active Outpatient Medications (including Supplies): Active Outpatient Medications Status = 1) BUPROPION HCL 150MG 12HR SA TAB TAKE ONE TABLET BY MOUTH ACTIVE EVERY MORNING -FOR MOOD/PTSD 2) GABAPENTIN 300MG CAP TAKE ONE CAPSULE BY MOUTH THREE TIMES ACTIVE DAILY NEEDED --FOR PAIN/ANXIETY (OFF-LABEL) Indication: FOR NERVE PAIN 3) HYDROXYZINE HCL 25MG TAB TAKE ONE TABLET BY MOUTH THREE ACTIVE TIMES DAILY NEEDED -FOR ANXIETY 4) LIDOCAINE 5% PATCH APPLY 1 PATCH TOPICALLY ONCE DAILY ACTIVE (LEAVE PATCH ON FOR 12 HOURS, THEN REMOVE PATCH) Indication: FOR LOW BACK PAIN 5) PRAZOSIN HCL 2MG CAP TAKE ONE CAPSULE BY MOUTH AT BEDTIME ACTIVE NEEDED -FOR NIGHTMARES (OFF-LABEL) 6) SERTRALINE HCL 100MG TAB TAKE ONE TABLET BY MOUTH ONCE DAILY ACTIVE FOR MOOD 7) SUNSCREEN 30-50/AVOBENZONE/PABA-F LOTION APPLY A LIBERAL ACTIVE AMOUNT TOPICALLY ONCE DAILY NEEDED Indication: TO PREVENT SUNBURN 8) SUNSCREEN 30-50/PHY BLOCK/PABA-F FACE CR APPLY A LIBERAL ACTIVE AMOUNT TOPICALLY ONCE DAILY NEEDED Indication: TO PREVENT SUNBURN 9) TRAZODONE HCL 50MG TAB TAKE ONE TABLET BY MOUTH AT BEDTIME ACTIVE NEEDED Indication: FOR SLEEP Active Non-VA Medications Status = 1) Non-VA ACETAMINOPHEN 500MG TAB 500MG BY MOUTH EVERY 4 HOURS ACTIVE NEEDED 2) Non-VA DOCUSATE NA 100MG CAP 100MG BY MOUTH NEEDED ACTIVE 3) Non-VA MULTIVITAMIN/MINERALS CAP/TAB 1 TABLET BY MOUTH ONCE ACTIVE DAILY 12 Total Medications Allergies: Patient has answered NKA All medications including those prescribed by outside VA's, community providers,and all OTC meds were reviewed and reconciled with patient to the best of their abilities. This 58 year old MALE is seen today for annual CEE TEJAL: 07/14/23 Chief Complaint: Last SRx from us vision was blurry. Pt complains of dry eye symptoms and he is currently using OTC ATs prn OHx: 1. Combined cataracts OU 2. Low risk POAG suspect secondary to moderate cupping OU 3. RE and presbyopia Ocular Medications: Refresh gtt prn (-) Pain: (-) WYNN: (-) Diplopia: (-) Flashes: (+) Floaters: Longstanding (-) Amaurosis Fugax/Tia's: (-) Eye Injury: (-) Eye Surgery: (-) TBI FOHx: (+) Glaucoma: Mother (-) ARMD/Blindness VITALS (most recent, as listed in the electronic record): B/P: 123/77 (03/29/2024 15:00) Pulse: 57 (03/29/2024 15:00) Temperature: 96.1 F [35.6 C] (03/29/2024 15:00) Weight: 182 lb [82.55 kg] (03/29/2024 15:00) Height: 71 in [180.3 cm] (03/29/2024 15:00) BMI: BMI: 25.4 PERTINENT LABS: HEMOGLOBIN A1C TREND Collection DT Spec HGBA1c 03/23/2024 07:46 BLOOD 5.2 10/27/2023 07:31 BLOOD 5.2 09/28/2020 08:31 BLOOD 5.1 12/21/2018 11:01 BLOOD 5.6 06/01/2017 07:37 BLOOD 5.4 (-) Smoker/Length of Time/PPD: quit in 2009 Current Rx with last BCVA: OD: +0.75 sph 20/20 OS: +1.00 sph 20/20- Add:+2.50 Intermediate add: +1.25 DVA ( )sc ( x )cc - phoropter OD: 20/30 OS: 20/40-1 Pupils: PERRL (-)APD EOMs: SAFE OU, (-)Pain/Diplopia CVF (facial, peripheral): FTFC OU Subjective Refraction: cannot appreciate the differences in refraction OD: +0.75 sph 20/30 PHNI OS: +1.00 sph 20/40-1 PHNI Add:+2.50 All the above performed by student, reviewed by attending Anterior segment: Performed by student, repeated by attending Lids: Trc dermatochalasis OU (+)1 flat nevus close to inferior punctum OD (+)1 small hermangioma temporal lower lid OD Conj: white and quiet OU Cornea: Clear (-)k spindle OU AC: D&Q OU Angles: 3x3 OU Iris: flat and clear OU Lens: 1+ NSC OU, 1+ ACC OU (+) central vacuoles and clefts OD>OS (-)PXF OU Tonometry: Performed by student, reviewed by attending [x ] GAT [ ] iCare OD 15 mmHg OS 15 mmHg Time: 14:20 Last IOP OD: 14 OS: 14 Pachymetry: OD: 549 OS: 548 Fundus exam: Dilated: xxxx Non dilated: Dilating Drops: 1GTT 1 % Tropicamide OU & 1GTT 2.5% Phenylephrine OU (Pt. ed. on side effects, dilation warning given and verbal consent obtained) Patient advised not to drive if they feel they have any symptoms which could affect their ability to drive safely. Patient advised not to engage in any activities which could put themselves or others at risk if they feel they have any symptoms which could affect their ability to perform those activities safely. Performed by student, repeated by attending Vit: clear OU C/D: 0.60 OD and 0.55 OS pink & healthy rim tissue,(-)Drance heme Macula: Trc epiretinal membrane OU PPole: clear OU A/V: 2/3 Vessels: normal caliber OU Periph: flat and intact (-) holes, tears, detachments 360 OU Assessment/Plan: 1. Low risk open-angle glaucoma suspect OU. Moderate cupping with thinner than average CCT. No evidence of pigment dispersion or pseudoexfoliation OU. (+) family history of glaucoma (mother). No change in ONH appearance. Low index of suspicion at present. Longstanding stability. - IOP today: 15/15mmHg - Pachymetry: 549/548um - Imaging taken today: RNFL OCT - Pt ed re today's findings - Pt ed re glaucoma as well as the natural history of this diagnosis including prognosis. - Stress importance of continued follow-up appointments - RTC 1yr with imaging if raised suspicious 2. Combined Form Cataracts OU - Pt. ed. on findings - cataracts are visually significant and that surgery is necessary at this time - Consult for cataract surgery sent to [facility] - Ed. on importance of UV protection and on symptoms of glare - Continue to monitor 3. Epiretinal membrane OU - 21 line raster OCT scan performed today - Pt ed about findings - Monitor 4. Dry eyes OU; symptomatic - Pt. ed. on todays findings - Ordering Refresh - Ed. pt. to use BID-QID OU even on days when eyes are not feeling dry - Monitor 5. Hyperopia and presbyopia OU - Reduced BCVA secondary to combined cataracts OU and epiretinal membrane OU - Pt ed about findings - No glasses ordered today; hold off until after cataract sx - Monitor Return to Clinic 1yr or earlier PRN Patient Education: Glaucoma: Patient was educated regarding glaucoma/glaucoma suspect as well as the natural history of this diagnosis including prognosis. Stress importance of compliance and persistency with glaucoma medication when prescribed, timely follow up as well as the role of ancillary testing. Exclusion criteria for ancillary testing include significantly reduced acuity, mental status changes affecting the patient's ability to attend to the test or other physical limitations that would prohibit the patient's ability to participate in testing. /kevin/ LUANN MARTINEZ OPTOMETRY STUDENT Signed: 07/27/2024 10:53 /kevin/ Tyler Duran OD CHIEF OF OPTOMETRY Cosigned: 07/27/2024 11:30 LUANN MARTINEZ MD [facility]
--- OUTSIDE RECORDS SUMMARY | 2024-11-14 15:39 | XMS_ITS | Encounter Summary ---
Author Name [facility] [place] [facility] [place] Organization [facility] [facility] [place] Address [address] [place] [address] Care Team Providers Care Federal Java Developer Name Role Phone DEBORAH PRIETO Primary Care [...] Policy Pérez ANTHEM BCBS OF [place] (BLUECARD) [facility] CE ORGANIZAT ION COH G AND E Feb 15, 2024 [id number] [phone] SUSAN SMITH PATIENT BCBS FORMERLY [facility] CE ORGANIZAT ION COH POLIC E DEPT HDHP Feb 15, 2024 [id number] SUSAN SMITH PATIENT BCBS OF [facility] CE ORGANIZAT ION COH G AND E Feb 15, 2024 [id number] SUSAN SMITH PATIENT [place] PRESCRIPT ION RX Feb 15, 2024 [facility] [id number] SUSAN SMITH PATIENT [employer] PRESCRIPT ION COH G AND E Feb 15, 2024 [id number] SUSAN SMITH PATIENT CIGNA RX PRESCRIPT ION Feb 14, 2017 [id number] [phone] SUSAN SMITH PATIENT [facility] CE ORGANIZ H[place] KE WATER Feb 14, 2019 [id number] SUSAN SMITH PATIENT TRIPLE-S [facility] CE ORGANIZAT ION W/OUT OF NETWORK BENEFITS COH G AND E Feb 15, 2024 [id number] [phone] SUSAN SMITH PATIENT Selected Encounter This section includes the information on record at [place] for the Encounter. Date/Time Encounter Type Encounter Description Reason Provider Source December 25, 2023 08:30 AM OFFICE O/P EST MOD 30 MIN PRIMARY CARE/MEDICINE ICD-10-CM R00.1 Bradycardia, unspecified EUGENE THOMAS Encounter Template Text not used by [place] Assessments - Encounter Diagnoses This section includes the primary and secondary diagnoses documented for the Encounter. Date/Time Primary/Secondary Diagnosis Diagnosis Name Provider Source Jan 24, 2024 11:02 AM PRIMARY Bradycardia, unspecified EUGENE THOMAS Jan 24, 2024 11:02 AM SECONDARY Allergic contact dermatitis due to plants, except food EUGENE THOMAS Jan 24, 2024 11:02 AM SECONDARY Essential (primary) hypertension EUGENE THOMAS Plan of Treatment: Future Appointments (+ 6 months) and Future Tests (+/- 45 days) The Plan of Treatment section includes future care activities for the patient from all [place] treatmentfacilities. This section includes future appointments and future orders which are active, pending or scheduled. Future Appointments This section includes appointments that were scheduled to occur 6 months from the date of the Encounter, up to a maximum of 20 appointments. The data comes from all [place] treatment facilities. Appointment Date/Time Appointment Type Appointme nt Facility Name December 28, 2023 03:30 PM AMBULATORY - NEUROLOGY [facility] Feb 09, 2024 03:00 PM AMBULATORY - PSYCHIATRY [facility] Feb 19, 2024 02:00 PM [facility]ORY [facility]IC[facility] Mar 18, 2024 03:00 PM AMBULATORY - PSYCHIATRY [facility] Mar 22, 2024 03:00 PM AMBULATORY - PSYCHIATRY [facility] Mar 29, 2024 02:30 PM AM[facility]UL[facility]ORY [facility]IC[facility] [place] [facility] May 04, 2024 03:15 PM AMBULATORY [facility] MEDIC[facility] [place] [facility] May 10, 2024 02:00 PM AMBULATORY - MEDICINE [facility] May 17, 2024 03:00 PM AMBULATORY - PS[facility]CHIATRY [facility] [place] [facility] May 27, 2024 08:00 AM AMBULATORY - MEDICINE [facility] [place] [facility] Jun 15, 2024 03:00 PM AMBULATORY - PSYCHIATRY [facility] Vital Signs: All taken on the encounter date This section contains inpatient and outpatient Vital Signs collected on the date of the Encounter. Date/Time Temperature Pulse Blood Pressure Respiratory Rate SP02 Pain Height Weight Body Mass Index Source December 25, 2023 08:28 AM 97.6 48 145/[address] [facility] Social History: Smoking Status (Most current) and Tobacco Use (All prior to encounter date) This section includes the most current, and the historical, smoking and tobacco- related health factors from the MS facility where the Encounter took place. Current Smoking Status This section includes the most current smoking, or tobacco-related health factor, from the MS facility where the Encounter took place. Date/Time Current Smoking Status Comment Facil ity May 06, 2022 03:00 PM VA-TOBACCO FORMER USER [facility] Tobacco Use History This section includes a history of the smoking, or tobacco-related health factors, that were collected on or before the date of the Encounter. The data comes from the MS facility where the Encounter took place. Date/Time Smoking Status/Tobacco Use Comment F acility May 06, 2022 03:00 PM VA-TOBACCO QUIT 5 TO < 15 YRS [facility] May 21, 2021 03:00 PM VA-TOBACCO FORMER USER [place] May 21, 2021 03:00 PM VA-TOBACCO QUIT 5 TO < 15 YRS [place] Mar 15, 2019 09:02 AM VA-TOBACCO FORMER USER [place] Mar 15, 2019 09:02 AM VA-TOBACCO QUIT 5 TO < 15 YRS [place] January 04, 2018 04:05 PM QUIT TOBACCO USE > 7 YEARS AGO [place] Apr 27, 2017 12:25 PM QUIT TOBACCO USE > 7 YEARS AGO [place] Sep 12, 2016 02:09 PM QUIT TOBACCO USE 1-7 YEARS AGO mar [place] Jun 20, 2016 08:54 AM QUIT TOBACCO USE 1-7 YEARS AGO quit 2009 [place] Jun 25, 2015 03:09 PM QUIT TOBACCO USE > 7 YEARS AGO [place] Apr 12, 2014 10:09 AM QUIT TOBACCO USE 1-7 YEARS AGO 2010 quit [place] Dec 15, 2011 03:46 PM QUIT TOBACCO USE 1-7 YEARS AGO 03/26/2010 [place] Nov 25, 2010 03:11 PM QUIT TOBACCO USE 1-7 YEARS AGO [place] Nov 25, 2010 03:11 PM QUIT TOBACCO USE IN PAST YEAR [place] Advance Directives: All historical and current Section Date Range: From patient's date of to the date document was created. This section includes ALL of a patient's completed or amended [place] Advance and Rescinded Directives. The entries below indicate that a directive exists for the patient, but an actual copy is not included with this document. The data comes from all [place] facilities. Date Advance Directives Provider Source Jun 13, 2017 [facility] Apr 18, 2014 ADVANCE DIRECTIVE [...] the Encounter. The data comes from all [place] treatment facilities. Date/Time Radiology Report Provider Source Nov 26, 2023 10:11 AM MRI CERVICAL SPINE W/O CONTRAST: PARUL SMITH [id number] -[id number] M Exm Date: NOV 26, 2023@10:11 Req Phys: MILTON WYATT Loc: [facility] MRI DAYS (Req'g Loc) Img Loc: MRI ([facility]) Service: Unknown (Case [id number] COMPLETE) MRI CERVICAL SPINE W/O CONTRAST (MRI Detailed) CPT:85104 Reason for Study: headaches and significant cervicalgia Clinical History: patient needs general anesthesia Report Status: Verified Date Reported: NOV 26, 2023 Date Verified: NOV 26, 2023 Bench Jeweler E-Sig:/ES/FATUMA JC Report: MRI OF THE CERVICAL [...] Primary Interpreting Staff: FATUMA JC, Staff Physician (Bench Jeweler) Primary Interpreting Resident: FATUMA RAM, RESIDENT /FATUMA SPEAR [facility] Encounter Notes: All associated encounter notes This section contains the clinical notes associated to the Encounter. Date/Time Encounter Note(s) Provider Source December 25, 2023 08:05 AM NURSE PRACTITIONER NOTE: LOCAL TITLE: NURSE PRACTIONER/SICK VISIT STANDARD TITLE: NURSE PRACTITIONER NOTE DATE OF NOTE: DECEMBER 25, 2023@08:05 ENTRY DATE: DECEMBER 25, 2023@08:05:33 AUTHOR: EUGENE THOMAS EXP COSIGNER: URGENCY: STATUS: COMPLETED SICK CALL VISIT PARUL SMITH is a 58 y/o DECLINED TO ANSWER MALE [place] who presents to [facility] sick call with c/o Poison janice exposure, has rash to RUE and upper chest. Very itchy. BP a little elevated in clinic today. States he has never had high BP before, doesn't take Rx for it. However, his problem list has dx HTN. HR low, he states this is is norm. Asymptomatic. Has been a couple years since seen by a provider. [place] PCP: ======= LARON WEN VITAL SIGNS: Blood Pressure: 145/92 (12/25/2023 08:28) Pain: 0 (12/25/2023 08:28) Patient Height: 71 in [180.3 cm] (12/25/2021 15:30) Patient Weight: 177 lb [80.29 kg] (12/25/2021 15:30) Pulse: 48 (12/25/2023 08:28) Respiration: 16 (12/25/2023 08:28) Temperature: 97.6 F [36.4 C] (12/25/2023 08:28) REVIEW OF SYSTEMS: see HPI PHYSICAL EXAMINATION: General: Well-appearing in no obvious distress. Mental Status: Alert and oriented x4. Lungs: LCTAB, no cough CV: HRR, bradycardia Integument: multiple pustules RUE, right/central upper chest, + significant erythema at sites Psych: Normal mood and affect. Normal judgment. Cooperative with exam, follows commands. ASSESSMENT/PLAN: 1. contact dermatitis - poison janice. Dexamethasone 4mg given IM in clinic. Topical steroid ordered 2. HTN - currently not on Rx. States he has cuff at home, instructed to check BP daily for two weeks, f/u with sick call RN to review BP log. Instructed to make appt with PCP for f/u as well 3. bradycardia - see above. MEDICATIONS reviewed with Mills FOLLOW UP: Return to clinic 3-5 days if no improvement in symptoms. UPCOMING APPOINTMENTS: No data available /kevin/ JUANITA JUAREZ CERTIFIED NURSE PRACTITIONER Signed: 12/25/2023 08:44 EUGENE THOMAS [place]
== END 2024-11-14 14:47 | disposition home or self-care (01) ==
LOC: HO.HMCH 13:52
PROVIDERS: PCP Internal Medicine; Visit Provider Internal Medicine
DX: J44.9 Chronic obstructive pulmonary disease, unspecified (principal); E78.00 Pure hypercholesterolemia, unspecified; M54.6 Pain in thoracic spine; R41.840 Attention and concentration deficit; F41.9 Anxiety disorder, unspecified; F33.9 Major depressive disorder, recurrent, unspecified

== ENCOUNTER → 2024-11-14 13:51 | Outpatient (BNVA) | payer BC, SELFPAY | PROVIDERS: PCP Internal Medicine; Visit Provider Internal Medicine | DX: J44.9 Chronic obstructive pulmonary disease, unspecified (principal); E78.00 Pure hypercholesterolemia, unspecified; M54.6 Pain in thoracic spine; R41.840 Attention and concentration deficit; F41.9 Anxiety disorder, unspecified; F33.9 Major depressive disorder, recurrent, unspecified; Z79.899 Other long term (current) drug therapy | CPT/HCPCS: 96127 ==

== ENCOUNTER 2024-12-01 10:50 | Outpatient (REF) | payer BC, SELFPAY ==
--- OUTSIDE RECORDS SUMMARY | 2024-12-01 13:08 | XMS_ITS | Data Portability ---
Author Organization [place] - 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 Surgery to be scheduled with my racing secretary and handicapper. Questions regarding the recovery of the surgery [...] RM 107 LT THUMB 3V 024 024 [email or web address] [facility] Office, [address] [place], [address], 4 16:42:05 XR, hand, 3 or more view - RM 107 LT THUMB 3V 024 024 [email or web address] [facility] Office, [address], [address], [place], [address], 4 14:39:16 Medication Orders None recorde d. Patient TargetsNo targets recorded. Patient Instructions Encounter Date Encounter Id Patient Instructions Last Modified By Organization Details Last Modified Time 06/09/[id number] application of cast, thumb spica* - RM 107 SHORT ARM THUMB SPICA CAST IPJ SOFT jdrenga Not available 06/09/2024 16:39:46 06/10/[id number] application of cast, thumb spica* - RM 107 SHORT ARM THUMB SPICA CAST IPJ SOFT [email or web address] Not available 06/13/2024 16:45:31 06/20/2024 [id number] cast removal* - rm.109 cast removal jdrenga [...] a4ajBk vP9nXo QUaueC m3YtLR FvZlgJ JJ8mAn HZtai3 0r7037 AC0Kqa H2MWaW nKiQtr MwF INTERFACE [facility] [address], [place], [address], 06/09/2024 14:43:33 06/09/2006/09/2024 XR, hand, 3 or more view http:/ [email or web address] ?Encry pted=s hAaTro YD8dLq bEUv6g %2BXZw aYqtaq 0bqfl% 2Fg9IQ a4ajBk vP9nXo QUaueC m3YtLR FvZlgJ JJ8mAn HZtai3 0m0582 AC0Kqa H2MWaW nKiQtr MwF INTERFACE [facility] [address], [place], [address], 06/09/2024 14:43:35 Result Notes None recorded. Problems Name Problem SNOMED Code Status Onset Date Resolution Date Notes Provider Name and Address Organization Details Recorded Time No complaint s 403465557 Active Status: 'I'; Not Available [facility] 4 09:17:37 Pain of left hand 802710562295 103 Active 2023 Kiera Donaldson, LINESPERSON [address], [place], [address] , [facility] 4 15:33:45 Pain of right wrist 459355847319 100 Active 2018 Problem Code: M25.531; Problem Code Type: ICD-10; Status: 'A'; Not Available [facility] 4 11:42:34 Problem Notes None recorded. Procedures Surgical History Date Name Laterality Status Provider Name and Address Organization Details Recorded Time 06/10/20 Cast_Thumb Spica_11+ completed ALYCIA KIRK [facility] 06/10/2024 09:31:36 06/10/20 Cast Removal completed ALYCIA KIRK [facility] 06/10/2024 09:30:14 05/27/20 ARTHROPLASTY, INTERPOSITION, INTERCARPAL OR CARPOMETACARPAL JOINTS (SURG) completed ELI CUELLAR [place] - [place] [facility] 05/27/2024 14:33:40 Imaging Results Imaging Date Name Status LastModified by [facility] Details LastModified Time 2022 imaging/diag nostic result completed Information not available 04/16/2024 02:31:21 04/26/2019 imaging/diag nostic result completed Information not available 04/16/2024 02:32:31 04/26/2019 imaging/diag nostic result completed Information not available 04/16/2024 02:32:32 02/02/2019 imaging/diag nostic result completed Information not available 04/16/2024 02:32:38 02/24/2019 imaging/diag nostic result completed Information not available 04/16/2024 02:32:51 06/09/2024 XR, hand, 3 or more view completed [facility] [address], [place], [address], 06/09/2024 14:43:33 06/09/2024 XR, hand, 3 or more view completed INTERFACE [facility] [address], [place], [address], 06/09/2024 14:43:35 Procedure Notes None recorded. Medical [...] Updated DateTime 01/04/2024 180.34 cm 23.7 kg/m2 88318.7 g ISAEL SHOAIBTALON [facility] 01/04/2024 14:46:25 Date Recorded Body height Body mass index (BMI) Body weight Body temperature Provider Name and Address Organization Details Last Updated DateTime 06/09/2024 180.34 cm 23.7 kg/m2 72136.7 g 97.7 [degF] DENNIS KNIGHT [facility] 06/09/2024 14:39:30 Date Recorded Body height Body mass index (BMI) Body weight Provider Name and Address Organization Details Last Updated DateTime 06/20/2024 180.34 cm 23.7 kg/m2 87189.7 g shikha alvarado [facility] 06/20/2024 14:59:25 Date Recorded Body height Body mass index (BMI) Body weight Provider Name and Address Organization Details Last Updated DateTime 08/22/2024 180.34 cm 23.7 kg/m2 78597.7 g DENNIS KNIGHT [place] [facility] 08/22/2024 15:11:55 Social History None recorded. Functional Status None recorded. Mental Status None recorded. Family History Nothing Reported. Medical History No medical history recorded. Past Encounters Encounter ID Performer Location Encounter Start Date Encounter Closed Date Diagnosis/Indication Diagnosis SNOMED-CT Code Diagnosis ICD10 Code Diagnosis Note [id number] MD Jennifer Toro [address] [place] [address] 11/16/2023 08:57:10 12/09/2023 14:21:45 Carpal tunnel syndrome of left wrist 5281993497 30187 G56.02 Ulnar nerv e entrapment at elbow 282315633 G56.22 Osteoarthr osis of the carpometacarpal joint of the thumb 84668518 M18.9 Pain in fi nger of left hand 7306000163 53006 M79.066 [id number] Courtney bustamante MD [facility] [address] [place] [address] 01/04/2024 14:28:13 01/25/2024 11:42:11 Osteoarthrosis of the carpometacarpal joint of the thumb 57912855 M18.9 [id number] Kiera Donaldson, MISHA [facility] [address] [place] [address] 06/09/2024 14:01:40 06/28/2024 14:39:15 Postoperative visit 350184089 Z48.89 Surgical follow-up 20369 4000 Z09 [id number] Kiera Donaldson CNP [facility] [address] [place] [address] 06/10/2024 09:13:22 06/10/2024 09:35:33 Postoperative visit 847571308 Z48.89 Surgical follow-up 80061 4000 Z09 [id number] Kiera Donaldson, MISHA [facility] [address] [place] [address] 06/20/2024 14:17:10 07/07/2024 14:24:25 Carpal tunnel syndrome of left wrist 2794885219 74468 G56.02 [id number] Kiera Donaldson, MISHA [facility] - [facility] [address] [place] [address] 08/22/2024 15:06:19 09/06/2024 07:45:30 Health Concerns Section Related Observation LastModified by Organization Detai ls LastModified Time None Recorded Concern Status LastModified by Organization Details LastModified Time None Recorded Advance Directives Directive None Recorded Payers Encounter Date Sequence Insurance Name Policy Number Policy Pérez Covered Member ID Pérez Member ID Guarantor Name 01/04/2024 [facility] Paresh Escalona [id number] Paresh Escalona 06/09/2024 [facility] Paresh Escalona [id number] Paresh Escalona 06/10/2024 [facility] Paresh Escalona [id number] Paresh Escalona 06/20/2024 [facility] Paresh Escalona [id number] Paresh Escalona 08/22/2024 [facility] Paresh Escalona [id number] Paresh Escalona Notes Date Note Type Note [...] we reviewed previously. Courtney Sales MD [address], [place], [address], [facility] 01/04/2024 15:54:56 06/09/2024 text/html Rocco is a 58-year-old gentleman status post first CMC arthroplasty on the left done by Dr. Sales May 27, 2024. Overall progressing nicely he is here today for follow-up. Kiera oDnaldson CNP [address], [place], [address], [facility] 06/09/2024 15:21:32 06/20/2024 text/html Rocco is a very pleasant 58-year-old gentleman who is here today for follow-up of his left first CMC. He had left first CMC arthroplasty done by Dr. Salse May 27, 2024. Overall progressing nicely he is here today for follow-up.He has been in a short arm cast. Kiera Donaldson CNP [address], [place], [address], [facility] 06/20/2024 15:35:23 08/22/2024 text/html Rocco is a very pleasant 58-year-old gentleman who is here today for follow-up of his left first CMC. He had left first CMC arthroplasty done by Dr. Sales May 27, 2024. Overall progressing nicely he is here today for follow-up. He has been working with therapy making excellent progress Kiera Donaldson, LINESPERSON [address], [place], [address], [facility] - [place] [facility] 08/22/2024 16:09:02
--- OUTSIDE RECORDS SUMMARY | 2024-12-01 13:08 | XMS_ITS | Clinical Summary ---
Author Organization [address] Address [address] [place] [address] Care Team Providers Care Electrophysiology Technologist Name Role Phone Unavailable Primary Care Provider [...] cancer screening, Colonoscopy 2009 Diabetes screening 2009 Pneumococcal Vaccine (50+ ye ars) (1 of 1 - PCV) 2014 Shingles vaccine (Shingrix) (1 of 2 - Shingrix (RZV) 2 Dose Standard Series) 2014 Covid-19 vaccine series ( - 2023- season) 2024 Influenza vaccine 04/17/2025 RSV Immunization (1 - 1-dose 75+ series) 12/05/2039 Meningococcal Vaccine Aged Out No martínez javid eligible based on patient's age to complete this topic Pneumococcal Vaccine (2 - 49 years) Aged Out No longer eligible based on patient's age to complete this topic
--- OUTSIDE RECORDS SUMMARY | 2024-12-01 13:08 | XMS_ITS | Encounter Summary ---
Author Organization [facility] Address [address] [place] [address] Care Team Providers Care Christian Science Practitioner Name Role Phone Unavailable Primary Care Provider Unavailabl e Reason for Referral * Consultation (Routine) - Closed Specialty Diagnoses / Procedures Referred By Contac t Referred To Contact Pulmonary Disease Diagnoses Cough Bronchiectasis without complication (HC Code) Multiple pulmonary nodules Referral, Self [facility] [address] [place] [address], 2nd floor [facility], [address] [place] [address] Phone: tel: fax: Referral ID Status Reason Start Date Expiration Date Visits Re quested Visits Authorized [id number] Closed 06/19/2017 06/19/2018 1 1 Encounter Details Date Type Department Care Team (Latest Contact Info) Description 06/19/2017 Transcribed Orders Referral Link Providers [address] [place] [address] Referral, Self Cough (Primary Dx); Bronchiectasis without [...]
--- OUTSIDE RECORDS SUMMARY | 2024-12-01 13:08 | XMS_ITS | Encounter Summary ---
Author Organization [facility] and [facility] Address [address] [place] [address] Care Team Providers Care Bell Spinner Sousaphones Name Role Phone Unavailable Primary Care Provider Unavailabl e Encounter Details Date Type Department Care Team (Late st Contact Info) Description 06/03/2017 Lab Requisition [facility] [address] [place] [address] Lab Provider, No Fax Encounter for examination [...] Antigen Negative Negative 06/03/2017 12:57 PM EDT [facility] Culture BLOOD SPECIMEN / Unknown 06/02/2017 4:52 PM EDT 06/03/2017 10:11 AM EDT us No Fax Lab Provider MICROBIOLOGY - GENERAL ORDER DENNISE Final Result [facility] [address] [phone] documented in this encounter Visit Diagnoses Diagnosis Encounter for examination and observation for unspecified reason documented in this encounter
--- OUTSIDE RECORDS SUMMARY | 2024-12-01 13:08 | XMS_ITS | Encounter Summary ---
Author Organization [facility] and [facility] Address [address] [place] [address] Care Team Providers Care Pharmacy Customer Care Specialist Name Role Phone Unavailable Primary Care Provider Unavailabl e Encounter Details Date Type Department Care Team (Late st Contact Info) Description 06/03/2017 Lab Requisition [facility] [address] [phone] Lab Provider, No Fax Encounter for examination [...]
== END 2024-12-01 10:51 | disposition home or self-care (01) ==
LOC: HO.LAB 10:50
PROVIDERS: PCP Internal Medicine; Visit Provider Internal Medicine
DX: Z13.89 Encounter for screening for other disorder (principal)

== ENCOUNTER 2025-03-23 13:01 | Outpatient (AMB) | payer BC, SELFPAY ==
--- OUTSIDE RECORDS SUMMARY | 2024-07-26 11:00 | XMS_ITS | Encounter Summary ---
Author Name [facility] Address [address] [place] [address] Care Team Providers Care Tone Regulator Name Role Phone MELANIE LIN Primary Care Provider Unavailabl e Insurance Providers: All historical and current Section Date Range: From patient's date of to the date document was created. This section includes the names of all active insurance providers for the patient. Insurance Provider Type of Coverage Plan Name Start of Policy Coverage End of Policy Coverage Group Number Member ID Insurance Provider's Telephone Number Policy Pérez's Name Patient's Relationship to Policy Pérez [place] [facility] CE ORGANIZAT ION COH G AND E Feb 15, 2024 [id number] SUSAN SMITH PATIENT BCBS [facility] CE ORGANIZAT ION COH POLIC E DEPT HDHP Feb 15, 2024 [id number] SUSAN SMITH PATIENT BCBS OF [facility] CE ORGANIZAT ION COH G AND E Feb 15, 2024 [id number] [phone] SUSAN SMITH PATIENT [employer] PRESCRIPT ION RX Feb 15, 2024 [id number] SUSAN SMITH PATIENT [employer] PRESCRIPT ION COH G AND E Feb 15, 2024 [id number] SUSAN SMITH PATIENT [employer] RX PRESCRIPT ION Feb 14, 2017 [id number] [phone] SUSAN SMITH PATIENT [facility] CE ORGANIZ [place] Feb 14, 2019 [id number] [phone] SUSAN SMITH PATIENT [employer] [facility] CE ORGANIZAT ION W/OUT OF NETWORK BENEFITS COH G AND E Feb 15, 2024 [id number] [phone] SUSAN SMITH PATIENT Selected Encounter This section includes the information on record at [place] for the Encounter. Date/Time Encounter Type Encounter Description Reason Provider Source Jul 26, 2024 03:00 PM CPTR OPHTH DX IMG POST SEGMT OPTOMETRY ICD-10-CM H35.371 Puckering of macula, right eye NUHA DURAN E IHE Encounter Template Text not used by [facility] Assessments - Encounter Diagnoses This section includes the primary and secondary diagnoses documented for the Encounter. Date/Time Primary/Secondary Diagnosis Diagnosis Name Provider Source Aug 12, 2024 07:57 AM PRIMARY Puckering of macula, right eye CHELA DURAN [facility] [place] [facility] Aug 12, 2024 07:57 AM SECONDARY Puckering of macula, left eye CHELA DURAN [facility] [place] [facility] Aug 12, 2024 07:57 AM SECONDARY Vitreomacular adhesion, left eye CHELA DURAN [facility] [place] [facility] Aug 12, 2024 07:57 AM SECONDARY Vitreomacular adhesion, right eye CHELA DURAN [facility] [place] [facility] Plan of Treatment: Future Appointments (+ 6 months) and Future Tests (+/- 45 days) The Plan of Treatment section includes future care activities for the patient from all VA treatmentfacilities. This section includes future appointments and future orders which are active, pending or scheduled. Future Appointments This section includes appointments that were scheduled to occur 6 months from the date of the Encounter, up to a maximum of 20 appointments. The data comes from all [place] treatment facilities. Appointment Date/Time Appointment Type Appointme nt Facility Name Aug 30, 2024 03:00 PM AMBULATORY - [facility]ATRY [facility] Sep 14, 2024 03:30 PM AMBULATORY - PSYCHIATRY [facility] Sep 28, 2024 02:25 PM [facility] Oct 10, 2024 02:00 PM AM[facility]UL[facility]ORY - MEDICINE [facility] Oct 11, 2024 10:00 AM AMBULATORY - MEDICINE [facility] Oct 14, 2024 03:30 PM AMBULATORY - PSYCHIATRY [facility] Oct 25, 2024 03:00 PM AMBULATORY - PS[facility]IATRY [facility] Nov 17, 2024 11:30 AM AMBULATORY - MEDICINE [facility] Nov 21, 2024 02:00 PM AMBULATORY - PSYCHIATRY [facility] Nov 22, 2024 10:00 AM AMBULATORY - MEDICINE [facility] Jan 17, 2025 03:00 PM AMBULATORY - PSYCHIATRY [facility] Social History: Smoking Status (Most current) and Tobacco Use (All prior to encounter date) This section includes the most current, and the historical, smoking and tobacco- related health factors from the [place] facility where the Encounter took place. Current Smoking Status This section includes the most current smoking, or tobacco-related health factor, from the [place] facility where the Encounter took place. Date/Time Current Smoking Status Comment Facil ity Apr 13, 2020 02:25 PM VA-TOBACCO FORMER USER [facility] Tobacco Use History This section includes a history of the smoking, or tobacco-related health factors, that were collected on or before the date of the Encounter. The data comes from the [place] facility where the Encounter took place. Date/Time Smoking Status/Tobacco Use Comment F acility Apr 13, 2020 02:25 PM [place]-TOBACCO QUIT 5 TO < 15 YRS [facility] Advance Directives: All historical and current Section Date Range: From patient's date of to the date document was created. This section includes ALL of a patient's completed or amended VA Advance and Rescinded Directives. The entries below indicate that a directive exists for the patient, but an actual copy is not included with this document. The data comes from all [place] facilities. Date Advance Directives Provider Source Jun 13, 2017 [facility] Apr 18, 2014 ADVANCE DIRECTIVE JESSEE LAZAR Encounter Notes: All associated encounter notes This section contains the clinical notes associated to the Encounter. Date/Time Encounter Note(s) Provider Source Jul 26, 2024 03:07 PM OPTOMETRY CONSULT: LOCAL TITLE: CONSULT REPORT/OPTOMETRY OCT STANDARD TITLE: OPTOMETRY CONSULT DATE OF NOTE: JUL 26, 2024@15:07 ENTRY DATE: JUL 26, 2024@15:07:19 AUTHOR: LUANN MARTINEZ COSIGNER: COLETTE DURAN URGENCY: STATUS: COMPLETED CONSULT REPORT/OPTOMETRY OCT Has ADDENDA RNFL OCT report: RNFL OCT reviewed for patient with low risk primary open-angle glaucoma secondary to moderate cupping OU OD Signal strength: 9/10 OD: average c/d 0.66 vertical c/d 0.60 disc area 2.14 mm^2. Average RNFL thickness 78 microns. Mild thinning superior quadrant. OS Signal strength: 9/10 OS: average c/d 0.60, vertical c/d 0.55, disc area 2.13 mm^2. Average RNFL thickness 76 microns. Mild thinning at 8 and 11 o'clock. A/P: Remains as low risk primary open-angle glaucoma secondary to moderate cupping OU - Pt ed on findings - Monitor yearly = Pachymetry: slightly thinner than average OU OD: 549um OS: 548um = Macular OCT with 21 line raster done for patient with epiretinal membrane OU OD: Trace epiretinal membrane temporal to macula; normal foveal contour without any pseudo macular hole OS: Trac epiretinal membrance temporal and nasal to macula; normal foveal contuour without any pseudo macular hole A/P: Epiretinal membrane OU - Pt ed about findings - Monitor /kevin/ LUANN MARTINEZ OPTOMETRY STUDENT Signed: 07/27/2024 10:53 /kevin/ Colette Duran OD CHIEF OF OPTOMETRY Cosigned: 07/27/2024 11:31 07/27/2024 ADDENDUM STATUS: COMPLETED Review optic nerve OCT of patient follows bilateral low risk glaucoma suspect secondary to optic nerve cupping. Optic nerve OCT right eye: Average retinal nerve fiber layer thickness is 73 m with average cup-to-disc ratio of 0.66 and vertical cup-to-disc ratio of 0.66. Disc areas larger than average measuring 2.14 mm . There is evidence of nerve fiber layer thinning superior quadrant with remaining quadrants within normal limits. Optic nerve OCT left eye: Average retinal nerve fiber layer thickness is 76 m with average cup-to-disc ratio of 0.60 and vertical cup-to-disc ratio of 0.55. Disc area is similar in size to right eye measuring 2.13 mm . Again there is evidence of nerve fiber layer thinning superior quadrant. ISNT mapping does not align due to tilted disc insertion and likely impacting superior quadrant analysis. Overall OCT is consistent with previous imaging study without evidence of progressive nerve fiber layer loss. Will continue to monitor his bilateral low risk glaucoma suspect. +++++++++++++++++++++++++ +++++++++++++++++++++++++ +++++++++++++++++++++++++ +++ +++++++++++++++++++++++++ +++++++++++++++++++++++++ +++++++++++++++++++++++++ +++ ++++ Pachymetry obtained on patient followed as low risk glaucoma suspect. Previous pachymetry was attempted but we are unable to obtain a reading right eye due to ocular surface dryness. Average central corneal thickness right eye is 549 m. Average central corneal thickness left eye is 548 m. Essentially average corneal thickness each eye. +++++++++++++++++++++++++ +++++++++++++++++++++++++ +++++++++++++++++++++++++ +++ +++++++++++++++++++++++++ +++++++++++++++++++++++++ +++++++++++++++++++++++++ +++ Macular OCT obtained on patient with history of bilateral cataracts but noted to have mild epiretinal membrane in each eye. Plan is for cataract evaluation. Macular OCT right eye: Epiretinal membrane between optic nerve and macula with mild vitreal macular traction but without alteration to foveal contour. Macular OCT left eye: Epiretinal membrane between optic nerve and macula with mild vitreal macular traction but again without alteration to foveal contour. Bilateral epiretinal membrane with mild vitreomacular traction but without evidence of macular hole either eye. /kevin/ Colette Duran OD CHIEF OF OPTOMETRY Signed: 07/27/2024 11:39 LUANN MARTINEZ [facility]
--- OUTSIDE RECORDS SUMMARY | 2025-03-23 13:06 | XMS_ITS | Encounter Summary ---
Author Organization [facility] and [facility] Address [address] [place] [address] Care Team Providers Care Rn Progressive Care Unit Name Role Phone Unavailable Primary Care Provider Unavailabl e Encounter Details Date Type Department Care Team (Late st Contact Info) Description 06/03/2017 Lab Requisition [facility] Spec[facility]ens [address] [phone] Lab Provider, No Fax Encounter for examination [...]
--- OUTSIDE RECORDS SUMMARY | 2025-03-23 13:06 | XMS_ITS | Clinical Summary ---
Author Organization [facility] Address [address] [place] [address] Phone Care Team Providers Care Adult School Counselor Name Role Phone Kris Kirby DO Primary Care Provider [phone] Allergies No known active allergies Active Problems Problem Noted Date Diagnosed Date Interstitial lung disease 02/06/2014 Overview (10/06/2014): Interstitial lung disease Immunizations Immunization Administration Dates Next Due Influenza Nasal, Unspecified Formulation 02/06/2014(Deferred: Other - , Ordered By: [id number]) Social History Tobacco Use Types Packs/Day Years Used Date Smoking Tobacco: Former Sex and Gender Information Value Date Recorded Sex Assigned at Not on file Legal Sex Male 4:07 PM EDT Gender Identity Not on file Sexual Orientation Not on file Plan of Treatment Not on file Medical Devices Not on file [facility] HMO POS HMO POS HMO POS HMO POS HMO POS [place] [address] [place] [address] HMO POS Care Teams Adult School Counselor Relationship Specialty Start Date End Date Kris Kirby DO [address] [place] [address] PCP - General 02/14/14 Additional Source Comments The information contained in this document represents components of the legal health record. It is not the complete legal health record.[facility]
[2025-03-23 13:11] VITALS: BP 106/74; PULSE 59; O2SAT 97; BMI 25.0
--- NOTE | 2025-03-23 13:11 | MHC.PC.OV ---
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 Allergy (Unknown, Uncoded 03/23/25 13:33) Unknown pollen Allergy (Unknown, Uncoded 03/23/25 13:33) Runny Nose Medication List - Last Reconciled 03/23/25 by aLne Maloney MD albuterol sulfate 90 mcg/actuation 2 puffs inhalation Q6H PRN atorvastatin 10 mg PO BEDTIME budesonide-formoterol 160-4.5 mcg/actuation (Symbicort) 1 inh inhalation BID bupropion HCl SR 150 mg PO QAM gabapentin 300 mg PO TID hydroxyzine HCl 25 mg PO TID PRN prazosin 2 mg PO BEDTIME PRN sertraline 100 mg PO DAILY Tobacco use date assessed: 03/23/25 Dental Screening Dental Screen Date: 03/23/25 Did you have a dental visit in the last 12 months?: No Did you have a dental problem in the last 6 months where you did not have access to dental care?: No Was dental information given to patient?: Patient has dentist HPI hyperlipidemia, HPI Details Patient comes in today for his follow up visit States that he has been experiencing on and off sensations of palpitations recently Reports that he had it twice yesterday, with each episode lasting about 7 to 8 beats before subsiding on their own States that he had no associated symptoms of dizziness/lightheadedness, chest pains/discomfort or SOB when these were occurring He denies any headaches No nausea/vomiting, no abdominal pain No change in bowel habits noted He did not get his previously ordered follow up labs done prior to coming in for his appointment today [facility] Medical History (Updated 03/23/25 @ 13:[address]oney MD) Pure hypercholesterolemia COPD (chronic obstructive pulmonary disease) Lipoma of arm Anxiety Depression COVID-19 Chronic neck pain Carpal tunnel syndrome of right wrist Surgical History S/P excision of lipoma (~05/18/24) Social History Housing: House Alcohol intake: never Patient Tobacco Use Status: Former Tobacco user e-Cigarette/Vaping Use: Never Used service: Yes Current occupational status: employed Current occupational exposures/hazards: Yes Cognitive needs: No Hearing needs: No Vision needs: Yes Questionnaire PHQ-9 Over the last 2 weeks, how often have you been bothered by any of the following problems? 1. Little interest or pleasure in doing things: nearly every day 2. Feeling down, depressed, or hopeless: nearly every day 3. Trouble falling or staying asleep, or sleeping too much: several days 4. Feeling tired or having little energy: several days 5. Poor appetite or overeating: not at all 6. Feeling bad about yourself - or that you are a failure or have let yourself or your family down: not at all 7. Trouble concentrating on things, such as reading the newspaper or watching television: not at all 8. Moving or speaking so slowly that other people could have noticed. Or the opposite - being so fidgety or restless that you have been moving around a lot more than usual: not at all 9. Thoughts that you would be better off or of hurting yourself in some way: not at all Total score: 8 Depression Screening Interpretation: Positive Depression Screening Follow-up: Existing condition and In treatment Depression Screening Done: Yes 62534 - PHQ-9 Billing: Yes Source: Developed by Drs. Guillaume Bloom, Krysten Jett, Fabian Evangelista and colleagues, with an educational jeevan from [employer]. Thrive Questionnaire Date Thrive assessed: 03/23/25 I am a: Patient What is your living situation today?: I have a steady place to live Within the past 12 months, did the food you bought not last and you didn't have the money to get more?: Never true Within the past 12 months, did you worry whether your food would run out before you got money to buy more?: Never true Do you have trouble paying for medicines?: No Do you have trouble getting transportation to medical appointments?: No Do you have trouble paying your heating and electricity bill?: No Do you have trouble taking care of your child, family member or friend?: No Do you have trouble with day-to-day activities such as bathing, preparing meals, shopping, managing finances, etc.?: I choose not to answer this question Are you currently unemployed and looking for a job?: No Are you interested in more education?: No Please select the resources that you would like help with: None Currently or been in a relationship where the following occur: I choose not to answer THRIVE Score: 0 AUDIT C Alcohol Use Questionnaire (AUDIT-C) 1. How often do you have a drink containing alcohol?: Monthly or less 2. How many drinks containing alcohol do you have on a typical day when you are drinking?: 1 or 2 3. How often do you have six or more drinks on one occasion?: Weekly Total Score: 4 Score Reviewed/Action Taken: Yes JOSE-7 AMB Questionnaire JOSE-7 Date JOSE - 7 assessed: 03/23/25 Feeling nervous, anxious, or on edge: 1 = Several days Not being able to stop or control worryin = Not at all Worrying too much about different things: 1 = Several days Trouble relaxin = Several days Being so restless that it is hard to sit still: 1 = Several days Becoming easily annoyed or irritable: 0 = Not at all Feeling afraid as if something awful might happen: 0 = Not at all Total JOSE-7 score (0-4 normal; 5-9 mild; 10-14 moderate; 15-21 severe): 4 Source: Developed by Drs. Guillaume Bloom, Krysten Jett, Fabian Evangelista and colleagues, with an educational jeevan from [employer]. Review of Systems Const Denies chills, Denies fatigue, Denies fever(s) and Denies headache(s) ENT Denies dysphagia, Denies dizziness, Denies otalgia, Denies headache(s), Denies neck pain, Denies odynophagia and Denies sore throat Card Denies chest pain, Reports palpitations (on and off lately - see HPI for details) and Denies dyspnea Resp Denies chest congestion, Denies cough and Denies dyspnea GI Denies abdominal pain, Denies constipation, Denies dysphagia, Denies heartburn, Denies diarrhea, Denies nausea, Denies odynophagia and Denies vomiting Denies difficulty urinating, Denies dysuria, Denies nocturia and Denies urinary frequency Musc Denies back pain and Denies neck pain Skin/Breast Denies rash Neuro Denies dizziness and Denies headache(s) Psych Reports anxiety, Reports depression and Reports difficulty concentrating Endo Denies fatigue and Reports palpitations (on and off lately - see HPI for details) Physical exam (Primary Care) Vital Signs: Last Vital Signs Pulse 59 03/23/25 13:11 BP 106/74 03/23/25 13:11 Pulse Ox 97 03/23/25 13:11 Oxygen Delivery Method Room Air 03/23/25 13:11 BMI result Body Mass Index 25.0 Tobacco/Smoking Status: Tobacco use Status Tobacco use date assessed 03/23/25 03/23/25 13:15 Patient Tobacco Use Status Former Tobacco user 03/23/25 13:15 e-Cigarette/Vaping Use Never Used 03/23/25 13:15 PHQ-9: PHQ-9 Score PHQ-9: Total score 8 03/23/25 13:34 Depression Screening Interpretation: Positive Depression Screening Follow-up: Existing condition and In treatment Thrive Assessment: Date of Thrive Assessment Date Thrive assessed 03/23/25 03/23/25 13:15 Currently or been in a relationship where the following occur: I choose not to answer Const General: no acute distress and alert HENMT Ears: TM's normal bilaterally and EAC's normal Throat: Yes posterior oropharynx normal and Yes tonsils normal (no TP congestion) Neck Neck: Yes supple and No lymphadenopathy Thyroid: Thyroid normal Resp Auscultation: clear to auscultation bilaterally, no crackles, no rales, no wheezes and diminished lung sounds (slightly) bilateral Cardio Rate: regular rate Rhythm: regular rhythm Heart sounds: no murmurs GI Palpation (GI): Soft to palpation and nontender Auscultation: normal bowel sounds General: Yes no CVA tenderness Back/Spine/Pelvis Back: no CVA tenderness Thoracic/Lumbar Spine: No lumbar spinal tenderness Skin Rashes: no rashes Extrem General: Yes no clubbing, cyanosis or edema Coding Level of Care Code Est Pt Level 4 (34887) Diagnoses Intermittent palpitations R00.2 Pure hypercholesterolemia E78.00 Chronic obstructive pulmonary disease, unspecified COPD type J44.9 COPD type: unspecified COPD Difficulty concentrating R41.840 Anxiety F41.9 Episode of recurrent major depressive disorder, unspecified depression episode severity F33.9 Depression Type: major depressive disorder Major depression recurrence: recurrent Active/Remission status: currently active Major depression episode severity: unspecified Additional Codes PHQ-9 - 43555 - PHQ-9 Billing: Yes ([id number]) Assessment & Plan Assessment & Plan (1) Intermittent palpitations: Code(s): R00.2 - Palpitations Category: Medical Plan: Will send patient for a 12lead EKG and echocardiogram for now for further evaluation Have advised him that with the sporadic nature of his recent palpitations, a Holter monitor may not be helpful and a 30 day event monitor may be necessary if his symptoms continue to recur Have also advised him to go and get his previously ordered labs done JEAN as they may offer some clues as to his recent symptoms (2) Pure hypercholesterolemia: Code(s): E78.00 - Pure hypercholesterolemia, unspecified Category: Medical Plan: Reinforced low cholesterol diet Continue Atorvastatin 10 mg QD Will have him recheck his labs and fasting lipids JEAN for follow up - these have been previously ordered (3) COPD (chronic obstructive pulmonary disease): Code(s): J44.9 - Chronic obstructive pulmonary disease, unspecified Category: Medical Qualifiers: COPD type: unspecified COPD Qualified Code(s): J44.9 - Chronic obstructive pulmonary disease, unspecified Plan: Appears controlled Continue Symbicort 160-4.5 mcg 1 inhalation BID and Albuterol HFA 1 to 2 inhalations Q 6 hours PRN (4) Difficulty concentrating: Code(s): R41.840 - Attention and concentration deficit Category: Medical Plan: Patient suspects that he may have ADD but states that he was never formally evaluated or treated He has been referred for neuropsychiatry evaluation previously and is still waiting for an appointment to be seen (5) Anxiety: Code(s): F41.9 - Anxiety disorder, unspecified Category: Medical Plan: Continue Hydroxyzine 25 mg TID PRN and Bupropion SR 150 mg Q AM (6) Depression: Code(s): F32.A - Depression, unspecified Category: Medical Qualifiers: Depression Type: major depressive disorder Major depression recurrence: recurrent Active/Remission status: currently active Major depression episode severity: unspecified Qualified Code(s): F33.9 - Major depressive disorder, recurrent, unspecified Plan: Continue Sertraline 100 mg QD, Prazosin 2 mg Q HS PRN, Gabapentin 300 mg TID and Bupropion SR 150 mg Q AM Follow up with psychiatry as scheduled Plan Follow up in 4 months Orders: Orders ECG 12 lead EKG 03/23/25 R00.2 - Palpitations CA echo transthoracic complete 03/23/25 R00.2 - Palpitations
== END 2025-03-23 13:42 | disposition home or self-care (01) ==
LOC: HO.HMCH 13:01
PROVIDERS: PCP Internal Medicine; Visit Provider Internal Medicine
DX: R00.2 Palpitations (principal); E78.00 Pure hypercholesterolemia, unspecified; J44.9 Chronic obstructive pulmonary disease, unspecified; R41.840 Attention and concentration deficit; F41.9 Anxiety disorder, unspecified; F33.9 Major depressive disorder, recurrent, unspecified

== ENCOUNTER → 2025-03-23 13:01 | Outpatient (BNVA) | payer BC, SELFPAY | PROVIDERS: PCP Internal Medicine; Visit Provider Internal Medicine | DX: R00.2 Palpitations (principal); E78.5 Hyperlipidemia, unspecified; E78.00 Pure hypercholesterolemia, unspecified; J44.9 Chronic obstructive pulmonary disease, unspecified; R41.840 Attention and concentration deficit; F41.9 Anxiety disorder, unspecified; F33.9 Major depressive disorder, recurrent, unspecified | CPT/HCPCS: 96127 ==

== ENCOUNTER → 2025-05-02 15:03 | Outpatient (REF) | payer BC, SELFPAY ==
--- NOTE | 2025-05-02 15:07 | CA_ITS ---
Transthoracic Echocardiogram Patient (Last, First, Middle): Paresh Escalona, Gender: Male Date of : 1965 Age: 59 Procedure Date: 05/02/2025 Procedure Type: Transthoracic Echocardiogram Location: OP Height: 180.34 cm Weight: 78.47 kg BSA: 1.98 m2 Heart Rate: 50 bpm BP: 106 / 74 mmHg Oven Operator: SB Referring MD: Lane Maloney MD Symptoms: R00.2 - Palpitations Study Quality: Adequate ECG Rhythm: Bradycardia Conclusions: - The left ventricular systolic function is hyperdynamic. The calculated ejection fraction is 72% by biplane method. - No obvious valvular pathology seen on this study. Findings Left Ventricle Normal left ventricular cavity size. There is normal left ventricular wall thickness. The left ventricular systolic function is hyperdynamic. The calculated ejection fraction is 72% by biplane method. There is no evidence of regional wall motion abnormalities. Diastolic function is normal for age. Right Ventricle Mildly increased right ventricular cavity size. There is normal right ventricular systolic function. Aortic Valve There is a normal trileaflet aortic valve. There is no aortic valve stenosis. There is no aortic valve regurgitation. Mitral Valve The mitral valve appears normal. There is trace mitral valve regurgitation. There is no mitral valve stenosis. Pulmonic Valve The pulmonic valve is likely normal. Tricuspid Valve Normal tricuspid valve structure. There is trace tricuspid valve regurgitation. There is no evidence of pulmonary hypertension. Great Vessels The asc aorta is normal in size. Venous The inferior vena cava is normal in size and collapses greater than 50% with inspiration. Pericardium/Pleural There is no evidence of pericardial effusion. Prior Study Comparison No prior study available for comparison. Recommendations, Care & Conclusions No obvious valvular pathology seen on this study. Measurements 2D Linear Measurements IVSd: 0.98 0.6-0.9/0.6-1.0 cm LVIDd: 4.93 3.9-5.3/4.2-5.9 cm LVIDd Index: 2.49 2.4-3.2/2.2-3.1 cm/m2 LVIDs: 3.00 2.0-3.6 cm LVPWd: 0.66 0.7-1.1 cm LA Diam: 4.00 2.7-3.8/3.0-4.0 cm LAIDs Index: 2.02 1.5-2.3 cm/m2 LV Mass: 170.99 67-162/88-224 g LV Mass Index: 86.36 43-95/49-115 g/m2 LVOT Diam: 2.20 3.0+(-)1.3 cm 2D Systolic Function EF 4C: 67.90 >55% EF 2C: 74.80 >55% EF BiP: 72.20 >55% Mitral Valve MV Pk E: 0.61 MV PK A: 0.43 MV Decel Time: 154.00 E/A: 1.40 E'Lateral: 7.07 E'Medial: 6.96 E/E' Med: 8.80 E/E' Lat: 8.70 PHT: 45.00 MVA PHT: 4.89 Decel [place]: 3.99 Aortic Valve AoV Pk James: 1.38 AoV Pk Grad: 8.00 LIBIA: 3.36 LVOT LVOT Pk James: 1.20 LVOT Mn James: 0.91 LVOT VTI: 0.31 LVOT Pk Grad: 6.00 LVOT Mn Grad: 4.00 LVOT Diam: 2.20 LVOT Area: 3.80 Diastolic Function MV Pk E: 0.61 MV Pk A: 0.43 E/A: 1.40 E'Medial: 6.96 E/E' Med: 8.80 E' Laterial: 7.07 E/E' Lat: 8.70 Right Ventricle TAPSE (mm): 25.40 TVS' James: 12.80 Tricuspid Valve TR Pk James: 2.43 TR Pk Grad: 24.00 RA Press: 3.00 RVSP: 27.00 Great Vessels Aorta Sinus of Valsalva: 3.80 2.0-3.5 cm Ao Asc: 3.70 2.1-3.4 cm Pulmonary Veins Pulm Vein S/D 1.70 Pulmonary Valve PV Pk James: 0.75 Peak PV Grad: 2.00 CO Pk James: 1.97 Updated in Other Vendor System with Status of Final Atilio Lassiter MD electronically signed on 05/03/2025 10:57:43 AM with status of Final
--- NOTE | 2025-05-02 15:07 | ECG_ITS ---
Test Reason : CP Blood Pressure : */* mmHG Vent. Rate : 58 BPM Atrial Rate : 58 BPM P-R Int : 132 ms QRS Dur : 92 ms QT Int : 444 ms P-R-T Axes : 36 25 48 degrees QTcB Int : 435 ms Sinus bradycardia with Premature supraventricular complexes Nonspecific T wave abnormality Abnormal ECG When compared with ECG of 28-Aug-2021 15:36, Premature supraventricular complexes are now Present Referred By: Lane Maloney Electronically Signed By: TERELL ANN
--- OUTSIDE RECORDS SUMMARY | 2025-05-02 18:37 | XMS_ITS | Encounter Summary ---
Author Organization [facility] Address [address] [place] [id number] Care Team Providers Care Chisel Trimmer Name Role Phone Unavailable Primary Care Provider Unavailabl e Reason for Referral * Consultation (Routine) - Closed Specialty Diagnoses / Procedures Referred By Contac t Referred To Contact Pulmonary Disease Diagnoses Cough Bronchiectasis without complication (HC Code) Multiple pulmonary nodules Referral, Self [facility] [address] [place] [address], 2nd floor [facility], [address] [place] [address] Phone: tel: fax: Referral ID Status Reason Start Date Expiration Date Visits Re quested Visits Authorized [id number] Closed 06/19/2017 06/19/2018 1 1 Encounter Details Date Type Department Care Team (Latest Contact Info) Description 06/19/2017 Transcribed Orders Referral Link Providers [address] [place] [id number] Referral, Self Cough (Primary Dx); Bronchiectasis without [...]
--- OUTSIDE RECORDS SUMMARY | 2025-05-02 18:37 | XMS_ITS | Clinical Summary ---
Author Organization [address] Address [address] [place] [phone] Care Team Providers Care Manager Documentation Name Role Phone Unavailable Primary Care Provider [...] Series) 2014 Covid-19 vaccine series ( - season) 2025 Influenza vaccine 04/17/2025 RSV Immunization (1 - 1-dose 75+ series) 12/05/2039 Meningococcal B Vaccine Aged Out No l onger eligible based on patient's age to complete this topic Meningococcal Vaccine Aged Out No martínez javid eligible based on patient's age to complete this topic
--- OUTSIDE RECORDS SUMMARY | 2025-05-02 18:37 | XMS_ITS | Patient Health Record ---
Author Organization [facility] Address [address] [place] [address] Care Team Providers Care Aircraft Technician Name Role Phone Kofi (RETIRED) Kris SEGOVIA Primary Care Provide r Guillaume Marie Unavailable [phone] Allergies Allergen (clinical drug ingredient) Drug/Non Drug Allergy documented on EMR Reaction Allergy Type Onset Date Status seasonal (uncoded) Unknown Allergy A ctive Reason For Referral No Information Medications Medication SIG (Take, Route, Frequency, Duration) Notes Start Date End Date Status Spiriva HandiHaler 18 MCG inhale the con tents of one capsule in the handihaler once daily Inhalation for 30 Active ProAir HFA 108 (90 Base) MCG/ACT inhale 2 puffs by mouth every 6 hours if needed for shortness of breath Inhalation for 24 Active MoviPrep 100 GM as directed Orally a s directed for 1 dose 03/09/2014 Active Symbicort 160-4.5 MCG/ACT inhale 2 puffs by mouth twice a day RINSE MOUTH AFTER DOSE Inhalation for 30 Active Problems Problem Type SNOMED Code ICD Code Onset Dates Problem Status W/U Status Risk Notes Problem Blood in stool (232744621) Blood in stool (578.1) Active confirmed Plan Of Treatment Future Test Test Name Order Date COLONOSCOPY 03/09/2014 Insurance Providers Payer Name Payer Address Payer Phone Subscriber Number Group Number Insured Name Patient Relationship to Insured Coverage Start Date Coverage End Date [facility] [address] [place] [address] [phone] [id number] PARUL SMITH Self - patient is the insured Medical (General) History Medical History History ICD Code Denies CA,DM,CVA, renal disease Lung disease and cough---See s Dr. Dixon in [place]--had a bronchoscopy--saw Dr Maravilla @ [facility] for a 2nd opinion--has a F/U appt on 03/23/14 Surgical History Surgery Date(Month/Year) Deviated septum repair X 2 Facial surgery--in relation to trauma--f racture and laceration
--- OUTSIDE RECORDS SUMMARY | 2025-05-02 18:37 | XMS_ITS | Encounter Summary ---
Author Organization [facility] Address [address] [place] [phone] Care Team Providers Care Overseamer Name Role Phone Unavailable Primary Care Provider Unavailabl e Encounter Details Date Type Department Care Team (Late st Contact Info) Description 06/03/2017 Lab Requisition [facility] Specimens [address] [phone] Lab Provider, No Fax Encounter for examination [...]
--- OUTSIDE RECORDS SUMMARY | 2025-05-02 18:37 | XMS_ITS | Encounter Summary ---
Author Organization [facility] Address [address] [place] [phone] Care Team Providers Care Activities Concierge Name Role Phone Unavailable Primary Care Provider Unavailabl e Encounter Details Date Type Department Care Team (Late st Contact Info) Description 06/03/2017 Lab Requisition [facility] Specimens [address] [place] [address] Lab Provider, No Fax Encounter for examination [...] Antigen Negative Negative 06/03/2017 12:57 PM EDT [facility] Culture BLOOD SPECIMEN / Unknown 06/02/2017 4:52 PM EDT 06/03/2017 10:11 AM EDT us No Fax Lab Provider MICROBIOLOGY - GENERAL ORDER DENNISE Final Result [facility] [address] [phone] documented in this encounter Visit Diagnoses Diagnosis Encounter for examination and observation for unspecified reason documented in this encounter
--- OUTSIDE RECORDS SUMMARY | 2025-05-02 18:37 | XMS_ITS | Clinical Summary ---
Author Organization [facility] Address [address] [place] [address] Phone Care Team Providers Care Senior Software Qa Engineer Name Role Phone Kris Kirby DO Primary Care Provider [phone] Allergies No known active allergies Active Problems Problem Noted Date Diagnosed Date Interstitial lung disease 02/06/2014 Overview (10/06/2014): Interstitial lung disease Immunizations Immunization Administration Dates Next Due Influenza Nasal, Unspecified Formulation 02/06/2014(Deferred: Other - , Ordered By: [id number]) Social History Tobacco Use Types Packs/Day Years Used Date Smoking Tobacco: Former Sex and Gender Information Value Date Recorded Sex Assigned at Not on file Legal Sex Male 4:07 PM EDT Gender Identity Not on file Sexual Orientation Not on file Plan of Treatment Not on file Medical Devices Not on file Insurance [facility] POS HMO POS HMO POS HMO POS HMO POS HMO POS [place] [address] [place] [address] HMO POS Care Teams Senior Software Qa Engineer Relationship Specialty Start Date End Date Kris Kirby DO [address] [place] [id number] PCP - General 02/14/14 Additional Source Comments The information contained in this document represents components of the legal health record. It is not the complete legal health record.[facility]
== END ==
LOC: HO.CARD 15:03
PROVIDERS: PCP Internal Medicine; Visit Provider Internal Medicine
DX: R00.2 Palpitations (principal)
CPT/HCPCS: 93005; 93306

== ENCOUNTER → 2025-05-02 15:07 | Outpatient (BNV) | payer BC, SELFPAY | PROVIDERS: PCP Internal Medicine; Visit Provider Internal Medicine | DX: I51.89 Other ill-defined heart diseases (principal) | CPT/HCPCS: 93010; 93306 ==

== ENCOUNTER 2025-05-27 08:42 | Outpatient (REF) | payer BC, SELFPAY ==
--- OUTSIDE RECORDS SUMMARY | 2025-05-27 08:45 | XMS_ITS | Clinical Summary ---
Author Organization [facility] Address [address] [place] [address] Phone Care Team Providers Care Insurance Risk Manager Name Role Phone Kris Kirby DO Primary Care Provider [phone] Allergies No known active allergies Active Problems Problem Noted Date Diagnosed Date Interstitial lung disease 02/06/2014 Overview (10/06/2014): Interstitial lung disease Immunizations Immunization Administration Dates Next Due Influenza Nasal, Unspecified Formulation 02/06/2014(Deferred: Other - , Ordered By: [id number]) Social History Tobacco Use Types Packs/Day Years [...] POS HMO POS HMO POS [place] [address] [address] HMO POS Care Teams Insurance Risk Manager Relationship Specialty Start Date End Date Kris Kirby DO [address] [place] [id number] PCP - General 02/14/14 Additional Source Comments The information contained in this document represents components of the legal health record. It is not the complete legal health record.[facility]
--- OUTSIDE RECORDS SUMMARY | 2025-05-27 08:45 | XMS_ITS | Data Portability ---
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 Surgery to be scheduled with my sales secretary. Questions regarding the recovery of the surgery the patient and his 's Satisfaction today. We have also discussed the risks of the surgery including infection, bleeding, damage small tissues, need for possible revision surgery. [email or web address] Not available 01/04/2024 15:54:17 Plan of Treatment Reminders Order Date Submit Date Provider Last Modified By Organization Details Last Modified Time Details Appointments None recorde d. Lab None recorde d. Referral None recorde d. Procedures None recorde d. Surgeries None recorde d. Imaging XR, hand, 3 or more view - RM 107 LT THUMB 3V 024 [email or web address] [facility], [address], [place], [address], 4 16:42:05 XR, hand, 3 or more view - RM 107 LT THUMB 3V 024 024 [email or web address] [facility], [address], [address], [place], [address], 4 14:39:16 Medication Orders None recorde d. Patient TargetsNo targets recorded. Patient Instructions Encounter Date Encounter Id Patient Instructions Last Modified By Organization Details Last Modified Time 06/09/[id number] application of cast, thumb spica* - RM 107 SHORT ARM THUMB SPICA CAST IPJ SOFT [email or web address] Not available 06/09/2024 16:39:46 06/10/[id number] application of cast, thumb spica* - RM 107 SHORT ARM THUMB SPICA CAST IPJ SOFT [email or web address] Not available 06/13/2024 16:45:31 06/20/2024 [id number] cast removal* - rm.109 cast removal [email or web address] [...] record ed. [email or web address] Not Available 03/19 02:32:31 04/16/2004/26/2019 imagi ng/di agnos tic resul t No observ ation record ed. [email or web address] Not Available 03/19 02:32:32 04/16/2002/02/2019 imagi ng/di agnos tic resul t No observ ation record ed. [email or web address] Not Available 03/19 02:32:38 04/16/2002/24/2019 imagi ng/di agnos tic resul t No observ ation record ed. [email or web address] Not Available 03/19 02:32:51 06/09/2006/09/2024 XR, hand, 3 or more view http:/ [email or web address] ?Encry pted=s hAaTro YD8dLq bEUv6g %2BXZw aYqtaq 0bqfl% 2Fg9IQ a4ajBk vP9nXo QUaueC m3YtLR FvZlgJ JJ8mAn HZtai3 6z6491 AC0Kqa H2MWaW nKiQtr MwF INTERFACE [facility] [address] [facility] [address], [place], [address], 06/09/2024 14:43:33 06/09/2006/09/2024 XR, hand, 3 or more view [email or web address]:/ [email or web address] ?Encry pted=s hAaTro YD8dLq bEUv6g %2BXZw aYqtaq 0bqfl% 2Fg9IQ a4ajBk vP9nXo QUaueC m3YtLR FvZlgJ JJ8Solsberry HZtai3 5f6694 AC0Kqa H2MWaW nKiQtr MwF INTERFACE [facility] [address] [facility] [address], [place], [address], 06/09/2024 14:43:35 Result Notes Documentation Provider Name and Address Organization Details Recorded Time Xr, Hand, 3 Or More View : [email or web address] Encrypted=qyThLzdEH1aVfqG Uv6g%0FCZuqRubwb8xzts%2Fg 2HFv9qlZidV5xIjTIseqLp9Ij BFRhScbIAI5vDaREyhq41j601 7TP9MrmS3WApZoFnJdrZrO Not Available [employer] 06/09/2024 14:43: 34 Xr, Hand, 3 Or More View : [email or web address] Encrypted=ylGmMidGY2rQtoB Uv6g%7OTIamDabio6otlb%2Fg 6MLp1jiQznZ2uZjFIbwlYi0Hx JJWoPrtAZO2sNyDJnhp01y932 9LO9OqeL7JFwMyJwGquDsL Not Available [facility] 06/09/2024 14:43: 36 Problems Name Problem SNOMED Code Status Onset Date Resolution Date Notes Provider Name and Address Organization Details Recorded Time No complaint s 054241066 Active Status: 'I'; Not Available [facility] 4 09:17:37 Pain of right wrist 975337266745 100 Active 2018 Problem Code: M25.531; Problem Code Type: ICD-10; Status: 'A'; Not Available [facility] 4 11:42:34 Pain of left hand 484439384873 103 Active 2023 Kiera Donaldson, HUMAN RESOURCES DEPARTMENT SUPERVISOR [address] [facility] [address], [place], [address] , [facility] 4 15:33:45 Problem Notes None recorded. Procedures Surgical History Date Name Laterality Status Provider Name and Address Organization Details Recorded Time 06/10/20 24 Cast_Thumb Spica_11+ completed [facility] 06/10/2024 09:31:36 06/10/20 24 Cast Removal [facility] 06/10/2024 09:30:14 05/27/20 24 ARTHROPLASTY, INTERPOSITION, INTERCARPAL OR CARPOMETACARPAL JOINTS (SURG) completed ELI CUELLAR [facility] 05/27/2024 14:33:40 Imaging Results None recorded. Procedure Notes None recorded. Medical Equipment None [...] Updated DateTime 08/22/2024 180.34 cm 23.7 kg/m2 12398.7 g DENNIS EUGENE [facility] 08/22/2024 15:11:55 Date Recorded Body height Body mass index (BMI) Body weight Provider Name and Address Organization Details Last Updated DateTime 01/04/2024 180.34 cm 23.7 kg/m2 07995.7 g ISAEL PARK [facility] 01/04/2024 14:46:25 Date Recorded Body height Body mass index (BMI) Body weight Body temperature Provider Name and Address Organization Details Last Updated DateTime 06/09/2024 180.34 cm 23.7 kg/m2 03015.7 g 97.7 [degF] DENNIS DIEHLRERA [facility] 06/09/2024 14:39:30 Date Recorded Body height Body mass index (BMI) Body weight Provider Name and Address Organization Details Last Updated DateTime 06/20/2024 180.34 cm 23.7 kg/m2 41698.7 g shikha alvarado [facility] 06/20/2024 14:59:25 Social History None recorded. Functional Status None recorded. Mental Status None recorded. Family History Nothing Reported. Medical History No medical history recorded. Past Encounters Encounter ID Performer Location Encounter Start Date Encounter Closed Date Diagnosis/Indication Diagnosis SNOMED-CT Code Diagnosis ICD10 Code Diagnosis IMO Codes Diagnosis Note [id number] MD Jennifer Toro [address] [place] [address] [address] [place] [address] 11/16/2023 08:57:10 12/09/2023 14:21:45 Carpal tunnel syndrome of left wrist 2952052176 21695 G56.02 Ulnar nerv e entrapment at elbow 722487147 G56.22 Osteoarthr osis of the carpometacarpal joint of the thumb 94692865 M18.9 Pain in fi nger of left hand 6356257133 16068 M79.147 [id number] MD Jennifer Toro [address] [place] [address] [address] [place] [address] 01/04/2024 14:28:13 01/25/2024 11:42:11 Osteoarthrosis of the carpometacarpal joint of the thumb 02101713 M18.9 [id number] Kiera Donaldson CNP [facility] [address] [place] [address] 06/09/2024 14:01:40 06/28/2024 14:39:15 Postoperative visit 745107186 Z48.89 [id number] Surgical follow-up 73551 4000 Z09 [id number] Kiera Donaldson CNP [facility] [address] [place] [address] 06/10/2024 09:13:22 06/10/2024 09:35:33 Postoperative visit 732180651 Z48.89 [id number] Surgical follow-up 32014 4000 Z09 [id number] Kiera Donaldson CNP [facility] [address] [place] [address] 06/20/2024 14:17:10 07/07/2024 14:24:25 Carpal tunnel syndrome of left wrist 6796941506 93287 G56.02 [id number] Kiera Donaldson CNP [facility] - [facility] [address] [place] [address] 08/22/2024 15:06:19 09/06/2024 07:45:30 Health Concerns Section Related Observation LastModified by Organization Detai ls LastModified Time None Recorded Concern Status LastModified by Organization Details LastModified Time None Recorded Advance Directives Directive None Recorded Payers Insurance Date Sequence Insurance Name Policy Number Policy Pérez Covered Member ID Pérez Member ID Guarantor Name 06/09/2024 1 () Paresh Escalona [id number] Paresh Escalona 06/09/2024 1 () Paresh Escalona [id number] Paresh Escalona 09/06/2024 OPT - [facility] Paresh Escalona [id number] Paresh Escalona Notes Date Note Type Note Provider Name and Address Organization Details Recorded Time 01/04/2024 text/html ROS as noted in the HPI Patient is a 58-year-old male seen in [...] we reviewed previously. Courtney Sales MD [address] [facility], [place], [address], [facility] 01/04/2024 15:54:56 06/09/2024 text/html ROS as noted in the HPI Rocco is a 58-year-old gentleman status post first CMC arthroplasty on the left done by Dr. Sales May 27, 2024. Overall progressing nicely he is here today for follow-up. Kiera Donaldson CNP [address] [facility], [place], [address], [facility] 06/09/2024 15:21:32 06/20/2024 text/html ROS as noted in the HPI Rocco is a very pleasant 58-year-old gentleman who is here today for follow-up of his left first CMC. He had left first CMC arthroplasty done by Dr. Sales May 27, 2024. Overall progressing nicely he is here today for follow-up.He has been in a short arm cast. Kiera Donaldson CNP [address], [place], [address], [facility] 06/20/2024 15:35:23 08/22/2024 text/html ROS as noted in the HPI Rocco is a very pleasant 58-year-old gentleman who is here today for follow-up of his left first CMC. He had left first CMC arthroplasty done by Dr. Sales May 27, 2024. Overall progressing nicely he is here today for follow-up. He has been working with therapy making excellent progress Kiera Donaldson CNP [address], [place], [address], [facility] 08/22/2024 16:09:02
--- OUTSIDE RECORDS SUMMARY | 2025-05-27 08:45 | XMS_ITS | Encounter Summary ---
Author Organization [facility] Address [address] [place] [address] Care Team Providers Care Deputy Sheriff/Investigator Name Role Phone Unavailable Primary Care Provider Unavailabl e Encounter Details Date Type Department Care Team (Late st Contact Info) Description 06/03/2017 Lab Requisition [facility] Specimens [address] [place] [address] Lab Provider, No Fax Encounter for examination [...] Antigen Negative Negative 06/03/2017 12:57 PM EDT [facility] Culture BLOOD SPECIMEN / Unknown 06/02/2017 4:52 PM EDT 06/03/2017 10:11 AM EDT us No Fax Lab Provider MICROBIOLOGY - GENERAL ORDER DENNISE Final Result [facility] [address] [phone] documented in this encounter Visit Diagnoses Diagnosis Encounter for examination and observation for unspecified reason documented in this encounter
--- OUTSIDE RECORDS SUMMARY | 2025-05-27 08:45 | XMS_ITS | Encounter Summary ---
Author Organization [facility] Address [address] [place] [address] Care Team Providers Care Way Inspector Name Role Phone Unavailable Primary Care Provider Unavailabl e Reason for Referral * Consultation (Routine) - Closed Specialty Diagnoses / Procedures Referred By Contac t Referred To Contact Pulmonary Disease Diagnoses Cough Bronchiectasis without complication (HC Code) (HC CODE) Multiple pulmonary nodules Referral, Self [facility] [address] [place] [address], [address] [facility], [address] [place] [address] Phone: tel: fax: Referral ID Status Reason Start Date Expiration Date Visits Re quested Visits Authorized [id number] Closed 06/19/2017 06/19/2018 1 1 Encounter Details Date Type Department Care Team (Latest Contact Info) Description 06/19/2017 Transcribed Orders Referral Link Providers [address] [place] [address] Referral, Self Cough (Primary Dx); Bronchiectasis without [...] Cough- Primary Bronchiectasis without complication (HC Code) (HC CODE) Bronchiectasis without acute exacerbation Multiple pulmonary nodules Other nonspecific abnormal finding of lung field documented in this encounter
--- OUTSIDE RECORDS SUMMARY | 2025-05-27 08:45 | XMS_ITS | Patient Health Record ---
Author Organization [facility] Address [address] [place] [address] Care Team Providers Care Russian Teacher Name Role Phone Kofi (RETIRED) Kris SEGOVIA Primary Care Provide r Guillaume Marie Unavailable [phone] Allergies Allergen (clinical drug ingredient) Drug/Non Drug Allergy documented on EMR Reaction Allergy Type Onset Date Status seasonal (uncoded) Unknown Allergy A ctive Reason For Referral No Information Medications Medication SIG (Take, Route, Frequency, Duration) Notes Start Date End Date Status Spiriva HandiHaler 18 MCG inhale the con tents of one capsule in the handihaler once daily Inhalation; Duration: 30 Active ProAir HFA 108 (90 Base) MCG/ACT inhale 2 puffs by mouth every 6 hours if needed for shortness of breath Inhalation; Duration: 24 Active MoviPrep 100 GM as directed Orally a s directed; Duration: 1 dose 03/09/2014 Activ e Symbicort 160-4.5 MCG/ACT inhale 2 puffs by mouth twice a day RINSE MOUTH AFTER DOSE Inhalation; Duration: 30 Active Problems Problem Type SNOMED Code ICD Code Onset Dates Problem Status W/U Status Risk Notes Problem Blood in stool (127541851) Blood in stool (578.1) Active confirmed Plan Of Treatment Future Test Test Name Order Date COLONOSCOPY 03/09/2014 Insurance Providers Payer Name Payer Address Payer Phone Subscriber Number Group Number Insured Name Patient Relationship to Insured Coverage Start Date Coverage End Date [facility] [address] [place] [address] [id number] PARUL SMITH Self - patient is the insured Medical (General) History Medical History History ICD Code Denies [place],DM,CVA, renal disease Lung disease and cough---See s Dr. Dixon in [place]--had a bronchoscopy--saw Dr Maravilla @ [facility] for a 2nd opinion--has a F/U appt on 03/23/14 Surgical History Surgery Date(Month/Year) Deviated septum repair X 2 Facial surgery--in relation to trauma--f racture and laceration
--- OUTSIDE RECORDS SUMMARY | 2025-05-27 08:45 | XMS_ITS | Encounter Summary ---
Author Organization [facility] Address [address] [place] [address] Care Team Providers Care Electrical Appliance Repairer Name Role Phone Unavailable Primary Care Provider Unavailabl e Encounter Details Date Type Department Care Team (Late st Contact Info) Description 06/03/2017 Lab Requisition [facility] Specimens [address] [id number] Lab Provider, No Fax Encounter for examination [...]
--- OUTSIDE RECORDS SUMMARY | 2025-05-27 08:45 | XMS_ITS | Clinical Summary ---
Author Organization [address] Address [address] [place] [address] Care Team Providers Care Training Technician Name Role Phone Unavailable Primary Care Provider [...] 2 Dose Standard Series) 2014 Influenza vaccine 03/17/2025 Covid-19 vaccine series (1 - season) 2025 RSV Immunization (1 - 1-dose 75+ series) 12/05/2039 Meningococcal B Vaccine Aged Out No l onger eligible based on patient's age to complete this topic Meningococcal Vaccine Aged Out No martínez javid eligible based on patient's age to complete this topic
[2025-05-27 09:10] LABS: MANUAL DIFF FLAG NO
[2025-05-27 10:19] LABS: Hematocrit 46.6 % (42.0-52.0); Hemoglobin 15.3 g/dl (14.0-18.0); Imm Gran Abs Auto 0.01 X10*3/uL (0.00-0.03); Imm Gran Pct Auto 0.2 % (0.0-0.4); Lymphocytes Absolute Auto 1.3 X10*3/uL (1.2-4.9); Mean Corpuscular HGB Conc 32.8 g/dl (31.0-36.0); Mean Corpuscular Hemoglobin 30.0 pg (27.0-33.0); Mean Corpuscular Volume 91.4 fL (80.0-98.0); NRBC Abs Auto 0.000 X10*3/uL (0.0-0.012); NRBC Pct Auto 0.0 /100WBC (0.0-0.2); Platelet Count 219 X10*3/uL (160-400); Red Blood Count 5.10 X10*6/uL (4.60-5.80); White Blood Count 4.5 X10*3/uL (4.8-10.8)
[2025-05-27 11:03] LABS: Appearance Urine Clear; Glucose Urine UA Negative (Negative); PH 6.5 (5.0-9.0); Specific Gravity - Urine 1.020 (1.005-1.025); UMIC TRIGGER UACC YES
[2025-05-27 11:43] LABS: UACC Culture Trigger YES
[2025-05-27 12:09] LABS: Alanine Aminotransferase 20 U/L (0-40); Albumin Level 4.3 g/dL (3.5-5.0); Alkaline Phosphatase 81 U/L (39-117); Anion Gap 11 (12-20); Aspartate Amino Transferase 18 U/L (5-37); Blood Urea Nitrogen 16 mg/dL (9-16); Calcium 9.1 mg/dL (8.4-10.2); Carbon Dioxide 29 mmol/L (22-29); Chloride 104 mmol/L (96-108); Cholesterol 238 mg/dL (<200); Estimated Glomerular Filt Rate > 60; HDL Cholesterol 54 mg/dL (>40); Potassium 4.3 mmol/L (3.3-5.1); Sodium 140 mmol/L (135-145); Total Protein 7.0 g/dL (6.5-8.0); Triglycerides 78 mg/dL (<150)
== END 2025-05-27 08:43 | disposition home or self-care (01) ==
LOC: HO.LAB 08:42
PROVIDERS: PCP Internal Medicine; Visit Provider Internal Medicine
DX: R30.0 Dysuria (principal); E78.00 Pure hypercholesterolemia, unspecified; E55.9 Vitamin D deficiency, unspecified; D64.9 Anemia, unspecified
CPT/HCPCS: 36415; 80053; 80061; 81001; 81003; 82306; 84443; 85025; 87086

== ENCOUNTER 2025-07-25 15:32 | Outpatient (AMB) | payer BC, SELFPAY ==
--- NOTE | 2025-07-25 15:38 | A.OFFPC_ITS ---
Vital Signs 07/25/25 15:40 Height 5 ft 11 in Weight 185 lb 6 oz BMI 25.9 BP 122/72 Blood Pressure Location Lt brachial Position Sitting Pulse 53 Pulse Source Pulse Oximeter Temp 97.3 F Temp Source Temporal Artery Scan Pulse Oximetry (%) 96 Oxygen Delivery Method Room Air Intake Visit Reasons: 4 Month follow up Intake Note: Patient is here to follow up on COPD, Hypercholesterolemia. Assistant Financial Accountant Required: No Nurse Informatics Educator: Not Required per policy Accompanied by: Self / Same As Patient Allergies pollen extracts (POLLEN) Allergy (Unknown, Verified 07/25/25 15:57) RUNNY NOSE SNEEZING mold Allergy (Unknown, Uncoded 07/25/25 15:57) Runny Nose N.K.D.A. Allergy (Unknown, Uncoded 07/25/25 15:57) Unknown pollen Allergy (Unknown, Uncoded 07/25/25 15:57) Runny Nose Medication List - Last Reconciled 07/25/[address]oney MD albuterol sulfate 90 mcg/actuation 2 puffs inhalation Q6H PRN atorvastatin 10 mg PO BEDTIME budesonide-formoterol 160-4.5 mcg/actuation (Symbicort) 1 inh inhalation BID bupropion HCl SR 150 mg PO QAM gabapentin 300 mg PO TID hydroxyzine HCl 25 mg PO TID PRN prazosin 2 mg PO BEDTIME PRN sertraline 100 mg PO DAILY Tobacco use date assessed: 07/25/25 Dental Screening Dental Screen Date: 03/23/25 HPI 4 Month follow up HPI Details Patient comes in today for his follow up visit States that he feels okay He denies any headaches or dizziness Denies any chest pains; states that he still has occasional bouts of palpitations but these have not been occurring as often as they used to He denies any SOB No nausea/vomiting, no abdominal pain but reports that he feels bloated often lately No change in bowel habits noted Adds that he has a patch of itchy rash over both knees for a while now and is concerned that they could be a psoriatic rash [facility] that [facility] a [facility] for his check up He had his follow up labs done a couple of months ago - to discuss his results Adds that he thinks that it is time again for him to get a repeat colonoscopy for colon cancer screening purposes [facility] Medical History (Updated 07/26/25 @ 00:[address] MD) Overweight (BMI 25.0-29.9) Pure hypercholesterolemia COPD (chronic obstructive pulmonary disease) Lipoma of arm Anxiety Depression COVID-19 Chronic neck pain Carpal tunnel syndrome of right wrist Surgical History (Updated 07/25/25 @ 15:43 by CANDELARIO Mckeon) History of bilateral cataract surgery S/P excision of lipoma (~05/18/24) Social History Housing: House Alcohol intake: never Patient Tobacco Use Status: Former Tobacco user e-Cigarette/Vaping Use: Never Used Second Hand Smoke Exposure: Yes service: Yes Current occupational status: employed Current occupational exposures/hazards: Yes Cognitive needs: No Hearing needs: No Vision needs: Yes Questionnaire Thrive Questionnaire Date Thrive assessed: 11/14/24 I am a: Patient What is your living situation today?: I have a steady place to live Within the past 12 months, did the food you bought not last and you didn't have the money to get more?: Never true Within the past 12 months, did you worry whether your food would run out before you got money to buy more?: Never true Do you have trouble paying for medicines?: No Do you have trouble getting transportation to medical appointments?: No Do you have trouble paying your heating and electricity bill?: No Do you have trouble taking care of your child, family member or friend?: No Do you have trouble with day-to-day activities such as bathing, preparing meals, shopping, managing finances, etc.?: I choose not to answer this question Are you currently unemployed and looking for a job?: No Are you interested in more education?: No Please select the resources that you would like help with: None Currently or been in a relationship where the following occur: I choose not to answer THRIVE Score: 0 JOSE-7 AMB Questionnaire JOSE-7 Date JOSE - 7 assessed: 03/23/25 Source: Developed by Drs. Guillaume Bloom, Krysten Jett, Fabian Evangelista and colleagues, with an educational jeevan from [employer]. Review of Systems Const Denies chills, Reports difficulty sleeping, Denies fatigue, Denies fever(s) and Denies headache(s) ENT Denies dysphagia, Denies dizziness, Denies otalgia, Denies headache(s), Denies neck pain, Denies odynophagia and Denies sore throat Card Denies chest pain, Reports palpitations (on and off ) and Denies dyspnea Resp Denies chest congestion, Denies cough and Denies dyspnea GI Denies abdominal pain, Reports bloating, Denies constipation, Denies dysphagia, Denies heartburn, Denies diarrhea, Denies nausea, Denies odynophagia and Denies vomiting Denies difficulty urinating, Denies dysuria, Denies nocturia and Denies urinary frequency Musc Denies back pain and Denies neck pain Skin/Breast Reports rash (quarter-sized patch of scaling/dry rash over both patellar areas) Neuro Denies dizziness and Denies headache(s) Psych Reports anxiety, Reports depression and Reports difficulty concentrating Endo Denies fatigue and Reports palpitations (on and off ) Physical exam (Primary Care) Vital Signs: Last Vital Signs Temp 97.3 F 07/25/25 15:40 Pulse 53 07/25/25 15:40 BP 122/72 07/25/25 15:40 Pulse Ox 96 07/25/25 15:40 Oxygen Delivery Method Room Air 07/25/25 15:40 BMI result Body Mass Index 25.9 Tobacco/Smoking Status: Tobacco use Status Tobacco use date assessed 07/25/25 07/25/25 15:45 Patient Tobacco Use Status Former Tobacco user 07/25/25 15:45 e-Cigarette/Vaping Use Never Used 07/25/25 15:45 Thrive Assessment: Date of Thrive Assessment Date Thrive assessed 11/14/24 07/25/25 15:45 Currently or been in a relationship where the following occur: I choose not to answer Const General: no acute distress and alert HENMT Ears: TM's normal bilaterally and EAC's normal Throat: Yes posterior oropharynx normal and Yes tonsils normal (no TP congestion) Neck Neck: Yes supple and No lymphadenopathy Thyroid: Thyroid normal Resp Auscultation: clear to auscultation bilaterally, no crackles, no rales and no wheezes Cardio Rate: regular rate Rhythm: regular rhythm Heart sounds: no murmurs GI Palpation (GI): Soft to palpation and nontender Auscultation: normal bowel sounds General: Yes no CVA tenderness Back/Spine/Pelvis Back: no CVA tenderness Thoracic/Lumbar Spine: No lumbar spinal tenderness Skin Other: (+) large patch of hypopigmented, scaling rash over the patellar areas on both knees Extrem General: Yes no clubbing, cyanosis or edema Results Reviewed Results Reviewed: Laboratory Tests 05/27/25 05/27/25 09:05 09:07 WBC 4.5 L Hgb 15.3 Hct 46.6 Plt Count 219 Sodium 140 Potassium 4.3 Creatinine 0.96 Estimated GFR > 60 Fasting Glucose 102 H Calcium 9.1 AST 18 ALT 20 Triglycerides 78 Cholesterol 238 H LDL Cholesterol, Calc 169 H HDL Cholesterol 54 25-OH Vitamin D Total 24.2 L TSH 2.66 Ur Specific [place] 1.020 Urine Protein Negative Urine Glucose (UA) Negative Urine Blood Negative Urine Nitrite Negative Ur Leukocyte Esterase Small (1+) H Coding Level of Care Code Est Pt Level 4 (68456) Diagnoses Intermittent palpitations R00.2 Pure hypercholesterolemia E78.00 Chronic obstructive pulmonary disease, unspecified COPD type J44.9 COPD type: unspecified COPD Eczema, unspecified type L30.9 Eczema type: unspecified Difficulty concentrating R41.840 Anxiety F41.9 Episode of recurrent major depressive disorder, unspecified depression episode severity F33.9 Depression Type: major depressive disorder Major depression recurrence: recurrent Active/Remission status: currently active Major depression episode severity: unspecified Overweight (BMI 25.0-29.9) E66.3 Colon cancer screening Z12.11 Assessment & Plan Assessment & Plan (1) Intermittent palpitations: Code(s): R00.2 - Palpitations Category: Medical Plan: 12 lead EKG done back in April 2025 revealed (+) sinus bradycardia with occasional PVCs and nonspecific T-wave abnormality Echocardiogram done in April 2025 revealed a hyperdynamic left ventricular systolic function with a calculated ejection fraction at 72%. There is no evidence of regional wall motion abnormalities and diastolic function is normal for age. No obvious valvular pathology was seen on this study Will go ahead and refer him to Cardiology for further evaluation and management (2) Pure hypercholesterolemia: Code(s): E78.00 - Pure hypercholesterolemia, unspecified Category: Medical Plan: Results of his labs done a couple of months ago reviewed and discussed with steve ent - have cautioned patient that his cholesterol levels have increased significantly on his recent labs Reinforced low cholesterol diet Patient admitted to running out of his prescription and he has not taken his cholesterol medication in a while Will start him back on Atorvastatin and will increase him from his previous 10 mg to 20 mg QD Will have him recheck his labs and fasting lipids in 4 months for follow up (3) COPD (chronic obstructive pulmonary disease): Code(s): J44.9 - Chronic obstructive pulmonary disease, unspecified Category: Medical Qualifiers: COPD type: unspecified COPD Qualified Code(s): J44.9 - Chronic obstructive pulmonary disease, unspecified Plan: Controlled Continue Symbicort 160-4.5 mcg 1 inhalation BID and Albuterol HFA 1 to 2 inhalations Q 6 hours PRN (4) Eczema: Code(s): L30.9 - Dermatitis, unspecified Category: Medical Qualifiers: Eczema type: unspecified Qualified Code(s): L30.9 - Dermatitis, unspecified Plan: Over both knees Will start patient on Clobetasol 0.05% cream to apply to the rash/lesion on his knees BID PRN (5) Difficulty concentrating: Code(s): R41.840 - Attention and concentration deficit Category: Medical Plan: Patient suspects that he may have ADD but states that he was never formally evaluated or treated He has been referred for neuropsychiatry evaluation previously and is still waiting for an appointment to be seen (6) Anxiety: Code(s): F41.9 - Anxiety disorder, unspecified Category: Medical Plan: Continue Hydroxyzine 25 mg TID PRN and Bupropion SR 150 mg Q AM (7) Depression: Code(s): F32.A - Depression, unspecified Category: Medical Qualifiers: Depression Type: major depressive disorder Major depression recurrence: recurrent Active/Remission status: currently active Major depression episode severity: unspecified Qualified Code(s): F33.9 - Major depressive disorder, recurrent, unspecified Plan: Continue Sertraline 100 mg QD, Prazosin 2 mg Q HS PRN, Gabapentin 300 mg TID and Bupropion SR 150 mg Q AM Follow up with psychiatry as scheduled (8) Overweight (BMI 25.0-29.9): Code(s): E66.3 - Overweight Category: Medical Plan: Reinforced diet/exercise as tolerated/lose weight (9) Colon cancer screening: Code(s): Z12.11 - Encounter for screening for malignant neoplasm of colon Category: Medical Plan: Will refer patient to GI for repeat colonoscopy Plan Follow up in 4 months Orders: Orders Complete Blood Count Auto Diff 4 Months D64.9 - Anemia, unspecified Comprehensive [place]. Panel Fast 4 Months E78.00 - Pure hypercholesterolemia, unspecified Lipid Panel 4 Months E78.00 - Pure hypercholesterolemia, unspecified TSH reflex Free T4 4 Months E78.00 - Pure hypercholesterolemia, unspecified UA CC w/rflx Micro + Cult 4 Months R30.0 - Dysuria Vitamin D 25-OH Total 4 Months E55.9 - Vitamin D deficiency, unspecified Referrals Cardiology Referral R00.2 - Palpitations Gastroenterology Referral Z12.11 - Encounter for screening for malignant neoplasm of colon Medications: New clobetasol 0.05% 1 appl topical BID PRN 45 grams 1RF rash 2 weeks Changed From atorvastatin 10 mg PO BEDTIME To atorvastatin 20 mg PO BEDTIME 90 tabs 1RF 90 days
[2025-07-25 15:40] VITALS: BP 122/72; PULSE 53; TEMP 36.3; O2SAT 96; BMI 25.9
--- OUTSIDE RECORDS SUMMARY | 2025-07-25 22:17 | XMS_ITS | Patient Health Record ---
Author Organization [facility] Address [address] [place] [address] Care Team Providers Care Corporate Safety Manager Name Role Phone Kofi (RETIRED) Kris SEGOVIA Primary Care Provide r Guillaume Marie Unavailable [phone] Allergies Allergen (clinical drug ingredient) Drug/Non Drug Allergy documented on EMR Reaction Allergy Type Onset Date Status seasonal (uncoded) Unknown Allergy A ctive Reason For Referral No Information Medications Medication SIG (Take, Route, Frequency, Duration) Notes Start Date End Date Status Spiriva HandiHaler 18 MCG Capsule inhale the contents of one capsule in the handihaler once daily Inhalation; Duration: 30 Active ProAir HFA 108 (90 Base) MCG/ACT Aerosol Solution inhale 2 puffs by mouth every 6 hours if needed for shortness of breath Inhalation; Duration: 24 Active MoviPrep 100 GM Solution as directed Ora lly as directed; Duration: 1 dose 03/09/2014 Activ e Symbicort 160-4.5 MCG/ACT Aerosol inhale 2 puffs by mouth twice a day RINSE MOUTH AFTER DOSE Inhalation; Duration: 30 Active Social History Social History Additional Details Category Social Info Options Details Miscellaneous: Marital status: Occupation: [employer] Notes: Nonsmoker since 2009; occasi onal alcohol Problems Problem Type SNOMED Code ICD Code Onset Dates Problem Status W/U Status Risk Notes Problem Blood in stool (601278984) Blood in stool (578.1) Active confirmed Plan Of Treatment Future Test Test Name Order Date COLONOSCOPY 03/09/2014 Insurance Providers Payer Name Payer Address Payer Phone Subscriber Number Group Number Insured Name Patient Relationship to Insured Coverage Start Date Coverage End Date [facility] [employer] [address] [place] [address] [id number] Eliezer PARUL SMITH Self - patient is the insured Medical (General) History Medical History History ICD Code Denies VT,DM,CVA, renal disease Lung disease and cough---See s Dr. Dixon in [place]--had a bronchoscopy--saw Dr Maravilla @ [facility] for a 2nd opinion--has a F/U appt on 03/23/14 Surgical History Surgery Date(Month/Year) Deviated septum repair X 2 Facial surgery--in relation to trauma--f racture and laceration
--- OUTSIDE RECORDS SUMMARY | 2025-07-25 22:17 | XMS_ITS | Encounter Summary ---
Author Organization [facility] Address [address] [place] [id number] Care Team Providers Care Data Transcriber Name Role Phone Unavailable Primary Care Provider Unavailabl e Encounter Details Date Type Department Care Team (Late st Contact Info) Description 06/03/2017 Lab Requisition [facility] Laboratory Specimens [address] [phone] Lab Provider, No Fax Encounter for examination [...]
--- OUTSIDE RECORDS SUMMARY | 2025-07-25 22:17 | XMS_ITS | Clinical Summary ---
Author Organization [facility] Address [address] [place] [address] Phone Care Team Providers Care Mechanical Test Technician Name Role Phone Kris Kirby DO Primary Care Provider Allergies No known active allergies Active Problems Problem Noted Date Diagnosed Date Interstitial lung disease 02/06/2014 Overview (10/06/2014): Interstitial lung disease Immunizations Immunization Administration Dates Next Due Influenza Nasal, Unspecified Formulation 02/06/2014(Deferred: Other - , Ordered By: [id number]) Social History Tobacco Use Types Packs/Day Years Used Date Smoking Tobacco: Former Sex and Gender Information Value Date Recorded Sex Assigned at Not on file Legal Sex Male 4:07 PM EDT Gender Identity Not on file Sexual Orientation Not on file Plan of Treatment Not on file Medical Devices Not on file [facility] POS HMO POS HMO POS HMO POS HMO POS HMO [place] [address] [place] [address] HMO POS Care Teams Mechanical Test Technician Relationship Specialty Start Date End Date Kris Kirby DO [address] [place] [id number] PCP - General 02/14/14 Additional Source Comments The information contained in this document represents components of the legal health record. It is not the complete legal health record.[facility]
--- OUTSIDE RECORDS SUMMARY | 2025-07-25 22:17 | XMS_ITS | Encounter Summary ---
Author Organization [facility] Address [address] [place] [phone] Care Team Providers Care Geographic Information Systems Manager Name Role Phone Unavailable Primary Care Provider Unavailabl e Reason for Referral * Consultation (Routine) - Closed Specialty Diagnoses / Procedures Referred By Contac t Referred To Contact Pulmonary Disease Diagnoses Cough Bronchiectasis without complication (HC Code) (HC CODE) Multiple pulmonary nodules Referral, Self [facility] [address] [place] [address], 2nd floor [facility], [address] [place] [address] Phone: tel: fax: Referral ID Status Reason Start Date Expiration Date Visits Re quested Visits Authorized [id number] Closed 06/19/2017 06/19/2018 1 1 Encounter Details Date Type Department Care Team (Latest Contact Info) Description 06/19/2017 Transcribed Orders Referral Link Providers [address] [place] [id number] Referral, Self Cough (Primary Dx); Bronchiectasis without [...]
--- OUTSIDE RECORDS SUMMARY | 2025-07-25 22:17 | XMS_ITS | Clinical Summary ---
Author Organization [address] Address [address] [place] [phone] Care Team Providers Care Scaffold Worker Name Role Phone Unavailable Primary Care Provider [...]
--- OUTSIDE RECORDS SUMMARY | 2025-07-25 22:17 | XMS_ITS | Data Portability ---
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 Questions regarding the recovery of the [...] - RM 107 LT THUMB 3V 024 [facility], [address], [place], [address], 4 16:42:05 XR, hand, 3 or more view - RM 107 LT THUMB 3V 024 024 rmessenger [facility], [address], [address], [place], [address], 4 14:39:16 Medication Orders None recorde d. Patient TargetsNo targets recorded. Patient Instructions Encounter Date Encounter Id Patient Instructions Last Modified By Organization Details Last Modified Time 06/09/[id number] application of cast, thumb spica* - RM 107 SHORT ARM THUMB SPICA CAST IPJ SOFT jdrenga Not available 06/09/2024 16:39:46 06/10/20245291300 application of cast, thumb spica* - RM 107 SHORT ARM THUMB SPICA CAST IPJ SOFT [email or web address] Not available 06/13/2024 16:45:31 06/20/2024 [id number] cast removal* - rm.109 cast removal jdrenga [...] a4ajBk vP9nXo QUaueC m3YtLR FvZlgJ JJ8mAn HZtai3 9p2115 AC0Kqa H2MWaW nKiQtr MwF INTERFACE [facility] [address], [place], [address], 06/09/2024 14:43:33 06/09/2006/09/2024 XR, hand, 3 or more view http:/ [email or web address] ?Encry pted=s hAaTro YD8dLq bEUv6g %2BXZw aYqtaq 0bqfl% 2Fg9IQ a4ajBk vP9nXo QUaueC m3YtLR FvZlgJ JJ8Bayonne HZtai3 3j7400 AC0Kqa H2MWaW nKiQtr MwF INTERFACE [facility] [address], [place], [address], 06/09/2024 14:43:35 Result Notes Documentation Provider Name and Address Organization Details Recorded Time Xr, Hand, 3 Or More View : [email or web address] Encrypted=ftFiXqqPZ2lHvyZ Uv6g%0FZOnjNvsis9neol%2Fg 1JBs4fyEmgO1uCzKWcwbWk8Oh QRQfWxlTWP1dHeMKvfg94g681 8OF9HleU3ZGwDfZbRhzZxE Not Available [employer] 06/09/2024 14:43: 34 Xr, Hand, 3 Or More View : [email or web address] Encrypted=piYcJhoRR8vZxpT Uv6g%3JUJtlKkbbg4ocrt%2Fg 5CQq0ktZnvS5kKjXUsphBz5Uu HUJoFkpYGS6kEzXXaci22d887 0NO1DuyC4SUeUmGdPjoUhB Not Available [facility] 06/09/2024 14:43: 36 Problems Name Problem SNOMED Code Status Onset Date Resolution Date Notes Provider Name and Address Organization Details Recorded Time No complaint s 420454483 Active Status: 'I'; Not Available [facility] 4 09:17:37 Pain of right wrist 036570137578 100 Active 2018 Problem Code: M25.531; Problem Code Type: ICD-10; Status: 'A'; Not Available [facility] 4 11:42:34 Pain of left hand 381321698848 103 Active 2023 Kiera Donaldson, HEAD CHARRER [address], [facility] [place], [address] , [facility] 4 15:33:45 Problem Notes None recorded. Procedures Surgical History Date Name Laterality Status Provider Name and Address Organization Details Recorded Time 06/10/20 24 Cast_Thumb Spica_11+ completed [facility] 06/10/2024 09:31:36 06/10/20 24 Cast Removal [facility] 06/10/2024 09:30:14 05/27/20 24 ARTHROPLASTY, INTERPOSITION, INTERCARPAL OR CARPOMETACARPAL JOINTS (SURG) completed ELI CUELLAR [facility] 05/27/2024 14:33:40 Imaging Results None recorded. [...] Updated DateTime 08/22/2024 180.34 cm 23.7 kg/m2 97202.7 g DENNIS EUGENE [facility] 08/22/2024 15:11:55 Date Recorded Body height Body mass index (BMI) Body weight Provider Name and Address Organization Details Last Updated DateTime 01/04/2024 180.34 cm 23.7 kg/m2 61009.7 g ISAEL PARK [facility] 01/04/2024 14:46:25 Date Recorded Body height Body mass index (BMI) Body weight Body temperature Provider Name and Address Organization Details Last Updated DateTime 06/09/2024 180.34 cm 23.7 kg/m2 41102.7 g 97.7 [degF] DENNIS DIEHLRERA [facility] 06/09/2024 14:39:30 Date Recorded Body height Body mass index (BMI) Body weight Provider Name and Address Organization Details Last Updated DateTime 06/20/2024 180.34 cm 23.7 kg/m2 03819.7 g shikha alvarado [facility] 06/20/2024 14:59:25 Social History None recorded. Functional Status None recorded. Mental Status None recorded. Family History Nothing Reported. Medical History No medical history recorded. Past Encounters Encounter ID Performer Location Encounter Start Date Encounter Closed Date Diagnosis/Indication Diagnosis SNOMED-CT Code Diagnosis ICD10 Code Diagnosis IMO Codes Diagnosis Note [id number] MD Jennifer Toro [address] [place] [address] [address] [place] [address] 11/16/2023 08:57:10 12/09/2023 14:21:45 Carpal tunnel syndrome of left wrist 0256437210 47512 G56.02 Ulnar nerv e entrapment at elbow 008444556 G56.22 Osteoarthr osis of the carpometacarpal joint of the thumb 19992423 M18.9 Pain in fi nger of left hand 6467122897 11875 M79.651 [id number] MD Jennifer Toro [address] [place] [address] [address] [place] [address] 01/04/2024 14:28:13 01/25/2024 11:42:11 Osteoarthrosis of the carpometacarpal joint of the thumb 61540739 M18.9 [id number] Kiera Donaldson CNP [facility] [address] [place] [address] 06/09/2024 14:01:40 06/28/2024 14:39:15 Postoperative visit 838100740 Z48.89 [id number] Surgical follow-up 98211 4000 Z09 [id number] Kiera Donaldson CNP [facility] [address] [place] [address] 06/10/2024 09:13:22 06/10/2024 09:35:33 Postoperative visit 978869249 Z48.89 [id number] Surgical follow-up 40523 4000 Z09 [id number] Kiera Donaldson CNP [facility] [address] [place] [address] 06/20/2024 14:17:10 07/07/2024 14:24:25 Carpal tunnel syndrome of left wrist 3952615959 95215 G56.02 [id number] Kiera Donaldson CNP [facility] - [facility] [address] [place] [address] 08/22/2024 15:06:19 09/06/2024 07:45:30 Health Concerns Section Related Observation LastModified by Organization Detai ls LastModified Time None Recorded Concern Status LastModified by Organization Details LastModified Time None Recorded Advance Directives Directive None Recorded Payers Insurance Date Sequence Insurance Name Policy Number Policy Pérez Covered Member ID Pérez Member ID Guarantor Name 06/09/2024 1 () Paresh Escalona [id number] Paresh Escalona 06/09/2024 1 () Paresh Escalona [id number] Paresh Escalona 09/06/2024 OPT - [facility] Paresh Escalona [id number] Paresh Escalona Notes Date Note Type Note [...] we reviewed previously. Courtney Sales MD [address] [facility], [place], [address], [facility] 01/04/2024 15:54:56 06/09/2024 text/html ROS as noted in the HPI Rocco is a 58-year-old gentleman status post first CMC arthroplasty on the left done by Dr. Sales May 27, 2024. Overall progressing nicely he is here today for follow-up. Kiera Donaldson CNP [address] [facility], [place], [address], [facility] 06/09/2024 15:21:32 06/20/2024 text/html ROS as noted in the HPI Rocco is a very pleasant 58-year-old gentleman who is here today for follow-up of his left first CMC. He had left first CMC arthroplasty done by Dr. Sales May 27, 2024. Overall progressing nicely he is here today for follow-up.He has been in a short arm cast. Kiera Donaldson CNP [address], [place], [address], [facility] 06/20/2024 15:35:23 [...] making excellent progress Kiera Donaldson CNP [address], [place], [address], [facility] 08/22/2024 16:09:02
--- OUTSIDE RECORDS SUMMARY | 2025-07-25 22:17 | XMS_ITS | Encounter Summary ---
Author Organization [facility] Address [address] [place] [address] Care Team Providers Care Emergency Department Coordinator Name Role Phone Unavailable Primary Care Provider Unavailabl e Encounter Details Date Type Department Care Team (Late st Contact Info) Description 06/03/2017 Lab Requisition [facility] [address] [place] [address] Lab Provider, No Fax Encounter for examination [...] DENNISE Final Result [facility] [address] [phone] documented in this encounter Visit Diagnoses Diagnosis Encounter for examination and observation for unspecified reason documented in this encounter
== END 2025-07-25 16:17 | disposition home or self-care (01) ==
LOC: HO.HMCH 15:33
PROVIDERS: PCP Internal Medicine; Visit Provider Internal Medicine
DX: R00.2 Palpitations (principal); E78.00 Pure hypercholesterolemia, unspecified; J44.9 Chronic obstructive pulmonary disease, unspecified; L30.9 Dermatitis, unspecified; R41.840 Attention and concentration deficit; F41.9 Anxiety disorder, unspecified; F33.9 Major depressive disorder, recurrent, unspecified; E66.3 Overweight; Z12.11 Encounter for screening for malignant neoplasm of colon